=== PATIENT | male | born 1950 | race Caucasian/White ===

== ENCOUNTER 2022-02-02 08:43 | Outpatient (CLI) | payer BC, SELFPAY ==
--- OUTSIDE RECORDS SUMMARY | 2022-02-02 08:44 | XMS_ITS ---
:1950 Author Care Team Providers Name Role Phone MARICRUZ MCKEON MD Referring Provider [phone] MARICRUZ MCKEON MD Primary Care Provider [phone] Allergies Code Code System Name Reaction Severity Status Onset NKDA ? Medications Name Status Start Date Stop Date ? ? aspirin Active ? Not available 81mg 1/day duloxetine 30 mg capsule,delayed release Active ? Not available 30mg 1/day gabapentin Active ? Not available 800mg 3/day glipizide 2.5 mg-metformin 250 mg tablet Active ? Not available 5mg 1/day hydrochlorothiazide 25 mg tablet Active ? Not available 25mg 1/day lisinopril Active ? Not available 40mg 1/day metformin Active ? Not available 1000mg oxycodone-acetaminophen 10 mg-325 mg tablet Active ? Not available 5mg/325mg rosuvastatin 5 mg sprinkle capsule Active ? Not available 5mg 1/day Trimix 30 papaverine/1 phentolamine/10 PGE-1 Active ? Not available 30 papaverine/1 phentolamine/10 PGE-1 inject intracavernosal as directed PRN for sexual activity warfarin Active ? Not available 13mg every day except Sunday is 15mg 1/day Problems None recorded. Procedures Date Name Performed by ? 09/23/2018 Ct Colonography Screening Information no t available Notes: Computed tomography (CT) colono graphy 09/23/2018 Diagnostic Colonoscopy Information not a vailable Notes: Colonoscopy ? Excise Epiphyseal Bar Information not av ailable Notes: Bone Repair Surgery Results Lab Results None recorded. Past Encounters 01/02/2022 Primary Erectile Dysfunction Karthikeyan Coombs, PAC: [address] [facility], [facility] [address], [place] [address], Ph. Social History Tobacco Smoking Status Former Smoker Vaccine List Vaccine Type COVID-19 (SARS-COV-2) vaccine, unspecifi ed 12/13/2021 influenza, unspecified formulation 03/25/2021 Plan of Care Reminders Provider Appointments None recorded. ? ? Lab None recorded. ? ? Referral None recorded. ? ? Procedures None recorded. ? ? Surgeries None recorded. ? ? Imaging None recorded. ? ? Vitals Height Weight BMI 6 ft 262 lbs 35.5 kg/m2
--- OUTSIDE RECORDS SUMMARY | 2022-02-02 08:44 | XMS_ITS | Encounter Summary ---
:1950 Author Care Team Providers Name Role Phone Cameron Aldridge MD Primary Care Provider [phone] Cameron Aldridge MD Referring Provider [phone] Reason for Visit Erectile Dysfunction Assessment and Plan 1. Primary erectile dysfunction ? Trimix 30 papaverine/1 phentolamine/1 0 PGE-1 Discussion Note 71 y/o male presents for an evaluation of ED. Educated on etiology of ED (hormonal, ne rve function, blood supply, psychological, medications). Discussed diagnostics such as penile US and testosterone labs. Educated on treatment options such as PDE- 5 inhibitors, penile injections, muse (u rethral suppository), vacuum erection device (MARYURI), and penile implant (IPP). Patient interested in trial of penile self injections. Displayed good injection technique. Inst ructed to trial 0.2 cc at home with higher concentration. Titrate up or down as tolerated and needed for desired response. Provided hand out on penile injections. Discussed risks of priapism and scar ti ssue development. Patient to call with questions or concer ns. Patient educational handouts: No information available. Plan of Care Reminders Provider Appointments Established 15 06/05/2022 9:30AM Karthikeyan treviño, PAC Lab None recorded. ? ? Referral None recorded. ? ? Procedures None recorded. ? ? Surgeries None recorded. ? ? Imaging None recorded. ? ? Medications Name Start Date ? ? aspirin ? 81mg 1/day duloxetine 30 mg capsule,delayed release ? 30mg 1/day gabapentin ? 800mg 3/day glipizide 2.5 mg-metformin 250 mg tablet ? 5mg 1/day hydrochlorothiazide 25 mg tablet ? 25mg 1/day lisinopril ? 40mg 1/day metformin ? 1000mg oxycodone-acetaminophen 10 mg-325 mg tablet ? 5mg/325mg rosuvastatin 5 mg sprinkle capsule ? 5mg 1/day Trimix 30 papaverine/1 phentolamine/10 PGE-1 ? 30 papaverine/1 phentolamine/10 PGE-1 inject intracavernosal as directed PRN for sexual act ivity warfarin ? 13mg every day except Sunday is 15mg 1/day Medications Administered None recorded. Vitals Height Weight BMI 6 ft 262 lbs 35.5 kg/m2 Results Lab Results None recorded. Allergies Code Code System Name Reaction Severity Onset NKDA ? ? ? Problems None recorded. Procedures Date Name Performed by ? 09/23/2018 Ct Colonography Screening Information no t available Notes: Computed tomography (CT) colono graphy 09/23/2018 Diagnostic Colonoscopy Information not a vailable Notes: Colonoscopy ? Excise Epiphyseal Bar Information not av ailable Notes: Bone Repair Surgery Vaccine List Vaccine Type COVID-19 (SARS-COV-2) vaccine, unspecifi ed 12/13/2021 influenza, unspecified formulation 03/25/2021 Social History Tobacco Smoking Status Former Smoker Has tobacco cessation counseling been provided? Y Preferred Language Maldivian How much tobacco do you chew? none What was the date of your most recent tobacco 01/02/2022 screening? Ethnicity Not / Do you or have you ever used e-cigarettes or Never used elec tronic cigarettes vape? Do you use any illicit or recreational drugs? N When did you quit smoking? 16+ Years Since Last Cigarette How many years have you smoked tobacco? 21 What is your relationship status? What is your level of alcohol consumption? Occasional Do you or have you ever used smokeless tobacco? Never used s mokeless tobacco On what date was tobacco cessation counseling 01/02/2022 provided? Are you sexually active? N What is your level of caffeine consumption? Moderate Do you or have you ever used any other forms of N tobacco or nicotine? Race Recreational Drug Use N Family History Relation Problem Onset Age of Age Notes Mother Family history of (No Information) N/A (No No george) diabetes mellitus Maternal Grandfather Family history of (No Information) N/A (No Notes) diabetes mellitus Father Family history of (No Information) N/A (No No george) cardiac disorder Paternal Grandfather Family history of (No Information) N/A (No Notes) cardiac disorder Functional Status Unknown. Past Encounters 01/02/2022 Primary Erectile Dysfunction Karthikeyan Coombs, PAC: [address] [facility], [place] [address], Ph. History of Present Illness ? Erectile Dysfunction Reported By: Patient Notes: <div>71 y/o male presents fo r an evaluation of erectile dysfunction. He reports difficulty with erec tions for the past 3 years. No preceding event he can associate to th e development of ED. Gradual decline in erectile function since init ial onset. Viagra and Cialis has been ineffective the past year. N o side effects with either medications. No other treatments attempted f or ED. Able to achieve an ehs 2 with inadequate maintenance. No p ain or curvature with erections. Good libido and energy for age. </div><d iv>
</div><div>+diabetes (last A1C: 6.9), HTN (controlled), and high c holesterol (controlled). Denies CAD. </div> Review of Systems ? Comprehensive General Adult ROS Reported By: Patient Constitutional: Constitutional: no fever, no chills Eyes: Eyes: no dry eyes, no vision change, no irritation Endocrine: Endocrine: no fatigue, no in creased thirst Cardiovascular: Cardiovascular: no chest she n, palpitations Integumentary: Skin: no rashes, no change i n skin color Respiratory: Respiratory: no wheezing, no cough, no shortness of breath Gastrointestinal: Gastrointestinal: no abdomin al pain, no nausea, no vomiting, no GERD, constipation; no fr equent diarrhea, Musculoskeletal: Musculoskeletal: no neck she n, no back pain Neurologic: Neurologic: no tremor, no di zziness, no numbness, no headaches Genitourinary: Genitourinary: no incontinen ce, no difficulty urinating; no testicular: pain, no testicu lar: lump, no penile: lesion, no dysuria, no change in urinar y stream, no hematuria ENMT: Ears: no ear pain. Mouth/Thr oat: no sore throat Allergic/Immunologic: Allergy/Immunologic: no itch ing, no hives Hematologic/Lymphatic: Hematologic/Lymphatic no swo llen glands, no excessive bleeding Psychiatric: Psych: no hallucinations, (n ormal) sleep disturbances: mismatch of sleep / wake yanet edule with lifestyle needs Physical Exam ? General Adult Exam Male Reported By: Patient Constitutional: General Appearance: healthy- appearing, well-developed, obese. Level of Distress: NAD. Ambulation : ambulating normally Psychiatric: Insight: good judgement. Men maggi Status: active and alert, normal mood, normal affect. Orienta tion: oriented to time, oriented to place, oriented to person. M alexa: recent memory normal, remote memory normal Lungs: Respiratory effort: no dyspn ea Male : Penis: no lesions, no discha rge, uncircumcised
[2022-02-02 14:04] LABS: Alanine Aminotransferase* 17 U/L (4-50); Cholesterol* 87 mg/dL (90-199); HDL Cholesterol* 31 mg/dL (>=40); LDL Cholesterol Calculated 36 mg/dL (<100); Triglycerides* 102 mg/dL (40-149)
== END 2022-02-02 08:44 | disposition home or self-care (01) ==
PROVIDERS: PCP Family Medicine; Visit Provider Family Medicine
DX: I73.9 Peripheral vascular disease, unspecified (principal)
CPT/HCPCS: 80061; 84460

== ENCOUNTER 2022-08-11 13:40 | Outpatient (CLI) | payer BC, SELFPAY ==
[2022-08-11 21:42] LABS: Albumin* 4.3 g/dL (3.3-5.0); Chloride* 102 mmol/L (96-114)
[2022-08-11 21:43] LABS: Potassium* 4.3 mmol/L (3.6-5.1); Sodium* 138 mmol/L (135-149)
[2022-08-11 21:45] LABS: Alkaline Phosphatase* 59 U/L (40-150); Aspartate Amino Transferase* 28 U/L (12-35); Bilirubin Total* 0.7 mg/dL (0.1-1.5); Blood Urea Nitrogen* 17 mg/dL (7-30); Carbon Dioxide* 28 mmol/L (20-32); Creatinine* 0.9 mg/dL (0.5-1.5); Estimated Glomerular Filt Rate 91 ml/min; Total Protein* 7.1 g/dL (6.0-8.3)
[2022-08-11 21:46] LABS: Alanine Aminotransferase* 18 U/L (4-50); Calcium* 9.4 mg/dL (8.4-10.6); Glucose* 128 mg/dL (60-115)
[2022-08-11 22:16] LABS: PSA Screen* 0.96 ng/mL (0.10-4.00)
[2022-08-11 22:26] LABS: Creatinine Urine 73.5 mg/dL
[2022-08-11 22:30] LABS: Microalbumin Creatinine Ratio 10 mg/g (0-30); Microalbumin Urine 1 mg/dL
== END 2022-08-11 13:41 | disposition home or self-care (01) ==
PROVIDERS: PCP Family Medicine; Visit Provider Family Medicine
DX: Z00.00 Encounter for general adult medical examination without abnormal findings (principal); E11.9 Type 2 diabetes mellitus without complications; I48.91 Unspecified atrial fibrillation; E66.9 Obesity, unspecified; I10 Essential (primary) hypertension; Z79.01 Long term (current) use of anticoagulants; Z12.5 Encounter for screening for malignant neoplasm of prostate
CPT/HCPCS: 80053; 82043; 82570; 84153

== ENCOUNTER 2022-08-25 09:48 | Outpatient (CLI) | payer BC, SELFPAY ==
--- OUTSIDE RECORDS SUMMARY | 2022-09-02 06:59 | XMS_ITS | Continuity of Care Document ---
:1950 Author Organization [facility] Address [address] [place] [address] Phone Care Team Providers Name Role Phone Will Manjinder SUTHERLAND Unavailable Unavailable Allergies, Adverse Reactions, Alerts Substance Reaction Status Criticality No Known Allergies Active No Informatio n Medications Medication Instructions Dosage Effective Dates Status Comment s (start - stop) gabapentin 800 mg tablet take 1 tablet by 800 MG - Activ e oral route 3 times every day metformin 1,000 mg tablet take 1 tablet by 1000 MG - Acti ve oral route 2 times every day with morning and evening meals lisinopril 40 mg tablet take 1 tablet by 40 MG - Active oral route every day warfarin 7.5 mg tablet take 2 tablets by - Active oral route 1 times every day glipizide 10 mg tablet take 1 tablet by 10 MG - Active oral route every day before a meal hydrochlorothiazide 25 mg take 1 tablet by 25 MG - Acti ve tablet oral route every day Percocet 5 mg-325 mg take 1 - 2 tablet 1-2 tablet - Active tablet by ORAL route every 4 hours as needed, max 6/day Procedures Procedure Date OFFICE/OUTPATIENT VISIT, EST Drug test def 22+ classes Drug Urine Toxology With Chromatography OFFICE CONSULTATION Advance Directives Directive Yes / No Effective Date File Name No Information Encounters Encounter Practice Location Reason(s) Diagnoses Date Provider Provide rs Description For Visit Copied on Encounter [facility] No Information [facility] Manjinder. Pain [place] [address] [facility], [place], [address] [facility] [place], [place], [place], [place], [id number] [place], , [place]. [id number] tel: , [place] [phone] tel: [phone] OFFICE/OUTPAT [facility] Widespread Postlaminectomy Aug-0 Darío mariemindi Referring IENT VISIT, [facility] pain (chief syndrome, not Stepan . Provider: EST Pain [place] complaint) elsewhere 9 [address] [facility], [address] [facility] [address] migraine w/o [address] [place] [address] [place], aura, [address], [address] [place], intractable, [address] [place] [address] , [place], status e, [place], [place], [id number] migrainosusOther [id number] [place], [address]. , [place] intervertebral , [place]. tel: 24 tel: disc tel: [phone] degeneration, [id number] lumbar regionLong term (current) use of opiate analgesicOther cervical disc degeneration, unsp cervical region OFFICE [facility] Widespread Postlaminectomy Christal richard CONSULTATION [facility] pain (chief syndrome, not Travi s. Provider: Pain [place] complaint) elsewhere 9 [address] [facility], [address] [facility] , [address] migraine w/o [place], aura, [place], [place], [address] [place], intractable, [address] [id number] , [place], status , [place]. [place], [id number] migrainosusOther tel: [place], [address]. , [place] cervical disc [id number] tel: 24 tel: degeneration, [phone] [id number] unsp cervical regionOther intervertebral disc degeneration, lumbar regionLong term (current) use of opiate analgesicEncount er for therapeutic drug level monitoringSpinal stenosis, lumbar region with neurogenic claudication [facility] Widespread No Information [facility] pain (chief 2 Manjinder. Pain [place] complaint) 9 [address] [facility], [place], [address] [place], [place], [place], [place], [id number] [place], , [place]. [id number] tel: , [place] [id number] tel: [phone] Family History Family Member Type Diagnosis Age At Onset No Information Payers Payer name Insurance type Covered alliance party ID Authorization(s ) [facility] [id number] Social History Type Description Quantity Date Captured Comments Sex Male Smoking Status No Information Chief Complaint And Reason For Visit No Information Reason For Referral Reason For Referral No Information Plan Of Treatment Date Type Action Status Future Order: Lab Order COMPLIANCE DRUG ANALYSIS , URINE, WITH MED Ordered REPORT ([id number]), Ordered on: History Of Present Illness Encounter Date Complaint History Of Present I llness Widespread pain (comments) Adilson is here today for a followup after initial consult rega rding his widespread pain. After discussi on with friends, family, and PCP pt solis lau to express interest in medical cannabis. Requests detailed information regarding product types, CBD versus TH C, and process of certification. Addkandy ionally reports he has lumber KHURRAM scheduled next week at [facility] and inquires about this today.Patient is accompanied today by his , who participates in todamian mayes's visit, and has no further questions or other concerns. Widespread pain Severity level is 7. Duration: chronic. Location of the pain is lower back, upper back, neck, bilatera l shoulder, bilateral wrist, head, bilater al arms and bilateral LE. The patient desc ribes it as sharp, achy, burning and ti ngling. It occurs persistently. The pr oblem is worsening. Symptom is aggravate d by bending, lifting, prolonged positionin g, stairs and walking. Relieving factors in clude sitting, stretching, rest, he at and Rx Meds. Pertinent negatives include diarrhea, fatigue, fever and i ncontinence (urinary). Widespread pain (comments) Adilson is here for initial consult for pain management, referred by PCP Cameron Duong MD at [facility]. His pain began gradually over 20 years ago and has progressively wo rsened over time. C/o constant headaches, in addition to neck and back pain. Has muscl e spasms in BL LE, groin, and ribcage. Primary complaint is his low back, with n julita pain being secondary. His low b ack pain radiates down B/L posterior thighs into calfs. States his pain has particularl y worsened over the last year. Reports p revious cervical diskectomy in 2000, however states he is no longer recommended a s a surgical candidate. Underwent PT at [facility] in 2012-- not helpful. Regularly attends iropractor for neck pain--helpful. Tried both lumbar and cervical ESIs at [facility] , noting the lumbar ESIs did not provide much relief. Still completes CESIs regu larly which is helpful for his neck pain. R eports last EMILY was 05/30/2018. Addition caitlin reports previous MRI at [facility]. Currentl y managed on gabapentin 800mg TID and oxycod one 5-325mg average #1/day. Takes Ibupro fen for additional relief. States the o xycodone provides good relief when he takes it, especially at night to aid with sl eep. Adilson is interested in any tr eatment option and would like TCP to a ssume management of pain care. Widespread pain Severity level is 8. Duration: chronic. Location of the pain is widespread. The patient describes it as sharp, achy and burning. It occurs p ersistently. Symptom is aggravated by walkin g upstairs, walking downstairs, walking and lifting. Relieving factors include chir opractic, medications, rest and massage. Pe rtinent negatives include diarrhea, dy spnea, fever and incontinence (urinar y). Widespread pain Duration: chronic. Widespread pain (comments) Adilson is here for initial consult for pain management, referred by PCP Cameron Duong MD at [facility]. His pain began gradually over 20 years ago and has progressively wo rsened over time. C/o constant headaches, in addition to neck and back pain. Has muscl e spasms in BL LE, groin, and ribcage. Reports previous cervical diskectomy in 2000, however states he is no longer evelio mmended as a surgical candidate. Underwent PT at [facility] in 2012-- not helpful. Tried E SIs at [facility]. Reports previous MRI at [facility]. Has taken gabapentin 800mg TID and oxycod one for additional pain relief. Adilson is int erested in any treatment option and would like TCP to assume management of pain care. Functional Status Date Functional Assessment No Information Instructions Date Instruction Additional Informati on No Information Assessments Type Assessment Date No Information Patient Care Teams Name Effective Dates (start - stop) Status M embmichaela No Information
== END 2022-08-25 09:49 | disposition home or self-care (01) ==
LOC: NFLDREF 09-02 06:57
PROVIDERS: PCP Family Medicine; Referring Provider Family Medicine; Visit Provider Family Medicine
DX: Z79.01 Long term (current) use of anticoagulants (principal); M54.9 Dorsalgia, unspecified; E11.9 Type 2 diabetes mellitus without complications; I10 Essential (primary) hypertension; G89.29 Other chronic pain
CPT/HCPCS: 85610

== ENCOUNTER 2023-01-01 07:52 | Outpatient (CLI) | payer BC, SELFPAY | END 2023-01-01 07:53 | disposition home or self-care (01) | LOC: WOUND 07:52 | PROVIDERS: PCP Family Medicine; Visit Provider Nurse Practitioner Family | DX: E11.621 Type 2 diabetes mellitus with foot ulcer (principal); L97.516 Non-pressure chronic ulcer of other part of right foot with bone involvement without evidence of necrosis; T24.231A Burn of second degree of right lower leg, initial encounter; T31.11 Burns involving 10-19% of body surface with 10-19% third degree burns; Z79.84 Long term (current) use of oral hypoglycemic drugs | CPT/HCPCS: 11043; 16020; 93926; 99213 ==

== ENCOUNTER 2023-01-08 08:03 | Outpatient (CLI) | payer BC, SELFPAY | END 2023-01-08 08:04 | disposition home or self-care (01) | LOC: WOUND 08:03 | PROVIDERS: PCP Family Medicine; Visit Provider Nurse Practitioner Family | DX: E11.621 Type 2 diabetes mellitus with foot ulcer (principal); L97.516 Non-pressure chronic ulcer of other part of right foot with bone involvement without evidence of necrosis; T24.331A Burn of third degree of right lower leg, initial encounter; T31.10 Burns involving 10-19% of body surface with 0% to 9% third degree burns; Z79.84 Long term (current) use of oral hypoglycemic drugs | CPT/HCPCS: 11042; 16020 ==

== ENCOUNTER 2023-01-11 08:07 | Outpatient (CLI) | payer BC, SELFPAY ==
--- OUTSIDE RECORDS SUMMARY | 2023-01-11 08:09 | XMS_ITS | Continuity of Care Document ---
Author Name Unknown Organization [facility] Address [address] [place] [address] Phone Care Team Providers Care Hand Fur Cleaner Name Role Phone Jaime Stahl MD Unavailable Unavailable Allergies, Adverse Reactions, Alerts Substance Reaction Status Criticality No Known Allergies Active No Inform ation Medications Medication Instructions Dosage Effective Dates (start - stop) Status Comments OXYCODONE-ACETAMINOPHE N (unknown strength) Not Available - Active QBRELIS (unknown strength) Not Available - Active WARFARIN SODIUM (unknown strength) Not Available - Active SILDENAFIL CITRATE (unknown strength) Not Available - Active VITAMIN D3 (unknown strength) Not Available - Active RIOMET (unknown strength) Not Available - Active DURLAZA (unknown strength) Not Available - Active Procedures Procedure Date Office/Outpatient Visit,[facility] 2016 Advance Directives Directive Yes / No Effective Date File Name No Information Encounters Encounter Description Practice Location Reason(s) For Visit Diagnoses Date Provider Providers Copied on Encounter [facility], [address], [place], [id number], [place] tel:[phone] [facility] No Information Maribeth Sandoval. [facility], [facility] [address] [place] [address], [address], [place], [id number], [place]. tel:[phone] Office/Outpat ient Visit,[facility], [address], [place], [id number], [place] tel:[phone] [facility] [place] Spinal stenosis, lumbar regionSpondyl olisthesis, lumbar region Maribeth Sandoval. [facility] [place], [address], [address], [place], [place], [id number], . tel:[phone] Referring Provider: Jaime Sheehan, [facility] [place] [address], [address], [place], [address] . tel:[phone] Family History Family Member Type Diagnosis Age At Onset No Information Payers Payer name Insurance type Covered democrat ID Authorgee granger(s) [facility] [id number] [facility] [id number] Social History Type Description Quantity Date Captured Comments Alcohol Use Details Unknown Caffeine Use Details Unknown Tobacco Use Status No Information Smoking Status No Information Sex Male Chief Complaint And Reason For Visit No Information Reason For Referral Reason For Referral No Information History Of Present Illness Encounter Date Complaint History Of Prese nt Illness No Information Functional Status Date Functional Assessmen t No Information Instructions Date Instruction Additional Infor mation Weight Management Education Rela nelly to Overweight Weight management: I nstructed to return to General Practitioner timeframe: 1 Month. Related to Overweight Assessments Type Assessment Date No Information Patient Care Teams Name Effective Dates (start - stop) Status Members No Information
--- NOTE | 2023-01-11 08:15 | CRLHL7_ITS ---
For Patients: As a result of the Cures Act, medical imaging exams and procedure reports are released immediately into your electronic medical record. You may view this report before your referring provider. If you have questions, please contact your health care provider. HISTORY: Nonhealing wound of the great toe. TECHNIQUE: Noncontrast MRI right foot. COMPARISON: 08/11/2022. FINDINGS: There is a soft tissue wound along the medial aspect of the great toe, adjacent to the great toe interphalangeal joint space. There is an area of bone erosion involving the medial aspect of the head of the proximal phalanx of the great toe with associated bone marrow edema and duskiness of the fatty marrow within the distal aspect of that bone. There is also bone marrow edema involving the base of the distal phalanx of the great toe with an area of focal fatty marrow infiltration along its medial base. Given the proximity to the ulcer, these findings likely indicate the presence of limited areas of osteomyelitis. A small amount of great toe interphalangeal joint fluid is present which may indicate the presence of septic arthritis. There is no osteomyelitis of the 1st metatarsal head. Quantity of 1st MTP joint fluid within normal limits. A bipartite lateral sesamoid bone is present with limited degenerative bone marrow edema. Minor bone marrow edema within the medial sesamoid bone. There is no acute fracture. There is moderate atrophy of the interosseous foot musculature. Soft tissue edema is present. IMPRESSION: 1. Ulcer along the medial aspect of the great toe with suspected limited osteomyelitis of the head of the proximal phalanx and medial base of the distal phalanx. 2. The small amount of fluid within the great toe interphalangeal joint space may indicate the presence of septic arthritis given the proximity to the ulcer. Dictated by Juan Dunn MD @ 01/11/2023 10:56:17 AM (Electronically Signed)
== END 2023-01-11 08:08 | disposition home or self-care (01) ==
LOC: MRI 08:08
PROVIDERS: PCP Family Medicine; Visit Provider Nurse Practitioner Family
DX: E11.621 Type 2 diabetes mellitus with foot ulcer (principal); L97.516 Non-pressure chronic ulcer of other part of right foot with bone involvement without evidence of necrosis
CPT/HCPCS: 73718

== ENCOUNTER 2023-01-15 08:05 | Outpatient (CLI) | payer BC, SELFPAY ==
--- OUTSIDE RECORDS SUMMARY | 2023-01-15 08:07 | XMS_ITS | Continuity of Care Document ---
Author Name Unknown Organization [facility] Address [address] [place] [address] Phone Care Team Providers Care Sole Edge Inker Machine Name Role Phone Jaime Stahl MD Unavailable [...] Available - Active Procedures Procedure Date Office/Outpatient Visit,[facility] 2016 Advance Directives Directive Yes / No Effective Date File Name No Information Encounters Encounter Description Practice Location Reason(s) For Visit Diagnoses Date Provider Providers Copied on Encounter [facility], [address], [place], [id number], [place] tel:[phone] [facility] No Information Maribeth Sandoval. [facility], [facility] [address] [place] [address], [address], [place], [id number], [place]. tel:[phone] Office/Outpat ient Visit,[facility], [address], [place], [id number], [place] tel:[phone] [facility] [place] [facility] Spinal stenosis, lumbar regionSpondyl olisthesis, lumbar region Maribeth Sandoval. [facility], [address], [address], [place], [place], [id number], . tel:[phone] Referring Provider: Jaime Sheehan, [facility] [address], [address], [place], [address] . tel:[phone] Family History Family Member Type Diagnosis Age At Onset No Information Payers Payer name Insurance type Covered democrat ID Authorgee granger(s) [facility] [id number] [facility] [id number] Social History Type Description Quantity Date Captured [...]
--- OUTSIDE RECORDS SUMMARY | 2023-01-15 08:08 | XMS_ITS | Continuity of Care Document ---
Author Name Unknown Organization [facility] Address [address] [place] [address] Phone Care Team Providers Care Transcribing Operator Head Name Role Phone Will Manjinder SUTHERLAND Unavailable Unavailabl e Allergies, Adverse Reactions, Alerts Substance Reaction Status Criticality No Known Allergies Active No Inform ation Medications Medication Instructions Dosage Effective Dates (start - stop) Status Comments gabapentin 800 mg tablet take 1 tablet b y oral route 3 times every day 800 MG - Active metformin 1,000 mg tablet take 1 tablet by oral route 2 times every day with morning and evening meals 1000 MG - Active lisinopril 40 mg tablet take 1 tablet by oral route every day 40 MG - Active warfarin 7.5 mg tablet take 2 tablets by oral route 1 times every day - Active glipizide 10 mg tablet take 1 tablet by oral route every day before a meal 10 MG - Active hydrochlorothiazide 25 mg tablet take 1 tablet by oral route every day 25 MG - Active Percocet 5 mg-325 mg tablet take 1 - 2 tablet by ORAL route every 4 hours as needed, max 6/day 1-2 tablet - Active Procedures Procedure Date OFFICE/OUTPATIENT VISIT, EST Drug test def 22+ classes Drug Urine Toxology With Chromatography OFFICE CONSULTATION Advance Directives Directive Yes / No Effective Date File Name No Information Encounters Encounter Description Practice Location Reason(s) For Visit Diagnoses Date Provider Providers Copied on Encounter [facility], [address] [place] [address] [place], [place], [id number] , [place] tel:[phone] [facility] No Information 2 Will Manjinder. [address] [facility] [place], [place], [id number] , [place]. tel: [phone] OFFICE/OUTPAT IENT VISIT, EST [facility], [address] [place] [address], [id number] , [place] tel: [phone] [facility] Widespread pain (chief complaint) Postlaminectomy syndrome, not elsewhere classifiedChroni c migraine w/o aura, intractable, w status migrainosusOther intervertebral disc degeneration, lumbar regionLong term (current) use of opiate analgesicOther cervical disc degeneration, unsp cervical region Mar-0 9 Liz Ying. [address] [place] [address] [address], [place], [place], [id number] , [place]. tel: [phone] Referring Provider: Cameron Aldridge [facility] [address], [place], [address]. tel:[phone] OFFICE CONSULTATION [facility], [address] [place] [address], [id number] , [place] tel: [phone] [facility] Widespread pain (chief complaint) Postlaminectomy syndrome, not elsewhere classifiedChroni c migraine w/o aura, intractable, w status migrainosusOther cervical disc degeneration, unsp cervical regionOther intervertebral disc degeneration, lumbar regionLong term (current) use of opiate analgesicEncount er for therapeutic drug level monitoringSpinal stenosis, lumbar region with neurogenic claudication 9 [facility]. [facility], [address], [place], [address], [place]. tel: [phone] Referring Provider: [facility] [address], [place], [address]. tel:[phone] [facility], [address] [place] [address], [id number] , [place] tel: [phone] [facility] Widespread pain (chief complaint) No Information 9 Joesph Philippew. [address] [facility] [place], [place], [id number] , [place]. tel: [phone] Family History Family Member Type Diagnosis Age At Onset No Information Payers Payer name Insurance type Covered libertarian ID Rose granger(s) [facility] [id number] Social History Type Description Quantity Date Captured Comments Sex Male Smoking Status No Information Chief Complaint And Reason For Visit No Information Reason For Referral Reason For Referral No Information Plan Of Treatment Date Type Action Status Future Order: Lab Order ELICEO PIERSON DRUG ANALYSIS, URINE, WITH MED REPORT ([id number]), Ordered on: Ordered History Of Present Illness Encounter Date Complaint History Of Prese nt Illness Widespread pain Severity level i s 7. Duration: chronic. Location of the pain is lower back, upper back, neck, bilateral shoulder, bilateral wrist, head, bilateral arms and bilateral LE. The patient describes it as sharp, achy, burning and tingling. It occurs persistently. The problem is worsening. Symptom is aggravated by bending, lifting, prolonged positioning, stairs and walking. Relieving factors include sitting, stretching, rest, heat and Rx Meds. Pertinent negatives include diarrhea, fatigue, fever and incontinence (urinary). Widespread pain (comments) Adilson is here today for a followup after initial consult regarding his widespread pain. After discussion with friends, family, and PCP pt continues to express interest in medical cannabis. Requests detailed information regarding product types, CBD versus THC, and process of certification. Additionally reports he has lumber KHURRAM scheduled next week at [facility] and inquires about this today.Patient is accompanied today by his , who participates in today's visit, and has no further questions or other concerns. Widespread pain Severity level i s 8. Duration: chronic. Location of the pain is widespread. The patient describes it as sharp, achy and burning. It occurs persistently. Symptom is aggravated by walking upstairs, walking downstairs, walking and lifting. Relieving factors include chiropractic, medications, rest and massage. Pertinent negatives include diarrhea, dyspnea, fever and incontinence (urinary). Widespread pain (comments) Adilson is here for initial consult for pain management, referred by PCP Cameron Duong MD at [facility]. His pain began gradually over 20 years ago and has progressively worsened over time. C/o constant headaches, in addition to neck and back pain. Has muscle spasms in BL LE, groin, and ribcage. Primary complaint is his low back, with neck pain being secondary. His low back pain radiates down B/L posterior thighs into calfs. States his pain has particularly worsened over the last year. Reports previous cervical diskectomy in 2000, however states he is no longer recommended as a surgical candidate. Underwent PT at [facility] in 2012-- not helpful. Regularly attends chiropractor for neck pain--helpful. Tried both lumbar and cervical ESIs at [facility], noting the lumbar ESIs did not provide much relief. Still completes CESIs regularly which is helpful for his neck pain. Reports last EMILY was 05/30/2018. Additionally reports previous MRI at [facility]. Currently managed on gabapentin 800mg TID and oxycodone 5-325mg average #1/day. Takes Ibuprofen for additional relief. States the oxycodone provides good relief when he takes it, especially at night to aid with sleep. Adilson is interested in any treatment option and would like [facility] to assume management of pain care. Widespread pain (comments) Adilson is here for initial consult for pain management, referred by PCP Cameron Duong MD at [facility]. His pain began gradually over 20 years ago and has progressively worsened over time. C/o constant headaches, in addition to neck and back pain. Has muscle spasms in BL LE, groin, and ribcage. Reports previous cervical diskectomy in 2000, however states he is no longer recommended as a surgical candidate. Underwent PT at [facility] in 2012-- not helpful. Tried ESIs at [facility]. Reports previous MRI at [facility]. Has taken gabapentin 800mg TID and oxycodone for additional pain relief. Adilson is interested in any treatment option and would like [facility] to assume management of pain care. Widespread pain Duration: chroni c. Functional Status Date Functional Assessmen t No Information Instructions Date Instruction Additional Infor mation No Information Assessments Type Assessment Date No Information Patient Care Teams Name Effective Dates (start - stop) Status Members No Information
== END 2023-01-15 08:06 | disposition home or self-care (01) ==
LOC: WOUND 08:05
PROVIDERS: PCP Family Medicine; Visit Provider Nurse Practitioner Family
DX: E11.621 Type 2 diabetes mellitus with foot ulcer (principal); L97.516 Non-pressure chronic ulcer of other part of right foot with bone involvement without evidence of necrosis; T24.331A Burn of third degree of right lower leg, initial encounter; T31.10 Burns involving 10-19% of body surface with 0% to 9% third degree burns; I73.9 Peripheral vascular disease, unspecified; Z79.84 Long term (current) use of oral hypoglycemic drugs
CPT/HCPCS: 11042; 16020; 87070; 87077; 87185; 87186

== ENCOUNTER 2023-01-22 08:06 | Outpatient (CLI) | payer BC, SELFPAY ==
--- OUTSIDE RECORDS SUMMARY | 2023-01-22 08:08 | XMS_ITS | Continuity of Care Document ---
Author Name Unknown Organization [facility] Address [address] [place] [address] Phone Care Team Providers Care Alarm Technician Name Role Phone Jaime Stahl MD Unavailable [...] Available - Active Procedures Procedure Date Office/Outpatient Visit,[facility] 2016 Advance Directives Directive Yes / No Effective Date File Name No Information Encounters Encounter Description Practice Location Reason(s) For Visit Diagnoses Date Provider Providers Copied on Encounter [facility], [address], [place], [id number], [place] tel:[phone] [facility] No Information Maribeth Sandoval. [facility], [facility] [address] [place] [address], [address], [place], [id number], [place]. tel:[phone] Office/Outpat ient Visit,[facility], [address], [place], [id number], [place] tel:[phone] [facility] Spinal stenosis, lumbar regionSpondyl olisthesis, lumbar region Maribeth Sandoval. [facility], [address], [address], [place], [place], [id number], . tel:[phone] Referring Provider: Jaime Sheehan, [facility] [address], [address], [place], [address] . tel:[phone] Family History Family Member Type Diagnosis Age At Onset No Information Payers Payer name Insurance type Covered green party ID Authorgee granger(s) [facility] [id number] [facility] [id number] Social History Type Description Quantity Date Captured [...]
--- OUTSIDE RECORDS SUMMARY | 2023-01-22 08:08 | XMS_ITS | Continuity of Care Document ---
Author Name Unknown Organization [facility] Address [address] [place] [address] Phone Care Team Providers Care Clay Grinder Name Role Phone Will Manjinder SUTHERLAND Unavailable [...] Diagnoses Date Provider Providers Copied on Encounter [facility], [address] [place] [address] [place], [place], [id number] , [place] tel:[phone] [facility] No Information 2 Will Manjinder. [address] [facility] [place], [place], [id number] , [place]. tel: [phone] OFFICE/OUTPAT IENT VISIT, EST [facility], [address] [place] [address], [id number] , [place] tel: [phone] [facility] Widespread pain (chief complaint) Postlaminectomy syndrome, not elsewhere classifiedChroni c migraine w/o aura, intractable, w status migrainosusOther intervertebral disc degeneration, lumbar regionLong term (current) use of opiate analgesicOther cervical disc degeneration, unsp cervical region Mar-0 9 Liz Ying. [address] [place] [address] [address], [place], [place], [id number] , [place]. tel: [phone] Referring Provider: Cameron Aldridge [facility] [address], [place], [address]. tel:[phone] OFFICE CONSULTATION [facility], [address] [place] [address], [id number] , [place] tel: [phone] [facility] Widespread pain (chief complaint) Postlaminectomy syndrome, not elsewhere classifiedChroni c migraine w/o aura, intractable, w status migrainosusOther cervical disc degeneration, unsp cervical regionOther intervertebral disc degeneration, lumbar regionLong term (current) use of opiate analgesicEncount er for therapeutic drug level monitoringSpinal stenosis, lumbar region with neurogenic claudication 9 [facility]. [facility], [address], [place], [address], [place]. tel: [phone] Referring Provider: [facility] [address], [place], [address]. tel:[phone] [facility], [address] [place] [address], [id number] , [place] tel: [phone] [facility] Widespread pain (chief complaint) No Information 9 Joesph Philippew. [address] [facility] [place], [place], [id number] , [place]. tel: [phone] Family History Family Member Type Diagnosis Age At Onset No Information Payers Payer name Insurance type Covered republican ID Rose granger(s) [facility] [id number] Social History Type Description Quantity Date Captured Comments Sex Male Smoking Status No Information Chief Complaint And Reason For Visit No Information Reason For Referral Reason For Referral No Information Plan Of Treatment Date Type Action Status Future Order: Lab Order ELICEO PIERSON DRUG ANALYSIS, URINE, WITH MED REPORT ([id number]), Ordered on: Ordered History Of Present Illness [...] has lumber KHURRAM scheduled next week at [facility] and inquires about this today.Patient is [...] referred by PCP Cameron Duong MD at [facility]. His pain began gradually over [...] as a surgical candidate. Underwent PT at [facility] in 2012-- not helpful. Regularly attends chiropractor for neck pain--helpful. Tried both lumbar and cervical ESIs at [facility], noting the lumbar ESIs did not provide much relief. Still completes CESIs regularly which is helpful for his neck pain. Reports last EMILY was 05/30/2018. Additionally reports previous MRI at [facility]. Currently managed on gabapentin 800mg TID and oxycodone 5-325mg average #1/day. Takes Ibuprofen for additional relief. States the oxycodone provides good relief when he takes it, especially at night to aid with sleep. Adilson is interested in any treatment option and would like [facility] to assume management of pain care. Widespread pain (comments) Adilson is here for initial consult for pain management, referred by PCP Cameron Dunog MD at [facility]. His pain began gradually over 20 years ago and has progressively worsened over time. C/o constant headaches, in addition to neck and back pain. Has muscle spasms in BL LE, groin, and ribcage. Reports previous cervical diskectomy in 2000, however states he is no longer recommended as a surgical candidate. Underwent PT at [facility] in 2012-- not helpful. Tried ESIs at [facility]. Reports previous MRI at [facility]. Has taken gabapentin 800mg TID and oxycodone for additional pain relief. Adilson is interested in any treatment option and would like [facility] to assume management of pain care. Widespread pain Duration: chroni c. Functional Status Date Functional Assessmen t No Information Instructions Date Instruction Additional Infor mation No Information Assessments Type Assessment Date No Information Patient Care Teams Name Effective Dates (start - stop) Status Members No Information
== END 2023-01-22 08:07 | disposition home or self-care (01) ==
LOC: WOUND 08:06
PROVIDERS: PCP Family Medicine; Visit Provider Nurse Practitioner Family
DX: E11.621 Type 2 diabetes mellitus with foot ulcer (principal); L97.516 Non-pressure chronic ulcer of other part of right foot with bone involvement without evidence of necrosis; L08.9 Local infection of the skin and subcutaneous tissue, unspecified; B95.2 Enterococcus as the cause of diseases classified elsewhere; T24.331A Burn of third degree of right lower leg, initial encounter; T31.10 Burns involving 10-19% of body surface with 0% to 9% third degree burns; Z79.84 Long term (current) use of oral hypoglycemic drugs
CPT/HCPCS: 11042; 16020; 99212

== ENCOUNTER 2023-01-29 08:14 | Outpatient (CLI) | payer BC, SELFPAY | END 2023-01-29 08:15 | disposition home or self-care (01) | LOC: WOUND 08:14 | PROVIDERS: PCP Family Medicine; Visit Provider Nurse Practitioner Family | DX: E11.621 Type 2 diabetes mellitus with foot ulcer (principal); L97.516 Non-pressure chronic ulcer of other part of right foot with bone involvement without evidence of necrosis; T24.331A Burn of third degree of right lower leg, initial encounter; T31.10 Burns involving 10-19% of body surface with 0% to 9% third degree burns; S81.811A Laceration without foreign body, right lower leg, initial encounter; Z79.84 Long term (current) use of oral hypoglycemic drugs | CPT/HCPCS: 16020; 97597; 99212 ==

== ENCOUNTER 2023-02-13 08:03 | Outpatient (CLI) | payer BC, SELFPAY | END 2023-02-13 08:04 | disposition home or self-care (01) | LOC: WOUND 08:03 | PROVIDERS: PCP Family Medicine; Visit Provider Nurse Practitioner Family | DX: E11.621 Type 2 diabetes mellitus with foot ulcer (principal); L97.516 Non-pressure chronic ulcer of other part of right foot with bone involvement without evidence of necrosis; T24.331A Burn of third degree of right lower leg, initial encounter; T31.10 Burns involving 10-19% of body surface with 0% to 9% third degree burns; Z79.84 Long term (current) use of oral hypoglycemic drugs | CPT/HCPCS: 16020; 82962; 97597; G0277 ==

== ENCOUNTER 2023-02-20 11:05 | Outpatient (CLI) | payer BC, SELFPAY | END 2023-02-20 11:06 | disposition home or self-care (01) | LOC: WOUND 11:05 | PROVIDERS: PCP Family Medicine; Visit Provider Nurse Practitioner Family | DX: E11.621 Type 2 diabetes mellitus with foot ulcer (principal); L97.516 Non-pressure chronic ulcer of other part of right foot with bone involvement without evidence of necrosis; T24.331A Burn of third degree of right lower leg, initial encounter; T31.10 Burns involving 10-19% of body surface with 0% to 9% third degree burns; Z79.84 Long term (current) use of oral hypoglycemic drugs | CPT/HCPCS: 16020; 82962; 97597; G0277 ==

== ENCOUNTER 2023-02-22 08:00 | Outpatient (RCR) | payer BC, SELFPAY | END 2023-02-22 23:59 | disposition home or self-care (01) | LOC: WOUND 08:00 | PROVIDERS: PCP Family Medicine; Visit Provider Nurse Practitioner Family | DX: E11.621 Type 2 diabetes mellitus with foot ulcer (principal); L97.516 Non-pressure chronic ulcer of other part of right foot with bone involvement without evidence of necrosis; Z79.84 Long term (current) use of oral hypoglycemic drugs | CPT/HCPCS: 16020; 82962; 97597; G0277 ==

== ENCOUNTER 2023-03-06 07:55 | Outpatient (CLI) | payer BC, SELFPAY ==
--- OUTSIDE RECORDS SUMMARY | 2023-03-06 07:57 | XMS_ITS | Continuity of Care Document ---
Author Name Unknown Organization [facility] Address [address] [place] [address] Phone Care Team Providers Care Spiritual Advisor Name Role Phone Jaime Stahl MD Unavailable [...] Available - Active Procedures Procedure Date Office/Outpatient Visit,[facility] 2016 Advance Directives Directive Yes / No Effective Date File Name No Information Encounters Encounter Description Practice Location Reason(s) For Visit Diagnoses Date Provider Providers Copied on Encounter [facility], [address], [place], [id number], [place] tel:[phone] [facility] No Information Maribeth Sandoval. [facility], [facility] [address] [place] [address], [address], [place], [id number], [place]. tel:[phone] Office/Outpat ient Visit,[facility], [address], [place], [id number], [place] tel:[phone] [facility] Spinal stenosis, lumbar regionSpondyl olisthesis, lumbar region Maribeth Sandoval. [facility], [address], [address], [place], [place], [id number], . tel:[phone] Referring Provider: Jaime Sheehan, [facility] [address], [address], [place], [address] . tel:[phone] Family History Family Member Type Diagnosis Age At Onset No Information Payers Payer name Insurance type Covered constitution party ID Authorgee granger(s) [facility] [id number] [facility] [id number] Social History Type Description Quantity Date Captured [...]
--- OUTSIDE RECORDS SUMMARY | 2023-03-06 07:57 | XMS_ITS | Continuity of Care Document ---
Author Name Unknown Organization [facility] Address [address] [place] [address] Phone Care Team Providers Care Fisheries Manager Name Role Phone Will Manjinder SUTHERLAND Unavailable [...] Diagnoses Date Provider Providers Copied on Encounter [facility], [address] [place] [address] [place], [place], [id number] , [place] tel:[phone] [facility] No Information 2 Will Manjinder. [address] [facility] [place], [place], [id number] , [place]. tel: [phone] OFFICE/OUTPAT IENT VISIT, EST [facility], [address] [place] [address], [id number] , [place] tel: [phone] [facility] Widespread pain (chief complaint) Postlaminectomy syndrome, not elsewhere classifiedChroni c migraine w/o aura, intractable, w status migrainosusOther intervertebral disc degeneration, lumbar regionLong term (current) use of opiate analgesicOther cervical disc degeneration, unsp cervical region Mar-0 9 Liz Ying. [address] [place] [address] [address], [place], [place], [id number] , [place]. tel: [phone] Referring Provider: Cameron Aldridge [facility] [address], [place], [address]. tel:[phone] OFFICE CONSULTATION [facility], [address] [place] [address], [id number] , [place] tel: [phone] [facility] Widespread pain (chief complaint) Postlaminectomy syndrome, not elsewhere classifiedChroni c migraine w/o aura, intractable, w status migrainosusOther cervical disc degeneration, unsp cervical regionOther intervertebral disc degeneration, lumbar regionLong term (current) use of opiate analgesicEncount er for therapeutic drug level monitoringSpinal stenosis, lumbar region with neurogenic claudication 9 [facility]. [facility], [address], [place], [address], [place]. tel: [phone] Referring [facility]: [facility] [address], [place], [address]. tel:[phone] [facility], [address] [place] [address], [id number] , [place] tel: [phone] [facility] Widespread pain (chief complaint) No Information 9 Joesph Philippew. [address] [facility] [place], [place], [id number] , [place]. tel: [phone] Family History Family Member Type Diagnosis Age At Onset No Information Payers Payer name Insurance type Covered green party ID Rose granger(s) [facility] [id number] Social History Type Description Quantity Date Captured Comments Sex Male Smoking Status No Information Chief Complaint And Reason For Visit No Information Reason For Referral Reason For Referral No Information Plan Of Treatment Date Type Action Status Future Order: Lab Order ELICEO PIERSON DRUG ANALYSIS, URINE, WITH MED REPORT ([id number]), Ordered on: Ordered History Of Present Illness Encounter Date Complaint History Of Prese nt Illness Widespread pain (comments) Adilson is here today for a followup after initial consult regarding his widespread pain. After discussion with friends, family, and PCP pt continues to express interest in medical cannabis. Requests detailed information regarding product types, CBD versus THC, and process of certification. Additionally reports he has lumber KHURRAM scheduled next week at [facility] and inquires about this today.Patient is accompanied today by his , who participates in today's visit, and has no further questions or other concerns. Widespread pain Severity level i s 7. [...] referred by PCP Cameron Duong MD at [facility]. His pain began gradually [...] as a surgical candidate. Underwent PT at [facility] in 2012-- not helpful. Regularly attends chiropractor for neck pain--helpful. Tried both lumbar and cervical ESIs at [facility], noting the lumbar ESIs did not provide much relief. Still completes CESIs regularly which is helpful for his neck pain. Reports last EMILY was 05/30/2018. Additionally reports previous MRI at [facility]. Currently managed on gabapentin 800mg TID and oxycodone 5-325mg average #1/day. Takes Ibuprofen for additional relief. States the oxycodone provides good relief when he takes it, especially at night to aid with sleep. Adilson is interested in any treatment option and would like [facility] to assume management of pain care. Widespread pain Severity level i s 8. Duration: chronic. Location of the pain is widespread. The patient describes it as sharp, achy and burning. It occurs persistently. Symptom is aggravated by walking upstairs, walking downstairs, walking and lifting. Relieving factors include chiropractic, medications, rest and massage. Pertinent negatives include diarrhea, dyspnea, fever and incontinence (urinary). Widespread pain Duration: chroni c. Widespread pain (comments) Adilson is here for initial consult for pain management, referred by PCP Cameron Duong MD at [facility]. His pain began gradually over 20 years ago and has progressively worsened over time. C/o constant headaches, in addition to neck and back pain. Has muscle spasms in BL LE, groin, and ribcage. Reports previous cervical diskectomy in 2000, however states he is no longer recommended as a surgical candidate. Underwent PT at [facility] in 2012-- not helpful. Tried ESIs at [facility]. Reports previous MRI at [facility]. Has taken gabapentin 800mg TID and oxycodone for additional pain relief. Adilson is interested in any treatment option and would like [facility] to assume management of pain care. Functional Status Date Functional Assessmen t No Information Instructions Date Instruction Additional Infor mation No Information Assessments Type Assessment Date No Information Patient Care Teams Name Effective Dates (start - stop) Status Members No Information
== END 2023-03-06 07:56 | disposition home or self-care (01) ==
LOC: WOUND 07:55
PROVIDERS: PCP Family Medicine; Visit Provider Nurse Practitioner Family
DX: E11.621 Type 2 diabetes mellitus with foot ulcer (principal); L97.516 Non-pressure chronic ulcer of other part of right foot with bone involvement without evidence of necrosis; T24.331A Burn of third degree of right lower leg, initial encounter; T31.10 Burns involving 10-19% of body surface with 0% to 9% third degree burns; Z79.84 Long term (current) use of oral hypoglycemic drugs
CPT/HCPCS: 11042; 16020; 82962; G0277

== ENCOUNTER 2023-03-13 11:04 | Outpatient (CLI) | payer BC, SELFPAY | END 2023-03-13 11:05 | disposition home or self-care (01) | LOC: WOUND 11:04 | PROVIDERS: PCP Family Medicine; Visit Provider Nurse Practitioner Family | DX: E11.621 Type 2 diabetes mellitus with foot ulcer (principal); L97.516 Non-pressure chronic ulcer of other part of right foot with bone involvement without evidence of necrosis; T24.331A Burn of third degree of right lower leg, initial encounter; T31.10 Burns involving 10-19% of body surface with 0% to 9% third degree burns; Z79.84 Long term (current) use of oral hypoglycemic drugs | CPT/HCPCS: 11042; 82962; G0277 ==

== ENCOUNTER 2023-03-20 07:57 | Outpatient (CLI) | payer BC, SELFPAY ==
--- OUTSIDE RECORDS SUMMARY | 2023-03-20 07:59 | XMS_ITS | Continuity of Care Document ---
Author Name Unknown Organization [facility] Address [address] [place] [address] Phone Care Team Providers Care Audiology Doctor Name Role Phone Will Manjinder SUTHERLAND Unavailable [...] Diagnoses Date Provider Providers Copied on Encounter [facility], [address] [place] [address] [place], [place], [id number] , [place] tel:[phone] [facility] No Information 2 Will Manjinder. [address] [facility] [place], [place], [id number] , [place]. tel: [phone] OFFICE/OUTPAT IENT VISIT, EST [facility], [address] [place] [address], [id number] , [place] tel: [phone] [facility] Widespread pain (chief complaint) Postlaminectomy syndrome, not elsewhere classifiedChroni c migraine w/o aura, intractable, w status migrainosusOther intervertebral disc degeneration, lumbar regionLong term (current) use of opiate analgesicOther cervical disc degeneration, unsp cervical region Mar-0 9 Liz Ying. [address] [place] [address] [address], [place], [place], [id number] , [place]. tel: [phone] Referring Provider: Cameron Aldridge [facility] [address], [place], [address]. tel:[phone] OFFICE CONSULTATION [facility], [address] [place] [address], [id number] , [place] tel: [phone] [facility] Widespread pain (chief complaint) Postlaminectomy syndrome, not elsewhere classifiedChroni c migraine w/o aura, intractable, w status migrainosusOther cervical disc degeneration, unsp cervical regionOther intervertebral disc degeneration, lumbar regionLong term (current) use of opiate analgesicEncount er for therapeutic drug level monitoringSpinal stenosis, lumbar region with neurogenic claudication 9 [facility]. [facility], [address] [facility] [address], [place], [address], [place]. tel: [phone] Referring Provider: [facility] [address], [place], [address]. tel:[phone] [facility], [address] [place] [address], [id number] , [place] tel: [phone] [facility] Widespread pain (chief complaint) No Information 9 Joesph Philippew. [address] [facility] [place], [place], [id number] , [place]. tel: [phone] Family History Family Member Type Diagnosis Age At Onset No Information Payers Payer name Insurance type Covered alliance party ID Rose granger(s) [facility] [id number] Social History Type Description Quantity Date Captured Comments Sex Male Smoking Status No Information Chief Complaint And Reason For Visit No Information Reason For Referral Reason For Referral No Information Plan Of Treatment Date Type Action Status Future Order: Lab Order ELICEO PIERSON DRUG ANALYSIS, URINE, WITH MED REPORT ([id number]), Ordered on: Ordered History Of Present Illness [...] lumber KHURRAM scheduled next week at [facility] and inquires about this today.Patient [...] fatigue, fever and incontinence (urinary). Widespread pain Severity level i s 8. [...] referred by PCP Cameron Duong MD at [facility]. His pain began gradually over [...] as a surgical candidate. Underwent PT at [facility] in 2012-- not helpful. Regularly attends chiropractor for neck pain--helpful. Tried both lumbar and cervical ESIs at [facility], noting the lumbar ESIs did not provide much relief. Still completes CESIs regularly which is helpful for his neck pain. Reports last EMILY was 05/30/2018. Additionally reports previous MRI at [facility]. Currently managed on gabapentin 800mg TID and oxycodone 5-325mg average #1/day. Takes Ibuprofen for additional relief. States the oxycodone provides good relief when he takes it, especially at night to aid with sleep. Adilson is interested in any treatment option and would like [facility] to assume management of pain care. Widespread pain (comments) Adilson is here for initial consult for pain management, referred by PCP Cameron Duong MD at [facility]. His pain began gradually over 20 years ago and has progressively worsened over time. C/o constant headaches, in addition to neck and back pain. Has muscle spasms in BL LE, groin, and ribcage. Reports previous cervical diskectomy in 2000, however states he is no longer recommended as a surgical candidate. Underwent PT at [facility] in 2012-- not helpful. Tried ESIs at [facility]. Reports previous MRI at [facility]. Has taken gabapentin 800mg TID and oxycodone for additional pain relief. Adilson is interested in any treatment option and would like [facility] to assume management of pain care. Widespread pain Duration: chroni c. Functional Status Date Functional Assessmen t No Information Instructions Date Instruction Additional Infor mation No Information Assessments Type Assessment Date No Information Patient Care Teams Name Effective Dates (start - stop) Status Members No Information
--- OUTSIDE RECORDS SUMMARY | 2023-03-20 07:59 | XMS_ITS | Continuity of Care Document ---
Author Name Unknown Organization [facility] Address [address] [place] [address] Phone Care Team Providers Care Lining Stamper Name Role Phone Jaime Stahl MD Unavailable [...] Available - Active Procedures Procedure Date Office/Outpatient Visit,[facility] 2016 Advance Directives Directive Yes / No Effective Date File Name No Information Encounters Encounter Description Practice Location Reason(s) For Visit Diagnoses Date Provider Providers Copied on Encounter [facility], [address], [place], [id number], [place] tel:[phone] [facility] No Information Maribeth Sandoval. [facility], [facility] [address] [place] [address], [address], [place], [id number], [place]. tel:[phone] Office/Outpat ient Visit,[facility], [address], [place], [id number], [place] tel:[phone] [facility] Spinal stenosis, lumbar regionSpondyl olisthesis, lumbar region Maribeth Sandoval. [facility] [place], [address], [address], [place], [place], [id number], . tel:[phone] Referring Provider: Jaime Sheehan, [facility] [place] [address], [address], [place], [address] . tel:[phone] Family History Family Member Type Diagnosis Age At Onset No Information Payers Payer name Insurance type Covered democrat ID Authorgee granger(s) [facility] [id number] [facility] [id number] Social History Type Description Quantity Date Captured [...]
== END 2023-03-20 07:58 | disposition home or self-care (01) ==
LOC: WOUND 07:57
PROVIDERS: PCP Family Medicine; Visit Provider Nurse Practitioner Family
DX: E11.621 Type 2 diabetes mellitus with foot ulcer (principal); L97.516 Non-pressure chronic ulcer of other part of right foot with bone involvement without evidence of necrosis; I73.9 Peripheral vascular disease, unspecified; T24.331A Burn of third degree of right lower leg, initial encounter; T31.10 Burns involving 10-19% of body surface with 0% to 9% third degree burns; Z79.84 Long term (current) use of oral hypoglycemic drugs
CPT/HCPCS: 11042; 16020; 82962; G0277

== ENCOUNTER 2023-03-23 08:00 | Outpatient (RCR) | payer BC, SELFPAY | END 2023-03-24 23:59 | disposition home or self-care (01) | LOC: WOUND 08:00 | PROVIDERS: PCP Family Medicine; Visit Provider Nurse Practitioner Family | DX: E11.621 Type 2 diabetes mellitus with foot ulcer (principal); L97.516 Non-pressure chronic ulcer of other part of right foot with bone involvement without evidence of necrosis; T24.331A Burn of third degree of right lower leg, initial encounter; T31.10 Burns involving 10-19% of body surface with 0% to 9% third degree burns; Z79.84 Long term (current) use of oral hypoglycemic drugs | CPT/HCPCS: 11042; 82962; G0277 ==

== ENCOUNTER 2023-03-27 07:56 | Outpatient (CLI) | payer BC, SELFPAY ==
--- OUTSIDE RECORDS SUMMARY | 2023-03-27 07:58 | XMS_ITS | Continuity of Care Document ---
Author Name Unknown Organization [facility] Address [address] [place] [address] Phone Care Team Providers Care Tipple Worker Name Role Phone Jaime Stahl MD Unavailable [...] Available - Active Procedures Procedure Date Office/Outpatient Visit,[facility] 2016 Advance Directives Directive Yes / No Effective Date File Name No Information Encounters Encounter Description Practice Location Reason(s) For Visit Diagnoses Date Provider Providers Copied on Encounter [facility], [address], [place], [id number], [place] tel:[phone] [facility] No Information Maribeth Sandoval. [facility], [facility] [address] [place] [address], [address], [place], [id number], [place]. tel:[phone] Office/Outpat ient Visit,[facility], [address], [place], [id number], [place] tel:[phone] [facility] [place] Spinal stenosis, lumbar regionSpondyl olisthesis, lumbar region Maribeth Sandoval. [facility] [place], [address], [address], [place], [place], [id number], . tel:[phone] Referring Provider: Jaime Sheehan, [facility] [place] [address], [address], [place], [address] . tel:[phone] Family History Family Member Type Diagnosis Age At Onset No Information Payers Payer name Insurance type Covered democrat ID Authorgee granger(s) [facility] [id number] [facility] [id number] Social History Type Description Quantity Date Captured [...]
--- OUTSIDE RECORDS SUMMARY | 2023-03-27 07:58 | XMS_ITS | Continuity of Care Document ---
Author Name Unknown Organization [facility] Address [address] [place] [address] Phone Care Team Providers Care Lens Cleaner Name Role Phone Will Manjinder SUTHERLAND Unavailable Unavailabl e Allergies, Adverse Reactions, Alerts Substance Reaction Status Criticality No Known Allergies Active No Inform ation Medications Medication Instructions Dosage Effective Dates (start - stop) Status Comments gabapentin 800 mg tablet take 1 tablet b y oral route 3 times every day 800 MG - Active Percocet 5 mg-325 mg tablet take 1 - 2 tablet by ORAL route every 4 hours as needed, max 6/day 1-2 tablet - Active hydrochlorothiazide 25 mg tablet take 1 tablet by oral route every day 25 MG - Active glipizide 10 mg tablet take 1 tablet by oral route every day before a meal 10 MG - Active warfarin 7.5 mg tablet take 2 tablets by oral route 1 times every day - Active lisinopril 40 mg tablet take 1 tablet by oral route every day 40 MG - Active metformin 1,000 mg tablet take 1 tablet by oral route 2 times every day with morning and evening meals 1000 MG - Active Procedures Procedure Date OFFICE/OUTPATIENT VISIT, EST Drug test def 22+ classes Drug Urine Toxology With Chromatography OFFICE CONSULTATION Advance Directives Directive Yes / No Effective Date File Name No Information Encounters Encounter Description Practice Location Reason(s) For Visit Diagnoses Date Provider Providers Copied on Encounter [facility], [address] [place] [address] [place], [place], [id number] , [place] tel:[phone] [facility] No Information 2 Will Manjinder. [address] [facility] [place], [place], [id number] , [place]. tel: [phone] OFFICE/OUTPAT IENT VISIT, EST [facility], [address] [place] [address], [id number] , [place] tel: [phone] [facility] Widespread pain (chief complaint) Postlaminectomy syndrome, not elsewhere classifiedChroni c migraine w/o aura, intractable, w status migrainosusOther intervertebral disc degeneration, lumbar regionLong term (current) use of opiate analgesicOther cervical disc degeneration, unsp cervical region Mar-0 9 Liz Ying. [address] [place] [address] [address], [place], [place], [id number] , [place]. tel: [phone] Referring Provider: Cameron Aldridge [facility] [address], [place], [address]. tel:[phone] OFFICE CONSULTATION [facility], [address] [place] [address], [id number] , [place] tel: [phone] [facility] Widespread pain (chief complaint) Postlaminectomy syndrome, not elsewhere classifiedChroni c migraine w/o aura, intractable, w status migrainosusOther cervical disc degeneration, unsp cervical regionOther intervertebral disc degeneration, lumbar regionLong term (current) use of opiate analgesicEncount er for therapeutic drug level monitoringSpinal stenosis, lumbar region with neurogenic claudication 9 [facility]. [facility], [address], [place], [address], [place]. tel: [phone] Referring [facility]: [facility] [address], [place], [address]. tel:[phone] [facility], [address] [place] [address], [id number] , [place] tel: [phone] [facility] Widespread pain (chief complaint) No Information 9 Joesph Philippew. [address] [facility] [place], [place], [id number] , [place]. tel: [phone] Family History Family Member Type Diagnosis Age At Onset No Information Payers Payer name Insurance type Covered green party ID Rose granger(s) [facility] [id number] Social History Type Description Quantity Date Captured Comments Sex Male Smoking Status No Information Chief Complaint And Reason For Visit No Information Reason For Referral Reason For Referral No Information Plan Of Treatment Date Type Action Status Future Order: Lab Order ELICEO PIERSON DRUG ANALYSIS, URINE, WITH MED REPORT ([id number]), Ordered on: Ordered History Of Present Illness [...] has lumber KHURRAM scheduled next week at [facility] and inquires about this today.Patient [...] referred by PCP Cameron Duong MD at [facility]. His pain began gradually [...] as a surgical candidate. Underwent PT at [facility] in 2012-- not helpful. Regularly attends chiropractor for neck pain--helpful. Tried both lumbar and cervical ESIs at [facility], noting the lumbar ESIs did not provide much relief. Still completes CESIs regularly which is helpful for his neck pain. Reports last EMILY was 05/30/2018. Additionally reports previous MRI at [facility]. Currently managed on gabapentin 800mg TID and oxycodone 5-325mg average #1/day. Takes Ibuprofen for additional relief. States the oxycodone provides good relief when he takes it, especially at night to aid with sleep. Adilson is interested in any treatment option and would like [facility] to assume management of pain care. Widespread pain (comments) Adilson is here for initial consult for pain management, referred by PCP Cameron Duong MD at [facility]. His pain began gradually over 20 years ago and has progressively worsened over time. C/o constant headaches, in addition to neck and back pain. Has muscle spasms in BL LE, groin, and ribcage. Reports previous cervical diskectomy in 2000, however states he is no longer recommended as a surgical candidate. Underwent PT at [facility] in 2012-- not helpful. Tried ESIs at [facility]. Reports previous MRI at [facility]. Has taken gabapentin 800mg TID and oxycodone for additional pain relief. Adilson is interested in any treatment option and would like [facility] to assume management of pain care. Widespread pain Duration: chroni c. Functional Status Date Functional Assessmen t No Information Instructions Date Instruction Additional Infor mation No Information Assessments Type Assessment Date No Information Patient Care Teams Name Effective Dates (start - stop) Status Members No Information
== END 2023-03-27 07:57 | disposition home or self-care (01) ==
LOC: WOUND 07:56
PROVIDERS: PCP Family Medicine; Visit Provider Nurse Practitioner Family
DX: E11.621 Type 2 diabetes mellitus with foot ulcer (principal); L97.516 Non-pressure chronic ulcer of other part of right foot with bone involvement without evidence of necrosis; T24.331A Burn of third degree of right lower leg, initial encounter; T31.10 Burns involving 10-19% of body surface with 0% to 9% third degree burns; Z79.84 Long term (current) use of oral hypoglycemic drugs
CPT/HCPCS: 11042; 16020; 82962; G0277

== ENCOUNTER 2023-04-03 10:36 | Outpatient (CLI) | payer BC, SELFPAY | END 2023-04-03 10:37 | disposition home or self-care (01) | LOC: WOUND 10:36 | PROVIDERS: PCP Family Medicine; Visit Provider Nurse Practitioner Family | DX: E11.621 Type 2 diabetes mellitus with foot ulcer (principal); L97.516 Non-pressure chronic ulcer of other part of right foot with bone involvement without evidence of necrosis; I73.9 Peripheral vascular disease, unspecified; Z79.84 Long term (current) use of oral hypoglycemic drugs | CPT/HCPCS: 82962; 97597; 99211; G0277 ==

== ENCOUNTER 2023-04-04 08:00 | Outpatient (RCR) | payer BC, SELFPAY | END 2023-04-24 23:59 | disposition home or self-care (01) | LOC: WOUND 08:00 | PROVIDERS: PCP Family Medicine; Visit Provider Nurse Practitioner Family | DX: E11.621 Type 2 diabetes mellitus with foot ulcer (principal); L97.516 Non-pressure chronic ulcer of other part of right foot with bone involvement without evidence of necrosis; Z79.84 Long term (current) use of oral hypoglycemic drugs; T70.0XXA Otitic barotrauma, initial encounter; Z53.8 Procedure and treatment not carried out for other reasons | CPT/HCPCS: 82962; 97597; 99211; G0277 ==

== ENCOUNTER 2023-04-10 10:54 | Outpatient (CLI) | payer BC, SELFPAY | END 2023-04-10 10:55 | disposition home or self-care (01) | LOC: WOUND 10:54 | PROVIDERS: PCP Family Medicine; Visit Provider Nurse Practitioner Family | DX: E11.621 Type 2 diabetes mellitus with foot ulcer (principal); L97.516 Non-pressure chronic ulcer of other part of right foot with bone involvement without evidence of necrosis; Z79.84 Long term (current) use of oral hypoglycemic drugs | CPT/HCPCS: 97597 ==

== ENCOUNTER 2023-04-17 09:21 | Outpatient (CLI) | payer BC, SELFPAY ==
--- OUTSIDE RECORDS SUMMARY | 2023-04-17 09:23 | XMS_ITS | Continuity of Care Document ---
Author Name Unknown Organization [facility] Address [address] [place] [address] Phone Care Team Providers Care Chief Warden Name Role Phone Will Manjinder SUTHERLAND Unavailable [...] Diagnoses Date Provider Providers Copied on Encounter [facility], [address] [place] [address] [place], [place], [id number] , [place] tel:[phone] [facility] No Information 2 Will Manjinder. [address] [facility] [place], [place], [id number] , [place]. tel: [phone] OFFICE/OUTPAT IENT VISIT, EST [facility], [address] [place] [address], [id number] , [place] tel: [phone] [facility] Widespread pain (chief complaint) Postlaminectomy syndrome, not elsewhere classifiedChroni c migraine w/o aura, intractable, w status migrainosusOther intervertebral disc degeneration, lumbar regionLong term (current) use of opiate analgesicOther cervical disc degeneration, unsp cervical region Mar-0 9 Liz Ying. [address] [place] [address] [address], [place], [place], [id number] , [place]. tel: [phone] Referring Provider: Cameron Aldridge [facility] [address], [place], [address]. tel:[phone] OFFICE CONSULTATION [facility], [address] [place] [address], [id number] , [place] tel: [phone] [facility] Widespread pain (chief complaint) Postlaminectomy syndrome, not elsewhere classifiedChroni c migraine w/o aura, intractable, w status migrainosusOther cervical disc degeneration, unsp cervical regionOther intervertebral disc degeneration, lumbar regionLong term (current) use of opiate analgesicEncount er for therapeutic drug level monitoringSpinal stenosis, lumbar region with neurogenic claudication 9 [facility]. [facility], [address] [facility] [address], [place], [address], [place]. tel: [phone] Referring Provider: [facility] [address], [place], [address]. tel:[phone] [facility], [address] [place] [address], [id number] , [place] tel: [phone] [facility] Widespread pain (chief complaint) No Information 9 Joesph Philippew. [address] [facility] [place], [place], [id number] , [place]. tel: [phone] Family History Family Member Type Diagnosis Age At Onset No Information Payers Payer name Insurance type Covered green party ID Rose granger(s) [facility] [id number] Social History Type Description Quantity Date Captured Comments Sex Male Smoking Status No Information Chief Complaint And Reason For Visit No Information Reason For Referral Reason For Referral No Information Plan Of Treatment Date Type Action Status Future Order: Lab Order ELICEO PIERSON DRUG ANALYSIS, URINE, WITH MED REPORT ([id number]), Ordered on: Ordered History Of Present Illness [...] has lumber KHURRAM scheduled next week at [facility] and inquires about this today.Patient [...] referred by PCP Cameron Duong MD at [facility]. His pain began gradually over [...] as a surgical candidate. Underwent PT at [facility] in 2012-- not helpful. Regularly attends chiropractor for neck pain--helpful. Tried both lumbar and cervical ESIs at [facility], noting the lumbar ESIs did not provide much relief. Still completes CESIs regularly which is helpful for his neck pain. Reports last EMILY was 05/30/2018. Additionally reports previous MRI at [facility]. Currently managed on gabapentin 800mg TID and oxycodone 5-325mg average #1/day. Takes Ibuprofen for additional relief. States the oxycodone provides good relief when he takes it, especially at night to aid with sleep. Adilson is interested in any treatment option and would like [facility] to assume management of pain care. Widespread pain Duration: chroni c. Widespread pain (comments) Adilson is here for initial consult for pain management, referred by PCP Cameron Duong MD at [facility]. His pain began gradually over 20 years ago and has progressively worsened over time. C/o constant headaches, in addition to neck and back pain. Has muscle spasms in BL LE, groin, and ribcage. Reports previous cervical diskectomy in 2000, however states he is no longer recommended as a surgical candidate. Underwent PT at [facility] in 2012-- not helpful. Tried ESIs at [facility]. Reports previous MRI at [facility]. Has taken gabapentin 800mg TID and [...]
--- OUTSIDE RECORDS SUMMARY | 2023-04-17 09:23 | XMS_ITS | Continuity of Care Document ---
Author Name Unknown Organization [facility] Address [address] [place] [address] Phone Care Team Providers Care Manager Change Name Role Phone Jaime Stahl MD Unavailable [...] Available - Active Procedures Procedure Date Office/Outpatient Visit,[facility] 2016 Advance Directives Directive Yes / No Effective Date File Name No Information Encounters Encounter Description Practice Location Reason(s) For Visit Diagnoses Date Provider Providers Copied on Encounter [facility], [address], [place], [id number], [place] tel:[phone] [facility] No Information Maribeth Sandoval. [facility], [facility] [address] [place] [address], [address], [place], [id number], [place]. tel:[phone] Office/Outpat ient Visit,[facility], [address], [place], [id number], [place] tel:[phone] [facility] [place] Spinal stenosis, lumbar regionSpondyl olisthesis, lumbar region Maribeth Sandoval. [facility] [place], [address], [address], [place], [place], [id number], . tel:[phone] Referring Provider: Jaime Sheeahn, [facility] [place] [address], [address], [place], [address] . tel:[phone] Family History Family Member Type Diagnosis Age At Onset No Information Payers Payer name Insurance type Covered republican ID Authorgee granger(s) [facility] [id number] [facility] [id number] Social History Type Description Quantity Date Captured [...]
== END 2023-04-17 09:22 | disposition home or self-care (01) ==
LOC: WOUND 09:21
PROVIDERS: PCP Family Medicine; Visit Provider Nurse Practitioner Family
DX: E11.621 Type 2 diabetes mellitus with foot ulcer (principal); L97.516 Non-pressure chronic ulcer of other part of right foot with bone involvement without evidence of necrosis; Z79.84 Long term (current) use of oral hypoglycemic drugs
CPT/HCPCS: 97597

== ENCOUNTER 2023-04-24 08:45 | Outpatient (CLI) | payer BC, SELFPAY | END 2023-04-24 08:46 | disposition home or self-care (01) | LOC: WOUND 08:45 | PROVIDERS: PCP Family Medicine; Visit Provider Nurse Practitioner Family | DX: E11.621 Type 2 diabetes mellitus with foot ulcer (principal); L97.516 Non-pressure chronic ulcer of other part of right foot with bone involvement without evidence of necrosis; Z79.84 Long term (current) use of oral hypoglycemic drugs | CPT/HCPCS: 97597 ==

== ENCOUNTER 2023-05-01 08:55 | Outpatient (CLI) | payer BC, SELFPAY ==
--- OUTSIDE RECORDS SUMMARY | 2023-05-01 08:59 | XMS_ITS | Continuity of Care Document ---
Author Name Unknown Organization [facility] Address [address] [address] Phone Care Team Providers Care Systems Program Manager Name Role Phone Jaime Stahl MD Unavailable [...] Available - Active Procedures Procedure Date Office/Outpatient Visit,[facility] 2016 Advance Directives Directive Yes / No Effective Date File Name No Information Encounters Encounter Description Practice Location Reason(s) For Visit Diagnoses Date Provider Providers Copied on Encounter [facility], [address], [place], [id number], [place] tel:[phone] [facility] No Information Maribeth Sandoval. [facility], [facility] [address] [place] [address], [address], [place], [id number], [place]. tel:[phone] Office/Outpat ient Visit,[facility], [address], [place], [id number], [place] tel:[phone] [facility] [place] Spinal stenosis, lumbar regionSpondyl olisthesis, lumbar region Maribeth Sandoval. [facility] [place], [address], [address], [place], [place], [id number], . tel:[phone] Referring Provider: Jaime Sheehan, [facility] [place] [address], [address], [place], [address] . tel:[phone] Family History Family Member Type Diagnosis Age At Onset No Information Payers Payer name Insurance type Covered green party ID Authorgee granger(s) [facility] [id number] [facility] [id number] Social History Type Description Quantity Date Captured [...]
== END 2023-05-01 08:56 | disposition home or self-care (01) ==
LOC: WOUND 08:55
PROVIDERS: PCP Family Medicine; Visit Provider Nurse Practitioner Family
DX: E11.621 Type 2 diabetes mellitus with foot ulcer (principal); L97.516 Non-pressure chronic ulcer of other part of right foot with bone involvement without evidence of necrosis; Z79.84 Long term (current) use of oral hypoglycemic drugs
CPT/HCPCS: 97597

== ENCOUNTER 2023-05-08 09:23 | Outpatient (CLI) | payer BC, SELFPAY | END 2023-05-08 09:24 | disposition home or self-care (01) | LOC: WOUND 09:23 | PROVIDERS: PCP Family Medicine; Visit Provider Family Medicine | DX: E11.621 Type 2 diabetes mellitus with foot ulcer (principal); L97.516 Non-pressure chronic ulcer of other part of right foot with bone involvement without evidence of necrosis; Z79.84 Long term (current) use of oral hypoglycemic drugs | CPT/HCPCS: 97597 ==

== ENCOUNTER 2023-05-15 12:50 | Outpatient (CLI) | payer BC, SELFPAY ==
--- OUTSIDE RECORDS SUMMARY | 2023-05-15 12:53 | XMS_ITS | Continuity of Care Document ---
Author Name Unknown Organization [facility] Address [address] [place] [address] Phone Care Team Providers Care Field Return Repairer Name Role Phone Jaime Stahl MD Unavailable [...] Available - Active Procedures Procedure Date Office/Outpatient Visit,[facility] 2016 Advance Directives Directive Yes / No Effective Date File Name No Information Encounters Encounter Description Practice Location Reason(s) For Visit Diagnoses Date Provider Providers Copied on Encounter [facility], [address], [place], [id number], [place] tel:[phone] [facility] [place] No Information Maribeth Sandoval. [facility], [facility], [facility] [address] [place] [address], [address], [place], [id number], [place]. tel:[phone] Office/Outpat ient Visit,[facility], [address], [place], [id number], [place] tel:[phone] [facility] [place] Spinal stenosis, lumbar regionSpondyl olisthesis, lumbar region Maribeth Sandoval. [facility] [place], [address], [address], [place], [place], [id number], . tel:[phone] Referring Provider: Jaime Sheehan, [facility] [place] [address], [address], [place], [address] . tel:[phone] Family History Family Member Type Diagnosis Age At Onset No Information Payers Payer name Insurance type Covered democrat ID Authorgee granger(s) [facility] [id number] [facility] [id number] Social History Type Description Quantity Date Captured [...]
== END 2023-05-15 12:51 | disposition home or self-care (01) ==
LOC: WOUND 12:50
PROVIDERS: PCP Family Medicine; Visit Provider Nurse Practitioner Family
DX: E11.621 Type 2 diabetes mellitus with foot ulcer (principal); L97.516 Non-pressure chronic ulcer of other part of right foot with bone involvement without evidence of necrosis; Z79.84 Long term (current) use of oral hypoglycemic drugs
CPT/HCPCS: 97597

== ENCOUNTER 2023-05-22 08:51 | Outpatient (CLI) | payer BC, SELFPAY ==
--- OUTSIDE RECORDS SUMMARY | 2023-05-22 08:53 | XMS_ITS | Continuity of Care Document ---
Author Name Unknown Organization [facility] Address [address] [place] [address] Phone Care Team Providers Care Pilot Submersible Name Role Phone Jaime Stahl MD Unavailable Unavailable Allergies, Adverse Reactions, Alerts Substance Reaction Status Criticality No Known Allergies Active No Inform ation Medications Medication Instructions Dosage Effective Dates (start - stop) Status Comments DURLAZA (unknown strength) Not Available - Active RIOMET (unknown strength) Not Available - Active VITAMIN D3 (unknown strength) Not Available - Active SILDENAFIL CITRATE (unknown strength) Not Available - Active WARFARIN SODIUM (unknown strength) Not Available - Active QBRELIS (unknown strength) Not Available - Active OXYCODONE-ACETAMINOPHE N (unknown strength) Not Available - Active Procedures Procedure Date Office/Outpatient Visit,[facility] 2016 Advance Directives Directive Yes / No Effective Date File Name No Information Encounters Encounter Description Practice Location Reason(s) For Visit Diagnoses Date Provider Providers Copied on Encounter [facility], [address], [place], [id number], [place] tel:[phone] [facility] [place] No Information Maribeth Sandoval. [facility], Critical access hospital [address] [place] [address], [address], [place], [id number], [place]. tel:[phone] Office/Outpat ient Visit,[facility], [address], [place], [id number], [place] tel:[phone] [facility] [place] Spinal stenosis, lumbar regionSpondyl olisthesis, lumbar region Maribeth Sandoval. [facility] [place], [address], [address], [place], [place], [id number], . tel:[phone] Referring Provider: Jaime Sheehan, [facility] [place] [address], [address], [place], [address] . tel:[phone] Family History Family Member Type Diagnosis Age At Onset No Information Payers Payer name Insurance type Covered republican ID Authorgee granger(s) [facility] [id number] [facility] [id number] Social History Type Description Quantity Date Captured [...]
== END 2023-05-22 08:52 | disposition home or self-care (01) ==
LOC: WOUND 08:51
PROVIDERS: PCP Family Medicine; Visit Provider Nurse Practitioner Family
DX: Z86.31 Personal history of diabetic foot ulcer (principal)
CPT/HCPCS: 99212

== ENCOUNTER 2023-08-06 09:35 | Outpatient (CLI) | payer BC, SELFPAY | END 2023-08-06 09:36 | disposition home or self-care (01) | LOC: RAD 09:36 | PROVIDERS: PCP Family Medicine; Visit Provider Family Medicine | DX: E11.9 Type 2 diabetes mellitus without complications (principal); I51.7 Cardiomegaly; I48.91 Unspecified atrial fibrillation; I73.9 Peripheral vascular disease, unspecified; Z79.01 Long term (current) use of anticoagulants | CPT/HCPCS: 93306 ==

== ENCOUNTER 2023-10-08 08:18 | Outpatient (CLI) | payer BC, SELFPAY ==
--- OUTSIDE RECORDS SUMMARY | 2023-10-12 20:46 | XMS_ITS | Encounter Summary ---
Author Name Unknown Organization [facility] Address [address] [place] [address] Care Team Providers Care Artist Agent Name Role Phone Cameron Aldridge MD Primary Care Provider [phone] Jaime Turner MD Unavailable [phone] Encounter Details Date Type Department Care Team (Latest Contact Info) Description 08/01/2023 Travel Social History Tobacco Use Types Packs/Day Years Used Date Smoking Tobacco: Former Cigarettes Q uit: 08/29/2000 Alcohol Use Standard Drinks/Week Comments Yes 0 (1 standard drink = 0.6 oz pur e alcohol) occ Adolescent Education Answer Date Record ed Getting School Help Needed Not on file 04/02 Sex and Gender Information Value Date Recorded Sex Assigned at Male 07/15/2023 8:16 PM BUNCH BREAKER Gender Identity Male 07/15/2023 8:16 PM BUNCH BREAKER Sexual Orientation Straight 07/15/2023 8: 16 PM BUNCH BREAKER documented as of this encounter Plan of Treatment Not on file documented as of this encounter Visit Diagnoses Not on filedocumented in this encounter Care Teams Artist Agent Relationship Specialty Start Date End Date Cameron Aldridge MD [facility] [address] [place] [place] [address] PCP - General Family Medicine 02/02/23 Jaime Turner MD [address] [address] [place] [address] Assigned Heart and Vascular Provider 02/10/23 documented as of this encounter
--- OUTSIDE RECORDS SUMMARY | 2023-10-12 20:46 | XMS_ITS | Encounter Summary ---
Author Name Unknown Organization [facility] Address [address] [place] [address]. [place] [address] Care Team Providers Care Demand Planning Manager Name Role Phone Paramjit Ballard MD Primary Care Provider [phone] Cameron Aldridge MD Primary Care Provider [phone] Jaime Turner MD Unavailable [phone] Encounter Details Date Type Department Care Team (Late st Contact Info) Description 09/16/2007 Office Visit-[facility] [address] [place] [address] Gil Hernandez MD Social History Tobacco Use Types Packs/Day Years Used Date Smoking Tobacco: Never Assessed Sex and Gender Information Value Date Recorded Sex Assigned at Male 07/15/2023 8:16 PM TELEPHONE CLAIMS REPRESENTATIVE Gender Identity Male 07/15/2023 8:16 PM TELEPHONE CLAIMS REPRESENTATIVE Sexual Orientation Straight 07/15/2023 8: 16 PM TELEPHONE CLAIMS REPRESENTATIVE documented as of this encounter Progress Notes * Gil Hernandez MD - 09/18/2007 11:33 AM CDT Progress Note Created by: Gil Hernandez M.D. DATE: 09/16/2007 ADILSON PERSON DATE OF : 1950 AGE: [age] years old Referring Physician: PARAMJIT BALLARD Referring Clinic: [facility] CURRENT DIAGNOSES 1. - Atrial Fibrillation, 427.31 2. Family History-Ischemic Heart Disease, V17.3 3. - Hypertension, benign, 401.1 ALLERGIES NKA MEDICATIONS (prior to changes made today) 1. Diovan 80 mg, 1 p.o. q.d. 2. Celebrex 200 mg, 1 p.o. q.d. 3. Aspirin 325 mg, 1 p.o. q.d. CHIEF COMPLAINTS Consult HISTORY OF PRESENT ILLNESS I had the pleasure of seeing your patient, Adilson Person, at [facility] in Cardiology consultation for evaluation of atrial fibrillation. This patient is a pleasant 57-year-old male who believes he has been in atrial fibrillation approximately two years. I have a stress echocardiogram from 2001 that I performed with the patient demonstrating a normal study with significant systolicand diastolic hypertension at rest and with exercise. He was a smoker at that time as well and the patient returned to your office for evaluation. More recently a follow up stress echo was performed on July 16, 2006, in preparation for possible treatment of his obesity with a diet drug. The patient was able to exercise four to five minutes without chest pain. He was in atrial fibrillation at that time and had evidence of left atrial enlargement. His resting blood pressure was elevated to 134/92, and his exercise blood pressure 194/96. The patient denies any thromboembolic phenomena or stroke. He believes he has had hypertension or borderline hypertension for several years. He has no history of hyper- or hypothyroidism. He is a loud snorer and his notes apneic spells, consistent with sleep apnea. The patient denies any palpitations, syncope, or presyncope. His other cardiac risk factors include a family history of heart disease with his father dying at age 67 of a myocardial infarction. The patient does not have diabetes. He quit smoking approximately five years ago after a 40 year history of two to two and one half packs per day. No right ventricular systolic pressure was obtained at the time of his stress echo one year ago. 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 The patient states that more recently he was able to diet and exercise and lose 30 pounds. At that time his said he stopped snoring completely. Unfortunately, during the winter months he has not exercised at all and he has gained all of this weight back. The patient's past medical historyis otherwise benign other than a herniated disc in his cervical neck for which he had surgery in 1999 and continues to receive steroid injections. He has also had a tonsillectomy and adenoidectomy. On physical exam, current blood pressure is 136/90 on the right arm taken twice, pulse 84 and irregular, weight 291 pounds. He is 73 inches tall. His BMI is 38. In general, the patient is an alert, moderately obese white male in no acute distress. HEENT is benign. Neck is supple without thyromegaly. Chest is clear to auscultation. Cardiac exam: Irregularly irregular rhythm, normal S1 and S2 without S3 gallop. No murmur. No JVD or HJR. Pulses are all intact without bruits. No tenderness to palpation across the precordium. Abdomen is mildly obese, soft, and nontender without organomegaly. Extremities are without cyanosis, clubbing, or edema. EKG demonstrates atrial fibrillation with controlled ventricular response. There are no Q waves or ST changes. This is otherwise a normal EKG. PAST HISTORY Past Medical Illnesses: hypertension, obesity, sleep apnea Past Cardiac Illnesses: atrial fibrillation, positive Family Hx of CAD Surgical Procedures: Cervical neck surgery for herniated discs,1999, tonsil and adenoidectomy Cardiology Procedures-Noninvasive: stress echocardiogram Jun 2007, stress echocardiogram Aug 2001 PMHx Stress Echo Results: 06/2007 Pt found to be in afib, resting htn, normal wall motion without ischemia or infarct FAMILY HISTORY: Father - Age 67, CVA, unknown type and of myocardial infarction; Mother - diabetes-unknown type; Brother 1 - alive and well; Sister 1 - alive and well; CARDIAC RISK FACTORS Tobacco Abuse: used to smoke, but quit; Family History of Heart Disease: male55 y/o, positive; Hyperlipidemia: lipid status unknown; Hypertension: positive, diastolic blood [id number] mmHg; Diabetes Mellitus: negative; Prior History of Heart Disease: negative; Obesity:positive, BMI30 (Obesity); Sedentary Life Style:positive; Age:positive ; LDL Goal <LT> 130 SOCIAL HISTORY Alcohol Use - drinks occasionally; Smoking - used to smoke but quit, 5 years and 40 years X2-2 1/2 ppd; Diet - caffeine use-3-4 per day; Lifestyle - and 4 children; Exercise - no regular exercise; Seat Belt Use - never; 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 Nutrition Technician at [employer]; REVIEW OF SYSTEMS GENERAL decreased exercise tolerance INTEGUMENTARY denies any change in hair or nails, rashes, or skin lesions. EYES wears eye glasses/contact lenses EARS, NOSE, THROAT, MOUTH denies any hearing loss, epistaxis, hoarseness or difficulty speaking. RESPIRATORY dyspnea, sleep apnea, snoring CARDIOVASCULAR orthopnea ABDOMINAL constipation GENITOURINARY-MALE impotence MUSCULOSKELETAL arthritis of the back, muscle pain or cramps back NEUROLOGICAL denies any history of recurrent strokes, headaches, TIA, or seizure disorder. PSYCHIATRIC denies any history of depression, substance abuse or change in cognitive functions. ENDOCRINE denies any history of thyroid disease or diabetes mellitus. HEMATOLOGICAL/IMMUNOLOGIC denies any food allergies, seasonal allergies, bleeding disorders. PHYSICAL EXAMINATION VITAL SIGNS: Blood Pressure: 136/90 Sitting, Right arm, large cuff Pulse- 84.00/min. Weight- 291.00 lbs. Height- 73.00 Temperature- .00 CONSTITUTIONAL cooperative, alert and oriented,well developed, well nourished, in no acute distress., moderately obese SKIN warm and dry to touch, no apparent skin lesions, or masses noted. HEAD normocephalic, atraumatic EYES Pupils equal and round, conjunctivae and lids unremarkable, sclera white, no xanthalasma ENT no pallor or cyanosis, dentition good NECK carotid pulses are full and equal bilaterally, JVP normal, no carotid bruit, no thyromegaly CHEST normal symmetry, no tenderness to palpation, normal respiratory excursion, no intercostal retraction, no use of accessory muscles, clear to auscultation and percussion. CARDIAC irregularly irregular rhythm, S1 normal, S2 normal, no S3 present, no murmurs, apical impulse 5th ICS, left MCL, no lifts or thrills palpable ABDOMEN abdomen soft, bowel sounds normoactive, no masses, no hepatosplenomegaly, non- tender, no bruits, moderately obese PERIPHERAL PULSES pulses full and equal in all extremities, no bruits auscultated. EXTREMITIES & BACK no deformities, clubbing, cyanosis, erythema or edema observed. There are no spinal abnormalities noted. Normal muscle strength and tone. NEUROLOGICAL no gross motor deficits noted, affect appropriate, oriented to time, person and place. MEDICATIONS UPDATED/STARTED TODAY: Diovan 80 mg, 1 p.o. q.d., DIRECTED Celebrex 200 mg, 1 p.o. q.d., DIRECTED ASSESSMENT: 1. Adilson Person is a pleasant 57-year-old male with atrial fibrillation for at least two years.Since this is considered chronic at this time and he is asymptomatic, I would not attempt to cardiovert him. His rate seems to be fairly well controlled at this time over the last two years and I do not believe a beta allison needs to be added. At one point he was on a beta allison but had difficulty sleeping and had dramatic mood swings. If a beta allison is necessary given his hypertension, perhaps using nebivolol (Bystolic) may be useful. The obvious risk from maintaining his atrial fibrillation given that this is likely due to either sleep apnea or hypertension along with his left atrial enlargement is certainly a 4% risk or higher of thromboemboli. This is a patient that I would most likely recommend be on lifelong Coumadin. The patient will discuss this with you. He is afraid that he has some risk for bleeding. I would ask that you follow his atrial fibrillation ventricular rates over time to be sure that he does not need some rate control since this can cause left ventricular dy sfunction if his heart rate is too fast for too long. 2. Hypertension. This patient has had a multiyear history of hypertension. I have suggested that he again talk to you about increasing his Diovanand perhaps even adding hydrochlorothiazide if necessary. I believe he is having end-organ effects from his hypertension, including now atrial fibrillation and left atrial enlargement. 3. Probable sleep apnea. 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 4. I have suggested that this patient consider diet and exercise as a means of losing his weight rather than a diet pill. Thank you very much for allowing me to help care for this delightful patient. I did spend one our with the patient and his , and over 50% of this time was counseling on the above issues. I will plan on seeing the patient again on a p.r.n. basis as you direct. Should you have any questions regarding his care, please feel free to contact me at any time in the future. TODAYS ORDERS 1. Return prn Gil Hernandez M.D. documented in this encounter Plan of Treatment Not on file documented as of this encounter Visit Diagnoses Not on filedocumented in this encounter Care Teams Demand Planning Manager Relationship Specialty Start Date End Date Paramjit Ballard MD [address] [place] [id number] PCP - General Family Practice 03/25/14 07/25/16 Cameron Aldridge MD [facility] [address] [place] [address] PCP - General Family Medicine 02/02/23 Jaime Turner MD [address] [address] [place] [address] Assigned Heart and Vascular Provider 02/10/23 documented as of this encounter
--- OUTSIDE RECORDS SUMMARY | 2023-10-12 20:46 | XMS_ITS | Referral Summary ---
Author Name Unknown [facility] Address [facility] [place] [address] Care Team Providers Care Golf Ball Winder Name Role Phone Cameron Aldridge MD Primary Care Provider Jaime Turner MD Unavailable [phone] Encounters Date Type Department Care Team Description 08/01/2023 Travel 08/01/2023 2:40 PM CIRCULATION SUPERVISOR Office Visit [facility] [place] [address] [place] [phone] Jaime Turner MD Status post peripheral artery angioplasty (Primary Dx); Type 2 diabetes mellitus with foot ulcer, unspecified whether mcfp insulin use (H); On Coumadin for atrial fibrillation (H); Class 2 severe obesity due to excess calories with serious comorbidity and body mass index (BMI) of 36.0 to 36.9 in adult (H) 07/30/[address] [facility] [place] 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 [place] [address] [place] [phone] Jaime Turner MD Patient Request from Last 3 Months Medications Medication Sig Dispensed Refills Start Date End Date Status METFORMIN HCL ER PO Take 1,000 mg by mouth 2 times daily Active HYDROcodone-acetaminoph en (VICODIN) 5-500 MG per tablet Take 1-2 tablets by mouth every 6 hours as needed. Active lisinopril (PRINIVIL,ZESTRIL) 40 MG tablet Take 40 mg by mouth daily. Active glipiZIDE (GLUCOTROL) 5 MG tablet Take 1 tablet by mouth 2 times daily 11/19/2022 Active rosuvastatin (CRESTOR) 5 MG tablet Take 5 mg by mouth every other day At bedtime Active gabapentin (NEURONTIN) 800 MG tablet Take 1 tablet by mouth 3 times daily 12/04/2022 Active hydrochlorothiazide (HYDRODIURIL) 25 MG tablet Take 1 tablet by mouth daily 11/19/2022 Active DULoxetine (CYMBALTA) 30 MG capsule Take 30 mg by mouth daily 11/19/2022 Active tiZANidine (ZANAFLEX) 2 MG tablet Take 2 mg by mouth as needed 06/13/2022 Active aspirin 81 MG EC tablet Take 81 mg by mouth daily Active warfarin ANTICOAGULANT (COUMADIN) 5 MG tablet Take 13 mg by mouth six times a week Mon, , Th, Fri, Sat & Sun Active warfarin ANTICOAGULANT (COUMADIN) 5 MG tablet Take 15 mg by mouth once a week Wed Active acetaminophen (TYLENOL) 500 MG tabletIndications:PAD (peripheral artery disease) (H24) Take 1-2 tablets (500-1,000 mg) by mouth every 6 hours as needed for mild pain 02/27/2023 Active Active Problems Problem Noted Date Diagnosed Date Preop testing 02/27/2023 PAD (peripheral artery disease) (H24) 02/27/2023 Atherosclerosis of prairie band ar [place] of right lower extremity with ulceration of other part of foot 02/27/2023 Resolved Problems Problem Noted Date Diagnosed Date Resolved Date iamCERVICALGIA 07/28/2006 09/17/2006 [email or web address] 07/28/2006 09/17/2006 Social History Tobacco Use Types Packs/Day Years Used Date Smoking Tobacco: Former Cigarettes Q uit: 08/29/2000 Tobacco Cessation:Counseling Given: Not Answered Alcohol Use Standard Drinks/Week Comments Yes 0 (1 standard drink = 0.6 oz pur e alcohol) occ Adolescent Education Answer Date Record ed Getting School Help Needed Not on file 04/02 Sex and Gender Information Value Date Recorded Sex Assigned at Male 07/15/2023 8:16 PM CIRCULATION SUPERVISOR Gender Identity Male 07/15/2023 8:16 PM CIRCULATION SUPERVISOR Sexual Orientation Straight 07/15/2023 8: 16 PM CIRCULATION SUPERVISOR Last Filed Vital Signs Vital Sign Reading Time Taken Comments Blood Pressure 121/69 08/01/2023 2:43 PM CIRCULATION SUPERVISOR Pulse 92 08/01/2023 2:43 PM CIRCULATION SUPERVISOR Temperature 36.4 ??C (97.6 ??F) 07/17/2023 10:[address] Respiratory Rate 16 07/17/2023 5:15 PM CIRCULATION SUPERVISOR Oxygen Saturation 98% 07/17/2023 5:15 PM CIRCULATION SUPERVISOR Inhaled Oxygen Concentration - - Weight 120 kg (264 lb 8 oz) 07/17/2023 10:20 AM CIRCULATION SUPERVISOR Height 180.3 cm (5' 11) 07/17/2023 10:20 AM CIRCULATION SUPERVISOR Body Mass Index 36.89 07/17/2023 10:20 AM CIRCULATION SUPERVISOR Plan of Treatment Not on file Procedures Procedure Name Priority Date/Time Associated Diagnosis Comments IR LOWER EXTREMITY ANGIOGRAM LEFT Routine 07/17/2023 12:48 PM CIRCULATION SUPERVISOR Atherosclerosis of artery of left lower extremity (H24) LIPID PROFILE STAT 07/17/2023 10:44 AM CIRCULATION SUPERVISOR PARTIAL THROMBOPLASTIN TIME STAT 07/17/2023 10:44 AM CIRCULATION SUPERVISOR INR STAT 07/17/2023 10:44 AM CIRCULATION SUPERVISOR CBC WITH PLATELETS STAT 07/17/2023 10 :44 AM CIRCULATION SUPERVISOR HEMOGLOBIN A1C STAT 07/17/2023 10:44 AM CIRCULATION SUPERVISOR BASIC METABOLIC PANEL STAT 07/17/2023 10:44 AM CIRCULATION SUPERVISOR from Last 3 Months Results * IR Lower Extremity Angiogram Left (07/17/2023 12:48 PM CIRCULATION SUPERVISOR) Anatomical Region Laterality Modality Lower Extremity Radio Fluoroscop y Impressions 07/26/2023 4:11 PM CIRCULATION SUPERVISOR IMPRESSION: Moderate disease of the left common femoral artery and severe disease at the origin of the left superficial femoral artery all of which was poorly suited to percutaneous intervention. Excellent quality left profundofemoral artery. Diffuse disease of the left superficial femoral artery including a focal occlusion of that vessel just above the abductor canal. The left popliteal artery is a reasonable quality vessel particularly below the knee. Three-vessel runoff to the left foot. JAIME TURNER MD Narrative 07/26/2023 4:11 PM CIRCULATION SUPERVISOR PREOP DIAGNOSIS: Left leg claudication. POSTOP DIAGNOSIS: Same PROCEDURES PERFORMED: 1. Ultrasound-guided access of right common femoral artery. 2. Selective left lower extremity arteriogram. SURGEON: Shaun Turner M.D. OPERATIVE INDICATIONS: This patient is a 73-year-old gentleman with type 2 diabetes and multiple other atherosclerotic risk factors. He is roughly 4 months status post right leg angiography and angioplasty of the majority of the right superficial femoral artery performed for a nonhealing wound on the right great toe. Ultimately the right great toe fully healed. He is now complaining of very short distance left leg claudication. He presents at this time for left leg angiography and possible intervention. OPERATIVE DESCRIPTION: After informed consent was obtained the patient was brought to the interventional suite and placed on the table in a supine position. His bilateral groins were prepped and draped in the usual sterile fashion. Conscious sedation was achieved utilizing 12.5 mg IV Versed and 125 mcg IV fentanyl. Tristin Krishna RN monitored the patient throughout this procedure under my supervision. Total sedation time was 22 minutes. Total fluoroscopy time was 2.5 minutes. Total fluoroscopy dose was 72 mGy. I used 50 mL of Visipaque. 20 mL of 1% lidocaine was used locally in the right groin. Timeout was called and we verified the patient's identity, the operative site, and the proposed procedure. Ultrasound was used to evaluate and document patency of the right common femoral artery. Skin was locally anesthetized with the 1% lidocaine. Under sterile ultrasound guidance the right common femoral artery was percutaneously accessed using a micropuncture system. A wire and micropuncture sheath were placed. Additional 1% lidocaine was given locally in the right groin. Wire exchange was made for a T. Doc wire. Sheath exchange was made for a 5 [place] sheath. An angled Glidewire Omni Flush catheter was delivered to the aortic bifurcation. We had a recent pelvic angiogram from 4 months ago and therefore I did not repeat that study today. The angled Glidewire was directed down into the distal left external iliac artery and catheter exchange was made for an angled [place] catheter. Selective left lower extremity angiography was then performed in a stepwise manner via injections through that catheter. There was severe disease involving the origin of the left superficial femoral artery. There was additional disease throughout the left SFA. I felt this was poorly suited to percutaneous intervention. After completing our runoff views the catheter was removed. The sheath was pulled and compression was held over the right common femoral artery for 20 minutes. The patient tolerated the procedure without incident. He was returned awake and alert to the care suites area with no immediate complications apparent. Shortly thereafter I met with the patient and his to explain that I did not perform any type of left leg intervention today due to the location of the disease at the origin of the left superficial femoral artery. He will present to my office in 2-3 weeks to discuss open surgical options. FINDINGS: Selective left lower extremity arteriogram: Moderate plaque is observed in the mid and distal left common femoral artery. The left profundofemoral artery is widely patent and is an excellent quality structure. There is a severe stenosis at the origin of the left superficial femoral artery. Additional disease is noted throughout the left SFA including a focal occlusion of the left SFA just above the abductor canal. The above-knee popliteal artery reforms via extensive profunda collaterals. Mild disease of the left above-knee popliteal artery. The left below knee popliteal artery is widely patent. Three vessel tibial runoff to the left foot although the peroneal artery is a bit small in caliber. The anterior tibial and posterior tibial arteries are reasonable quality filling the left foot. Procedure Note Jaime Turner MD - 07/26/2023 PREOP DIAGNOSIS: Left leg claudication. POSTOP DIAGNOSIS: Same PROCEDURES PERFORMED: 1. Ultrasound-guided access of right common femoral artery. 2. Selective left lower extremity arteriogram. SURGEON: Shaun Turner M.D. OPERATIVE INDICATIONS: This patient is a 73-year-old gentleman with type 2 diabetes and multiple other atherosclerotic risk factors. He is roughly 4 months status post right leg angiography and angioplasty of the majority of the right superficial femoral artery performed for a nonhealing wound on the right great toe. Ultimately the right great toe fully healed. He is now complaining of very short distance left leg claudication. He presents at this time for left leg angiography and possible intervention. OPERATIVE DESCRIPTION: After informed consent was obtained the patient was brought to the interventional suite and placed on the table in a supine position. His bilateral groins were prepped and draped in the usual sterile fashion. Conscious sedation was achieved utilizing 12.5 mg IV Versed and 125 mcg IV fentanyl. Tristin Krishna RN monitored the patient throughout this procedure under my supervision. Total sedation time was 22 minutes. Total fluoroscopy time was 2.5 minutes. Total fluoroscopy dose was 72 mGy. I used 50 mL of Visipaque. 20 mL of 1% lidocaine was used locally in the right groin. Timeout was called and we verified the patient's identity, the operative site, and the proposed procedure. Ultrasound was used to evaluate and document patency of the right common femoral artery. Skin was locally anesthetized with the 1% lidocaine. Under sterile ultrasound guidance the right common femoral artery was percutaneously accessed using a micropuncture system. A wire and micropuncture sheath were placed. Additional 1% lidocaine was given locally in the right groin. Wire exchange was made for a T. Doc wire. Sheath exchange was made for a 5 [place] sheath. An angled Glidewire Omni Flush catheter was delivered to the aortic bifurcation. We had a recent pelvic angiogram from 4 months ago and therefore I did not repeat that study today. The angled Glidewire was directed down into the distal left external iliac artery and catheter exchange was made for an angled [place] catheter. Selective left lower extremity angiography was then performed in a stepwise manner via injections through that catheter. There was severe disease involving the origin of the left superficial femoral artery. There was additional disease throughout the left SFA. I felt this was poorly suited to percutaneous intervention. After completing our runoff views the catheter was removed. The sheath was pulled and compression was held over the right common femoral artery for 20 minutes. The patient tolerated the procedure without incident. He was returned awake and alert to the care suites area with no immediate complications apparent. Shortly thereafter I met with the patient and his to explain that I did not perform any type of left leg intervention today due to the location of the disease at the origin of the left superficial femoral artery. He will present to my office in 2-3 weeks to discuss open surgical options. FINDINGS: Selective left lower extremity arteriogram: Moderate plaque is observed in the mid and distal left common femoral artery. The left profundofemoral artery is widely patent and is an excellent quality structure. There is a severe stenosis at the origin of the left superficial femoral artery. Additional disease is noted throughout the left SFA including a focal occlusion of the left SFA just above the abductor canal. The above-knee popliteal artery reforms via extensive profunda collaterals. Mild disease of the left above-knee popliteal artery. The left below knee popliteal artery is widely patent. Three vessel tibial runoff to the left foot although the peroneal artery is a bit small in caliber. The anterior tibial and posterior tibial arteries are reasonable quality filling the left foot. IMPRESSION: Moderate disease of the left common femoral artery and severe disease at the origin of the left superficial femoral artery all of which was poorly suited to percutaneous intervention. Excellent quality left profundofemoral artery. Diffuse disease of the left superficial femoral artery including a focal occlusion of that vessel just above the abductor canal. The left popliteal artery is a reasonable quality vessel particularly below the knee. Three-vessel runoff to the left foot. JAIME TURNER MD Jaime Turner MD G IR ORDERABLES * INR (07/17/2023 10:44 AM CIRCULATION SUPERVISOR) INR 1.10 0.85 - 1.15 07/17/2023 11:07 AM CIRCULATION SUPERVISOR LABORATORY Blood BLOOD SPECIMEN / Unknown Venipuncture / Unknown 07/17/2023 10:44 AM CIRCULATION SUPERVISOR 07/17/2023 10:50 AM CIRCULATION SUPERVISOR Jaime Turner MD LAB - BLOOD ORDERAB LES LABORATORY [facility] [address], [address] [place] [address], [facility] [phone] * Partial thromboplastin time (07/17/2023 10:44 AM CIRCULATION SUPERVISOR) aPTT 29 22 - 38 Seconds 07/17/2023 11:07 AM CIRCULATION SUPERVISOR LABORATORY Blood BLOOD SPECIMEN / Unknown Venipuncture / Unknown 07/17/2023 10:44 AM CIRCULATION SUPERVISOR 07/17/2023 10:50 AM CIRCULATION SUPERVISOR Jaime Turner MD LAB - BLOOD ORDERAB LES Performing Organization Address City/[facility]/ZIP Co de Phone Number LABORATORY [facility] [address], [address], [place] [address], [facility] [phone] * (ABNORMAL) Lipid Panel (07/17/2023 10:44 AM CIRCULATION SUPERVISOR) Cholesterol 107 <200 mg/dL 07/17/2023 5:00 PM CIRCULATION SUPERVISOR [facility] Triglycerides 100 <150 mg/dL 07/17/2023 5:00 PM CIRCULATION SUPERVISOR [facility] Direct Measure HDL 34(L) >=40 mg/dL 2023 5:00 PM CIRCULATION SUPERVISOR [facility] LDL Cholesterol Calculated 53 <=100 mg/dL 07/17/2023 5:00 PM CIRCULATION SUPERVISOR [facility] Non HDL Cholesterol 73 <130 mg/dL 07/17/2023 5:00 PM CIRCULATION SUPERVISOR [facility] Patient Fasting > 8hrs? Yes 07/17/2023 5:00 PM CIRCULATION SUPERVISOR [facility] Blood BLOOD SPECIMEN / Unknown Venipuncture / Unknown 07/17/2023 10:44 AM CIRCULATION SUPERVISOR 07/17/2023 10:50 AM CIRCULATION SUPERVISOR Narrative [facility] - 07/17/2023 5:00 PM CIRCULATION SUPERVISOR Cholesterol Desirable: ??<200 mg/dL Triglycerides Normal: ??Less than 150 mg/dL Borderline High: ??150-199 mg/dL High: ??200-499 mg/dL Very High: ??Greater than or equal to 500 mg/dL Direct Measure HDL Female: ??Greater than or equal to 50 mg/dL Male: ??Greater than or equal to 40 mg/dL LDL Cholesterol Desirable: ??<100mg/dL Above Desirable: ??100-129 mg/dL Borderline High: ??130-159 mg/dL High: ??160-189 mg/dL Very High: ??>= 190 mg/dL Non HDL Cholesterol Desirable: ??130 mg/dL Above Desirable: ??130-159 mg/dL Borderline High: ??160-189 mg/dL High: ??190-219 mg/dL Very High: ??Greater than or equal to 220 mg/dL Jaime Turner MD LAB - BLOOD ORDERAB LES LABORATORY [facility] [address] [facility] [address], [address] [place] [address], [place] [phone] * (ABNORMAL) Hemoglobin A1c (07/17/2023 10:44 AM CIRCULATION SUPERVISOR) Hemoglobin A1C 7.1(H) <5.7 % 07/17/2023 11:17 AM CIRCULATION SUPERVISOR LABORATORY Comment: Normal <5.7% Prediabetes 5.7-6.4% ?? Diabetes 6.5% or higher Note: Adopted from ADA consensus guidelines. Blood BLOOD SPECIMEN / Unknown Venipuncture / Unknown 07/17/2023 10:44 AM CIRCULATION SUPERVISOR 07/17/2023 10:50 AM CIRCULATION SUPERVISOR Jaime Turner MD LAB - BLOOD ORDERAB LES LABORATORY [facility] [address], [address] [place] [address], [place] [phone] * (ABNORMAL) Basic metabolic panel (07/17/2023 10:44 AM CIRCULATION SUPERVISOR) Sodium 137 135 - 145 mmol/L 07/17/2023 11:13 AM [facility] Comment:Reference intervals for this test were updated on 03/20/2023 to more accurately reflect our healthy population. There may be differences in the flagging of prior results with similar values performed with this method. Interpretation of those prior results can be made in the context of the updated reference intervals. Potassium 4.4 3.4 - 5.3 mmol/L 07/17/2023 11:13 AM [facility] Chloride 102 98 - 107 mmol/L 07/17/2023 11:13 AM [facility] Carbon Dioxide (CO2) 26 22 - 29 mmol/L 07/17/2023 11:13 AM [facility] Anion Gap 9 7 - 15 mmol/L 07/17/2023 11:13 AM [facility] Urea Nitrogen 17.2 8.0 - 23.0 mg/dL 07/17/2023 11:13 AM [facility] Creatinine 0.97 0.67 - 1.17 mg/dL 07/17/2023 11:13 AM [facility] GFR Estimate 83 >60 mL/min/1. 73m2 07/17/2023 11:13 AM [facility] Calcium 9.7 8.8 - 10.2 mg/dL 07/17/2023 11:13 AM [facility] Glucose 128(H) 70 - 99 mg/dL 07/17/2023 11:13 AM [facility] Blood BLOOD SPECIMEN / Unknown Venipuncture / Unknown 07/17/2023 10:44 AM CIRCULATION SUPERVISOR 07/17/2023 10:50 AM [facility] Jaime Turner MD LAB - BLOOD ORDERAB LES LABORATORY [facility] [address], [address] [place] [address], [facility] [phone] * CBC with platelets (07/17/2023 10:44 AM [facility]) [facility] WBC Count 7.3 4.0 - 11.0 10e3/uL 07/17/2023 10:55 AM [facility] RBC Count 4.71 4.40 - 5.90 10e6/uL 07/17/2023 10:55 AM [facility] Hemoglobin 13.6 13.3 - 17.7 g/dL 07/17/2023 10:55 AM [facility] Hematocrit 40.2 40.0 - 53.0 % 07/17/2023 10:55 AM [facility] MCV 85 78 - 100 fL 07/17/2023 10:55 AM [facility] MCH 28.9 26.5 - 33.0 pg 07/17/2023 10:55 AM [facility] MCHC 33.8 31.5 - 36.5 g/dL 07/17/2023 10:55 AM [facility] RDW 13.5 10.0 - 15.0 % 07/17/2023 10:55 AM [facility] Platelet Count 249 150 - 450 10e3/uL 07/17/2023 10:55 AM [facility] Blood BLOOD SPECIMEN / Unknown Venipuncture / Unknown 07/17/2023 10:44 AM CIRCULATION SUPERVISOR 07/17/2023 10:50 AM [facility] Jaime Turner MD LAB - BLOOD ORDERAB LES LABORATORY [facility] [address], [address] [place] [address], [facility] [phone] from Last 3 Months Advance Directives For more information, please contact: [phone] * Full Code (Latest Code Status on File) Date Activated Date Inactivated Comments 02/27/2023 5:08 PM 02/28/2023 8:58 AM All basic and advanced life-sustaining interventions are performed as appropriate Question Answer Comments Code status determined by: Unable to dis cuss and no AD/POLST on file; continue PREVIOUSLY ORDERED code status Care Teams Golf Ball Winder Relationship Specialty Start Date End Date Cameron Aldridge MD [facility] [address] [place] [address] PCP - General Family Medicine 02/02/23 Jaime Turner MD [address] [address] Assigned Heart and Vascular Provider 02/10/23
--- OUTSIDE RECORDS SUMMARY | 2023-10-12 20:46 | XMS_ITS | Encounter Summary ---
Author Name Unknown Organization [facility] Address [address] [place] [address] Care Team Providers Care Mule Spinner Name Role Phone Cameron Aldridge MD Primary Care Provider Jaime Turner MD Unavailable [phone] Reason for Referral * Therapeutic Imaging/IR (Routine) - Pending Review Specialty Diagnoses / Procedures Referred By Charan t Referred To Contact Radiology. Diagnoses Atherosclerosis of artery of left lower extremity (H24) Procedures IR Lower Extremity Angiogram Left Jaime Turner MD [address] [place] [id number] Referral ID Status Reason Start Date Expiration Date V isits Requested Visits Authorized [id number] Pending Review 06/29/2023 06/28/2024 1 1 SIMULATION MODELING ENGINEER Encounter Details Date Type Department Care Team (Late st Contact Info) Description 07/17/2023 10:05 AM LEAD SIMULATION MODELING ENGINEER - 07/17/2023 5:30 PM LEAD SIMULATION MODELING ENGINEER Hospital Encounter [facility] [address] [phone] Non-Fv Credentialed Provider, Radiology Jaime Turner MD [address] [place] [id number] PAD (peripheral artery disease) (H24) (Primary Dx); 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); Atherosclerosis of artery of left lower extremity (H24) Discharge Disposition: Home or Self Care Social History Tobacco Use Types Packs/Day Years Used Date Smoking Tobacco: Former Cigarettes Q uit: 08/29/2000 Alcohol Use Standard Drinks/Week Comments Yes 0 (1 standard drink = 0.6 oz pur e alcohol) occ Adolescent Education Answer Date Record ed Getting School Help Needed Not on file 04/02 Sex and Gender Information Value Date Recorded Sex Assigned at Male 07/15/2023 8:16 PM LEAD SIMULATION MODELING ENGINEER Gender Identity Male 07/15/2023 8:16 PM LEAD SIMULATION MODELING ENGINEER Sexual Orientation Straight 07/15/2023 8: 16 PM LEAD SIMULATION MODELING ENGINEER documented as of this encounter Last Filed Vital Signs Vital Sign Reading Time Taken Comments Blood Pressure 106/64 07/17/2023 5:00 PM LEAD SIMULATION MODELING ENGINEER Pulse 85 07/17/2023 5:00 PM LEAD SIMULATION MODELING ENGINEER Temperature 36.4 ??C (97.6 ??F) 07/17/2023 10:[address] Respiratory Rate 16 07/17/2023 5:15 PM LEAD SIMULATION MODELING ENGINEER Oxygen Saturation 98% 07/17/2023 5:15 PM LEAD SIMULATION MODELING ENGINEER Inhaled Oxygen Concentration - - Weight 120 kg (264 lb 8 oz) 07/17/2023 10:20 AM LEAD SIMULATION MODELING ENGINEER Height 180.3 cm (5' 11) 07/17/2023 10:20 AM LEAD SIMULATION MODELING ENGINEER Body Mass Index 36.89 07/17/2023 10:20 AM LEAD SIMULATION MODELING ENGINEER documented in this encounter Discharge Summaries * Beto Mcgrath RN - 07/17/2023 5:27 PM CST Care Suites Discharge Nursing Note Patient Information Name: Adilson Person Age: [age] year old Discharge Education: Discharge instructions reviewed: Yes Additional education/resources provided: AVS Patient/patient outside medical sales representative verbalizes understanding: Yes Patient discharging on new medications: No Medication education completed: N/A Discharge Plans: Discharge location: home Discharge ride contacted: Yes Approximate discharge time: 1730 Discharge Criteria: Discharge criteria met and vital signs stable: Yes Patient Belongs: Patient belongings returned to patient: Yes Beto Mcgrath RN SIMULATION MODELING ENGINEER documented in this encounter Discharge Instructions * Discharge Instructions* Gabriela Patten RN - 07/17/2023 10:25 AM LEAD SIMULATION MODELING ENGINEER Peripheral Angiogram Discharge Instructions - Femoral After you go home: Have an adult stay with you until tomorrow. Drink extra fluids for 2 days. You may resume your normal diet. No smoking For 24 hours - due to the sedation you received: Relax and take it easy. Do NOT make any important or legal decisions. Do NOT drive or operate machines at home or at work. Do NOT drink alcohol. Care of Groin Puncture Site: For the first 24 hrs - check the puncture site every 1-2 hours while awake. For 2 days, when you cough, sneeze, laugh or move your bowels, hold your hand over the puncture site and press firmly. Remove the bandaid after 24 hours. If there is minor oozing, apply another bandaid and remove it after 12 hours. It is normal to have a small bruise or pea size lump at the site. You may shower tomorrow. Do NOT take a bath, or use a hot tub or pool for at least 3 days. Do NOT scrub the site. Do not use lotion or powder near the puncture site. Activity: For 2 days: No stooping or squatting Do NOT do any heavy activity such as exercise, lifting, or straining. No housework, yard work or any activity that make you sweat Do NOT lift more than 10 pounds Bleeding: If you start bleeding from the site in your groin, lie down flat and press firmly on/above the sitefor 10 minutes. Once bleeding stops, lay flat for 2 hours. Call the [facility] as soon as you can. Call 911 right away if you have heavy bleeding or bleeding that does not stop. Medicines: If you are on Metformin (Glucophage) and your GFR (kidney function level) is >30, you may continue taking your Metformin. If you are on Metformin (Glucophage) and your GFR (kidney function level) is <30, do not restartthe Metformin for 48 hours after your procedure. Check with your primary associate director career services before restarting the Metformin to see if you need to have blood drawn to recheck your kidney function (GFR). If you are taking an antiplatelet medication such as Plavix, do not stop taking it until you talk to your provider. Take your medications, including blood thinners, unless your provider tells you not to. If you take Coumadin (Warfarin), have your INR checked by your provider in 3-5 days. Call your clinic to schedule this. If you have stopped any medicines, check with your provider about when to restart them. Follow Up Appointments: Follow up with [facility] as directed. Call the clinic if: You have increased pain or a large or growing hard lump around the site. The site is red, swollen, hot or tender. Blood or fluid is draining from the site. You have chills or a fever greater than 101 F (38 C). Your leg feels numb, cool or changes color. You have hives, a rash or unusual itching. New pain in the back or belly that you cannot control with Tylenol. Any questions or concerns. Other Instructions: If you received a stent - carry your stent card with you at all times. If you have questions or your original symptoms do not improve, call: [facility] @ [phone] SIMULATION MODELING ENGINEER documented in this encounter Medications at Time of Discharge Medication Sig Dispensed Refills Start Date End Date acetaminophen (TYLENOL) 500 MG tabletIndications:PAD (peripheral artery disease) (H24) Take 1-2 tablets (500-1,000 mg) by mouth every 6 hours as needed for mild pain 02/27/2023 aspirin 81 MG EC tablet Take 81 mg by mouth daily DULoxetine (CYMBALTA) 30 MG capsule Take 30 mg by mouth daily 11/19/2022 gabapentin (NEURONTIN) 800 MG tablet Take 1 tablet by mouth 3 times daily 12/04/2022 glipiZIDE (GLUCOTROL) 5 MG tablet Take 1 tablet by mouth 2 times daily 11/19/2022 hydrochlorothiazide (HYDRODIURIL) 25 MG tablet Take 1 tablet by mouth daily 11/19/2022 HYDROcodone-acetaminophen (VICODIN) 5-500 MG per tablet Take 1-2 tablets by mouth every 6 hours as needed. lisinopril (PRINIVIL,ZESTRIL) 40 MG tablet Take 40 mg by mouth daily. METFORMIN HCL ER PO Take 1,000 mg by mouth 2 times daily tiZANidine (ZANAFLEX) 2 MG tablet Take 2 mg by mouth as needed 06/13/2022 rosuvastatin (CRESTOR) 5 MG tablet Take 5 mg by mouth every other day At bedtime warfarin ANTICOAGULANT (COUMADIN) 5 MG tablet Take 13 mg by mouth six times a week Mon, Tues, Thurs, Fri, Sat & Sun warfarin ANTICOAGULANT (COUMADIN) 5 MG tablet Take 15 mg by mouth once a week Wed documented as of this encounter Progress Notes * Beto Mcgrath RN - 07/17/2023 5:16 PM CST Pt up - walked hallways > to restroom > + urination Groin site remains dry and intact Denies any CP -SOB SIMULATION MODELING ENGINEER * Gabriela Patten RN - 07/17/2023 4:18 PM CST AVS reviewed thoroughly with pt and spouse at bedside, all questions and concerns addressed. Verbalunderstanding received. Pt continues to rest comfortably on bedrest, tolerated dinner and PO fluids. No pain or complaints at this time. Detailed report to Beto ARGUETA. Gabriela Patten RN on 07/17/2023 at 4:18 PM SIMULATION MODELING ENGINEER * Gabriela Patten RN - 07/17/2023 1:27 PM CST Care Suites Post Procedure Note Patient Information Name: Adilson Person Age: [age] year old Post Procedure Time patient returned to Care Suites: 1315 Concerns/abnormal assessment: none at this time If abnormal assessment, provider notified: N/A Plan/Other: Proceed as planned per orders. Pt on bedrest until 1710. R) groin site with gauze and tegaderm, manual pressure applied in IR with hemostasis achieved. Pt given sips of ice water. Restingcomfortably on cart. Gabriela Patten RN SIMULATION MODELING ENGINEER * Gabriela Patten RN - 07/17/2023 11:21 AM CST Care Suites Admission Nursing Note Patient Information Name: Adilson Person Age: [age] year old Reason for admission: lower extremity angiogram Care Suites arrival time: 1030 Visitor Information Name: Jess spouse Patient Admission/Assessment Pre-procedure assessment complete: Yes If abnormal assessment/labs, provider notified: N/A - awaiting lab results NPO: Yes Medications held per instructions/orders: Yes - last metformin dose 07/16/23 AM, last coumadin dose07/12/23 Consent: deferred to MD Patient oriented to room: Yes Education/questions answered: Yes Plan/other: Proceed as planned per orders Discharge Planning Discharge name/phone number: Jess goins [phone] Overnight post sedation caregiver: Jess Discharge location: home Gabriela Patten RN SIMULATION MODELING ENGINEER documented in this encounter Procedure Notes * Jaime Turner MD - 07/17/2023 12:52 PM CST VASCULAR SURGERY PROCEDURE NOTE: Preop diagnosis: Left leg claudication. Postop diagnosis: Left leg claudication Procedure performed: 1. Ultrasound-guided access of the right common femoral artery. 2. Selective right lower extremity arteriogram. No interventions were performed. Surgeon: Shaun Turner MD IV sedation and local infiltration with 20 cc of 1% lidocaine in the right groin. Findings: See dictation. Severe high-grade stenosis at the origin of the left SFA with moderate diffuse disease throughout the thigh and a focal short segment occlusion near the abductor canal. I felt this was poorly suited to percutaneous intervention. Complications: None. To care suites awake and alert with no immediate complications apparent. Shaun Turner MD SIMULATION MODELING ENGINEER documented in this encounter Miscellaneous Notes * IR Note - Tristin Krishna RN - 07/17/2023 12:34 PM CST Interventional Radiology Intra-procedural Nursing Note Patient Name: Adilson Person Today's Date: July 17, 2023 Procedure: Left leg angiogram - possible intervention Start time: 1223 End time: 1245 Report provided to: [id number] RN Note: Patient entered Interventional Radiology Suite number 2 via cart. Patient awake, alert and oriented. Assisted onto procedural table in Supine position. Prepped and draped. Dr. Turner in room. Time out and procedure started. Vital signs stable. Telemetry reading Afib+CVR. Procedure well tolerated by patient without complications. Procedure end with debrief by Dr. Turner. Pressure held for 20 minutes until hemostasis achieved. Gauze dressing, Tagaderm, applied to Rt Femoral Access Site. BR FLAT LEGS and HOB for [address] Turner Until 1710 Administered medication totals: Lidocaine 1% 20 mL Intradermal Versed 2.5 mg IVP Fentanyl 125 mcg IVP Last dose of sedation administered at 1239. SIMULATION MODELING ENGINEER * Pre-Procedure - Jaime Turner MD - 07/17/2023 11:52 AM CST GENERAL PRE-PROCEDURE: Procedure: Left leg angiogram - possible intervention Date/Time: 07/17/2023 11:52 AM Written consent obtained?: Yes Risks and benefits: Risks, benefits and alternatives were discussed DC Plan: Appropriate discharge home plan in place for patients who are going home after procedure Consent given by: Patient Patient states understanding of procedure being performed: Yes Patient's understanding of procedure matches consent: Yes Procedure consent matches procedure scheduled: Yes Expected level of sedation: Minimal Appropriately NPO: Yes ASA Class: 3 Mallampati : Grade 4- soft palate obscured by base of tongue Lungs: Lungs clear with good breath sounds bilaterally Heart: Normal heart sounds and rate History & Physical reviewed: History and physical reviewed and no updates needed Statement of review: I have reviewed the lab findings, diagnostic data, medications, and the plan for sedation SIMULATION MODELING ENGINEER documented in this encounter Plan of Treatment Not on file documented as of this encounter Procedures Procedure Name Priority Date/Time Associated Diagnosis Comments IR LOWER EXTREMITY ANGIOGRAM LEFT Routine 07/17/2023 12:48 PM LEAD SIMULATION MODELING ENGINEER Atherosclerosis of artery of left lower extremity (H24) INR STAT 07/17/2023 10:44 AM LEAD SIMULATION MODELING ENGINEER PARTIAL THROMBOPLASTIN TIME STAT 07/17/2023 10:44 AM LEAD SIMULATION MODELING ENGINEER LIPID PROFILE STAT 07/17/2023 10:44 AM LEAD SIMULATION MODELING ENGINEER HEMOGLOBIN A1C STAT 07/17/2023 10:44 AM LEAD SIMULATION MODELING ENGINEER BASIC METABOLIC PANEL STAT 07/17/2023 10:44 AM LEAD SIMULATION MODELING ENGINEER CBC WITH PLATELETS STAT 07/17/2023 10 :44 AM LEAD SIMULATION MODELING ENGINEER documented in this encounter Results * IR Lower Extremity Angiogram Left (07/17/2023 12:48 PM LEAD SIMULATION MODELING ENGINEER) Anatomical Region Laterality Modality Lower Extremity Radio Fluoroscop y Impressions 07/26/2023 4:11 PM LEAD SIMULATION MODELING ENGINEER IMPRESSION: Moderate disease of the left common [...] JAIME TURNER MD Narrative 07/26/2023 4:11 PM LEAD SIMULATION MODELING ENGINEER PREOP DIAGNOSIS: Left leg claudication. POSTOP DIAGNOSIS: [...] Sheath exchange was made for a 5 Uzbek sheath. An angled Glidewire Omni Flush catheter was delivered to the aortic bifurcation. We had a recent pelvic angiogram from 4 months ago and therefore I did not repeat that study today. The angled Glidewire was directed down into the distal left external iliac artery and catheter exchange was made for an angled [place] catheter. Selective left lower extremity angiography was [...] Sheath exchange was made for a 5 Uzbek sheath. An angled Glidewire Omni Flush catheter was delivered to the aortic bifurcation. We had a recent pelvic angiogram from 4 months ago and therefore I did not repeat that study today. The angled Glidewire was directed down into the distal left external iliac artery and catheter exchange was made for an angled [place] catheter. Selective left lower extremity angiography was [...] foot. JAIME TURNER MD Jaime Turner MD IMG IR ORDERABLES * (ABNORMAL) Lipid Panel (07/17/2023 10:44 AM LEAD SIMULATION MODELING ENGINEER) Cholesterol 107 <200 mg/dL 07/17/2023 5:00 PM LEAD SIMULATION MODELING ENGINEER [facility] Triglycerides 100 <150 mg/dL 07/17/2023 5:00 PM LEAD SIMULATION MODELING ENGINEER [facility] Direct Measure HDL 34(L) >=40 mg/dL 2023 5:00 PM LEAD SIMULATION MODELING ENGINEER [facility] LDL Cholesterol Calculated 53 <=100 mg/dL 07/17/2023 5:00 PM LEAD SIMULATION MODELING ENGINEER [facility] Non HDL Cholesterol 73 <130 mg/dL 07/17/2023 5:00 PM LEAD SIMULATION MODELING ENGINEER [facility] Patient Fasting > 8hrs? Yes 07/17/2023 5:00 PM LEAD SIMULATION MODELING ENGINEER [facility] Blood BLOOD SPECIMEN / Unknown Venipuncture / Unknown 07/17/2023 10:44 AM LEAD SIMULATION MODELING ENGINEER 07/17/2023 10:50 AM LEAD SIMULATION MODELING ENGINEER Narrative [facility] - 07/17/2023 5:00 PM LEAD SIMULATION MODELING ENGINEER Cholesterol Desirable: ??<200 mg/dL Triglycerides Normal: ??Less [...] MD LAB - BLOOD ORDERAB LES LABORAT[facility] [address], [address] [place] [address], [facility] [phone] * Partial thromboplastin time (07/17/2023 10:44 AM LEAD SIMULATION MODELING ENGINEER) aPTT 29 22 - 38 Seconds 07/17/2023 11:07 AM LEAD SIMULATION MODELING ENGINEER LABORATORY Blood BLOOD SPECIMEN / Unknown Venipuncture / Unknown 07/17/2023 10:44 AM LEAD SIMULATION MODELING ENGINEER 07/17/2023 10:50 AM LEAD SIMULATION MODELING ENGINEER Jaime Turner MD LAB - BLOOD ORDERAB LES LABORATORY [facility] [address], [address] [place] [address], [facility] [phone] * INR (07/17/2023 10:44 AM LEAD SIMULATION MODELING ENGINEER) INR 1.10 0.85 - 1.15 07/17/2023 11:07 AM LEAD SIMULATION MODELING ENGINEER LABORATORY Blood BLOOD SPECIMEN / Unknown Venipuncture / Unknown 07/17/2023 10:44 AM LEAD SIMULATION MODELING ENGINEER 07/17/2023 10:50 AM LEAD SIMULATION MODELING ENGINEER Jaiem Turner MD LAB - BLOOD ORDERAB LES LABORAT[facility] [address], [address] [place] [address], [facility] [phone] * CBC with platelets (07/17/2023 10:44 AM LEAD SIMULATION MODELING ENGINEER) WBC Count 7.3 4.0 - 11.0 10e3/uL 07/17/2023 10:55 AM LEAD SIMULATION MODELING ENGINEER LABORATORY RBC Count 4.71 4.40 - 5.90 10e6/uL 07/17/2023 10:55 AM LEAD SIMULATION MODELING ENGINEER LABORATORY Hemoglobin 13.6 13.3 - 17.7 g/dL 07/17/2023 10:55 AM [facility] Hematocrit 40.2 40.0 - 53.0 % 07/17/2023 10:55 AM [facility] MCV 85 78 - 100 fL 07/17/2023 10:55 AM [facility] MCH 28.9 26.5 - 33.0 pg 07/17/2023 10:55 AM [facility] MCHC 33.8 31.5 - 36.5 g/dL 07/17/2023 10:55 AM [facility] RDW 13.5 10.0 - 15.0 % 07/17/2023 10:55 AM [facility] Platelet Count 249 150 - 450 10e3/uL 07/17/2023 10:55 AM [facility] Blood BLOOD SPECIMEN / Unknown Venipuncture / Unknown 07/17/2023 10:44 AM LEAD SIMULATION MODELING ENGINEER 07/17/2023 10:50 AM LEAD SIMULATION MODELING ENGINEER Jaime Turner MD LAB - BLOOD ORDERAB LES [facility] [place] [facility] [address], [address] [place] [address], [facility] [phone] * (ABNORMAL) Hemoglobin A1c (07/17/2023 10:44 AM [facility]) Hemoglobin A1C 7.1(H) <5.7 % 07/17/2023 11:17 AM [facility] Comment: Normal <5.7% Prediabetes 5.7-6.4% ?? Diabetes 6.5% or higher Note: Adopted from ADA consensus guidelines. Blood BLOOD SPECIMEN / Unknown Venipuncture / Unknown 07/17/2023 10:44 AM LEAD SIMULATION MODELING ENGINEER 07/17/2023 10:50 AM LEAD SIMULATION MODELING ENGINEER Jaime Turner MD LAB - BLOOD ORDERAB LES [facility] [place] [facility] [address], [address] [place] [address], [facility] [phone] * (ABNORMAL) Basic metabolic panel (07/17/2023 10:44 AM [facility]) [facility] Sodium 137 135 - 145 mmol/L 07/17/2023 11:13 AM [facility] Comment:Reference intervals for this test were updated on 03/20/2023 to more accurately reflect our healthy population. There may be differences in the flagging of prior results with similar values performed with this method. Interpretation of those prior results can be made in the context of the updated reference intervals. Potassium 4.4 3.4 - 5.3 mmol/L 07/17/2023 11:13 AM [facility] Chloride 102 98 - 107 mmol/L 07/17/2023 11:13 AM [facility] Carbon Dioxide (CO2) 26 22 - 29 mmol/L 07/17/2023 11:13 AM [facility] Anion Gap 9 7 - 15 mmol/L 07/17/2023 11:13 AM [facility] Urea Nitrogen 17.2 8.0 - 23.0 mg/dL 07/17/2023 11:13 AM [facility] Creatinine 0.97 0.67 - 1.17 mg/dL 07/17/2023 11:13 AM [facility] GFR Estimate 83 >60 mL/min/1. 73m2 07/17/2023 11:13 AM [facility] Calcium 9.7 8.8 - 10.2 mg/dL 07/17/2023 11:13 AM [facility] Glucose 128(H) 70 - 99 mg/dL 07/17/2023 11:13 AM [facility] Blood BLOOD SPECIMEN / Unknown Venipuncture / Unknown 07/17/2023 10:44 AM [facility] 07/17/2023 10:50 AM [facility] Jaime Turner MD LAB - BLOOD ORDERAB LES LABORATORY [facility] 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) Atherosclerosis of artery of left lower extremity (H24) documented in this encounter Administered Medications Inactive Administered Medications - up to 3 most recent administrations Medication Order MAR Action Action Date Dose Rate Site fentaNYL (PF) (SUBLIMAZE) injection 25-50 mcg 25-50 mcg, Intravenous, EVERY 5 MIN PRN, severe pain, If inadequate response may repeat 25 mcg IV slowly every 5 min PRN severe pain; when verbally requested by provider., Administer over 2 Minutes, Starting on Sun07/17/23 at 1153, Doses can be exceeded under direct oversight of patient by physician., IR Intra-procedure $Given 07/17/2023 12:39 PM LEAD SIMULATION MODELING ENGINEER 25 mcg $Given 07/17/2023 12:28 PM LEAD SIMULATION MODELING ENGINEER 50 mcg $Given 07/17/2023 12:23 PM LEAD SIMULATION MODELING ENGINEER 50 mcg heparin 2 Units/mL in 0.9% NaCl (500 mL) 1 Bag, TABLE SOLN, CONTINUOUS PRN, Catheter prep table solution use as directed by provider., Starting on Sun07/17/23 at 1232, For 10 doses, Maximum total dose 10 bags = 5000 mL liters.,Nurse will document total number of bags used at the end of the procedure. NOT A PRESSURE BAG, IR Intra-procedure $New Bag 07/17/2023 12:33 PM LEAD SIMULATION MODELING ENGINEER 4 Bags iodixanol (VISIPAQUE 320) injection 100 mL 100 mL, INTRA-ARTERIAL, ONCE, On Sun07/17/23 at 1300, For 1 dose, IR Intra-procedure $Given 07/17/2023 12:56 PM LEAD SIMULATION MODELING ENGINEER 50 mLs lidocaine 1 % 1-30 mL 1-30 mL, Intradermal, ONCE PRN, local anesthetic. When verbally ordered by prescriber during the procedure., Starting on Sun07/17/23 at 1153, For 1 dose, Dose to be divided into smaller volumes appropriate for the procedure. Provider to administer intradermally. Dose to be divided into smaller volumes appropriate for the procedure., IR Intra-procedure $Given by Other 07/17/2023 12:28 PM LEAD SIMULATION MODELING ENGINEER 20 mLs midazolam (VERSED) injection 0.5-2 mg 0.5-2 mg, Intravenous, Administer over 1 Minutes, EVERY 4 MIN PRN, sedation, If inadequate response may repeat 0.5 mg IV slowly every 4 minutes PRN sedation until desired response; when verbally requested by provider., Starting on Sun07/17/23 at 1153, Doses can be exceeded under direct oversight of patient by physician. This drug may cause significant respiratory depression. Monitor respiratory status and vital signs carefully for 1 hour after each dose., IR Intra-procedure $Given 07/17/2023 12:39 PM LEAD SIMULATION MODELING ENGINEER 0.5 mg $Given 07/17/2023 12:24 PM LEAD SIMULATION MODELING ENGINEER 1 mg $Given 07/17/2023 12:12 PM LEAD SIMULATION MODELING ENGINEER 1 mg sodium chloride (PF) 0.9% PF flush 3 mL 3 mL, Intracatheter, EVERY 8 HOURS, First dose on Sun07/17/23 at 1030, to lock peripheral IV dormant line, IR Pre-procedure $Given 07/17/2023 10:45 AM LEAD SIMULATION MODELING ENGINEER 3 mLs sodium chloride 0.9 % infusion at 100 mL/hr, Intravenous, CONTINUOUS, IF PATIENT IS RECEIVING RENAL DIALYSIS, RN to reduce rate of 0.9 % sodium chloride IV solution to 10 mL /hour (TKO) IV infusion to prevent fluid overload., IR Pre-procedure, Starting on Sun07/17/23 at 1030, Until Sun07/17/23 at 1313 $New Bag 07/17/2023 10:44 AM LEAD SIMULATION MODELING ENGINEER 100 mL/hr documented in this encounter Active and Recently Administered Medications Times are shown in LEAD SIMULATION MODELING ENGINEER. Scheduled Medication Order 07/15/2023 07/16/2023 07/17/2023 aspirin EC tablet 81 mg 81 mg, Oral, DAILY, First dose on Sun07/18/23 at 0900, Post-procedurally for IR Continue after discharge. iodixanol (VISIPAQUE 320) injection 100 mL (COMPLETED) 100 mL, INTRA-ARTERIAL, ONCE, On Sun07/17/23 at 1300, For 1 dose, IR Intra-procedure 1256 ($Given - Provi erik: Dorina Deleon) sodium chloride (PF) 0.9% PF flush 3 mL (CANCELED) 3 mL, Intracatheter, EVERY 8 HOURS, First dose on Sun07/17/23 at 1030, to lock peripheral IV dormant line, IR Pre-procedure 1045 ($Given - Provi erik: Gabriela Patten RN) Continuous Medication Order 07/15/2023 07/16/202307/1707/17/2023 sodium chloride 0.9 % infusion (CANCELED) at 100 mL/hr, Intravenous, CONTINUOUS, IF PATIENT IS RECEIVING RENAL DIALYSIS, RN to reduce rate of 0.9 % sodium chloride IV solution to 10 mL /hour (TKO) IV infusion to prevent fluid overload., IR Pre-procedure, Starting on Sun07/17/23 at 1030, Until Sun07/17/23 at 1313 1044 ($New Bag - Pro vider: Gabriela Patten RN)1718 (Stopped - Provider: Beto Mcgrath, KENDALL) PRN Medication Order 07/15/2023 07/16/2023 07/17/2023 Continuing statin from home medication list OR statin order already placed during this visit Continuing statin from home medication list OR statin order already placed during this visit, Discharge-NON Med fentaNYL (PF) (SUBLIMAZE) injection 25-50 mcg (CANCELED) 25-50 mcg, Intravenous, EVERY 5 MIN PRN, severe pain, If inadequate response may repeat 25 mcg IV slowly every 5 min PRN severe pain; when verbally requested by provider., Administer over 2 Minutes, Starting on Sun07/17/23 at 1153, Doses can be exceeded under direct oversight of patient by physician., IR Intra-procedure 1223 ($Given - Provi erik: Tristin Krishna RN)1228 ($Given - Provider: Tristin Krishna RN)1239 ($Given - Provider: Tristin Krishna RN) heparin 2 Units/mL in 0.9% NaCl (500 mL) (CANCELED) 1 Bag, TABLE SOLN, CONTINUOUS PRN, Catheter prep table solution use as directed by provider., Starting on Sun07/17/23 at 1232, For 10 doses, Maximum total dose 10 bags = 5000 mL liters.,Nurse will document total number of bags used at the end of the procedure. NOT A PRESSURE BAG, IR Intra-procedure 1233 ($New Bag - Pro vider: Tristin Krishna RN - Comment: table Supply IR)1718 (Stopped - Provider: Beto Mcgrath, KENDALL) lidocaine 1 % 1-30 mL (COMPLETED) 1-30 mL, Intradermal, ONCE PRN, local anesthetic. When verbally ordered by prescriber during the procedure., Starting on Sun07/17/23 at 1153, For 1 dose, Dose to be divided into smaller volumes appropriate for the procedure. Provider to administer intradermally. Dose to be divided into smaller volumes appropriate for the procedure., IR Intra-procedure 1228 ($Given by Othe r - Provider: Tristin Krishna RN - Comment: Dr Turner ... IntraOp IR) midazolam (VERSED) injection 0.5-2 mg (CANCELED) 0.5-2 mg, Intravenous, Administer over 1 Minutes, EVERY 4 MIN PRN, sedation, If inadequate response may repeat 0.5 mg IV slowly every 4 minutes PRN sedation until desired response; when verbally requested by provider., Starting on Sun07/17/23 at 1153, Doses can be exceeded under direct oversight of patient by physician. This drug may cause significant respiratory depression. Monitor respiratory status and vital signs carefully for 1 hour after each dose., IR Intra-procedure 1212 ($Given - Provi erik: Tristin Krishna RN)1224 ($Given - Provider: Tristin Krishna RN)1239 ($Given - Provider: Tristin Krishna RN) documented in this encounter Care Teams Mule Spinner Relationship Specialty Start Date End Date Cameron Aldridge MD [facility] [address] [address] PCP - General Family Medicine 02/02/23 Jaime Turner MD [address] [address] Assigned Heart and Vascular Provider 02/10/23 documented as of this encounter
--- OUTSIDE RECORDS SUMMARY | 2023-10-12 20:46 | XMS_ITS | Clinical Summary ---
Author Name Unknown Organization [facility] Address [address] [place] [address] Care Team Providers Care Editor Dictionary Name Role Phone Cameron Aldridge MD Primary Care Provider [phone] Jaime Turner MD Unavailable [phone] Medications Medication Sig Dispensed Refills Start Date [...] Mon, Tues, Thurs, Fri, Sat & Sun Active warfarin ANTICOAGULANT [...] (peripheral artery disease) (H24) 02/27/2023 Atherosclerosis of lumbee ar paulina of right lower extremity with ulceration of other part of foot 02/27/2023 Resolved Problems Problem Noted Date Diagnosed Date Resolved Date [email or web address] 07/28/2006 09/17/2006 [email or web address] 07/28/2006 09/17/2006 Encounters Date Type Department Care Team Description 08/01/2023 2:40 PM WORK FROM HOME Office Visit [facility] [place] 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 [place] [phone] Jaime Turner MD Clinic Care Coordination - Post Hospital 07/17/2023 10:05 AM WORK FROM HOME - 07/17/2023 5:30 PM WORK FROM HOME Hospital Encounter [facility] [address] [place] [phone] Non- Credentialed Provider, Radiology Jaime Turner MD PAD (peripheral artery disease) (H24) (Primary Dx); Atherosclerosis of lumbee artery of right lower extremity with ulceration of other part of foot (H); Atherosclerosis of artery of left lower extremity (H24) Discharge Disposition: Home or Self Care 07/16/2023 Telephone [facility] [place] [address] [place] [phone] Jaime Turner MD Patient Request from Last 3 Months Family History Medical History Relation Comments Diabetes Mother Relation Status Comments Mother Social History Tobacco Use Types Packs/Day Years [...] Sex Assigned at Male 07/15/2023 8:16 PM WORK FROM HOME Gender Identity Male 07/15/2023 8:16 PM WORK FROM HOME Sexual Orientation Straight 07/15/2023 8: 16 PM WORK FROM HOME Last Filed Vital Signs Vital Sign Reading Time Taken Comments Blood Pressure 121/69 08/01/2023 2:43 PM WORK FROM HOME Pulse 92 08/01/2023 2:43 PM WORK FROM HOME Temperature 36.4 ??C (97.6 ??F) 07/17/2023 10:[address] Respiratory Rate 16 07/17/2023 5:15 PM WORK FROM HOME Oxygen Saturation 98% 07/17/2023 5:15 PM WORK FROM HOME Inhaled Oxygen Concentration - - Weight 120 kg (264 lb 8 oz) 07/17/2023 10:20 AM WORK FROM HOME Height 180.3 cm (5' 11) 07/17/2023 10:20 AM WORK FROM HOME Body Mass Index 36.89 07/17/2023 10:20 AM WORK FROM HOME Plan of Treatment Health Maintenance Due Date Last Done Comments ADVANCE CARE PLANNING 1950 ANNUAL REVIEW OF HM ORDERS 1950 CT COLONOGRAPHY 1950 DIABETIC FOOT EXAM 1950 EYE EXAM 1950 FIT 1950 FLEX SIG 1950 MICROALBUMIN 1950 sDNA (Cologuard) 1950 HEPATITIS C SCREENING 1969 ZOSTER IMMUNIZATION (1 of 2) 2001 RSV VACCINE ( & 60+) (1 - 1-dose 60+ series) 2011 AORTIC ANEURYSM SCREENING (SYSTEM ASSIGNED) 02/07/2016 FALL RISK ASSESSMENT 02/07/2016 MEDICARE ANNUAL WELLNESS VISIT 02/07/2016 COVID-19 Vaccine (5 - 2023-24 season) 2023 12/13/2021, 03/23/2021, 08/13/2020, Additional history exists INFLUENZA VACCINE (#1) 2023 , 03/25/2021, 06/20/2019, Additional history exists PHQ-2 (once per calendar year) 2023 A1C 10/16/2023 07/17/2023, 02/27/2023 BMP 07/17/2024 07/17/2023, 02/27/2023 LIPID 07/17/2024 07/17/2023, 02/27/2023 DTAP/TDAP/TD IMMUNIZATION (2 - Td or Tdap) 06/07/2026 06/07/2016 COLONOSCOPY 09/23/2028 09/23/2018 COLORECTAL CANCER SCREENING 09/23/2028 Pneumococcal Vaccine: 65+ Years Completed 06/12/2017, 06/07/2016 HPV IMMUNIZATION Aged Out No longer e ligible based on patient's age to complete this topic IPV IMMUNIZATION Aged Out No longer e ligible based on patient's age to complete this topic MENINGITIS IMMUNIZATION Aged Out No l onger eligible based on patient's age to complete this topic RSV MONOCLONAL ANTIBODY Aged Out No l onger eligible based on patient's age to complete this topic Procedures Procedure Name Priority Date/Time Associated Diagnosis Comments IR LOWER EXTREMITY ANGIOGRAM LEFT Routine 07/17/2023 12:48 PM WORK FROM HOME Atherosclerosis of artery of left lower extremity (H24) LIPID PROFILE STAT 07/17/2023 10:44 AM WORK FROM HOME PARTIAL THROMBOPLASTIN TIME STAT 07/17/2023 10:44 AM WORK FROM HOME INR STAT 07/17/2023 10:44 AM WORK FROM HOME CBC WITH PLATELETS STAT 07/17/2023 10 :44 AM WORK FROM HOME HEMOGLOBIN A1C STAT 07/17/2023 10:44 AM WORK FROM HOME BASIC METABOLIC PANEL STAT 07/17/2023 10:44 AM WORK FROM HOME from Last 3 Months Results * IR Lower Extremity Angiogram Left (07/17/2023 12:48 PM WORK FROM HOME) Anatomical Region Laterality Modality Lower Extremity Radio Fluoroscop y Impressions 07/26/2023 4:11 PM WORK FROM HOME IMPRESSION: Moderate disease of the left common [...] JAIME TURNER MD Narrative 07/26/2023 4:11 PM WORK FROM HOME PREOP DIAGNOSIS: Left leg claudication. POSTOP DIAGNOSIS: [...] Sheath exchange was made for a 5 Vincentian sheath. An angled Glidewire Omni Flush catheter was delivered to the aortic bifurcation. We had a recent pelvic angiogram from 4 months ago and therefore I did not repeat that study today. The angled Glidewire was directed down into the distal left external iliac artery and catheter exchange was made for an angled Sterling catheter. Selective left lower extremity angiography was [...] Sheath exchange was made for a 5 Vincentian sheath. An angled Glidewire Omni Flush catheter was delivered to the aortic bifurcation. We had a recent pelvic angiogram from 4 months ago and therefore I did not repeat that study today. The angled Glidewire was directed down into the distal left external iliac artery and catheter exchange was made for an angled Sterling catheter. Selective left lower extremity angiography was [...] foot. JAIME TURNER MD Jaime Turner MD [facility] IR ORDERABLES * INR (07/17/2023 10:44 AM WORK FROM HOME) INR 1.10 0.85 - 1.15 07/17/2023 11:07 AM WORK FROM HOME LABORATORY Blood BLOOD SPECIMEN / Unknown Venipuncture / Unknown 07/17/2023 10:44 AM WORK FROM HOME 07/17/2023 10:50 AM WORK FROM HOME Jaime Turner MD LAB - BLOOD ORDERAB LES LABORATORY [facility] [address], [address] [place] [address], [facility] [phone] * Partial thromboplastin time (07/17/2023 10:44 AM WORK FROM HOME) aPTT 29 22 - 38 Seconds 07/17/2023 11:07 AM WORK FROM HOME LABORATORY Blood BLOOD SPECIMEN / Unknown Venipuncture / Unknown 07/17/2023 10:44 AM WORK FROM HOME 07/17/2023 10:50 AM WORK FROM HOME Jaime Turner MD LAB - BLOOD ORDERAB LES LABORATORY [facility] [address], [address] [place] [address], [facility] [phone] * (ABNORMAL) Lipid Panel (07/17/2023 10:44 AM WORK FROM HOME) Cholesterol 107 <200 mg/dL 07/17/2023 5:00 PM WORK FROM HOME [facility] Triglycerides 100 <150 mg/dL 07/17/2023 5:00 PM WORK FROM HOME [facility] Direct Measure HDL 34(L) >=40 mg/dL 2023 5:00 PM WORK FROM HOME [facility] LDL Cholesterol Calculated 53 <=100 mg/dL 07/17/2023 5:00 PM WORK FROM HOME [facility] Non HDL Cholesterol 73 <130 mg/dL 07/17/2023 5:00 PM WORK FROM HOME [facility] Patient Fasting > 8hrs? Yes 07/17/2023 5:00 PM WORK FROM HOME [facility] Blood BLOOD SPECIMEN / Unknown Venipuncture / Unknown 07/17/2023 10:44 AM WORK FROM HOME 07/17/2023 10:50 AM WORK FROM HOME Narrative [facility] - 07/17/2023 5:00 PM WORK FROM HOME Cholesterol Desirable: ??<200 mg/dL Triglycerides Normal: ??Less [...] MD LAB - BLOOD ORDERAB LES LABORATORY [facility] [address] [facility], [address] [place] [address], [place] [phone] * (ABNORMAL) Hemoglobin A1c (07/17/2023 10:44 AM WORK FROM HOME) Hemoglobin A1C 7.1(H) <5.7 % 07/17/2023 11:17 AM [facility] Comment: Normal <5.7% Prediabetes 5.7-6.4% ?? Diabetes 6.5% or higher Note: Adopted from ADA consensus guidelines. Blood BLOOD SPECIMEN / Unknown Venipuncture / Unknown 07/17/2023 10:44 AM WORK FROM HOME 07/17/2023 10:50 AM WORK FROM HOME Jaime Turner MD LAB - BLOOD ORDERAB LES LABORATORY [facility] [address], [address] [place] [address], [place] [phone] * (ABNORMAL) Basic metabolic panel (07/17/2023 10:44 AM WORK FROM HOME) Sodium 137 135 - 145 mmol/L 07/17/2023 11:13 AM WORK FROM HOME LABORATORY Comment:Reference intervals for this test were updated on 03/20/2023 to more accurately reflect our healthy population. There may be differences in the flagging of prior results with similar values performed with this method. Interpretation of those prior results can be made in the context of the updated reference intervals. Potassium 4.4 3.4 - 5.3 mmol/L 07/17/2023 11:13 AM [facility] Chloride 102 98 - 107 mmol/L 07/17/2023 11:13 AM [facility] Carbon Dioxide (CO2) 26 22 - 29 mmol/L 07/17/2023 11:13 AM [facility] Anion Gap 9 7 - 15 mmol/L 07/17/2023 11:13 AM [facility] Urea Nitrogen 17.2 8.0 - 23.0 mg/dL 07/17/2023 11:13 AM [facility] Creatinine 0.97 0.67 - 1.17 mg/dL 07/17/2023 11:13 AM [facility] GFR Estimate 83 >60 mL/min/1. 73m2 07/17/2023 11:13 AM [facility] Calcium 9.7 8.8 - 10.2 mg/dL 07/17/2023 11:13 AM [facility] Glucose 128(H) 70 - 99 mg/dL 07/17/2023 11:13 AM [facility] Blood BLOOD SPECIMEN / Unknown Venipuncture / Unknown 07/17/2023 10:44 AM [facility] 07/17/2023 10:50 AM [facility] Jaime Turner MD LAB - BLOOD ORDERAB LES LABORATORY [facility] [address], [address] [place] [address], [facility] [phone] * CBC with platelets (07/17/2023 10:44 AM [facility]) [facility] WBC Count 7.3 4.0 - 11.0 10e3/uL 07/17/2023 10:55 AM [facility] RBC Count 4.71 4.40 - 5.90 10e6/uL 07/17/2023 10:55 AM [facility] Hemoglobin 13.6 13.3 - 17.7 g/dL 07/17/2023 10:55 AM [facility] Hematocrit 40.2 40.0 - 53.0 % 07/17/2023 10:55 AM [facility] MCV 85 78 - 100 fL 07/17/2023 10:55 AM [facility] MCH 28.9 26.5 - 33.0 pg 07/17/2023 10:55 AM [facility] MCHC 33.8 31.5 - 36.5 g/dL 07/17/2023 10:55 AM [facility] RDW 13.5 10.0 - 15.0 % 07/17/2023 10:55 AM [facility] Platelet Count 249 150 - 450 10e3/uL 07/17/2023 10:55 AM [facility] Blood BLOOD SPECIMEN / Unknown Venipuncture / Unknown 07/17/2023 10:44 AM WORK FROM HOME 07/17/2023 10:50 AM [facility] Jaime Turner MD LAB - BLOOD ORDERAB LES [facility] Organization Address City/State/[facility] Co de Phone Number LABORATORY [facility] [address], [address] [place] [address], [facility] [phone] from Last 3 Months Advance Directives For more information, please contact: [phone] * Full Code (Latest Code Status on File) Date Activated Date Inactivated Comments 02/27/2023 5:08 PM 02/28/2023 8:58 AM All basic and advanced life-sustaining interventions are performed as appropriate Question Answer Comments Code status determined by: Unable to dis cuss and no AD/POLST on file; continue PREVIOUSLY ORDERED code status Care Teams Editor Dictionary Relationship Specialty Start Date End Date Cameron Aldridge MD [facility] [address] [place] [address] PCP - General Family Medicine 02/02/23 Jaime Turner MD [address] [place] [address] [place] [address] Assigned Heart and Vascular Provider 02/10/23
--- OUTSIDE RECORDS SUMMARY | 2023-10-12 20:46 | XMS_ITS | Clinical Summary ---
Author Name Unknown Organization [facility] Address [address], [place] [address] Care Team Providers Care Mill Washer Name Role Phone Unavailable Primary Care Provider Unavailabl e Source Comments You are receiving this document as you are listed as the primary care provider,follow-up provider, or the patient has been referred to you for consultation.This is in compliance with the Medicare and[facility] Hospitalca[facility] EHR Incentive Program,which states Providers who transition their patient to another setting of careor provider of care or refers their patient to another provider of care shouldprovide summary care record for each transition of care or referral. [facility] Social History Tobacco Use Types Packs/Day Years Used Date Smoking Tobacco: Never Assessed Sex and Gender Information Value Date Recorded Sex Assigned at Not on file Gender Identity Not on file Sexual Orientation Not on file Last Filed Vital Signs Vital Sign Reading Time Taken Comments Blood Pressure 158/104 12/11/2017 5:57 PM CDT Pulse 97 12/11/2017 5:57 PM CDT Temperature - - Respiratory Rate 12 12/11/2017 5:57 PM CDT Oxygen Saturation - - Inhaled Oxygen Concentration - - Weight - - Height - - Body Mass Index - - Plan of Treatment Health Maintenance Due Date Last Done Comments Colon Cancer Screening Plan Due 1950 Hep C Screening (Preventive Services) 1950 Adult Preventive Visit 1969 DTaP/Tdap/Td (1 - Tdap) 1970 Cholesterol 1986 Zoster/Shingles (1 of 2) 2001 Pneumococcal 65+ Yrs (1 - PCV) 02/07/2016 COVID-19 Vaccine ( - 2022-2 4 season) 2023 Influenza (#1) 2023 HepA Aged Out No longer eligi ble based on patient's age to complete this topic HepB Aged Out No longer eligi ble based on patient's age to complete this topic Hib Aged Out No longer eligi ble based on patient's age to complete this topic IPV (Polio) Aged Out No longer eligi ble based on patient's age to complete this topic MCV4 Aged Out No longer eligi ble based on patient's age to complete this topic
--- OUTSIDE RECORDS SUMMARY | 2023-10-12 20:46 | XMS_ITS | Encounter Summary ---
Author Name Unknown Organization [place] Address [address] [facility] [place] [address] Care Team Providers Care Test Grader Name Role Phone Cameron Aldridge MD Primary Care Provider Jaime Turner MD Unavailable [phone] Reason for Referral * Diagnostic Imaging Ultrasound (Routine) - Pending Review Specialty Diagnoses / Procedures Referred By Contac t Referred To Contact Radiology. Diagnoses Status post peripheral artery angioplasty Procedures US JOHN Doppler with Exercise Bilateral Jaime Turner MD [address] [place] [address] Referral ID Status Reason Start Date Expiration Date V isits Requested Visits Authorized [id number] Pending Review 08/21/2023 08/20/2024 1 1 DIRECTOR RN Reason for Visit * Reason Comments RECHECK 1st PO - follow up t o selective LLE angiogram on 07/17/23 Encounter Details Date Type Department Care Team (Late st Contact Info) Description 08/01/2023 2:40 PM CARE DIRECTOR RN Office Visit [facility] Katie 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); On Coumadin for atrial fibrillation (H); Class 2 severe obesity due to excess calories with serious comorbidity and body mass index (BMI) of 36.0 to 36.9 in adult (H) Social History Tobacco Use Types Packs/Day Years [...] Sex Assigned at Male 07/15/2023 8:16 PM CARE DIRECTOR RN Gender Identity Male 07/15/2023 8:16 PM CARE DIRECTOR RN Sexual Orientation Straight 07/15/2023 8: 16 PM CARE DIRECTOR RN documented as of this encounter Last Filed Vital Signs Vital Sign Reading Time Taken Comments Blood Pressure 121/69 08/01/2023 2:43 PM CARE DIRECTOR RN Pulse 92 08/01/2023 2:43 PM CARE DIRECTOR RN Temperature - - Respiratory Rate - - Oxygen Saturation - - Inhaled Oxygen Concentration - - Weight - - Height - - Body Mass Index - - documented in this encounter Patient Instructions * Patient Instructions* Blayne Quiñones RN - 08/01/2023 2:40 PM CARE DIRECTOR RN DIRECTOR RN documented in this encounter Progress Notes * Diane Sanchez - 08/01/2023 2:40 PM CST [facility] Patient is here for a follow up. Pt is currently taking Aspirin, Statin, and Warfarin. BP 121/69 (BP Location: Right arm, Patient Position: Chair, Cuff Size: Adult Large) Pulse 92 The provider has been notified that the patient has no concerns. Questions patient would like addressed today are: N/A. Refills are needed: N/A Has homecare services and agency name: Karin Sanchez MA DIRECTOR RN * Jaime Turner MD - 08/01/2023 2:40 PM CST dAilson Person is a 73-year-old gentleman with metabolic syndrome who lives in [place]. He isstatus post multiple lumbar and cervical procedures and was felt to have a component of neurogenic claudication. He underwent L3-S1 lumbar decompression with fusion just over a year ago. He was referred to me last January for a nonhealing wound on his right great toe present for the past 8 months. Iperformed right lower extremity angiography on 02/27/2023 and performed angioplasty of the entire right SFA for diffuse fairly calcified disease. He started hyperbaric oxygen therapy in [place]. Ultimately his right great toe wound healed. I saw him in June of this year for complaints of lifestyle limiting left leg claudication. I took him back to angiography on 07/17/2023. No left leg interventions were performed. Adilson returns today with his to discuss my left leg treatment recommendations. He has previously completed an ambulation program with no improvement in his absolute claudication distance. He is a former heavy smoker but quit smoking in 2000. 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 He admits to not being very physically active. He still enjoys working on cars and fishing. Exam: Obese male alert and oriented x 3. Blood pressure 121/69 with a pulse of 92. 1+ palpable femoral pulses bilaterally. Right groin access site is clear. Strong monophasic to biphasic bilateral DP and PT pulses. Imaging: I reviewed an JOHN with exercise from 03/09/2023. I reviewed bilateral lower extremity vein mapping from 02/27/2023 showing a probable poor quality (less than 3 mm saphenous vein) throughout the left leg. I reviewed the left leg angiogram from 07/17/2023 showing diffuse, calcified disease of the left common femoral artery and the origin of the left SFA. There is a focal occlusion of the distal left SFAjust above the adductor canal. The left popliteal artery is of reasonable quality with three-vesselrunoff to the left foot. IMPRESSION: 1. 5-month status post angioplasty of the heavily calcified right SFA with subsequent healing of a medial right great toe wound. 2. Short distance left leg claudication secondary to multilevel left leg disease with seemingly poor quality left greater saphenous vein 3. Atrial fibrillation on Coumadin. 4. Metabolic syndrome. PLAN: I reviewed all the above with Adilson and his . Anatomically he would require a left femoropopliteal bypass probably to the above-knee popliteal artery. His saphenous vein in the left leg appears inadequate. I discussed the patency and characteristics of femoral-popliteal bypass with PTFE graft. He understands that his left leg is not immediately threatened. We discussed potential weight loss. After a candid conversation he opts for continued observation of his left leg claudication. He understands that with strict adherence to an ambulation program he could potentially double his absolute claudication distance. He plans to try pursuing this further on his own. He will continue his medical regimen including aspirin and Coumadin (atrial fibrillation). Vascular surgical follow-up will be with me in 6 months for repeat JOHN with exercise. He will contact me sooner should he develop signs or symptoms of critical limb ischemia. Total length of this encounter was 30 minutes with time spent reviewing studies, interviewing and examining the patient, answering questions, and coordinating a treatment plan. Shaun Turner MD DIRECTOR RN documented in this encounter Miscellaneous Notes * Addendum Note - Blayne Quiñones RN - 08/01/2023 2:40 PM CSTAddended by: BLAYNE QUIÑONES on: 08/21/2023 01:38 PM Modules accepted: Orders DIRECTOR RN documented in this encounter Plan of Treatment Scheduled Orders Name Type Priority Associated Diagnoses Orde r Schedule US JOHN Doppler with Exercise Bilateral Imaging Routine Status post peripheral artery angioplasty Expected: 01/30/2024 (Approximate), Expires: 08/20/2024 documented as of this encounter Visit Diagnoses Diagnosis Status post peripheral artery angioplasty- Primary Other postprocedural status Type 2 diabetes mellitus with foot ulcer, 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
--- OUTSIDE RECORDS SUMMARY | 2023-10-12 20:46 | XMS_ITS | Encounter Summary ---
Author Name Unknown Organization [place] Address [address] [facility] [place] [address] Care Team Providers Care Property Claims Manager Name Role Phone Cameron Aldridge MD Primary Care Provider [phone] Jaime Turner MD Unavailable Reason for Visit * Reason Onset Date Comments Clinic Care Coordination - Post Hospital 024 Encounter Details Date Type Department Care Team (Late st Contact Info) Description 07/30/2023 Telephone [facility] [place] [address] [place] [address] Jaime Turner MD [address] [place], [place] [address] Clinic Care Coordination - Post Hospital Social History Tobacco Use Types Packs/Day Years Used Date Smoking Tobacco: Former Cigarettes Q uit: 08/29/2000 Alcohol Use Standard Drinks/Week Comments Yes 0 (1 standard drink = 0.6 oz pur e alcohol) occ Adolescent Education Answer Date Record ed Getting School Help Needed Not on file 04/02 Sex and Gender Information Value Date Recorded Sex Assigned at Male 07/15/2023 8:16 PM GUN SYNCHRONIZER Gender Identity Male 07/15/2023 8:16 PM GUN SYNCHRONIZER Sexual Orientation Straight 07/15/2023 8: 16 PM GUN SYNCHRONIZER documented as of this encounter Miscellaneous Notes * Telephone Encounter - Liam Sahu - 07/31/2023 10:42 AM CST Cancelled US with patient. SYNCHRONIZER * Telephone Encounter - Linda Cade RN - 07/31/2023 10:14 AM GUN SYNCHRONIZER Angiogram on 07/17/23 was selective left lower extremity angiogram. Thus, no interventions were done and JOHN is not needed. Vein mapping done 02/27/23. Routing to scheduling to contact patient and cancel JOHN. JASIEL Gallegos, RN, CV-BC [facility] [place] SYNCHRONIZER * Telephone Encounter - Liam Sahu - 07/30/2023 8:36 AM CST [facility] Who is the name of the provider?: JAIME TURNER What is the location you see this provider at/preferred location?: Katie Person calling / Facility: Fani Person Phone number: [phone] (home) Nurse call back needed: ? Reason for call: Patients spouse stating that US on 08/01 isnt needed per Dr Turner. Please review and advise. Pharmacy location: [facility] [address] [place] [address] Outside Imaging: n/a Can we leave a detailed message on this number? YES 07/30/2023, 8:36 AM SYNCHRONIZER documented in this encounter Plan of Treatment Not on file documented as of this encounter Visit Diagnoses Not on filedocumented in this encounter Care Teams Property Claims Manager Relationship Specialty Start Date End Date Cameron Aldridge MD [facility] [address] [facility] [place] [address] PCP - General Family Medicine 02/02/23 Jaime Turner MD [address] [place] [address] [place] [address] Assigned Heart and Vascular Provider 02/10/23 documented as of this encounter
--- OUTSIDE RECORDS SUMMARY | 2023-10-12 20:46 | XMS_ITS | Encounter Summary ---
Author Name Unknown Organization [place] Address [address] [facility] [place] [address] Care Team Providers Care Management Psychologist Name Role Phone Cameron Aldridge MD Primary Care Provider [phone] Jaime Turner MD Unavailable [phone] Reason for Visit * Reason Onset Date Comments Patient Request 07/16/2023 Encounter Details Date Type Department Care Team (Late st Contact Info) Description 07/16/2023 Telephone [facility] [place] [address] [place] [phone] Jaime Turner MD [address] [place] [id number] Patient Request Social History Tobacco Use Types Packs/Day Years Used Date Smoking Tobacco: Former Cigarettes Q uit: 08/29/2000 Alcohol Use Standard Drinks/Week Comments Yes 0 (1 standard drink = 0.6 oz pur e alcohol) occ Adolescent Education Answer Date Record ed Getting School Help Needed Not on file 04/02 Sex and Gender Information Value Date Recorded Sex Assigned at Male 07/15/2023 8:16 PM PEDIATRIC DENTAL HYGIENIST Gender Identity Male 07/15/2023 8:16 PM PEDIATRIC DENTAL HYGIENIST Sexual Orientation Straight 07/15/2023 8: 16 PM PEDIATRIC DENTAL HYGIENIST documented as of this encounter Miscellaneous Notes * Telephone Encounter - Diane Scott RN - 07/16/2023 2:37 PM CST Returned call and explained medication holds need to come from patients PCP who did his pre-op. Fani will contact them for the Metformin question and also request pre-op be faxed to [facility]. Diane WEATHERS RN [facility] Office: [phone] ATRIC DENTAL HYGIENIST * Telephone Encounter - Yanelis Frost - 07/16/2023 1:41 PM CST [facility] Who is the name of the provider?: JAIME TURNER What is the location you see this provider at/preferred location?: Katie Person calling / Facility: Adilson Person Phone number: [phone] (home) Nurse call back needed: YES Reason for call: Called patient to confirm if he had a pre-op done. Patient spouse Fani states patient had H&P on 07/09/23 with his PCP. Contacted patient PCP clinic and provided fax number for clinic to send over H&P documents to SX team. Fani also had a question about the patient taking his metformin and would like advice on that. Informed Fani our providers weigh in on blood thinners but I would have a RN look into it and see if they are able to help. Informed Fani that she should reach out to PCP clinic to clarify medication question. IF [facility] RN is not appropriate please contact patient to advise. Pharmacy location: n/a Outside Imaging: n/a Can we leave a detailed message on this number? YES 07/16/2023, 1:41 PM ATRIC DENTAL HYGIENIST documented in this encounter Plan of Treatment Not on file documented as of this encounter Visit Diagnoses Not on filedocumented in this encounter Care Teams Management Psychologist Relationship Specialty Start Date End Date Cameron Aldridge MD [facility] [address] [address] PCP - General Family Medicine 02/02/23 Jaime Turner MD [address] [facility] [address] [place] [address] Assigned Heart and Vascular Provider 02/10/23 documented as of this encounter
--- OUTSIDE RECORDS SUMMARY | 2023-10-12 20:47 | XMS_ITS ---
Author Name Unknown Organization [facility] Address [address] [place] [address] Care Team Providers Care Hydraulic Riveter Name Role Phone Unavailable Unavailable Unavailable Surgery Details Not on file Complications Check Surgery Details section. Procedure Estimated Blood Loss Check Surgery Details section. Procedure Findings Check Surgery Details section. Procedure Specimens Taken Check Surgery Details section.
--- OUTSIDE RECORDS SUMMARY | 2023-10-12 20:47 | XMS_ITS | Continuity of Care Document ---
Author Name Unknown Organization [facility] Address [address] [place] [address] Phone Care Team Providers Care Shopfitter Name Role Phone Will Manjinder SUTHERLAND Unavailable [...] Diagnoses Date Provider Providers Copied on Encounter [facility], [address] [place] [address] [place], [place], [id number] , [place] tel:[phone] [facility] No Information 2 Will Manjinder. [address] [facility] [place], [place], [id number] , [place]. tel: [phone] OFFICE/OUTPAT IENT VISIT, EST [facility], [address] [place] [address], [id number] , [place] tel: [phone] [facility] Widespread pain (chief complaint) Postlaminectomy syndrome, not elsewhere classifiedChroni c migraine w/o aura, intractable, w status migrainosusOther intervertebral disc degeneration, lumbar regionLong term (current) use of opiate analgesicOther cervical disc degeneration, unsp cervical region Mar-0 [address] Liz Ying. [address] [place] [address] [address], [place], [place], [id number] , [place]. tel: [phone] Referring Provider: Cameron Aldridge [facility] [address], [place], [address]. tel:[phone] OFFICE CONSULTATION [facility], [address] [place] [address], [id number] , [place] tel: [phone] [facility] Widespread pain (chief complaint) Postlaminectomy syndrome, not elsewhere classifiedChroni c migraine w/o aura, intractable, w status migrainosusOther cervical disc degeneration, unsp cervical regionOther intervertebral disc degeneration, lumbar regionLong term (current) use of opiate analgesicEncount er for therapeutic drug level monitoringSpinal stenosis, lumbar region with neurogenic claudication 9 [facility]. [facility], [address], [place], [address], [place]. tel: [phone] Referring Provider: [facility] [address], [place], [address]. tel:[phone] [facility], [address] [place] [address], [id number] , [place] tel: [phone] [facility] Widespread pain (chief complaint) No Information 9 Joesph Philippew. [address] [facility] [place], [place], [id number] , [place]. tel: [phone] Family History Family Member Type Diagnosis Age At Onset No Information Payers Payer name Insurance type Covered constitution party ID Rose granger(s) [facility] [id number] Social History Type Description Quantity Date Captured Comments Sex Male Smoking Status No Information Chief Complaint And Reason For Visit No Information Reason For Referral Reason For Referral No Information Plan Of Treatment Date Type Action Status Future Order: Lab Order ELICEO PIERSON DRUG ANALYSIS, URINE, WITH MED REPORT ([id number]), Ordered on: Ordered History Of Present Illness [...] has lumber KHURRAM scheduled next week at [facility] and inquires about this today.Patient is [...] as a surgical candidate. Underwent PT at [facility] in 2012-- not helpful. Regularly attends chiropractor for neck pain--helpful. Tried both lumbar and cervical ESIs at [facility], noting the lumbar ESIs did not provide much relief. Still completes CESIs regularly which is helpful for his neck pain. Reports last EMILY was 05/30/2018. Additionally reports previous MRI at [facility]. Currently managed on gabapentin 800mg TID and oxycodone 5-325mg average #1/day. Takes Ibuprofen for additional relief. States the oxycodone provides good relief when he takes it, especially at night to aid with sleep. Adilson is interested in any treatment option and would like [facility] to assume management of pain care. Widespread pain (comments) Adilson is here for initial consult for pain management, referred by PCP Cameron Duong MD at [facility]. His pain began gradually over 20 years ago and has progressively worsened over time. C/o constant headaches, in addition to neck and back pain. Has muscle spasms in BL LE, groin, and ribcage. Reports previous cervical diskectomy in 2000, however states he is no longer recommended as a surgical candidate. Underwent PT at [facility] in 2012-- not helpful. Tried ESIs at [facility]. Reports previous MRI at [facility]. Has taken gabapentin 800mg TID and oxycodone for additional pain relief. Adilson is interested in any treatment option and would like [facility] to assume management of pain care. Widespread pain Duration: chroni c. Functional Status Date Functional Assessmen t No Information Instructions Date Instruction Additional Infor mation No Information Assessments Type Assessment Date No Information Patient Care Teams Name Effective Dates (start - stop) Status Members No Information
--- OUTSIDE RECORDS SUMMARY | 2023-10-12 20:47 | XMS_ITS | Continuity of Care Document ---
Author Name Unknown Organization [facility] Address [address] [place] [address] Phone Care Team Providers Care Labeling Machine Operator Name Role Phone Jaime Stahl MD Unavailable [...] Active Procedures Procedure Date Office/Outpatient Visit,[facility] 2016 Advance Directives Directive Yes / No Effective Date File Name No Information Encounters Encounter Description Practice Location Reason(s) For Visit Diagnoses Date Provider Providers Copied on Encounter [facility], [address], [place], [id number], [place] tel:[phone] [facility] No Information Maribeth Sandoval. [facility], [facility] [address] [place] [address], [address], [place], [id number], [place]. tel:[phone] Office/Outpat ient Visit,[facility], [address], [place], [id number], [place] tel:[phone] [facility] Spinal stenosis, lumbar regionSpondyl olisthesis, lumbar region Maribeth Sandoval. [facility], [address], [address], [place], [place], [id number], . tel:[phone] Referring Provider: Jaime Sheehan, [facility] [address], [address], [place], [address] . tel:[phone] Family History Family Member Type Diagnosis Age At Onset No Information Payers Payer name Insurance type Covered alliance party ID Authorgee granger(s) [facility] [id number] [facility] [id number] Social History Type Description Quantity Date Captured [...]
--- OUTSIDE RECORDS SUMMARY | 2023-10-12 20:47 | XMS_ITS | Clinical Summary ---
Author Name Unknown Organization [facility] Address [address] [place] [address] Care Team Providers Care Business Analytics Specialist Name Role Phone Elsewhere, Pcp Primary Care Provider Unavailabl e Source Comments Patient records contain information from all sites at [facility]. For routine questions regarding patient records, call [phone] during business hours, M-F 8:00 AM - 5:00 PM Central Time. Record requests for emergency care only can be directed to [phone] at any time.[facility] Allergies No known active allergies Medications Medication Sig Dispensed Refills Start Date End Date Status DULoxetine (CYMBALTA) [address] capsule Take 30 mg by mouth daily. 11/24/2020 Active gabapentin (NEURONTIN) 800 mg tablet Take 800 mg by mouth 3 (three) times a day. 12/19/2020 Active glipiZIDE (GLUCOTROL) 5 mg tablet Take 5 mg by mouth 2 (two) times a day before breakfast and dinner. 11/09/2020 Active hydroCHLOROthiazide (HYDRODIURIL) 25 mg tablet Take 25 mg by mouth every morning. 11/30/2020 Active lisinopriL (PRINIVIL,ZESTRIL) 40 mg tablet Take 40 mg by mouth every morning. 11/30/2020 Active metFORMIN (GLUCOPHAGE) 1,000 mg tablet Take 1,000 mg by mouth 2 (two) times a day with meals. 11/30/2020 Active warfarin (COUMADIN) 3 mg tablet Take 3 mg by mouth as directed. 15 mg every Sunday, 13 mg all other days. Active warfarin (COUMADIN) 5 mg tablet Take 5 mg by mouth as directed. 15 mg every Sunday, 13 mg all other days. Active tiZANidine (ZANAFLEX) 2 mg tablet Take 1 tablet (2 mg total) by mouth every 6 (six) hours as needed for muscle spasms. 40 tablet 1 06/13/2022 Active Additional Information Patient taking differently: 4 mgoral Every 6 hours PRN, muscle spasms, Reported on 05/28/2023 aspirin 81 mg chewable tablet Chew 1 tablet (81 mg total) daily. Can resume taking your baby aspirin on Sunday, 03/12. 06/15/2022 Active oxyCODONE-acetamino phen (PERCOCET) 5-325 mg per tablet Take 1 tablet by mouth as needed. 08/11/2022 Active rosuvastatin (CRESTOR) 5 mg tablet Take 5 mg by mouth every other day. 08/10/2022 Active Active Problems Problem Noted Date Diagnosed Date Laminectomy Lumbar Status Post 06/01/2022 Morbid Obesity Body Mass Ind ex >= 35 with Comorbid Condition 03/09/2021 Smoking Tobacco Use Personal History 03/09/2021 Anticoagulant Therapy 03/09/2021 Stenosis Carotid Artery Right 03/09/2021 Diabetes Mellitus Type 2 With Diabetic Neuropath y 12/23/2020 Stenosis Spinal Lumbar With Neurogenic Claudicat ion 12/23/2020 Overview: Added automatically from request for surgery [id number] Atrial Fibrillation Other Persistent 06/25/2004 Hypertension Essential Primary 06/25/2000 Family History Medical History Relation Name Comments Coronary artery disease Father Saskia Person none Diabetes Mother Alpa Person none Relation Name Status Comments Father Saskia Person Mother Alpa Person Social History Tobacco Use Types Packs/Day Years Used Date Smoking Tobacco: Former Cigarettes 2.5 31.5 0 1969 - 08/23/2000 Cigars Passive Smoke Exposure: Never Smokeless Tobacco: Former Chew Quit: 02/23/2005 Tobacco Cessation:Counseling Given: Not Answered Alcohol Use Standard Drinks/Week Comments Yes 8 (1 standard drink = 0.6 oz pur e alcohol) Humiliation, Afraid, Rape, and Kick questionnair e Answer Date Recorded Within the last year, have y ou been afraid of your partner or ex-partner? No 04/07/2022 Within the last year, have y ou been humiliated or emotionally abused in other ways by your partner or ex-partner? No Within the last year, have y ou been kicked, hit, slapped, or otherwise physically hurt by your partner or ex-partner? No 04/07/2022 Within the last year, have y ou been raped or forced to have any kind of sexual activity by your partner or ex-partner? No 04/07/2022 Social Connection and Isolation Panel [NHANES] A nswer Date Recorded In a typical week, how many times do you talk on the phone with family, friends, or neighbors? Twice a week 04/07/20 How often do you get togethe r with friends or relatives? Once a week 04/07/2022 How often do you attend chur or sikh services? 1 to 4 times per year 04/07/2022 Do you belong to any clubs o r organizations such as advent groups, unions, fraternal or athletic groups, or school groups? No 04/07/2022 How often do you attend meet ings of the clubs or organizations you belong to? Never 04/07/2022 Are you , , di vorced, , never , or living with a partner? 04/07/2022 AUDIT-C Answer Date Recorded Q1: How often do you have a drink containing alcohol? Monthly or less 04/07/2022 Q2: How many drinks containi ng alcohol do you have on a typical day when you are drinking? Patient does not drink Q3: How often do you have si x or more drinks on one occasion? Less than monthly 04/07/2022 Overall Financial Resource Strain (CARDIA) Answe r Date Recorded How hard is it for you to pa y for the very basics like food, housing, medical care, and heating? Not very hard 05/25/2023 [facility] of Occupat ional Health - Occupational Stress Questionnaire Answer Date Recorded Do you feel stress - tense, restless, nervous, or anxious, or unable to sleep at night because your mind is troubled all the time - these days? Not at all 04/07/2022 Exercise Vital Sign Answer Date Recorde d On average, how many days pe r week do you engage in moderate to strenuous exercise (like a brisk walk)? 1 day 05/25/2023 On average, how many minutes do you engage in exercise at this level? 10 min 05/25/2023 Hunger Vital Sign Answer Date Recorded Within the past 12 months, y ou worried that your food would run out before you got the money to buy more. Never true 05/25/20 Within the past 12 months, t he food you bought just didn't last and you didn't have money to get more. Never true 05/25/2023 PRAPARE - Transportation Answer Date Re corded In the past 12 months, has l ack of transportation kept you from medical appointments or from getting medications? No 06/2022 In the past 12 months, has l ack of transportation kept you from meetings, work, or from getting things needed for daily living? No 05/25/2023 Nutrition Answer Date Recorded Nutrition: EVOO Fat Source Yes 05/25 On average, how many serving s of fruits and vegetables do you eat per day (serving size is equal to 1 cup or approximately the size of a tennis ball)? 3-5 05/25/2023 Dental Answer Date Recorded Dental: Regular Dentist Yes 03/01/20 Employment Answer Date Recorded Employment status Retired 05/25/2023 Housing Stability Answer Date Recorded What is your living situation today? I have a [facility] place to live 05/25/2023 Education Answer Date Recorded What is the highest level of school you have completed or the highest degree you have received? 12th grade 03/01/2021 Sex and Gender Information Value Date Recorded Sex Assigned at Male 03/01/2021 4:47 PM CDT Gender Identity Male 12/15/2020 7:43 AM CDT Sexual Orientation Straight 12/15/2020 7: 43 AM CDT Last Filed Vital Signs Vital Sign Reading Time Taken Comments Blood Pressure 120/68 06/14/2022 7:45 AM INSTITUTE SCIENTIST Pulse 90 06/14/2022 7:45 AM INSTITUTE SCIENTIST Temperature 35.7 ??C (96.3 ??F) 05/29/2023 10:[address] Respiratory Rate 18 06/14/2022 7:45 AM INSTITUTE SCIENTIST Oxygen Saturation 95% 06/14/2022 7:45 AM INSTITUTE SCIENTIST Inhaled Oxygen Concentration - - Weight 123 kg (271 lb 11.5 oz) 05/29/2023 10:26 AM INSTITUTE SCIENTIST Height 181.7 cm (5' 11.54) 05/29/2023 10:26 AM INSTITUTE SCIENTIST Body Mass Index 37.33 05/29/2023 10:26 AM INSTITUTE SCIENTIST Plan of Treatment Health Maintenance Due Date Last Done Comments Abdominal Aortic Aneurysm (A AA) Screen 1951 CT Colonography 1951 Cologuard 1951 Colonoscopy 1951 Colorectal Cancer Surveillance 1950 Diabetic Office Visit with F oot Exam 1951 Dilated Eye Exam 1951 Hepatitis C Screening 1950 Urine Albumin 1951 Zoster Vaccines (1 of 2) 2001 Hepatitis B Vaccines (1 of 3 - Risk 3-dose series) 2011 Hemoglobin A1C 11/30/2022 06/01/2022, 03/10/2021 COVID-19 Vaccine (5 - 2022-2 4 season) 2023 12/13/2021, 03/23/2021, 08/13/2020, Additional history exists Influenza Vaccine (#1) 2023 , 03/25/2021, 06/20/2019, Additional history exists Office Visit for Blood Press ure Check / Re-check 06/01/2023 06/01/2022 Depression Screening (Annual PHQ-2) 06/25/2023 Fall Risk Screen (Annual) 06/25/2023 Creatinine Level (Kidney Fun ction Test) 07/17/2024 07/17/2023, 02/27/2023, 12/21/2022, Additional history exists Potassium Level 07/17/2024 07/17/2023, 09/0 10/2022, 12/21/2022, Additional history exists Sodium Level 07/17/2024 07/17/2023, 09/0 10/2022, 06/13/2022, Additional history exists DTaP,Tdap,and Td Vaccines (2 - Td or Tdap) 06/07/2026 06/07/2016 Lipid (Cholesterol) Screening 07/17/2028 07/17/2023, 02/27/2023 Pneumococcal vaccine (65+ years) Completed 06/12/20 17, 06/07/2016 Medical Devices Implanted Type Area Technical Training Specialist Device Identifier Shelf Expiration Date Model / Serial / Lot Allogenic, Femoral Head - [id number] - [id number] Implanted:Qty : 1 on 06/12/2022 at [facility] Bone or Tissue Posterior : Spine Lumbar [facility] 05/10/2024 [id number] / [id number] / [id number] Spn Scrw Lg St 6.5x35 - [id number] Implanted:Qty : 2 on 06/12/2022 by Richard Joel M.D. at [facility] Hardware e.g. pins/screws /rods Posterior : Spine Lumbar Medtronic [id number] / / Spn Scrw Lg St 6.5x40 - [id number] Implanted:Qty : 3 on 06/12/2022 by Richard Joel M.D. at [facility] Hardware e.g. pins/screws /rods Posterior : Spine Lumbar Medtronic [id number] / / Spn Scrw Lg St 6.5x50 - [id number] Implanted:Qty : 3 on 06/12/2022 by Richard Joel M.D. at [facility] Hardware e.g. pins/screws /rods Posterior : Spine Lumbar Medtronic [id number] / / Spn Scrw Lgc Thrd 5.5 - [id number] Implanted:Qty : 8 on 06/12/2022 by Richard Joel M.D. at [facility] Hardware e.g. pins/screws /rods Posterior : Spine Lumbar Medtronic [id number] / / Spn Pineda Lgc Cvd 5.5x90 - [id number] Implanted:Qty : 1 on 06/12/2022 by Richard Joel M.D. at [facility] Hardware e.g. pins/screws /rods Posterior : Spine Lumbar Medtronic [id number] / / Spn Pineda Lgc Cvd 5.5x100 - [id number] Implanted:Qty : 1 on 06/12/2022 by Richard Joel M.D. at [facility] Hardware e.g. pins/screws /rods Posterior : Spine Lumbar Medtronic [id number] / / Ocular Lens Ocular Lens Bilateral : Eye Procedures Procedure Name Priority Date/Time Associated Diagnosis Comments EXTI LIPID PANEL, S Routine 07/17/2023 1 0:44 AM INSTITUTE SCIENTIST EXTI BASIC METABOLIC PANEL, FASTING, S Routine 07/17/2023 10:44 AM INSTITUTE SCIENTIST HEMOGLOBIN A1C, B Routine 06/01/2022 1:4 5 PM INSTITUTE SCIENTIST Preprocedural Lab Exam from Last 3 Months or Most Recently Relevant to Health Maintenance Results * (ABNORMAL) Hemoglobin A1c (06/01/2022 1:45 PM INSTITUTE SCIENTIST) Hemoglobin A1c, B 6.8(H) 4.0 - 5.6 % 06/01/2022 2:43 PM INSTITUTE SCIENTIST DTL Comment: Hemoglobin A1c values greater than or equal to 6.5 percent are diagnostic for diabetes mellitus. ??Diagnosis should be confirmed by repeat testing. ??In diabetic patients, HbA1c goals should be discussed with healthcare provider. Blood (Blood, Venous) 06/01/2022 1:45 PM INSTITUTE SCIENTIST 06/01/2022 2:13 PM INSTITUTE SCIENTIST Richard Joel M.D. LAB BLOOD ADD-ON [facility] [address] [place] [address], [facility] DTL [facility] [address] [place] [address] from Last 3 Months or Most Recently Relevant to Health Maintenance Advance Directives For more information, please contact: [phone] * Full Code (Latest Code Status on File) Date Activated Date Inactivated Comments 06/12/2022 5:03 PM 06/14/2022 11:02 AM Question Answer Comments Full Code: Not Discussed Due to: Not medically appropriate * Full Code Date Activated Date Inactivated Comments 06/12/2022 6:34 AM 06/12/2022 5:03 PM Question Answer Comments Full Code: Not Discussed Due to: Patient not available * Full Code Date Activated Date Inactivated Comments 03/10/2021 7:39 PM 03/11/2021 4:40 PM Question Answer Comments Full Code: Not Discussed Due to: Patient not available * Full Code Date Activated Date Inactivated Comments 03/10/2021 12:37 PM 03/10/2021 7:39 PM Question Answer Comments Full Code: Not Discussed Due to: Patient not available Care Teams Business Analytics Specialist Relationship Specialty Start Date End Date Elsewhere, Pcp PCP - General Family Medicine 03/10/21
--- OUTSIDE RECORDS SUMMARY | 2023-10-12 20:47 | XMS_ITS | Referral Summary ---
Author Name Unknown Organization [facility] Address [address] [place] [address] Care Team Providers Care Custom Harvester Name Role Phone Elsewhere, Pcp Primary Care Provider Unavailabl e Source Comments Patient records contain information from all sites at [facility]. For routine questions regarding patient records, call [phone] during business hours, M-F 8:00 AM - 5:00 PM Central Time. Record requests for emergency care only can be directed to [phone] at any time.[facility] Allergies No known active allergies Medications [...] Overview: Added automatically from request for surgery [id number] Atrial Fibrillation Other Persistent 06/25/2004 Hypertension Essential Primary 06/25/2000 Social History Tobacco Use Types Packs/Day Years [...] How often do you attend chur or yazdanism services? 1 to 4 times per year 04/07/2022 Do you belong to any clubs o r organizations such as baptist groups, unions, fraternal or athletic groups, or [...] care, and heating? Not very hard 05/25/2023 [facility] of Occupat ional Health - Occupational Stress [...] your living situation today? I have a [facility] place to live 05/25/2023 Education Answer Date [...] Comments Blood Pressure 120/68 06/14/2022 7:45 AM WAGE CONCILIATOR Pulse 90 06/14/2022 7:45 AM WAGE CONCILIATOR Temperature 35.7 ??C (96.3 ??F) 05/29/2023 10:[address] Respiratory Rate 18 06/14/2022 7:45 AM WAGE CONCILIATOR Oxygen Saturation 95% 06/14/2022 7:45 AM WAGE CONCILIATOR Inhaled Oxygen Concentration - - Weight 123 kg (271 lb 11.5 oz) 05/29/2023 10:26 AM WAGE CONCILIATOR Height 181.7 cm (5' 11.54) 05/29/2023 10:26 AM WAGE CONCILIATOR Body Mass Index 37.33 05/29/2023 10:26 AM WAGE CONCILIATOR Plan of Treatment Not on file Medical Devices Implanted Type Area Spindle Plumber Device Identifier Shelf Expiration Date Model / Serial / Lot Allogenic, Femoral Head - [id number] - [id number] Implanted:Qty : 1 on 06/12/2022 at [facility] Bone or Tissue Posterior : Spine Lumbar [facility] 05/10/2024 [id number] 2 / [id number] / [id number] Spn Scrw Lg St 6.5x35 - [id number] Implanted:Qty : 2 on 06/12/2022 by Richard Joel M.D. at [facility] Hardware e.g. pins/screws /rods Posterior : Spine Lumbar Medtronic [id number] / / Spn Scrw Lg St 6.5x40 - [id number] Implanted:Qty : 3 on 06/12/2022 by Richard Joel M.D. at [facility] Hardware e.g. pins/screws /rods Posterior : Spine Lumbar Medtronic [id number] / / Spn Scrw Lgc St 6.5x50 - [id number] Implanted:Qty : 3 on 06/12/2022 by Richard Joel M.D. at [facility] Hardware e.g. pins/screws /rods Posterior : Spine Lumbar Medtronic [id number] / / Spn Scrw Lgc Thrd 5.5 - [id number] Implanted:Qty : 8 on 06/12/2022 by Richard Joel M.D. at [facility] Hardware e.g. pins/screws /rods Posterior : Spine Lumbar Medtronic [id number] / / Spn Pineda Lgc Cvd 5.5x90 - [id number] Implanted:Qty : 1 on 06/12/2022 by Richard Joel M.D. at [facility] Hardware e.g. pins/screws /rods Posterior : Spine Lumbar Medtronic [id number] / / Spn Pineda Lgc Cvd 5.5x100 - [id number] Implanted:Qty : 1 on 06/12/2022 by Richard Joel M.D. at [facility] Hardware e.g. pins/screws /rods Posterior : Spine Lumbar Medtronic [id number] / / Ocular Lens Ocular Lens Bilateral : Eye Procedures Procedure Name Priority Date/Time Associated Diagnosis Comments EXTI LIPID PANEL, S Routine 07/17/2023 1 0:44 AM WAGE CONCILIATOR EXTI BASIC METABOLIC PANEL, FASTING, S Routine 07/17/2023 10:44 AM WAGE CONCILIATOR HEMOGLOBIN A1C, B Routine 06/01/2022 1:4 5 PM WAGE CONCILIATOR Preprocedural Lab Exam from Last 3 Months or Most Recently Relevant to Health Maintenance Results * (ABNORMAL) Hemoglobin A1c (06/01/2022 1:45 PM WAGE CONCILIATOR) Pathologist [facility] Hemoglobin A1c, B 6.8(H) 4.0 - 5.6 % 06/01/2022 2:43 PM WAGE CONCILIATOR DTL Comment: Hemoglobin A1c values greater than or equal to 6.5 percent are diagnostic for diabetes mellitus. ??Diagnosis should be confirmed by repeat testing. ??In diabetic patients, HbA1c goals should be discussed with healthcare provider. Blood (Blood, Venous) 06/01/2022 1:45 PM WAGE CONCILIATOR 06/01/2022 2:13 PM WAGE CONCILIATOR Richard Joel M.D. LAB BLOOD ADD-ON [facility] [address] [place] [address], [facility] DTL [facility] [address] [place] [address] from Last 3 Months or Most Recently Relevant to Health Maintenance Advance Directives For more information, please contact: [phone] * Full Code (Latest Code Status on [...] Due to: Patient not available Care Teams Custom Harvester Relationship Specialty Start Date End Date Elsewhere, Pcp PCP - General Family Medicine 03/10/21
--- OUTSIDE RECORDS SUMMARY | 2023-10-12 20:47 | XMS_ITS | Data Portability ---
Author Name Unknown Address [address] [place] [address] Phone [phone] Organization [facility], [facility] Address [address] [facility] [address] [place] [address] Care Team Providers Care Glass Belt Sander Name Role Phone MARICRUZ MCKEON Primary Care Provider [phone] Assessment Encounter Date Assessment Date Assessment LastModified by Organization Details LastModified Time 10/27/2022 10/27/2022 Pt here for UA-possible UC. LK [email or web address] Not available 10/27/2022 10:27:32 Plan of Treatment Reminders Order Date Submit Date Provider Last Modified By Organization Details Last Modified Time Details Appointments None recorded. Lab urinalysis, dipstick 2022 023 [email or web address] [facility], [address] [facility] [place], [address], 3 10:26:59 Referral pelvic floor therapy referral 2022 023 [email or web address], [address] [address], [place], [address], 07:53:48 Procedures None recorded. Surgeries None recorded. Imaging None recorded. Medication Orders clotrimazol e-betametha sone 1 %-0.05 % topical cream 2022 023 BARBARA [facility], [address] [facility], [place], [address], 3 11:53:59 tamsulosin 0.4 mg capsule 2022 023 [email or web address] [facility], [address] [place], [address], 3 11:49:28 Trimix 30 papaverine/ 1 phentolamin e/10 PGE-1 2021 022 [email or web address] Not available 10:56:02 Patient TargetsNo targets recorded. Patient Instructions Encounter Date Encounter Id Patient Instructions Last Modified By Organization Details Last Modified Time 10/27/2022 [id number] RTC prn. DEBBIE [email or web address] Not available 10/2022 10:30:13 01/02/2022 [id number] 71 y/o male presents for an evaluation of ED. Educated on etiology of ED (hormonal, nerve function, blood supply, psychological, medications). Discussed diagnostics such as penile US and testosterone labs. Educated on treatment options such as PDE-5 inhibitors, penile injections, muse (urethral suppository), vacuum erection device (MARYURI), and penile implant (IPP). Patient interested in trial of penile self injections. Displayed good injection technique. Instructed to trial 0.2 cc at home with higher concentration. Titrate up or down as tolerated and needed for desired response. Provided hand out on penile injections. Discussed risks of priapism and scar tissue development. Patient to call with questions or concerns. [email or web address] Not available 01/02/2022 10:55:23 Reason for Referral Pelvic Floor Therapy Referra l for Pelvic floor dysfunction Referring Physician: Cesar Pichardo, Urology, Encounter Date: 09/27/2022 Results Created Date Observation Date Name Description Value Unit Range Abnormal Flag LastModifiedBy Organization Detail LastModifiedTime 10/28/1910/27/2022 urina lysis , dipst ick Color-Status Dark Yellow Not Available [facility] [address], [place], [address], 10/27/2022 10:25:53 10/28/19 23 10/27/2022 urina lysis , dipst ick Clarity-Stat us Clear Not Available [facility] [address], [place], [address], 10/27/2022 10:25:53 10/28/19 23 10/27/2022 urina lysis , dipst ick Glucose-Stat us Negati ve Not Available [facility] [address], [place], [address], 10/27/2022 10:25:53 10/28/19 23 10/27/2022 urina lysis , dipst ick Bilirubin-St atus Negati ve Not Available [facility] [address], [place], [address], 10/27/2022 10:25:53 10/28/19 23 10/27/2022 urina lysis , dipst ick Ketones-Stat us Negati ve Not Available [facility] [address], [place], [address], 10/27/2022 10:25:53 10/28/19 23 10/27/2022 urina lysis , dipst ick Sp [place]-Stat us 1.015 Not Available [facility] [address], [place], [address], 10/27/2022 10:25:53 10/28/19 23 10/27/2022 urina lysis , dipst ick pH-Status 5.5 Not Available [facility] [address], [place], [address], 10/27/2022 10:25:53 10/28/19 23 10/27/2022 urina lysis , dipst ick Protein-Stat us 5.0 Not Available [facility] [address], [place], [address], 10/27/2022 10:25:53 10/28/19 23 10/27/2022 urina lysis , dipst ick Urobilinogen -Status 0.2 Not Available [facility] [address], [place], [address], 10/27/2022 10:25:53 10/28/19 23 10/27/2022 urina lysis , dipst ick Nitrates-Sta tus negati ve Not Available [facility] [address], [place], [address], 10/27/2022 10:25:53 10/28/19 23 10/27/2022 urina lysis , dipst ick Blood-Status Negati ve Not Available [facility] [address], [place], [address], 10/27/2022 10:25:53 10/28/19 23 10/27/2022 urina lysis , dipst ick Leuko-Status Negati ve Not Available [facility] [address], [place], [address], 10/27/2022 10:25:53 10/28/19 23 10/27/2022 urina lysis , dipst ick Specimen Type Voided Not Available [facility] [address], [place], [address], 10/27/2022 10:25:53 Result Notes None recorded. Procedures Surgical History Date Name Laterality Status Provider Name and Address Organization Details Recorded Time 05/25/20 22 spinal fusion with graft completed Cesar Pichardo MD [address] [place] [address],[address], [place], [address], [facility] 12/06/2022 11:50:50 01/03/20 22 Penile Self Injection Trial completed DORINA CLEVELAND [address] [place] [address],[address], [place], [address], [facility] 01/02/2022 10:56:17 09/24/19 19 Diagnostic colonoscopy completed Not Available Health Note 01/02/2022 07:52:55 04/01/[address] colonography screening completed Not Available Health Note 01/02/2022 07:52:55 Excise epiphyseal bar completed Not Available Health Note 01/02/2022 07:52:55 Imaging Results None recorded. Procedure Notes None recorded. Medical Equipment None Reported. Allergies No known drug allergies Medications Name Sig Start Date Stop Date Status Note LastModified by Organization Details LastModified Time Trimix 30 papaverine/ 1 phentolamin e/10 PGE-1 inject intracave rnosal as directed PRN for sexual activity 2021 active Not Available Not Available Not Avai lable tizanidine 2 mg tablet TAKE 1 TABLET BY MOUTH THREE TIMES DAILY NEEDED FOR MUSCLE SPASM active Not Available Not Available No t Available warfarin 10 mg tablet TAKE 15MG BY MOUTH ON SUNDAY AND 13MG ALL OTHER DAYS OF THE WEEK DIRECTED active Not Available Not Available No t Available acetaminoph en 300 mg-codeine 30 mg tablet TAKE 1 TABLET BY MOUTH EVERY 6 HOURS NEEDED FOR PAIN active Not Available Not Available No t Available sulfamethox azole 800 mg-trimetho prim 160 mg tablet TAKE 1 TABLET BY MOUTH TWICE DAILY 12/06 completed Not Available Not Available Not Available triamcinolo ne acetonide 0.1 % topical cream APPLY A THIN LAYER TO THE AFFECTED AREA(S) TOPICALLY TWICE DAILY. active Not Available Not Available No t Available warfarin 3 mg tablet TAKE 15MG BY MOUTH ON SUNDAY AND 13MG ALL OTHER DAYS OF THE WEEK DIRECTED active Not Available Not Available No t Available cefadroxil 500 mg capsule TAKE 1 CAPSULE BY MOUTH TWICE DAILY 12/06 completed Not Available Not Available Not Available oxycodone-a cetaminophe n 5 mg-325 mg tablet TAKE 1 TO 2 TABLETS BY MOUTH EVERY 8 HOURS NEEDED FOR PAIN active Not Available Not Available No t Available oxycodone-a cetaminophe n 10 mg-325 mg tablet 5mg/325mg 12/06 completed Not Available Not Available Not Available tamsulosin 0.4 mg capsule TAKE 1 CAPSULE BY MOUTH ONCE DAILY active Not Available Not Available No t Available gabapentin 800 mg tablet TAKE 1 TABLET BY MOUTH THREE TIMES DAILY active Not Available Not Available No t Available cephalexin 500 mg capsule TAKE 1 CAPSULE BY MOUTH THREE TIMES DAILY active Not Available Not Available No t Available metformin 1,000 mg tablet TAKE 1 TABLET BY MOUTH TWICE DAILY active Not Available Not Available No t Available clotrimazol e-betametha sone 1 %-0.05 % topical cream APPLY TO THE AFFECTED AND SURROUNDI NG AREAS OF SKIN TOPICALLY TWICE DAILY IN THE MORNING AND EVENING FOR 2 WEEKS. active Not Available Not Available No t Available warfarin 5 mg tablet active Not Available Not Available No t Available acetic acid 0.25 % irrigation solution APPLY 10 MINUTE SOAKS ON WOUND EVERY DAY AND NEEDED active Not Available Not Available No t Available hydrochloro thiazide 25 mg tablet TAKE 1 TABLET BY MOUTH ONCE DAILY active Not Available Not Available No t Available levofloxaci n 750 mg tablet active Not Available Not Available Not Available SSD 1 % topical cream APPLY TOPICALLY ONCE DAILY WITH A 1.5MM THICKNESS . active Not Available Not Available No t Available lisinopril 40 mg tablet TAKE 1 TABLET BY MOUTH ONCE DAILY active Not Available Not Available No t Available Hibiclens 4 % topical liquid 12/06 completed Not Available Not Available Not Available glipizide 5 mg tablet TAKE 1 TABLET BY MOUTH TWICE DAILY active Not Available Not Available No t Available glipizide 2.5 mg-metformi n 250 mg tablet 5mg 1/day 12/06 completed Not Available Not Available Not Available rosuvastati n 5 mg tablet TAKE 1 TABLET BY MOUTH EVERY OTHER DAY active Not Available Not Available No t Available duloxetine 30 mg capsule,del ayed release TAKE 1 CAPSULE BY MOUTH ONCE DAILY active Not Available Not Available No t Available aspirin 81mg 1/day active Not Available Not Available No t Available warfarin 13mg every day except Sunday is 15mg 1/day 12/06 completed Not Available Not Available Not Available lisinopril 40mg 1/day 12/06 completed Not Available Not Available Not Available metformin 1000mg 12/06 completed Not Available Not Available Not Available gabapentin 800mg 3/day 12/06 completed Not Available Not Available Not Available rosuvastati n 5 mg sprinkle capsule 5mg every other day 12/06 completed Not Available Not Available Not Available Vitals Date Recorded Body height Body mass index (BMI) Body weight Provider Name and Address Organization Details Last Updated DateTime 09/27/2022 182.88 cm 34.9 kg/m2 408624.24 g Cesar Pichardo MD [address] [place] [address],[address], [place], [address], [facility] 09/27/2022 11:35:39 Date Recorded Body height Body mass index (BMI) Body weight Provider Name and Address Organization Details Last Updated DateTime 12/06/2022 182.88 cm 34.9 kg/m2 500755.24 g Cesar Pichardo MD [address] [facility],[address], [place], [address], [facility] 12/06/2022 11:46:41 Date Recorded Body height Body mass index (BMI) Body weight Provider Name and Address Organization Details Last Updated DateTime 02/14/2023 182.88 cm 34.9 kg/m2 955978.24 g Ewa mendoza [facility] 02/14/2023 14:42:50 Date Recorded Body height Body mass index (BMI) Body weight Provider Name and Address Organization Details Last Updated DateTime 04/18/2023 182.88 cm 34.9 kg/m2 764507.24 g Ewa mendoza [facility] 04/18/2023 14:11:59 Date Recorded Body mass index (BMI) Body height Body weight Provider Name and Address Organization Details Last Updated DateTime 01/02/2022 35.5 kg/m2 182.88 cm 837966.342 880736 g Not Available Health Note 01/02/2022 09:53:58 Social History Question Answer Notes LastModified by Organizat ion Details LastModified Time Tobacco Smoking Status Former Smoker Not Available Health Note 01/02/2022 07:52:56 What Is Your Level Of Alcohol Consumption? Occasional [email or web address] Information not available 01/02/2022 What Is Your Level Of Caffeine Consumption? Moderate [email or web address] Information not available 01/02/2022 How Much Tobacco Do You Chew? None [email or web address] Information not available 01/02/2022 Do You Or Have You Ever Used E-cigarettes Or Vape? Never Used Electronic Cigarettes [email or web address] Information not available 01/02/2022 When Did You Quit Smoking? 16+ Years Since Last Cigarette [email or web address] Information not available 01/02/2022 Race Information no t available 01/02/2022 Ethnicity Not /Latin o Information not available 01/02/2022 Preferred Language Mongolian Information not available 01/02/2022 Recreational Drug Use No Information not available 01/02/2022 What Was The Date Of Your Most Recent Tobacco Screening? 04/18/2023 [email or web address] Information not available 04/18/2023 What Is Your Relationship Status? [email or web address] Information not available 01/02/2022 Are You Sexually Active? No Information not available 01/02/2022 Do You Or Have You Ever Used Smokeless Tobacco? Never Used Smokeless Tobacco [email or web address] Information not available 01/02/2022 Do You Use Any Illicit Or Recreational Drugs? No [email or web address] Information not available 01/02/2022 Has Tobacco Cessation Counseling Been Provided? Yes Information not available 01/02/2022 On What Date Was Tobacco Cessation Counseling Provided? 01/02/2022 Information not available 01/02/2022 How Many Years Have You Smoked Tobacco? 21 [email or web address] Information not available 01/02/2022 Do You Or Have You Ever Used Any Other Forms Of Tobacco Or Nicotine? No Information not available 01/02/2022 Sex: Male Functional Status None recorded. Mental Status None recorded. Family History Relationship Description Onset Age of this Age Resolved Age Notes Mother Family history of diabetes mellitus Maternal Grandfather Family history of diabetes mellitus Father Family history of cardiac disorder Paternal Grandfather Family history of cardiac disorder Medical History Condition Response High Blood Pressure Y Kidney Stones N Depression N Lung Disease N GERD/Acid Reflux N Sexually Transmitted Infection N Diabetes Y Bleeding Disorder N Cancer N High Cholesterol Y Heart Disease N Immunizations Vaccine Type Date Status Provider Name and Address Organization Details Recorded Time influenza, unspecified formulation 03/25/2021 completed Not Available [facility] 04/18/2023 14:09:43 SARS-COV-2 (COVID-19) vaccine, UNSPECIFIED 12/13/2021 completed Not Available [facility] 04/18/2023 14:09:43 COVID-19, mRNA, LNP-S, PF, 30 mcg/0.3 mL dose 07/23/2020 completed Malia Kapoor [facility] 11/07/2022 16:12:58 COVID-19, mRNA, LNP-S, PF, 30 mcg/0.3 mL dose 08/13/2020 completed Malia mendoza [facility] 11/07/2022 16:12:58 COVID-19, mRNA, LNP-S, PF, 30 mcg/0.3 mL dose 03/23/2021 completed Malia mendoza, [facility] 11/07/2022 16:12:58 COVID-19, mRNA, LNP-S, PF, 30 mcg/0.3 mL dose, nick-sucrose 12/13/2021 completed Malia mendoza [facility] 11/07/2022 16:12:58 pneumococcal polysaccharide PPV23 06/07/2016 completed Malia mendoza, [facility] 11/07/2022 16:12:58 Tdap 06/07/2016 completed Malia mendoza [facility] 11/07/2022 16:12:58 Pneumococcal conjugate PCV 13 06/12/2017 completed Malia mendoza [facility] 11/07/2022 16:12:58 Influenza, high dose seasonal 07/19/2018 completed Malia mendoza [facility] 11/07/2022 16:12:58 Influenza, high dose seasonal 04/24/2017 completed Malia mendoza [facility] 11/07/2022 16:12:58 Influenza, high dose seasonal 06/07/2016 [facility] 16:12:58 Influenza, high dose seasonal 06/20/2019 completed Malia mendoza [facility] 11/07/2022 16:12:58 influenza, injectable, quadrivalent, preservative free 06/09/2015 completed Malia mendoza [facility] 11/07/2022 16:12:58 influenza, high-dose, quadrivalent 05/25/2022 [facility] 10:29:10 Past Encounters Encounter ID Performer Location Encounter Start Date Encounter Closed Date Diagnosis/Indication Diagnosis SNOMED-CT Code [id number] DORINA CLEVELAND [facility] [address] [place] [address],[address] [address] 01/02/2022 09:53:50 01/02/2022 10:57:22 Primary erectile dysfunction [id number] MD [facility] [address] [place] [id number] 09/27/2022 11:24:42 09/29/2022 08:56:40 Primary erectile dysfunction 635818586 Injury of penis 52743159 6 Phimosis 549009983 Pelvic luba or dysfunction 692612099 Slowing of urinary stream 35978628 [id number] MD [facility] [address] [place] [address] 10/27/2022 10:13:19 11/09/2022 10:24:08 Dysuria [id number] MD [facility] [address] [place] [address] 12/06/2022 11:35:32 12/08/2022 14:15:29 Primary erectile dysfunction 997742561 Injury of penis 77900867 6 Phimosis 649200253 Pelvic luba or dysfunction 824054405 Slowing of urinary stream 80667773 [id number] MD [facility] [address] [place] [address] 02/14/2023 14:32:25 02/21/2023 12:47:59 Primary erectile dysfunction 404680301 Injury of penis 20062813 6 Phimosis 416654191 Pelvic luba or dysfunction 699235643 Slowing of urinary stream 60917359 [id number] MD [facility] [address] [place] [address] 04/18/2023 14:08:35 04/24/2023 14:31:50 Primary erectile dysfunction 553317227 Injury of penis 17354298 6 Phimosis 719491023 Pelvic luba or dysfunction 842709663 Slowing of urinary stream 19022632 Health Concerns Section Related Observation LastModified by Organization Detai ls LastModified Time None Recorded Concern Status LastModified by Organization Details LastModified Time None Recorded Advance Directives Directive None Recorded Payers Encounter Date Sequence Insurance Name Policy Number Policy Perez Covered Member ID Perez Member ID Guarantor Name 04/18/2023 1 [place] [id number] Chaya R Barfknecht [id number] Adilson R Barfknecht 02/14/2023 1 [place] [id number] Chaya R Barfknecht [id number] Adilson R Barfknecht 12/06/2022 1 [place] [id number] Chaya R Barfknecht [id number] Adilson R Barfknecht 10/27/2022 1 [place] [id number] Chaya R Barfknecht [id number] Adilson R Barfknecht 09/27/2022 1 [place] [id number] Chaya R Barfknecht [id number] Adilson R Barfknecht 01/02/2022 1 [place] [id number] Chaya R Barfknecht [id number] Adilson R Barfknecht Notes Date Note Type Note Provider Name and Address Organization Details Recorded Time 01/02/2022 text/html HPI Notes: Erectile Dysfunction Reported by patient. Notes: 71 y/o male presents for an evaluation of erectile dysfunction. He reports difficulty with erections for the past 3 years. No preceding event he can associate to the development of ED. Gradual decline in erectile function since initial onset. Viagra and Cialis has been ineffective the past year. No side effects with either medications. No other treatments attempted for ED. Able to achieve an ehs 2 with inadequate maintenance. No pain or curvature with erections. Good libido and energy for age. +diabetes (last A1C: 6.9), HTN (controlled), and high cholesterol (controlled). Denies CAD. MARTINA COOMBS, DORINA [address] [place] [address],[address], [place], [address], [facility] 01/02/2022 10:56:29 09/27/2022 text/html HPI Notes: Erectile Dysfunction Reported by patient. Notes: 72 y/o male presents for an evaluation of erectile dysfunction. He reports difficulty with erections for the past 3 years. No preceding event he can associate to the development of ED. Gradual decline in erectile function since initial onset. Viagra and Cialis has been ineffective the past year. No side effects with either medications. No other treatments attempted for ED. Able to achieve an ehs 2 with inadequate maintenance. No pain or curvature with erections. Good libido and energy for age. +diabetes (last A1C: 6.9), HTN (controlled), and high cholesterol (controlled). Denies CAD. 09/27/2022 (Marino): Mr. Person is a 72 yoM with h/o DM and HLD who was previously seen by Martina Coombs PA-C regarding erectile dysfunction for which he was provided TriMix. Patient here today as he reports that he believes he suffered damage to his penis following a catheter placement during his spinal fusion leading to retraction. He is seen today with his who provides some of the history. Cesar Pichardo MD [address] [place] [address],[address], [place], [address], [facility] 09/27/2022 13:29:07 12/06/2022 text/html HPI Notes: Erectile Dysfunction Reported by patient. Notes: 72 y/o male presents for an evaluation of erectile dysfunction. He reports difficulty with erections for the past 3 years. No preceding event he can associate to the development of ED. Gradual decline in erectile function since initial onset. Viagra and Cialis has been ineffective the past year. No side effects with either medications. No other treatments attempted for ED. Able to achieve an ehs 2 with inadequate maintenance. No pain or curvature with erections. Good libido and energy for age. +diabetes (last A1C: 6.9), HTN (controlled), and high cholesterol (controlled). Denies CAD. 09/27/2022 (Marino): Mr. Person is a 72 yoM with h/o DM and HLD who was previously seen by Martina Coombs PA-C regarding erectile dysfunction for which he was provided TriMix. Patient here today as he reports that he believes he suffered damage to his penis following a catheter placement during his spinal fusion leading to retraction. He is seen today with his who provides some of the history. 12/06/2022: Here for follow up penile injury, phimosis, pelvic floor dysfunction, weakened urinary stream, and erectile dysfunction. At last visit we started number of things including topical steroid cream, tamsulosin, and referral to pelvic floor physical therapy. Today he reports he is finding it easier to retract his foreskin. He has noted more discharge. Also reports that the tamsulosin has helped his urine stream significantly. He did not end up seeing a pelvic floor physical therapist. Seen again today with his who provides some of the history. Cesar Pichardo MD [address] [place] [address],[address], [place], [address], [facility] 12/06/2022 12:27:39 02/14/2023 text/html HPI Notes: Erectile Dysfunction Reported by patient. Notes: 72 y/o male presents for an evaluation of erectile dysfunction. He reports difficulty with erections for the past 3 years. No preceding event he can associate to the development of ED. Gradual decline in erectile function since initial onset. Viagra and Cialis has been ineffective the past year. No side effects with either medications. No other treatments attempted for ED. Able to achieve an ehs 2 with inadequate maintenance. No pain or curvature with erections. Good libido and energy for age. +diabetes (last A1C: 6.9), HTN (controlled), and high cholesterol (controlled). Denies CAD. 09/27/2022 (Marino): Mr. Person is a 72 yoM with h/o DM and HLD who was previously seen by Martina Coombs PA-C regarding erectile dysfunction for which he was provided TriMix. Patient here today as he reports that he believes he suffered damage to his penis following a catheter placement during his spinal fusion leading to retraction. He is seen today with his who provides some of the history. 12/06/2022: Here for follow up penile injury, phimosis, pelvic floor dysfunction, weakened urinary stream, and erectile dysfunction. At last visit we started number of things including topical steroid cream, tamsulosin, and referral to pelvic floor physical therapy. Today he reports he is finding it easier to retract his foreskin. He has noted more discharge. Also reports that the tamsulosin has helped his urine stream significantly. He did not end up seeing a pelvic floor physical therapist. Seen again today with his who provides some of the history. 02/14/2023: Here for follow up penile injury, phimosis, pelvic floor dysfunction, weakened urinary stream, and erectile dysfunction. Today reports overall improvement in his phimosis. Cesar Pichardo MD [address], [place], [address], [facility] 02/14/2023 14:52:55 04/18/2023 text/html HPI Notes: Erectile Dysfunction Reported by patient. Notes: 73 y/o male presents for an evaluation of erectile dysfunction. He reports difficulty with erections for the past 3 years. No preceding event he can associate to the development of ED. Gradual decline in erectile function since initial onset. Viagra and Cialis has been ineffective the past year. No side effects with either medications. No other treatments attempted for ED. Able to achieve an ehs 2 with inadequate maintenance. No pain or curvature with erections. Good libido and energy for age. +diabetes (last A1C: 6.9), HTN (controlled), and high cholesterol (controlled). Denies CAD. 09/27/2022 ([place]): Mr. Person is a 73 yoM with h/o DM and HLD who was previously seen by Martina Coombs PA-C regarding erectile dysfunction for which he was provided TriMix. Patient here today as he reports that he believes he suffered damage to his penis following a catheter placement during his spinal fusion leading to retraction. He is seen today with his who provides some of the history. 12/06/2022: Here for follow up penile injury, phimosis, pelvic floor dysfunction, weakened urinary stream, and erectile dysfunction. At last visit we started number of things including topical steroid cream, tamsulosin, and referral to pelvic floor physical therapy. Today he reports he is finding it easier to retract his foreskin. He has noted more discharge. Also reports that the tamsulosin has helped his urine stream significantly. He did not end up seeing a pelvic floor physical therapist. Seen again today with his who provides some of the history. 02/14/2023: Here for follow up penile injury, phimosis, pelvic floor dysfunction, weakened urinary stream, and erectile dysfunction. Today reports overall improvement in his phimosis. 04/18/2023: Here for follow up penile injury, phimosis, pelvic floor dysfunction, weakened urinary stream, and erectile dysfunction. Today reports that he feels his phimosis has resolved. Doing great. Cesar Pichardo MD [address], [place], [address], [facility] 04/18/2023 14:47:38
--- OUTSIDE RECORDS SUMMARY | 2023-10-12 20:47 | XMS_ITS | Continuity of Care Document ---
Author Name Unknown Organization [facility] Address [address] [address] [place] [address] Phone Care Team Providers Care Deputy Sheriff Court Services Name Role Phone Laith Segura MD, Stepan Unavailable Unavailabl e Allergies, Adverse Reactions, Alerts Substance Reaction Status Criticality No Known allergies Medications Medication Instructions Dosage Effective Dates (start - stop) Status Comments glipizide 5 mg tablet take 1 tablet by ORAL route once before meals 5 MG - Active hydrochlorothiazide 25 mg tablet take 1 tablet by oral route every day 25 MG - Active OXYCODONE HCL (unknown strength) take 1 tablet by oral route every 4 hours as needed for pain as needed Not Available - Active WARFARIN SODIUM (unknown strength) take 1 tablet by oral route every day Not Available - Active gabapentin 800 mg tablet take 2 tablet b y oral route 2 times every day 1600 MG - Active lisinopril 40 mg tablet take 1 tablet by oral route every day 40 MG - Active metformin ER 750 mg tablet,extended release 24 hr take 1 tablet by oral route every day with the evening meal 750 MG - Active Procedures Procedure Date Colonoscopy Flex; W/remov Les- 19 Level Iv-surg Path Gross/micro 19 Colonoscopy Flex; W/bx 1/mx Level Iv-surg Path Gross/micro 14 Advance Directives Directive Yes / No Effective Date File Name No Information Encounters Encounter Description Practice Location Reason(s) For Visit Diagnoses Date Provider Providers Copied on Encounter [facility], [address] [address], [place], [id number], [place] tel:[phone] [facility] No Information 4 Laith Ying. [address] [facility], [facility] [address], [place], [id number] , [place]. tel: [phone] [facility], [address] [address], [place], [id number], [place] tel:[phone] [facility] Colorectal polypsDiverticulo sis of colon without diverticulitisEnc ounter for screening for malignant neoplasm of colonPersonal history of colonic polypsBenign neoplasm of transverse colonDvrtclos of lg int w/o perforation or abscess w/o bleedingBenign neoplasm of transverse colon 9 Jennifer Noe. [address] [address], [facility] [place] [place], [id number] , [place]. tel: [phone] Referring Provider: Malcolm Ballard MD, [address] [place] [address], [address]. tel:[phone] [facility], [address] [address], [place], [id number], [place] tel:[phone] [facility] No Information 9 Barber Prieto. [address] [facility], [address] [address], [facility] [place], [id number] , [place]. tel: [phone] [facility], [address] [address], [place], [id number], [place] tel:[phone] [facility] Colonic polypsColon cancer screeningDivertic ulosis of colonColon Cancer ScreeningDivertic ulosis Of ColonBenign Neoplasm Colon 4 Bienvenido Hopson. [address] [facility], [facility] [address], [facility] [place], [id number] , [place]. tel: [phone] Family History Family Member Type Diagnosis Age At Onset No Information Immunizations Vaccine Date Status Comments influenza, high dose seasona l, preservative-free administered Note: [facility] bi-direct ional interface ; Source: Other Registry Prevnar 13 administered Note: [facility] bi-d irectional interface ; Source: Other Registry influenza, high dose seasona l, preservative-free administered Note: [facility] bi-direct ional interface ; Source: Other Registry influenza, high dose seasona l, preservative-free administered Note: [facility] bi-direct ional interface ; Source: Other Registry Pneumovax 23 administered Note: [facility] bi-d irectional interface ; Source: Other Registry tetanus toxoid, reduced diphtheria toxoid, and acellular pertussis vaccine, adsorbed administered Note: [employer] bi-direct ional interface ; Source: Other Registry Fluzone Quad 6mo or older administered Note: [facility] bi-direct ional interface ; Source: Other Registry Payers Payer name Insurance type Covered libertarian ID Authoriza tion(s) No Information Social History Type Description Quantity Date Captured Comments Sex Male Smoking Status No Information Chief Complaint And Reason For Visit No Information Reason For Referral Reason For Referral No Information Plan Of Treatment Date Type Action Status Referral Ordered: Colonoscopy Appointment date/timeframe: 02/16/2019 ordered History Of Present Illness Encounter Date Complaint History Of Prese nt Illness No Information Functional Status Date Functional Assessmen t No Information Instructions Date Instruction Additional Infor mation Diverticulosis/Diverticulitis Re lated to Colorectal polyps Colon Polyps Related to Color ectal polyps High Fiber Diet Related to Color ectal polyps Colon Cancer Prevention Related to Colonic polyps Colon Polyps Related to Colon ic polyps Diverticulosis/Diverticulitis Re lated to Colonic polyps Assessments Type Assessment Date No Information Patient Care Teams Name Effective Dates (start - stop) Status Members No Information
== END 2023-10-08 08:19 | disposition home or self-care (01) ==
LOC: NFLDREF 10-12 20:45
PROVIDERS: PCP Family Medicine; Referring Provider Family Medicine; Visit Provider Family Medicine
DX: E11.9 Type 2 diabetes mellitus without complications (principal); I48.21 Permanent atrial fibrillation; Z79.01 Long term (current) use of anticoagulants; Z13.220 Encounter for screening for lipoid disorders; Z12.5 Encounter for screening for malignant neoplasm of prostate
CPT/HCPCS: 80053; 80061; 85610; G0103

== ENCOUNTER 2023-10-12 15:21 | Outpatient (CLI) | payer BC, SELFPAY ==
--- OUTSIDE RECORDS SUMMARY | 2023-10-15 07:44 | XMS_ITS | Encounter Summary ---
Author Name Unknown Organization [place] Address [address] [facility] [place] [address] Care Team Providers Care Slag Mixer Name Role Phone Cameron Aldridge MD Primary Care Provider [phone] Jaime Turner MD Unavailable Reason for Visit * Reason Onset Date Comments Clinic Care Coordination - Post Hospital 024 Encounter Details Date Type Department Care Team (Late st Contact Info) Description 07/30/2023 Telephone [facility] [place] [address] [place] [address] Jaime Turner MD [address] [place], [place] [address] Clinic Care Coordination - Post Hospital Social [...] Sex Assigned at Male 07/15/2023 8:16 PM HEALTH PROMOTION MANAGER Gender Identity Male 07/15/2023 8:16 PM HEALTH PROMOTION MANAGER Sexual Orientation Straight 07/15/2023 8: 16 PM HEALTH PROMOTION MANAGER documented as of this encounter Miscellaneous Notes * Telephone Encounter - Liam Sahu - 07/31/2023 10:42 AM CST Cancelled US with patient. TH PROMOTION MANAGER * Telephone Encounter - Linda Cade RN - 07/31/2023 10:14 AM HEALTH PROMOTION MANAGER Angiogram on 07/17/23 was selective left lower extremity angiogram. Thus, no interventions were done and JOHN is not needed. Vein mapping done 02/27/23. Routing to scheduling to contact patient and cancel JOHN. JASIEL Gallegos, RN, CV-BC [facility] [place] TH PROMOTION MANAGER * Telephone Encounter - Liam Sahu - 07/30/2023 8:36 AM CST [facility] Who is the name of the provider?: JAIME TURNER What is the location you see this provider at/preferred location?: Katie Person calling / Facility: Fani Person Phone number: [phone] (home) Nurse call back needed: ? Reason for call: Patients spouse stating that US on 08/01 isnt needed per Dr Turner. Please review and advise. Pharmacy location: [facility] [address] [place] [address] Outside Imaging: n/a Can we leave a detailed message on this number? YES 07/30/2023, 8:36 AM TH PROMOTION MANAGER documented in this encounter Plan of Treatment Not on file documented as of this encounter Visit Diagnoses Not on filedocumented in this encounter Care Teams Slag Mixer Relationship Specialty Start Date End Date Cameron Aldridge MD [facility] [address] [facility] [place] [address] PCP - General Family Medicine 02/02/23 Jaime Turner MD [address] [address] [place] [address] Assigned Heart and Vascular Provider 02/10/23 documented as of this encounter
--- OUTSIDE RECORDS SUMMARY | 2023-10-15 07:44 | XMS_ITS | Encounter Summary ---
Author Name Unknown Organization [place] Address [address] [facility] [place] [address] Care Team Providers Care Rn Dermatology Name Role Phone Cameron Aldridge MD Primary Care Provider Jaime Turner MD Unavailable [phone] Reason for Referral * Diagnostic Imaging Ultrasound (Routine) - Pending Review Specialty Diagnoses / Procedures Referred By Contac t Referred To Contact Radiology. Diagnoses Status post peripheral artery angioplasty Procedures US JOHN Doppler with Exercise Bilateral Jaime Turner MD [address] [place] [address] Referral ID Status Reason Start Date Expiration Date V isits Requested Visits Authorized [id number] Pending Review 08/21/2023 08/20/2024 1 1 PER SPRAY GUN Reason for Visit * Reason Comments RECHECK 1st PO - follow up t o selective LLE angiogram on 07/17/23 Encounter Details Date Type Department Care Team (Late st Contact Info) Description 08/01/2023 2:40 PM STRIPER SPRAY GUN Office Visit [facility] [place] [address] [place] [phone] Jaime Turner MD [address] [place] [address] Status post peripheral artery angioplasty (Primary Dx); Type 2 diabetes mellitus with foot ulcer, unspecified whether intermediate accountant insulin use (H); On Coumadin for atrial [...] Sex Assigned at Male 07/15/2023 8:16 PM STRIPER SPRAY GUN Gender Identity Male 07/15/2023 8:16 PM STRIPER SPRAY GUN Sexual Orientation Straight 07/15/2023 8: 16 PM STRIPER SPRAY GUN documented as of this encounter Last Filed Vital Signs Vital Sign Reading Time Taken Comments Blood Pressure 121/69 08/01/2023 2:43 PM STRIPER SPRAY GUN Pulse 92 08/01/2023 2:43 PM STRIPER SPRAY GUN Temperature - - Respiratory Rate - - Oxygen Saturation - - Inhaled Oxygen Concentration - - Weight - - Height - - Body Mass Index - - documented in this encounter Patient Instructions * Patient Instructions* Blayne Quiñones RN - 08/01/2023 2:40 PM STRIPER SPRAY GUN PER SPRAY GUN documented in this encounter Progress Notes * Diane Sanchez - 08/01/2023 2:40 PM CST [facility] Patient is here for a [...] services and agency name: Karin Sanchez MA PER SPRAY GUN * Jaime Turner MD - 08/01/2023 2:40 PM CST Adilson Person is a 73-year-old gentleman with metabolic syndrome who lives in [place]. He isstatus post multiple lumbar and cervical [...] disease. He started hyperbaric oxygen therapy in [place]. Ultimately his right great toe wound healed. [...] smoking in 2000. 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 He admits to not being very physically [...] coordinating a treatment plan. Shaun Turner MD PER SPRAY GUN documented in this encounter Miscellaneous Notes * Addendum Note - Blayne Quiñones RN - 08/01/2023 2:40 PM CSTAddended by: BLAYNE QUIÑONES on: 08/21/2023 01:38 PM Modules accepted: Orders PER SPRAY GUN documented in this encounter Plan of Treatment Scheduled Orders Name Type Priority Associated Diagnoses Orde r Schedule US JOHN Doppler with Exercise Bilateral Imaging Routine Status post peripheral artery angioplasty Expected: 01/30/2024 (Approximate), Expires: 08/20/2024 documented as of this encounter Visit Diagnoses Diagnosis Status post peripheral artery angioplasty- Primary Other postprocedural status Type 2 diabetes mellitus with foot ulcer, unspecified whether fdc insulin use (H) On Coumadin for atrial fibrillation (H) Class 2 severe obesity due to excess calories with serious comorbidity and body mass index (BMI) of 36.0 to 36.9 in adult (H) documented in this encounter Care Teams Rn Dermatology Relationship Specialty Start Date End Date Cameron Aldridge MD [facility] [address] [address] PCP - General Family Medicine 02/02/23 Jaime Turner MD [address] [place] [address] [place] [address] Assigned Heart and Vascular Provider 02/10/23 documented as of this encounter
--- OUTSIDE RECORDS SUMMARY | 2023-10-15 07:44 | XMS_ITS | Encounter Summary ---
Author Name Unknown Organization [place] Address [address] [place] [address]. [place] [address] Care Team Providers Care Inspector Pawnshop Detail Name Role Phone Paramjit Ballard MD Primary Care Provider Cameron Aldridge MD Primary Care Provider [phone] Jaime Turner MD Unavailable [phone] Encounter Details Date Type Department Care Team (Late st Contact Info) Description 09/16/2007 Office Visit-[facility] [address] [place] [address] Gil Hernandez MD Social History Tobacco Use Types Packs/Day Years Used Date Smoking Tobacco: Never Assessed Sex and Gender Information Value Date Recorded Sex Assigned at Male 07/15/2023 8:16 PM MULTIFOCAL BUTTON GRINDER Gender Identity Male 07/15/2023 8:16 PM MULTIFOCAL BUTTON GRINDER Sexual Orientation Straight 07/15/2023 8: 16 PM MULTIFOCAL BUTTON GRINDER documented as of this encounter Progress Notes * Gil Hernandez MD - 09/18/2007 11:33 AM CDT Progress Note Created by: Gil Hernandez M.D. DATE: 09/16/2007 ADILSON PERSON DATE OF : 1950 AGE: [age] years old Referring Physician: PARAMJIT BALLARD Referring Clinic: [facility] CURRENT DIAGNOSES 1. - Atrial Fibrillation, 427.31 [...] of seeing your patient, Adilson Person, at [facility] in Cardiology consultation for evaluation of atrial [...] year ago. 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
--- OUTSIDE RECORDS SUMMARY | 2023-10-15 07:44 | XMS_ITS | Encounter Summary ---
Author Name Unknown Organization [place] Address [address] [facility] [place] [address] Care Team Providers Care Data Management Specialist Name Role Phone Cameron Aldridge MD Primary Care Provider [phone] Jaime Turner MD Unavailable [phone] Reason for Visit * Reason Onset Date Comments Patient Request 07/16/2023 Encounter Details Date Type Department Care Team (Late st Contact Info) Description 07/16/2023 Telephone [facility] [place] [address] [place] [phone] Jaime Turner MD [address] [place] [address] Patient Request Social History Tobacco Use Types Packs/Day Years Used Date Smoking Tobacco: Former Cigarettes Q uit: 08/29/2000 Alcohol Use Standard Drinks/Week Comments Yes 0 (1 standard drink = 0.6 oz pur e alcohol) occ Adolescent Education Answer Date Record ed Getting School Help Needed Not on file 04/02 Sex and Gender Information Value Date Recorded Sex Assigned at Male 07/15/2023 8:16 PM CRINKLING MACHINE OPERATOR Gender Identity Male 07/15/2023 8:16 PM CRINKLING MACHINE OPERATOR Sexual Orientation Straight 07/15/2023 8: 16 PM CRINKLING MACHINE OPERATOR documented as of this encounter Miscellaneous Notes * Telephone Encounter - Diane Scott RN - 07/16/2023 2:37 PM CST Returned call and explained medication holds need to come from patients PCP who did his pre-op. Fani will contact them for the Metformin question and also request pre-op be faxed to [facility]. Diane WEATHERS RN [facility] Office: [phone] KLING MACHINE OPERATOR * Telephone Encounter - Yanelis Frost - 07/16/2023 1:41 PM CST [facility] Who is the name of the provider?: JAIME TURNER What is the location you see this provider at/preferred location?: Katie Person calling / Facility: Adilson Person Phone number: [phone] (home) Nurse call back needed: YES Reason [...] PCP clinic to clarify medication question. IF [facility] RN is not appropriate please contact patient to advise. Pharmacy location: n/a Outside Imaging: n/a Can we leave a detailed message on this number? YES 07/16/2023, 1:41 PM KLING MACHINE OPERATOR documented in this encounter Plan of Treatment Not on file documented as of this encounter Visit Diagnoses Not on filedocumented in this encounter Care Teams Data Management Specialist Relationship Specialty Start Date End Date Cameron Aldridge MD [facility] [address] [address] PCP - General Family Medicine 02/02/23 Jaime Turner MD [address] [facility] [address] [place] [address] Assigned Heart and Vascular Provider 02/10/23 documented as of this encounter
--- OUTSIDE RECORDS SUMMARY | 2023-10-15 07:44 | XMS_ITS | Encounter Summary ---
Author Name Unknown Organization [place] Address [address] [facility] [place] [address] Care Team Providers Care Eeg Tech Name Role Phone Cameron Aldridge MD Primary Care Provider [phone] Jaime Turner MD Unavailable [phone] Encounter Details Date Type Department Care Team [...] Sex Assigned at Male 07/15/2023 8:16 PM TRANSIT VEHICLE INSPECTOR Gender Identity Male 07/15/2023 8:16 PM TRANSIT VEHICLE INSPECTOR Sexual Orientation Straight 07/15/2023 8: 16 PM TRANSIT VEHICLE INSPECTOR documented as of this encounter Plan of Treatment Not on file documented as of this encounter Visit Diagnoses Not on filedocumented in this encounter Care Teams Eeg Tech Relationship Specialty Start Date End Date Cameron Aldridge MD [facility] [address] [facility] [place] [address] PCP - General Family Medicine 02/02/23 Jaime Turner MD [address] [address] [place] [address] Assigned Heart and Vascular Provider 02/10/23 documented as of this encounter
--- OUTSIDE RECORDS SUMMARY | 2023-10-15 07:44 | XMS_ITS | Encounter Summary ---
Author Name Unknown Organization [facility] Address [address] [place] [address] Care Team Providers Care Electrical Sign Wirer Name Role Phone Cameron Aldridge MD Primary Care Provider Jaime Turner MD Unavailable [phone] Reason for Referral * Therapeutic Imaging/IR (Routine) - Pending Review Specialty Diagnoses / Procedures Referred By Charan t Referred To Contact Radiology. Diagnoses Atherosclerosis of artery of left lower extremity (H24) Procedures IR Lower Extremity Angiogram Left Jaime Turner MD [address] [id number] Referral ID Status Reason Start Date Expiration Date V isits Requested Visits Authorized [id number] Pending Review 06/29/2023 06/28/2024 1 1 F DESIGN ENGINEER Encounter Details Date Type Department Care Team (Late st Contact Info) Description 07/17/2023 10:05 AM STAFF DESIGN ENGINEER - 07/17/2023 5:30 PM STAFF DESIGN ENGINEER Hospital Encounter [facility] [address] [phone] Non-Fv Credentialed Provider, Radiology Jaime Turner MD [address] [id number] PAD (peripheral artery disease) (H24) (Primary Dx); Atherosclerosis of [place] artery of right lower extremity with ulceration [...] Sex Assigned at Male 07/15/2023 8:16 PM STAFF DESIGN ENGINEER Gender Identity Male 07/15/2023 8:16 PM STAFF DESIGN ENGINEER Sexual Orientation Straight 07/15/2023 8: 16 PM STAFF DESIGN ENGINEER documented as of this encounter Last Filed Vital Signs Vital Sign Reading Time Taken Comments Blood Pressure 106/64 07/17/2023 5:00 PM STAFF DESIGN ENGINEER Pulse 85 07/17/2023 5:00 PM STAFF DESIGN ENGINEER Temperature 36.4 ??C (97.6 ??F) 07/17/2023 10:[address] Respiratory Rate 16 07/17/2023 5:15 PM STAFF DESIGN ENGINEER Oxygen Saturation 98% 07/17/2023 5:15 PM STAFF DESIGN ENGINEER Inhaled Oxygen Concentration - - Weight 120 kg (264 lb 8 oz) 07/17/2023 10:20 AM STAFF DESIGN ENGINEER Height 180.3 cm (5' 11) 07/17/2023 10:20 AM STAFF DESIGN ENGINEER Body Mass Index 36.89 07/17/2023 10:20 AM STAFF DESIGN ENGINEER documented in this encounter Discharge Summaries * Beto Mcgrath RN - 07/17/2023 5:27 PM CST Care Suites Discharge Nursing Note Patient Information Name: Adilson Person Age: [age] year old Discharge Education: Discharge instructions reviewed: Yes Additional education/resources provided: AVS Patient/patient insurance service representative verbalizes understanding: Yes Patient discharging on new medications: No Medication education completed: N/A Discharge Plans: Discharge location: home Discharge ride contacted: Yes Approximate discharge time: 1730 Discharge Criteria: Discharge criteria met and vital signs stable: Yes Patient Belongs: Patient belongings returned to patient: Yes Beto Mcgrath RN F DESIGN ENGINEER documented in this encounter Discharge Instructions * Discharge Instructions* Gabriela Patten RN - 07/17/2023 10:25 AM STAFF DESIGN ENGINEER Peripheral Angiogram Discharge Instructions - Femoral [...] after your procedure. Check with your primary transitional care nurse before restarting the Metformin to see if [...] not improve, call: [facility] @ [phone] F DESIGN ENGINEER documented in this encounter Medications at [...] dry and intact Denies any CP -SOB F DESIGN ENGINEER * Gabriela Patten RN - 07/17/2023 4:18 PM CST AVS reviewed thoroughly with pt and spouse at bedside, all questions and concerns addressed. Verbalunderstanding received. Pt continues to rest comfortably on bedrest, tolerated dinner and PO fluids. No pain or complaints at this time. Detailed report to Beto ARGUETA. Gabriela Patten RN on 07/17/2023 at 4:18 PM F DESIGN ENGINEER * Gabriela Patten RN - 07/17/2023 [...] water. Restingcomfortably on cart. Gabriela Patten RN F DESIGN ENGINEER * Gabriela Patten RN - 07/17/2023 [...] Discharge Planning Discharge name/phone number: Jess goins [phone] Overnight post sedation caregiver: Jess Discharge location: home Gabriela Patten RN F DESIGN ENGINEER documented in this encounter Procedure Notes [...] no immediate complications apparent. Shaun Turner MD F DESIGN ENGINEER documented in this encounter Miscellaneous Notes [...] Last dose of sedation administered at 1239. F DESIGN ENGINEER * Pre-Procedure - Jaime Turner MD [...] data, medications, and the plan for sedation F DESIGN ENGINEER documented in this encounter Plan of Treatment Not on file documented as of this encounter Procedures Procedure Name Priority Date/Time Associated Diagnosis Comments IR LOWER EXTREMITY ANGIOGRAM LEFT Routine 07/17/2023 12:48 PM STAFF DESIGN ENGINEER Atherosclerosis of artery of left lower extremity (H24) INR STAT 07/17/2023 10:44 AM STAFF DESIGN ENGINEER PARTIAL THROMBOPLASTIN TIME STAT 07/17/2023 10:44 AM STAFF DESIGN ENGINEER LIPID PROFILE STAT 07/17/2023 10:44 AM STAFF DESIGN ENGINEER HEMOGLOBIN A1C STAT 07/17/2023 10:44 AM STAFF DESIGN ENGINEER BASIC METABOLIC PANEL STAT 07/17/2023 10:44 AM STAFF DESIGN ENGINEER CBC WITH PLATELETS STAT 07/17/2023 10 :44 AM STAFF DESIGN ENGINEER documented in this encounter Results * IR Lower Extremity Angiogram Left (07/17/2023 12:48 PM STAFF DESIGN ENGINEER) Anatomical Region Laterality Modality Lower Extremity Radio Fluoroscop y Impressions 07/26/2023 4:11 PM STAFF DESIGN ENGINEER IMPRESSION: Moderate disease of the left [...] JAIME TURNER MD Narrative 07/26/2023 4:11 PM STAFF DESIGN ENGINEER PREOP DIAGNOSIS: Left leg claudication. POSTOP [...] Sheath exchange was made for a 5 Irish sheath. An angled Glidewire Omni Flush catheter was delivered to the aortic bifurcation. We had a recent pelvic angiogram from 4 months ago and therefore I did not repeat that study today. The angled Glidewire was directed down into the distal left external iliac artery and catheter exchange was made for an angled [place] catheter. Selective left lower extremity angiography was [...] Sheath exchange was made for a 5 Irish sheath. An angled Glidewire Omni Flush catheter was delivered to the aortic bifurcation. We had a recent pelvic angiogram from 4 months ago and therefore I did not repeat that study today. The angled Glidewire was directed down into the distal left external iliac artery and catheter exchange was made for an angled [place] catheter. Selective left lower extremity angiography was [...] * (ABNORMAL) Lipid Panel (07/17/2023 10:44 AM STAFF DESIGN ENGINEER) Cholesterol 107 <200 mg/dL 07/17/2023 5:00 PM STAFF DESIGN ENGINEER [facility] Triglycerides 100 <150 mg/dL 07/17/2023 5:00 PM STAFF DESIGN ENGINEER [facility] Direct Measure HDL 34(L) >=40 mg/dL 2023 5:00 PM STAFF DESIGN ENGINEER [facility] LDL Cholesterol Calculated 53 <=100 mg/dL 07/17/2023 5:00 PM STAFF DESIGN ENGINEER [facility] Non HDL Cholesterol 73 <130 mg/dL 07/17/2023 5:00 PM STAFF DESIGN ENGINEER [facility] Patient Fasting > 8hrs? Yes 07/17/2023 5:00 PM STAFF DESIGN ENGINEER [facility] Blood BLOOD SPECIMEN / Unknown Venipuncture / Unknown 07/17/2023 10:44 AM STAFF DESIGN ENGINEER 07/17/2023 10:50 AM STAFF DESIGN ENGINEER Narrative [facility] - 07/17/2023 5:00 PM STAFF DESIGN ENGINEER Cholesterol Desirable: ??<200 mg/dL Triglycerides Normal: [...] - BLOOD ORDERAB LES [facility] [place] [facility] [address] [facility], [address] [place] [address], [facility] [place] [phone] * Partial thromboplastin time (07/17/2023 10:44 AM STAFF DESIGN ENGINEER) aPTT 29 22 - 38 Seconds 07/17/2023 11:07 AM STAFF DESIGN ENGINEER LABORATORY Blood BLOOD SPECIMEN / Unknown Venipuncture / Unknown 07/17/2023 10:44 AM STAFF DESIGN ENGINEER 07/17/2023 10:50 AM STAFF DESIGN ENGINEER Jaime Turner MD LAB - BLOOD ORDERAB LES LABORAT[facility] [address], [address] [place] [address], [facility] [place] [phone] * INR (07/17/2023 10:44 AM STAFF DESIGN ENGINEER) INR 1.10 0.85 - 1.15 07/17/2023 11:07 AM STAFF DESIGN ENGINEER LABORATORY Blood BLOOD SPECIMEN / Unknown Venipuncture / Unknown 07/17/2023 10:44 AM STAFF DESIGN ENGINEER 07/17/2023 10:50 AM STAFF DESIGN ENGINEER Jaime Turner MD LAB - BLOOD ORDERAB LES [facility] [address], [address] [place] [address], [facility] [place] [phone] * CBC with platelets (07/17/2023 10:44 AM STAFF DESIGN ENGINEER) WBC Count 7.3 4.0 - 11.0 10e3/uL 07/17/2023 10:55 AM STAFF DESIGN ENGINEER LABORATORY RBC Count 4.71 4.40 - 5.90 10e6/uL 07/17/2023 10:55 AM STAFF DESIGN ENGINEER LABORATORY Hemoglobin 13.6 13.3 - 17.7 g/dL 07/17/2023 10:[address] [facility] Hematocrit 40.2 40.0 - 53.0 % 07/17/2023 10:[address] [facility] MCV 85 78 - 100 fL 07/17/2023 10:[address] [facility] MCH 28.9 26.5 - 33.0 pg 07/17/2023 10:[address] [facility] MCHC 33.8 31.5 - 36.5 g/dL 07/17/2023 10:[address] [facility] RDW 13.5 10.0 - 15.0 % 07/17/2023 10:[address] [facility] Platelet Count 249 150 - 450 10e3/uL 07/17/2023 10:[address] [facility] Blood BLOOD SPECIMEN / Unknown Venipuncture / Unknown 07/17/2023 10:44 AM STAFF DESIGN ENGINEER 07/17/2023 10:50 AM STAFF DESIGN ENGINEER Jaime Turner MD LAB - BLOOD ORDERAB LES [facility] [address], [address] [place] [address], [facility] [place] [phone] * (ABNORMAL) Hemoglobin A1c (07/17/2023 10:44 AM [facility]) Hemoglobin A1C 7.1(H) <5.7 % 07/17/2023 11:[address] [facility] Comment: Normal <5.7% Prediabetes 5.7-6.4% ?? Diabetes 6.5% or higher Note: Adopted from ADA consensus guidelines. Blood BLOOD SPECIMEN / Unknown Venipuncture / Unknown 07/17/2023 10:44 AM STAFF DESIGN ENGINEER 07/17/2023 10:50 AM STAFF DESIGN ENGINEER Jaime Turner MD LAB - BLOOD ORDERAB LES [facility] [address], [address] [place] [address], [facility] [place] [phone] * (ABNORMAL) Basic metabolic panel (07/17/2023 10:44 AM [facility]) [facility] Sodium 137 135 - 145 mmol/L 07/17/2023 11:[address] [facility] Comment:Reference intervals for this test were updated on 03/20/2023 to more accurately reflect our healthy population. There may be differences in the flagging of prior results with similar values performed with this method. Interpretation of those prior results can be made in the context of the updated reference intervals. Potassium 4.4 3.4 - 5.3 mmol/L 07/17/2023 11:[address] [facility] Chloride 102 98 - 107 mmol/L 07/17/2023 11:[address] [facility] Carbon Dioxide (CO2) 26 22 - 29 mmol/L 07/17/2023 11:[address] [facility] Anion Gap 9 7 - 15 mmol/L 07/17/2023 11:[address] [facility] Urea Nitrogen 17.2 8.0 - 23.0 mg/dL 07/17/2023 11:[address] [facility] Creatinine 0.97 0.67 - 1.17 mg/dL 07/17/2023 11:[address] [facility] GFR Estimate 83 >60 mL/min/1. 73m2 07/17/2023 11:[address] [facility] Calcium 9.7 8.8 - 10.2 mg/dL 07/17/2023 11:[address] [facility] Glucose 128(H) 70 - 99 mg/dL 07/17/2023 11:[address] [facility] Blood BLOOD SPECIMEN / Unknown Venipuncture / Unknown 07/17/2023 10:44 AM [facility] 07/17/2023 10:50 AM [facility] Jaime Turner MD LAB - BLOOD ORDERAB LES LABORATORY [facility] [address], [address] [place] [address], [facility] [place] [phone] documented in this encounter Visit Diagnoses Diagnosis PAD (peripheral artery disease) (H24)- Primary Unspecified disorders of arteries and arterioles Atherosclerosis of [place] artery of right lower extremity with ulceration [...] physician., IR Intra-procedure $Given 07/17/2023 12:39 PM STAFF DESIGN ENGINEER 25 mcg $Given 07/17/2023 12:28 PM STAFF DESIGN ENGINEER 50 mcg $Given 07/17/2023 12:23 PM STAFF DESIGN ENGINEER 50 mcg heparin 2 Units/mL in [...] IR Intra-procedure $New Bag 07/17/2023 12:33 PM STAFF DESIGN ENGINEER 4 Bags iodixanol (VISIPAQUE 320) injection 100 mL 100 mL, INTRA-ARTERIAL, ONCE, On Sun07/17/23 at 1300, For 1 dose, IR Intra-procedure $Given 07/17/2023 12:56 PM STAFF DESIGN ENGINEER 50 mLs lidocaine 1 % 1-30 [...] Intra-procedure $Given by Other 07/17/2023 12:28 PM STAFF DESIGN ENGINEER 20 mLs midazolam (VERSED) injection 0.5-2 [...] dose., IR Intra-procedure $Given 07/17/2023 12:39 PM STAFF DESIGN ENGINEER 0.5 mg $Given 07/17/2023 12:24 PM STAFF DESIGN ENGINEER 1 mg $Given 07/17/2023 12:12 PM STAFF DESIGN ENGINEER 1 mg sodium chloride (PF) 0.9% PF flush 3 mL 3 mL, Intracatheter, EVERY 8 HOURS, First dose on Sun07/17/23 at 1030, to lock peripheral IV dormant line, IR Pre-procedure $Given 07/17/2023 10:45 AM STAFF DESIGN ENGINEER 3 mLs sodium chloride 0.9 % infusion at 100 mL/hr, Intravenous, CONTINUOUS, IF PATIENT IS RECEIVING RENAL DIALYSIS, RN to reduce rate of 0.9 % sodium chloride IV solution to 10 mL /hour (TKO) IV infusion to prevent fluid overload., IR Pre-procedure, Starting on Sun07/17/23 at 1030, Until Sun07/17/23 at 1313 $New Bag 07/17/2023 10:44 AM STAFF DESIGN ENGINEER 100 mL/hr documented in this encounter Active and Recently Administered Medications Times are shown in STAFF DESIGN ENGINEER. Scheduled Medication Order 07/15/2023 07/16/2023 07/17/2023 [...] RN) documented in this encounter Care Teams Electrical Sign Wirer Relationship Specialty Start Date End Date Cameron Aldridge MD [facility] [address] [address] PCP - General Family Medicine 02/02/23 Jaime Turner MD [address] [address] Assigned Heart and Vascular Provider 02/10/23 documented as of this encounter
--- OUTSIDE RECORDS SUMMARY | 2023-10-15 07:44 | XMS_ITS | Clinical Summary ---
Author Name Unknown Organization [facility] Address [address] [place] [address] Care Team Providers Care Complex Care Nurse Name Role Phone Cameron Aldridge MD Primary Care Provider [phone] Jaime Turner MD Unavailable [phone] Medications Medication Sig Dispensed Refills Start Date [...] (peripheral artery disease) (H24) 02/27/2023 Atherosclerosis of [place] ar [place] of right lower extremity with ulceration of other part of foot 02/27/2023 Resolved Problems Problem Noted Date Diagnosed Date Resolved Date [email or web address] 07/28/2006 09/17/2006 [email or web address] 07/28/2006 09/17/2006 Encounters Date Type Department Care Team Description 08/01/2023 2:40 PM ELECTRONIC REPAIR TROUBLESHOOTER Office Visit [facility] [place] [address] [place] [phone] Jaime Turner MD Status post peripheral artery angioplasty (Primary Dx); Type 2 diabetes mellitus with foot ulcer, unspecified whether long chain quiller tender insulin use (H); On Coumadin for atrial fibrillation (H); Class 2 severe obesity due to excess calories with serious comorbidity and body mass index (BMI) of 36.0 to 36.9 in adult (H) 08/01/2023 Travel 07/30/2023 Telephone [facility] [place] [address] [place] [phone] Jaime Turner MD Clinic Care Coordination - Post Hospital 07/17/2023 10:05 AM ELECTRONIC REPAIR TROUBLESHOOTER - 07/17/2023 5:30 PM ELECTRONIC REPAIR TROUBLESHOOTER Hospital Encounter [facility] [address] [phone] Non- Credentialed Provider, Radiology Jaime Turner MD PAD (peripheral artery disease) (H24) (Primary Dx); Atherosclerosis of huslia artery of right lower extremity with ulceration of other part of foot (H); Atherosclerosis of artery of left lower extremity (H24) Discharge Disposition: Home or Self Care 07/16/2023 Telephone [facility] [place] [address] [place] [phone] Jaime Turner MD Patient Request from Last [...] Sex Assigned at Male 07/15/2023 8:16 PM ELECTRONIC REPAIR TROUBLESHOOTER Gender Identity Male 07/15/2023 8:16 PM ELECTRONIC REPAIR TROUBLESHOOTER Sexual Orientation Straight 07/15/2023 8: 16 PM ELECTRONIC REPAIR TROUBLESHOOTER Last Filed Vital Signs Vital Sign Reading Time Taken Comments Blood Pressure 121/69 08/01/2023 2:43 PM ELECTRONIC REPAIR TROUBLESHOOTER Pulse 92 08/01/2023 2:43 PM ELECTRONIC REPAIR TROUBLESHOOTER Temperature 36.4 ??C (97.6 ??F) 07/17/2023 10:[address] Respiratory Rate 16 07/17/2023 5:15 PM ELECTRONIC REPAIR TROUBLESHOOTER Oxygen Saturation 98% 07/17/2023 5:15 PM ELECTRONIC REPAIR TROUBLESHOOTER Inhaled Oxygen Concentration - - Weight 120 kg (264 lb 8 oz) 07/17/2023 10:20 AM ELECTRONIC REPAIR TROUBLESHOOTER Height 180.3 cm (5' 11) 07/17/2023 10:20 AM ELECTRONIC REPAIR TROUBLESHOOTER Body Mass Index 36.89 07/17/2023 10:20 AM ELECTRONIC REPAIR TROUBLESHOOTER Plan of Treatment Health Maintenance Due Date [...] EXTREMITY ANGIOGRAM LEFT Routine 07/17/2023 12:48 PM ELECTRONIC REPAIR TROUBLESHOOTER Atherosclerosis of artery of left lower extremity (H24) LIPID PROFILE STAT 07/17/2023 10:44 AM ELECTRONIC REPAIR TROUBLESHOOTER PARTIAL THROMBOPLASTIN TIME STAT 07/17/2023 10:44 AM ELECTRONIC REPAIR TROUBLESHOOTER INR STAT 07/17/2023 10:44 AM ELECTRONIC REPAIR TROUBLESHOOTER CBC WITH PLATELETS STAT 07/17/2023 10 :44 AM ELECTRONIC REPAIR TROUBLESHOOTER HEMOGLOBIN A1C STAT 07/17/2023 10:44 AM ELECTRONIC REPAIR TROUBLESHOOTER BASIC METABOLIC PANEL STAT 07/17/2023 10:44 AM ELECTRONIC REPAIR TROUBLESHOOTER from Last 3 Months Results * IR Lower Extremity Angiogram Left (07/17/2023 12:48 PM ELECTRONIC REPAIR TROUBLESHOOTER) Anatomical Region Laterality Modality Lower Extremity Radio Fluoroscop y Impressions 07/26/2023 4:11 PM ELECTRONIC REPAIR TROUBLESHOOTER IMPRESSION: Moderate disease of the left common [...] JAIME TURNER MD Narrative 07/26/2023 4:11 PM ELECTRONIC REPAIR TROUBLESHOOTER PREOP DIAGNOSIS: Left leg claudication. POSTOP DIAGNOSIS: [...] Sheath exchange was made for a 5 Kenyan sheath. An angled Glidewire Omni Flush catheter was delivered to the aortic bifurcation. We had a recent pelvic angiogram from 4 months ago and therefore I did not repeat that study today. The angled Glidewire was directed down into the distal left external iliac artery and catheter exchange was made for an angled [place] catheter. Selective left lower extremity angiography was [...] Sheath exchange was made for a 5 Kenyan sheath. An angled Glidewire Omni Flush catheter was delivered to the aortic bifurcation. We had a recent pelvic angiogram from 4 months ago and therefore I did not repeat that study today. The angled Glidewire was directed down into the distal left external iliac artery and catheter exchange was made for an angled [place] catheter. Selective left lower extremity angiography was [...] foot. JAIME TURNER MD Jaime Turner MD [facility] IR ORDERABLES * INR (07/17/2023 10:44 AM ELECTRONIC REPAIR TROUBLESHOOTER) INR 1.10 0.85 - 1.15 07/17/2023 11:07 AM ELECTRONIC REPAIR TROUBLESHOOTER LABORATORY Blood BLOOD SPECIMEN / Unknown Venipuncture / Unknown 07/17/2023 10:44 AM ELECTRONIC REPAIR TROUBLESHOOTER 07/17/2023 10:50 AM ELECTRONIC REPAIR TROUBLESHOOTER Jaime Turner MD LAB - BLOOD ORDERAB LES LABORATORY [facility] [address] floor, [address] [place] [address], [facility] [phone] * Partial thromboplastin time (07/17/2023 10:44 AM ELECTRONIC REPAIR TROUBLESHOOTER) aPTT 29 22 - 38 Seconds 07/17/2023 11:07 AM ELECTRONIC REPAIR TROUBLESHOOTER LABORATORY Blood BLOOD SPECIMEN / Unknown Venipuncture / Unknown 07/17/2023 10:44 AM ELECTRONIC REPAIR TROUBLESHOOTER 07/17/2023 10:50 AM ELECTRONIC REPAIR TROUBLESHOOTER Jaime Turner MD LAB - BLOOD ORDERAB LES LABORATORY [facility] [address], [address] [place] [address], [facility] [phone] * (ABNORMAL) Lipid Panel (07/17/2023 10:44 AM ELECTRONIC REPAIR TROUBLESHOOTER) Cholesterol 107 <200 mg/dL 07/17/2023 5:00 PM ELECTRONIC REPAIR TROUBLESHOOTER [facility] Triglycerides 100 <150 mg/dL 07/17/2023 5:00 PM ELECTRONIC REPAIR TROUBLESHOOTER [facility] Direct Measure HDL 34(L) >=40 mg/dL 2023 5:00 PM ELECTRONIC REPAIR TROUBLESHOOTER [facility] LDL Cholesterol Calculated 53 <=100 mg/dL 07/17/2023 5:00 PM ELECTRONIC REPAIR TROUBLESHOOTER [facility] Non HDL Cholesterol 73 <130 mg/dL 07/17/2023 5:00 PM ELECTRONIC REPAIR TROUBLESHOOTER [facility] Patient Fasting > 8hrs? Yes 07/17/2023 5:00 PM ELECTRONIC REPAIR TROUBLESHOOTER [facility] Blood BLOOD SPECIMEN / Unknown Venipuncture / Unknown 07/17/2023 10:44 AM ELECTRONIC REPAIR TROUBLESHOOTER 07/17/2023 10:50 AM ELECTRONIC REPAIR TROUBLESHOOTER Narrative [facility] - 07/17/2023 5:00 PM ELECTRONIC REPAIR TROUBLESHOOTER Cholesterol Desirable: ??<200 mg/dL Triglycerides Normal: ??Less [...] MD LAB - BLOOD ORDERAB LES LABORATORY [facility] [place] [facility] [address] [facility], [address] [place] [address], [place] [phone] * (ABNORMAL) Hemoglobin A1c (07/17/2023 10:44 AM ELECTRONIC REPAIR TROUBLESHOOTER) Hemoglobin A1C 7.1(H) <5.7 % 07/17/2023 11:17 AM [facility] Comment: Normal <5.7% Prediabetes 5.7-6.4% ?? Diabetes 6.5% or higher Note: Adopted from ADA consensus guidelines. Blood BLOOD SPECIMEN / Unknown Venipuncture / Unknown 07/17/2023 10:44 AM ELECTRONIC REPAIR TROUBLESHOOTER 07/17/2023 10:50 AM ELECTRONIC REPAIR TROUBLESHOOTER Jaime Turner MD LAB - BLOOD ORDERAB LES LABORATORY [facility] [address] floor, [address] [place] [address], [place] [phone] * (ABNORMAL) Basic metabolic panel (07/17/2023 10:44 AM ELECTRONIC REPAIR TROUBLESHOOTER) Sodium 137 135 - 145 mmol/L 07/17/2023 11:13 AM ELECTRONIC REPAIR TROUBLESHOOTER LABORATORY Comment:Reference intervals for this test were updated on 03/20/2023 to more accurately reflect our healthy population. There may be differences in the flagging of prior results with similar values performed with this method. Interpretation of those prior results can be made in the context of the updated reference intervals. Potassium 4.4 3.4 - 5.3 mmol/L 07/17/2023 11:13 AM [facility] Chloride 102 98 - 107 mmol/L 07/17/2023 11:13 AM [facility] Carbon Dioxide (CO2) 26 22 - 29 mmol/L 07/17/2023 11:13 AM [facility] Anion Gap 9 7 - 15 mmol/L 07/17/2023 11:13 AM [facility] Urea Nitrogen 17.2 8.0 - 23.0 mg/dL 07/17/2023 11:13 AM [facility] Creatinine 0.97 0.67 - 1.17 mg/dL 07/17/2023 11:13 AM [facility] GFR Estimate 83 >60 mL/min/1. 73m2 07/17/2023 11:13 AM [facility] Calcium 9.7 8.8 - 10.2 mg/dL 07/17/2023 11:13 AM [facility] Glucose 128(H) 70 - 99 mg/dL 07/17/2023 11:13 AM [facility] Blood BLOOD SPECIMEN / Unknown Venipuncture / Unknown 07/17/2023 10:44 AM [facility] 07/17/2023 10:50 AM [facility] Jaime Turner MD LAB - BLOOD ORDERAB LES LABORATORY [facility] [address], [address] [place] [address], [facility] [phone] * CBC with platelets (07/17/2023 10:44 AM [facility]) [facility] WBC Count 7.3 4.0 - 11.0 10e3/uL 07/17/2023 10:55 AM [facility] RBC Count 4.71 4.40 - 5.90 10e6/uL 07/17/2023 10:55 AM [facility] Hemoglobin 13.6 13.3 - 17.7 g/dL 07/17/2023 10:55 AM [facility] Hematocrit 40.2 40.0 - 53.0 % 07/17/2023 10:55 AM [facility] MCV 85 78 - 100 fL 07/17/2023 10:55 AM [facility] MCH 28.9 26.5 - 33.0 pg 07/17/2023 10:55 AM [facility] MCHC 33.8 31.5 - 36.5 g/dL 07/17/2023 10:55 AM [facility] RDW 13.5 10.0 - 15.0 % 07/17/2023 10:55 AM [facility] Platelet Count 249 150 - 450 10e3/uL 07/17/2023 10:55 AM [facility] Blood BLOOD SPECIMEN / Unknown Venipuncture / Unknown 07/17/2023 10:44 AM ELECTRONIC REPAIR TROUBLESHOOTER 07/17/2023 10:50 AM [facility] Jaime Turner MD LAB - BLOOD ORDERAB LES [facility] Organization Address City/State/[facility] Co de Phone Number LABORATORY [facility] [address], [address] [place] [address], [facility] [phone] from Last 3 Months Advance Directives For more information, please contact: [phone] * Full Code (Latest Code Status on File) Date Activated Date Inactivated Comments 02/27/2023 5:08 PM 02/28/2023 8:58 AM All basic and advanced life-sustaining interventions are performed as appropriate Question Answer Comments Code status determined by: Unable to dis cuss and no AD/POLST on file; continue PREVIOUSLY ORDERED code status Care Teams Complex Care Nurse Relationship Specialty Start Date End Date Cameron Aldridge MD [facility] [address] [place] [address] PCP - General Family Medicine 02/02/23 Jaime Turner MD [address] [place] [address] [place] [address] Assigned Heart and Vascular Provider 02/10/23
--- OUTSIDE RECORDS SUMMARY | 2023-10-15 07:44 | XMS_ITS | Clinical Summary ---
Author Name Unknown Organization [facility] Address [address], [place] [address] Care Team Providers Care Pipeline Maintenance Supervisor Name Role Phone Unavailable Primary Care Provider Unavailabl e Source Comments You are receiving this document as you are listed as the primary care provider,follow-up provider, or the patient has been referred to you for consultation.This is in compliance with the Medicare and[facility] Hospitalca[facility] EHR Incentive Program,which states Providers who transition their patient to another setting of careor provider of care or refers their patient to another provider of care shouldprovide summary care record for each transition of care or referral. [facility] Social History Tobacco Use Types Packs/Day Years [...]
--- OUTSIDE RECORDS SUMMARY | 2023-10-15 07:44 | XMS_ITS | Referral Summary ---
Author Name Unknown [facility] Address [facility] [place] [address] Care Team Providers Care Donor Specialist Name Role Phone Cameron Aldridge MD Primary Care Provider Jaime Turner MD Unavailable [phone] Encounters Date Type Department Care Team Description 08/01/2023 Travel 08/01/2023 2:40 PM WIRER HELPER Office Visit [facility] [place] [address] [place] [phone] Jaime Turner MD Status post peripheral artery angioplasty (Primary Dx); Type 2 diabetes mellitus with foot ulcer, unspecified whether assisted insulin use (H); On Coumadin for atrial fibrillation (H); Class 2 severe obesity due to excess calories with serious comorbidity and body mass index (BMI) of 36.0 to 36.9 in adult (H) 07/30/2023 Telephone [facility] [place] [address] [place] [phone] Jaime Turner MD Clinic Care Coordination - Post Hospital 07/17/2023 10:05 AM WIRER HELPER - 07/17/2023 5:30 PM WIRER HELPER Hospital Encounter [facility] [address] [phone] Non-Fv Credentialed Provider, Radiology Jaime Turner MD PAD (peripheral artery disease) (H24) (Primary Dx); Atherosclerosis of [place]ne[place] artery of right lower extremity with ulceration of other part of foot (H); Atherosclerosis of artery of left lower extremity (H24) Discharge Disposition: Home or Self Care 07/16/2023 Telephone [facility] [place] [address] [place] [...] (peripheral artery disease) (H24) 02/27/2023 Atherosclerosis of [place] ar [place] of right lower extremity with [...] Sex Assigned at Male 07/15/2023 8:16 PM WIRER HELPER Gender Identity Male 07/15/2023 8:16 PM WIRER HELPER Sexual Orientation Straight 07/15/2023 8: 16 PM WIRER HELPER Last Filed Vital Signs Vital Sign Reading Time Taken Comments Blood Pressure 121/69 08/01/2023 2:43 PM WIRER HELPER Pulse 92 08/01/2023 2:43 PM WIRER HELPER Temperature 36.4 ??C (97.6 ??F) 07/17/2023 10:[address] Respiratory Rate 16 07/17/2023 5:15 PM WIRER HELPER Oxygen Saturation 98% 07/17/2023 5:15 PM WIRER HELPER Inhaled Oxygen Concentration - - Weight 120 kg (264 lb 8 oz) 07/17/2023 10:20 AM WIRER HELPER Height 180.3 cm (5' 11) 07/17/2023 10:20 AM WIRER HELPER Body Mass Index 36.89 07/17/2023 10:20 AM WIRER HELPER Plan of Treatment Not on file Procedures Procedure Name Priority Date/Time Associated Diagnosis Comments IR LOWER EXTREMITY ANGIOGRAM LEFT Routine 07/17/2023 12:48 PM WIRER HELPER Atherosclerosis of artery of left lower extremity (H24) LIPID PROFILE STAT 07/17/2023 10:44 AM WIRER HELPER PARTIAL THROMBOPLASTIN TIME STAT 07/17/2023 10:44 AM WIRER HELPER INR STAT 07/17/2023 10:44 AM WIRER HELPER CBC WITH PLATELETS STAT 07/17/2023 10 :44 AM WIRER HELPER HEMOGLOBIN A1C STAT 07/17/2023 10:44 AM WIRER HELPER BASIC METABOLIC PANEL STAT 07/17/2023 10:44 AM WIRER HELPER from Last 3 Months Results * IR Lower Extremity Angiogram Left (07/17/2023 12:48 PM WIRER HELPER) Anatomical Region Laterality Modality Lower Extremity Radio Fluoroscop y Impressions 07/26/2023 4:11 PM WIRER HELPER IMPRESSION: Moderate disease of the left common [...] JAIME TURNER MD Narrative 07/26/2023 4:11 PM WIRER HELPER PREOP DIAGNOSIS: Left leg claudication. POSTOP DIAGNOSIS: [...] Sheath exchange was made for a 5 English sheath. An angled Glidewire Omni Flush catheter was delivered to the aortic bifurcation. We had a recent pelvic angiogram from 4 months ago and therefore I did not repeat that study today. The angled Glidewire was directed down into the distal left external iliac artery and catheter exchange was made for an angled [place] catheter. Selective left lower extremity angiography was [...] Sheath exchange was made for a 5 English sheath. An angled Glidewire Omni Flush catheter was delivered to the aortic bifurcation. We had a recent pelvic angiogram from 4 months ago and therefore I did not repeat that study today. The angled Glidewire was directed down into the distal left external iliac artery and catheter exchange was made for an angled [place] catheter. Selective left lower extremity angiography was [...] IR ORDERABLES * INR (07/17/2023 10:44 AM WIRER HELPER) INR 1.10 0.85 - 1.15 07/17/2023 11:07 AM WIRER HELPER LABORATORY Blood BLOOD SPECIMEN / Unknown Venipuncture / Unknown 07/17/2023 10:44 AM WIRER HELPER 07/17/2023 10:50 AM WIRER HELPER Jaime Turner MD LAB - BLOOD ORDERAB LES LABORATORY [facility] [address], [address] [place] [address], [facility] [phone] * Partial thromboplastin time (07/17/2023 10:44 AM WIRER HELPER) aPTT 29 22 - 38 Seconds 07/17/2023 11:07 AM WIRER HELPER LABORATORY Blood BLOOD SPECIMEN / Unknown Venipuncture / Unknown 07/17/2023 10:44 AM WIRER HELPER 07/17/2023 10:50 AM WIRER HELPER Jaime Turner MD LAB - BLOOD ORDERAB LES Performing Organization Address City/[facility]/ZIP Co de Phone Number LABORATORY [facility] [address], [place] [address] [address], [facility] [phone] * (ABNORMAL) Lipid Panel (07/17/2023 10:44 AM WIRER HELPER) Cholesterol 107 <200 mg/dL 07/17/2023 5:00 PM WIRER HELPER [facility] Triglycerides 100 <150 mg/dL 07/17/2023 5:00 PM WIRER HELPER [facility] Direct Measure HDL 34(L) >=40 mg/dL 2023 5:00 PM WIRER HELPER [facility] LDL Cholesterol Calculated 53 <=100 mg/dL 07/17/2023 5:00 PM WIRER HELPER [facility] Non HDL Cholesterol 73 <130 mg/dL 07/17/2023 5:00 PM WIRER HELPER [facility] Patient Fasting > 8hrs? Yes 07/17/2023 5:00 PM WIRER HELPER [facility] Blood BLOOD SPECIMEN / Unknown Venipuncture / Unknown 07/17/2023 10:44 AM WIRER HELPER 07/17/2023 10:50 AM WIRER HELPER Narrative [facility] - 07/17/2023 5:00 PM WIRER HELPER Cholesterol Desirable: ??<200 mg/dL Triglycerides Normal: ??Less [...] MD LAB - BLOOD ORDERAB LES LABORATORY [facility] Lab [address] [facility], [address] [place] [address], [place] [phone] * (ABNORMAL) Hemoglobin A1c (07/17/2023 10:44 AM WIRER HELPER) Hemoglobin A1C 7.1(H) <5.7 % 07/17/2023 11:17 AM WIRER HELPER LABORATORY Comment: Normal <5.7% Prediabetes 5.7-6.4% ?? Diabetes 6.5% or higher Note: Adopted from ADA consensus guidelines. Blood BLOOD SPECIMEN / Unknown Venipuncture / Unknown 07/17/2023 10:44 AM WIRER HELPER 07/17/2023 10:50 AM WIRER HELPER Jaime Turner MD LAB - BLOOD ORDERAB LES LABORATORY [facility] [address], [address] [place] [address], [place] [phone] * (ABNORMAL) Basic metabolic panel (07/17/2023 10:44 AM WIRER HELPER) Sodium 137 135 - 145 mmol/L 07/17/2023 11:13 AM [facility] Comment:Reference intervals for this test were updated on 03/20/2023 to more accurately reflect our healthy population. There may be differences in the flagging of prior results with similar values performed with this method. Interpretation of those prior results can be made in the context of the updated reference intervals. Potassium 4.4 3.4 - 5.3 mmol/L 07/17/2023 11:13 AM [facility] Chloride 102 98 - 107 mmol/L 07/17/2023 11:13 AM [facility] Carbon Dioxide (CO2) 26 22 - 29 mmol/L 07/17/2023 11:13 AM [facility] Anion Gap 9 7 - 15 mmol/L 07/17/2023 11:13 AM [facility] Urea Nitrogen 17.2 8.0 - 23.0 mg/dL 07/17/2023 11:13 AM [facility] Creatinine 0.97 0.67 - 1.17 mg/dL 07/17/2023 11:13 AM [facility] GFR Estimate 83 >60 mL/min/1. 73m2 07/17/2023 11:13 AM [facility] Calcium 9.7 8.8 - 10.2 mg/dL 07/17/2023 11:13 AM [facility] Glucose 128(H) 70 - 99 mg/dL 07/17/2023 11:13 AM [facility] Blood BLOOD SPECIMEN / Unknown Venipuncture / Unknown 07/17/2023 10:44 AM WIRER HELPER 07/17/2023 10:50 AM [facility] Jaime Turner MD LAB - BLOOD ORDERAB LES LABORATORY [facility] Lab [address], [address] [place] [address], [facility] [phone] * CBC with platelets (07/17/2023 10:44 AM [facility]) [facility] WBC Count 7.3 4.0 - 11.0 10e3/uL 07/17/2023 10:55 AM [facility] RBC Count 4.71 4.40 - 5.90 10e6/uL 07/17/2023 10:55 AM [facility] Hemoglobin 13.6 13.3 - 17.7 g/dL 07/17/2023 10:55 AM [facility] Hematocrit 40.2 40.0 - 53.0 % 07/17/2023 10:55 AM [facility] MCV 85 78 - 100 fL 07/17/2023 10:55 AM [facility] MCH 28.9 26.5 - 33.0 pg 07/17/2023 10:55 AM [facility] MCHC 33.8 31.5 - 36.5 g/dL 07/17/2023 10:55 AM [facility] RDW 13.5 10.0 - 15.0 % 07/17/2023 10:55 AM [facility] Platelet Count 249 150 - 450 10e3/uL 07/17/2023 10:55 AM [facility] Blood BLOOD SPECIMEN / Unknown Venipuncture / Unknown 07/17/2023 10:44 AM WIRER HELPER 07/17/2023 10:50 AM [facility] Jaime Turner MD LAB - BLOOD ORDERAB LES LABORATORY [facility] Lab [address], [address] [place] [address], [facility] [phone] from Last 3 Months Advance Directives For more information, please contact: [phone] * Full Code (Latest Code Status on File) Date Activated Date Inactivated Comments 02/27/2023 5:08 PM 02/28/2023 8:58 AM All basic and advanced life-sustaining interventions are performed as appropriate Question Answer Comments Code status determined by: Unable to dis cuss and no AD/POLST on file; continue PREVIOUSLY ORDERED code status Care Teams Donor Specialist Relationship Specialty Start Date End Date Cameron Aldridge MD [facility] [address] [place] [address] PCP - General Family Medicine 02/02/23 Jaime Turner MD [address] [address] Assigned Heart and Vascular Provider 02/10/23
--- OUTSIDE RECORDS SUMMARY | 2023-10-15 07:45 | XMS_ITS | Clinical Summary ---
Author Name Unknown Organization [facility] Address [address] [place] [address] Care Team Providers Care Plating Foreman Name Role Phone Elsewhere, Pcp Primary Care Provider Unavailabl e Source Comments Patient records contain information from all sites at [facility]. For routine questions regarding patient records, call [phone] during business hours, M-F 8:00 AM - 5:00 PM Central Time. Record requests for emergency care only can be directed to [phone] at any time.[facility] Allergies No known active allergies Medications Medication [...] Overview: Added automatically from request for surgery [id number] Atrial Fibrillation Other Persistent 06/25/2004 Hypertension Essential [...] How often do you attend chur or jewish services? 1 to 4 times per year 04/07/2022 Do you belong to any clubs o r organizations such as nondenominational groups, unions, fraternal or athletic groups, or [...] care, and heating? Not very hard 05/25/2023 [facility] [place] of Occupat ional Health - Occupational Stress [...] your living situation today? I have a [facility] place to live 05/25/2023 Education Answer Date [...] Comments Blood Pressure 120/68 06/14/2022 7:45 AM ELECTRIC BLANKET WIRER Pulse 90 06/14/2022 7:45 AM ELECTRIC BLANKET WIRER Temperature 35.7 ??C (96.3 ??F) 05/29/2023 10:[address] Respiratory Rate 18 06/14/2022 7:45 AM ELECTRIC BLANKET WIRER Oxygen Saturation 95% 06/14/2022 7:45 AM ELECTRIC BLANKET WIRER Inhaled Oxygen Concentration - - Weight 123 kg (271 lb 11.5 oz) 05/29/2023 10:26 AM ELECTRIC BLANKET WIRER Height 181.7 cm (5' 11.54) 05/29/2023 10:26 AM ELECTRIC BLANKET WIRER Body Mass Index 37.33 05/29/2023 10:26 AM ELECTRIC BLANKET WIRER Plan of Treatment Health Maintenance Due Date [...] 17, 06/07/2016 Medical Devices Implanted Type Area Compliance Engineer Products Device Identifier Shelf Expiration Date Model / Serial / Lot Allogenic, Femoral Head - [id number] - [id number] Implanted:Qty : 1 on 06/12/2022 at [facility] Bone or Tissue Posterior : Spine Lumbar [facility] 05/10/2024 [id number] / [id number] / [id number] Spn Scrw Lg St 6.5x35 - [id number] Implanted:Qty : 2 on 06/12/2022 by Richard Joel M.D. at [facility] Hardware e.g. pins/screws /rods Posterior : Spine Lumbar Medtronic [id number] / / Spn Scrw Lg St 6.5x40 - [id number] Implanted:Qty : 3 on 06/12/2022 by Richard Joel M.D. at [facility] Hardware e.g. pins/screws /rods Posterior : Spine Lumbar Medtronic [id number] / / Spn Scrw Lg St 6.5x50 - [id number] Implanted:Qty : 3 on 06/12/2022 by Richard Joel M.D. at [facility] Hardware e.g. pins/screws /rods Posterior : Spine Lumbar Medtronic [id number] / / Spn Scrw Lgc Thrd 5.5 - [id number] Implanted:Qty : 8 on 06/12/2022 by Richard Joel M.D. at [facility] Hardware e.g. pins/screws /rods Posterior : Spine Lumbar Medtronic [id number] / / Spn Pineda Lgc Cvd 5.5x90 - [id number] Implanted:Qty : 1 on 06/12/2022 by Richard Joel M.D. at [facility] Hardware e.g. pins/screws /rods Posterior : Spine Lumbar Medtronic [id number] / / Spn Pineda Lgc Cvd 5.5x100 - [id number] Implanted:Qty : 1 on 06/12/2022 by Richard Joel M.D. at [facility] Hardware e.g. pins/screws /rods Posterior : Spine Lumbar Medtronic [id number] / / Ocular Lens Ocular Lens Bilateral : Eye Procedures Procedure Name Priority Date/Time Associated Diagnosis Comments EXTI LIPID PANEL, S Routine 07/17/2023 1 0:44 AM ELECTRIC BLANKET WIRER EXTI BASIC METABOLIC PANEL, FASTING, S Routine 07/17/2023 10:44 AM ELECTRIC BLANKET WIRER HEMOGLOBIN A1C, B Routine 06/01/2022 1:4 5 PM ELECTRIC BLANKET WIRER Preprocedural Lab Exam from Last 3 Months or Most Recently Relevant to Health Maintenance Results * (ABNORMAL) Hemoglobin A1c (06/01/2022 1:45 PM ELECTRIC BLANKET WIRER) Hemoglobin A1c, B 6.8(H) 4.0 - 5.6 % 06/01/2022 2:43 PM ELECTRIC BLANKET WIRER DTL Comment: Hemoglobin A1c values greater than or equal to 6.5 percent are diagnostic for diabetes mellitus. ??Diagnosis should be confirmed by repeat testing. ??In diabetic patients, HbA1c goals should be discussed with healthcare provider. Blood (Blood, Venous) 06/01/2022 1:45 PM ELECTRIC BLANKET WIRER 06/01/2022 2:13 PM ELECTRIC BLANKET WIRER Richard Joel M.D. LAB BLOOD ADD-ON [facility] [address] [place] [address], [facility] DTL [facility] [address] [place] [address] from Last 3 Months or Most Recently Relevant to Health Maintenance Advance Directives For more information, please contact: [phone] * Full Code (Latest Code Status on [...] Due to: Patient not available Care Teams Plating Foreman Relationship Specialty Start Date End Date Elsewhere, Pcp PCP - General Family Medicine 03/10/21
--- OUTSIDE RECORDS SUMMARY | 2023-10-15 07:45 | XMS_ITS | Data Portability ---
Author Name Unknown Address [address] [place] [address] Phone [phone] Organization [facility] Address [address] [place] [address] Care Team Providers Care Packing Floor Worker Name Role Phone MARICRUZ MCKEON Primary Care Provider Assessment Encounter Date Assessment Date Assessment LastModified by Organization Details LastModified Time 10/27/2022 10/27/2022 Pt here for UA-possible UC. LK [email or web address] Not available 10/27/2022 10:27:32 Plan of Treatment Reminders Order Date Submit Date Provider Last Modified By Organization Details Last Modified Time Details Appointments None recorded. Lab urinalysis, dipstick 2022 023 [email or web address] [facility], [address] [facility] [place], [address], 3 10:26:59 Referral pelvic floor therapy referral 2022 023 [email or web address] [facility], [address] [address], [place], [address], 07:53:48 Procedures None recorded. Surgeries None recorded. Imaging None recorded. Medication Orders clotrimazol e-betametha sone 1 %-0.05 % topical cream 2022 023 BARBARA [facility], [address] [facility], [place], [address], 3 11:53:59 tamsulosin 0.4 mg capsule 2022 023 [email or web address] [facility] [address], [address] [place], [address], 3 11:49:28 Trimix 30 papaverine/ 1 phentolamin e/10 PGE-1 2021 022 [email or web address] Not available 10:56:02 Patient TargetsNo targets recorded. Patient Instructions Encounter Date Encounter Id Patient Instructions Last Modified By Organization Details Last Modified Time 10/27/2022 [id number] RTC prn. DEBBIE [email or web address] Not available 10/2022 10:30:13 01/02/2022 [id number] 71 y/o male presents for an evaluation [...] Not Available [facility] [address], [place], [address], 10/27/2022 10:25:53 10/28/19 23 10/27/2022 urina lysis , dipst ick Clarity-Stat us Clear Not Available [facility] [address], [place], [address], 10/27/2022 10:25:53 10/28/19 23 10/27/2022 urina lysis , dipst ick Glucose-Stat us Negati ve Not Available [facility] [address], [place], [address], 10/27/2022 10:25:53 10/28/19 23 10/27/2022 urina lysis , dipst ick Bilirubin-St atus Negati ve Not Available [facility] [address], [place], [address], 10/27/2022 10:25:53 10/28/19 23 10/27/2022 urina lysis , dipst ick Ketones-Stat us Negati ve Not Available [facility] [address], [place], [address], 10/27/2022 10:25:53 10/28/19 23 10/27/2022 urina lysis , dipst ick Sp [place]-Stat us 1.015 Not Available [facility] [address], [place], [address], 10/27/2022 10:25:53 10/28/19 23 10/27/2022 urina lysis , dipst ick pH-Status 5.5 Not Available [facility] [address], [place], [address], 10/27/2022 10:25:53 10/28/19 23 10/27/2022 urina lysis , dipst ick Protein-Stat us 5.0 Not Available [facility] [address], [place], [address], 10/27/2022 10:25:53 10/28/19 23 10/27/2022 urina lysis , dipst ick Urobilinogen -Status 0.2 Not Available [facility] [address], [place], [address], 10/27/2022 10:25:53 10/28/19 23 10/27/2022 urina lysis , dipst ick Nitrates-Sta tus negati ve Not Available [facility] [address], [place], [address], 10/27/2022 10:25:53 10/28/19 23 10/27/2022 urina lysis , dipst ick Blood-Status Negati ve Not Available [facility] [address], [place], [address], 10/27/2022 10:25:53 10/28/19 23 10/27/2022 urina lysis , dipst ick Leuko-Status Negati ve Not Available [facility] [address], [place], [address], 10/27/2022 10:25:53 10/28/19 23 10/27/2022 urina lysis , dipst ick Specimen Type Voided Not Available [facility] [address], [place], [address], 10/27/2022 10:25:53 Result Notes None recorded. Procedures Surgical History Date Name Laterality Status Provider Name and Address Organization Details Recorded Time 05/25/20 22 spinal fusion with graft completed Cesar Pichardo MD [address] [place] [address],[address], [place], [address], [facility] 12/06/2022 11:50:50 01/03/20 22 Penile Self Injection Trial completed DORINA CLEVELAND [address] [place] [address],[address], [place], [address], [facility] 01/02/2022 10:56:17 09/24/19 19 Diagnostic colonoscopy [...] Updated DateTime 09/27/2022 182.88 cm 34.9 kg/m2 010674.24 g Cesar Pichardo MD [address] [place] [address],[address], [place], [address], [facility] 09/27/2022 11:35:39 Date Recorded Body height Body mass index (BMI) Body weight Provider Name and Address Organization Details Last Updated DateTime 12/06/2022 182.88 cm 34.9 kg/m2 732257.24 g Cesar Pichardo MD [address] [facility],[address], [place], [address], [facility] 12/06/2022 11:46:41 Date Recorded Body height Body mass index (BMI) Body weight Provider Name and Address Organization Details Last Updated DateTime 02/14/2023 182.88 cm 34.9 kg/m2 375237.24 g Ewa mendoza [facility] 02/14/2023 14:42:50 Date Recorded Body height Body mass index (BMI) Body weight Provider Name and Address Organization Details Last Updated DateTime 04/18/2023 182.88 cm 34.9 kg/m2 312867.24 g Ewa mendoza [facility] 04/18/2023 14:11:59 Date Recorded Body mass index (BMI) Body height Body weight Provider Name and Address Organization Details Last Updated DateTime 01/02/2022 35.5 kg/m2 182.88 cm 828259.342 762028 g Not Available Health Note 01/02/2022 09:53:58 [...] o Information not available 01/02/2022 Preferred Language Yi Information not available 01/02/2022 Recreational Drug Use [...] of cardiac disorder Medical History Condition Response Diabetes Y Sexually Transmitted Infection N Bleeding Disorder N High Blood Pressure Y Kidney Stones N Cancer N Depression N Lung Disease N High Cholesterol Y GERD/Acid Reflux N Heart Disease N Immunizations Vaccine Type Date Status Provider Name and Address Organization Details Recorded Time influenza, unspecified formulation 03/25/2021 completed Not Available [facility] 04/18/2023 14:09:43 SARS-COV-2 (COVID-19) vaccine, UNSPECIFIED 12/13/2021 completed Not Available [facility] 04/18/2023 14:09:43 COVID-19, mRNA, LNP-S, PF, 30 mcg/0.3 mL dose 07/23/2020 completed Malia [facility] 11/07/2022 16:12:58 COVID-19, mRNA, LNP-S, PF, 30 mcg/0.3 mL dose 08/13/2020 completed Malia mendoza [facility] 11/07/2022 16:12:58 COVID-19, mRNA, LNP-S, PF, 30 mcg/0.3 mL dose 03/23/2021 completed Malia mendoza, [facility] 11/07/2022 16:12:58 COVID-19, mRNA, LNP-S, PF, 30 mcg/0.3 mL dose, nick-sucrose 12/13/2021 completed Malia mendoza [facility] 11/07/2022 16:12:58 pneumococcal polysaccharide PPV23 06/07/2016 completed Malia mendoza, [facility] 11/07/2022 16:12:58 Tdap 06/07/2016 completed Malia mendoza [facility] 11/07/2022 16:12:58 Pneumococcal conjugate PCV 13 06/12/2017 completed Malia mendoza [facility] 11/07/2022 16:12:58 Influenza, high dose seasonal 07/19/2018 completed Malia mendoza [facility] 11/07/2022 16:12:58 Influenza, high dose seasonal 04/24/2017 completed Malia mendoza [facility] 11/07/2022 16:12:58 Influenza, high dose seasonal 06/07/2016 [facility] 16:12:58 Influenza, high dose seasonal 06/20/2019 completed Malia mendoza [facility] 11/07/2022 16:12:58 influenza, injectable, quadrivalent, preservative free 06/09/2015 completed Malia mendoza [facility] 11/07/2022 16:12:58 influenza, high-dose, quadrivalent 05/25/2022 [facility]/14[facility] 10:29:10 Past Encounters Encounter ID Performer Location Encounter Start Date Encounter Closed Date Diagnosis/Indication Diagnosis SNOMED-CT Code [id number] DORINA CLEVELAND [facility] [address] [place] [address],[address] [address] 01/02/2022 09:53:50 01/02/2022 10:57:22 Primary erectile dysfunction [id number] MD [facility] [address] [place] [address] 09/27/2022 11:24:42 09/29/2022 08:56:40 Primary erectile dysfunction 722806199 Injury of penis 06840340 6 Phimosis 218136011 Pelvic luba or dysfunction 376068484 Slowing of urinary stream 16144952 [id number] MD [facility] [address] [place] [address] 10/27/2022 10:13:19 11/09/2022 10:24:08 Dysuria [id number] MD [facility] [address] [place] [address] 12/06/2022 11:35:32 12/08/2022 14:15:29 Primary erectile dysfunction 100278657 Injury of penis 19474496 6 Phimosis 300316267 Pelvic luba or dysfunction 734920271 Slowing of urinary stream 16091127 [id number] MD [facility] [address] [place] [address] 02/14/2023 14:32:25 02/21/2023 12:47:59 Primary erectile dysfunction 787505366 Injury of penis 90817540 6 Phimosis 284796779 Pelvic luba or dysfunction 784370245 Slowing of urinary stream 46209352 [id number] MD [facility] [address] [place] [address] 04/18/2023 14:08:35 04/24/2023 14:31:50 Primary erectile dysfunction 333437160 Injury of penis 46455826 6 Phimosis 553434255 Pelvic luba or dysfunction 306375730 Slowing of urinary stream 40615300 Health Concerns Section Related Observation LastModified by Organization Detai ls LastModified Time None Recorded Concern Status LastModified by Organization Details LastModified Time None Recorded Advance Directives Directive None Recorded Payers Encounter Date Sequence Insurance Name Policy Number Policy Perez Covered Member ID Perez Member ID Guarantor Name 04/18/2023 [place] [id number] Chaya R Barfknecht [id number] Adilson R Barfknecht 02/14/2023 1 [place] [id number] Chaya R Barfknecht [id number] Adilson R Barfknecht 12/06/2022 1 [place] [id number] Chaya R Barfknecht [id number] Adilson R Barfknecht 10/27/2022 1 [place] [id number] Chaya R Barfknecht [id number] Adilson R Barfknecht 09/27/2022 1 [place] [id number] Chaya R Barfknecht [id number] Adilson R Barfknecht 01/02/2022 1 [place] [id number] Chaya R Barfknecht [id number] Adilson R Barfknecht Notes Date Note Type [...] cholesterol (controlled). Denies CAD. MARTINA COOMBS, DORINA [address] [place] [address],[address], [place], [address], [facility] 01/02/2022 10:56:29 09/27/2022 text/html HPI Notes: [...] some of the history. Cesar Pichardo MD [address] [place] [address],[address], [place], [address], [facility] 09/27/2022 13:29:07 12/06/2022 text/html HPI Notes: [...] some of the history. Cesar Pichardo MD [address] [place] [address],[address], [place], [address], [facility] 12/06/2022 12:27:39 02/14/2023 text/html HPI Notes: [...] in his phimosis. Cesar Pichardo MD [address], [place], [address], [facility] 02/14/2023 14:52:55 04/18/2023 text/html HPI Notes: [...] resolved. Doing great. Cesar Pichardo MD [address], [place], [address], [facility] 04/18/2023 14:47:38
--- OUTSIDE RECORDS SUMMARY | 2023-10-15 07:45 | XMS_ITS | Continuity of Care Document ---
Author Name Unknown Organization [facility] Address [address] [place] [address] Phone Care Team Providers Care Sustainable Design Consultant Name Role Phone Jaime Stahl MD Unavailable [...] Available - Active Procedures Procedure Date Office/Outpatient Visit,[facility] 2016 Advance Directives Directive Yes / No Effective Date File Name No Information Encounters Encounter Description Practice Location Reason(s) For Visit Diagnoses Date Provider Providers Copied on Encounter [facility], [address], [place], [id number], [place] tel:[phone] [facility] No Information Maribeth Sandoval. [facility], [facility] [address] [place] [address], [address], [place], [id number], [place]. tel:[phone] Office/Outpat ient Visit,[facility], [address], [place], [id number], [place] tel:[phone] [facility] Spinal stenosis, lumbar regionSpondyl olisthesis, lumbar region Maribeth Sandoval. [facility], [address], [address], [place], [place], [id number], . tel:[phone] Referring Provider: Jaime Sheehan, [facility] [address], [address], [place], [address] . tel:[phone] Family History Family Member Type Diagnosis Age At Onset No Information Payers Payer name Insurance type Covered constitution party ID Authorgee granger(s) [facility] [address] [facility] [id number] Social History Type Description Quantity Date Captured [...]
--- OUTSIDE RECORDS SUMMARY | 2023-10-15 07:45 | XMS_ITS | Referral Summary ---
Author Name Unknown Organization [facility] Address [address] [place] [address] Care Team Providers Care Underwriting Sales Representative Name Role Phone Elsewhere, Pcp Primary Care Provider Unavailabl e Source Comments Patient records contain information from all sites at [facility]. For routine questions regarding patient records, call [phone] during business hours, M-F 8:00 AM - 5:00 PM Central Time. Record requests for emergency care only can be directed to [phone] at any time.[facility] Allergies No known active allergies Medications [...] Overview: Added automatically from request for surgery [id number] Atrial Fibrillation Other Persistent 06/25/2004 Hypertension Essential [...] any clubs o r organizations such as sabianism groups, unions, fraternal or athletic groups, or [...] care, and heating? Not very hard 05/25/2023 [facility] of Occupat ional Health - Occupational Stress [...] situation today? I have a [facility] place to live 05/25/2023 Education Answer [...] Comments Blood Pressure 120/68 06/14/2022 7:45 AM COMIC ARTIST Pulse 90 06/14/2022 7:45 AM COMIC ARTIST Temperature 35.7 ??C (96.3 ??F) 05/29/2023 10:[address] Respiratory Rate 18 06/14/2022 7:45 AM COMIC ARTIST Oxygen Saturation 95% 06/14/2022 7:45 AM COMIC ARTIST Inhaled Oxygen Concentration - - Weight 123 kg (271 lb 11.5 oz) 05/29/2023 10:26 AM COMIC ARTIST Height 181.7 cm (5' 11.54) 05/29/2023 10:26 AM COMIC ARTIST Body Mass Index 37.33 05/29/2023 10:26 AM COMIC ARTIST Plan of Treatment Not on file Medical Devices Implanted Type Area Shake Maker Device Identifier Shelf Expiration Date Model / Serial / Lot Allogenic, Femoral Head - [id number] - [id number] Implanted:Qty : 1 on 06/12/2022 at [facility] Bone or Tissue Posterior : Spine Lumbar [facility] 05/10/2024 [id number] / [id number] / [id number] Spn Scrw Lg St 6.5x35 - [id number] Implanted:Qty : 2 on 06/12/2022 by Richard Joel M.D. at [facility] Hardware e.g. pins/screws /rods Posterior : Spine Lumbar Medtronic [id number] / / Spn Scrw Lg St 6.5x40 - [id number] Implanted:Qty : 3 on 06/12/2022 by Richard Joel M.D. at [facility] Hardware e.g. pins/screws /rods Posterior : Spine Lumbar Medtronic [id number] / / Spn Scrw Lgc St 6.5x50 - [id number] Implanted:Qty : 3 on 06/12/2022 by Richard Joel M.D. at [facility] Hardware e.g. pins/screws /rods Posterior : Spine Lumbar Medtronic [id number] / / Spn Scrw Lgc Thrd 5.5 - [id number] Implanted:Qty : 8 on 06/12/2022 by Richard Joel M.D. at [facility] Hardware e.g. pins/screws /rods Posterior : Spine Lumbar Medtronic [id number] / / Spn Pineda Lgc Cvd 5.5x90 - [id number] Implanted:Qty : 1 on 06/12/2022 by Richard Joel M.D. at [facility] Hardware e.g. pins/screws /rods Posterior : Spine Lumbar Medtronic [id number] / / Spn Pineda Lgc Cvd 5.5x100 - [id number] Implanted:Qty : 1 on 06/12/2022 by Richard Joel M.D. at [facility] Hardware e.g. pins/screws /rods Posterior : Spine Lumbar Medtronic [id number] / / Ocular Lens Ocular Lens Bilateral : Eye Procedures Procedure Name Priority Date/Time Associated Diagnosis Comments EXTI LIPID PANEL, S Routine 07/17/2023 1 0:44 AM COMIC ARTIST EXTI BASIC METABOLIC PANEL, FASTING, S Routine 07/17/2023 10:44 AM COMIC ARTIST HEMOGLOBIN A1C, B Routine 06/01/2022 1:4 5 PM COMIC ARTIST Preprocedural Lab Exam from Last 3 Months or Most Recently Relevant to Health Maintenance Results * (ABNORMAL) Hemoglobin A1c (06/01/2022 1:45 PM COMIC ARTIST) Pathologist [facility] Hemoglobin A1c, B 6.8(H) 4.0 - 5.6 % 06/01/2022 2:43 PM COMIC ARTIST DTL Comment: Hemoglobin A1c values greater than or equal to 6.5 percent are diagnostic for diabetes mellitus. ??Diagnosis should be confirmed by repeat testing. ??In diabetic patients, HbA1c goals should be discussed with healthcare provider. Blood (Blood, Venous) 06/01/2022 1:45 PM COMIC ARTIST 06/01/2022 2:13 PM COMIC ARTIST Richard Joel M.D. LAB BLOOD ADD-ON [facility] [address] [place] [address], [facility] DTL [facility] [address] [place] [address] from Last 3 Months or Most Recently Relevant to Health Maintenance Advance Directives For more information, please contact: [phone] * Full Code (Latest Code Status on [...] Due to: Patient not available Care Teams Underwriting Sales Representative Relationship Specialty Start Date End Date Elsewhere, Pcp PCP - General Family Medicine 03/10/21
--- OUTSIDE RECORDS SUMMARY | 2023-10-15 07:45 | XMS_ITS | Continuity of Care Document ---
Author Name Unknown Organization [facility] Address [address] [place] [address] Phone Care Team Providers Care Meat Carrier Name Role Phone Will Manjinder SUTHERLAND Unavailable [...] Diagnoses Date Provider Providers Copied on Encounter [facility], [address] [place] [address] [place], [place], [id number] , [place] tel:[phone] [facility] No Information 2 Will Manjinder. [address] [facility] [place], [place], [id number] , [place]. tel: [phone] OFFICE/OUTPAT IENT VISIT, EST [facility], [address] [place] [address], [id number] , [place] tel: [phone] [facility] Widespread pain (chief complaint) Postlaminectomy syndrome, not elsewhere classifiedChroni c migraine w/o aura, intractable, w status migrainosusOther intervertebral disc degeneration, lumbar regionLong term (current) use of opiate analgesicOther cervical disc degeneration, unsp cervical region Mar-0 9 Liz Ying. [address] [place] [address] [address], [place], [place], [id number] , [place]. tel: [phone] Referring Provider: Cameron Aldridge [facility] [address], [place], [address]. tel:[phone] OFFICE CONSULTATION [facility], [address] [place] [address], [id number] , [place] tel: [phone] [facility] Widespread pain (chief complaint) Postlaminectomy syndrome, not elsewhere classifiedChroni c migraine w/o aura, intractable, w status migrainosusOther cervical disc degeneration, unsp cervical regionOther intervertebral disc degeneration, lumbar regionLong term (current) use of opiate analgesicEncount er for therapeutic drug level monitoringSpinal stenosis, lumbar region with neurogenic claudication 9 [facility]. [facility], [address], [place], [address], [place]. tel: [phone] Referring Provider: [facility] [address], [place], [address]. tel:[phone] [facility], [address] [place] [address], [id number] , [place] tel: [phone] [facility] Widespread pain (chief complaint) No Information 9 Joesph Philippew. [address] [facility] [place], [place], [id number] , [place]. tel: [phone] Family History Family Member Type Diagnosis Age At Onset No Information Payers Payer name Insurance type Covered alliance party ID Rose granger(s) [facility] [id number] Social History Type Description Quantity Date Captured Comments Sex Male Smoking Status No Information Chief Complaint And Reason For Visit No Information Reason For Referral Reason For Referral No Information Plan Of Treatment Date Type Action Status Future Order: Lab Order ELICEO PIERSON DRUG ANALYSIS, URINE, WITH MED REPORT ([id number]), Ordered on: Ordered History Of Present Illness [...] has lumber KHURRAM scheduled next week at [facility] and inquires about this today.Patient is [...] as a surgical candidate. Underwent PT at [facility] in 2012-- not helpful. Regularly attends chiropractor for neck pain--helpful. Tried both lumbar and cervical ESIs at [facility], noting the lumbar ESIs did not provide much relief. Still completes CESIs regularly which is helpful for his neck pain. Reports last EMILY was 05/30/2018. Additionally reports previous MRI at [facility]. Currently managed on gabapentin 800mg TID and oxycodone 5-325mg average #1/day. Takes Ibuprofen for additional relief. States the oxycodone provides good relief when he takes it, especially at night to aid with sleep. Adilson is interested in any treatment option and would like [facility] to assume management of pain care. Widespread pain (comments) Adilson is here for initial consult for pain management, referred by PCP Cameron Duong MD at [facility]. His pain began gradually over 20 years ago and has progressively worsened over time. C/o constant headaches, in addition to neck and back pain. Has muscle spasms in BL LE, groin, and ribcage. Reports previous cervical diskectomy in 2000, however states he is no longer recommended as a surgical candidate. Underwent PT at [facility] in 2012-- not helpful. Tried ESIs at [facility]. Reports previous MRI at [facility]. Has taken gabapentin 800mg TID and oxycodone for additional pain relief. Adilson is interested in any treatment option and would like [facility] to assume management of pain care. Widespread pain Duration: chroni c. Functional Status Date Functional Assessmen t No Information Instructions Date Instruction Additional Infor mation No Information Assessments Type Assessment Date No Information Patient Care Teams Name Effective Dates (start - stop) Status Members No Information
--- OUTSIDE RECORDS SUMMARY | 2023-10-15 07:45 | XMS_ITS ---
Author Name Unknown Organization [facility] Address [address] [place] [address] Care Team Providers Care Operations Research Group Manager Name Role Phone Unavailable Unavailable Unavailable Surgery Details Not on file Complications Check Surgery Details section. Procedure Estimated Blood Loss Check Surgery Details section. Procedure Findings Check Surgery Details section. Procedure Specimens Taken Check Surgery Details section.
== END 2023-10-12 15:22 | disposition home or self-care (01) ==
LOC: NFLDREF 10-15 07:42
PROVIDERS: PCP Family Medicine; Referring Provider Family Medicine; Visit Provider Family Medicine
DX: E11.9 Type 2 diabetes mellitus without complications (principal); I10 Essential (primary) hypertension; I48.91 Unspecified atrial fibrillation; Z79.01 Long term (current) use of anticoagulants
CPT/HCPCS: 82043; 82570

== ENCOUNTER 2023-10-26 08:24 | Outpatient (CLI) | payer BC, SELFPAY ==
--- NOTE | 2023-10-26 09:39 | W.ANESCHARGE ---
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
== END 2023-10-26 08:25 | disposition home or self-care (01) ==
LOC: OP CLINIC 08:24
PROVIDERS: PCP Family Medicine; Visit Provider Internal Medicine
DX: K63.5 Polyp of colon (principal); K64.8 Other hemorrhoids; K57.30 Diverticulosis of large intestine without perforation or abscess without bleeding; Z86.010 Personal history of colon polyps
CPT/HCPCS: 45380; 811; 88305; 99100; J2704

== ENCOUNTER 2024-01-10 14:32 | Outpatient (CLI) | payer BC, SELFPAY ==
--- OUTSIDE RECORDS SUMMARY | 2024-01-10 14:36 | XMS_ITS | Clinical Summary ---
Author Organization [place] Address [address] [place] [address] Care Team Providers Care Barrel Washer Machine Name Role Phone Cameron Aldridge MD Primary Care Provider [phone] Jaime Turner MD Unavailable [phone] Medications Medication Sig Dispensed Refills Start Date [...] (peripheral artery disease) (H24) 02/27/2023 Atherosclerosis of [place] of right lower extremity with ulceration of other part of foot 02/27/2023 Resolved Problems Problem Noted Date Diagnosed Date Resolved Date iamCERVICALGIA 07/28/2006 09/17/2006 [email or web address] 07/28/2006 09/17/2006 Family History Medical History Relation Comments Diabetes [...] Sex Assigned at Male 07/15/2023 8:16 PM ACUTE CARE SURGEON Gender Identity Male 07/15/2023 8:16 PM ACUTE CARE SURGEON Sexual Orientation Straight 07/15/2023 8: 16 PM ACUTE CARE SURGEON Last Filed Vital Signs Vital Sign Reading Time Taken Comments Blood Pressure 121/69 08/01/2023 2:43 PM ACUTE CARE SURGEON Pulse 92 08/01/2023 2:43 PM ACUTE CARE SURGEON Temperature 36.4 ??C (97.6 ??F) 07/17/2023 10:[address] Respiratory Rate 16 07/17/2023 5:15 PM ACUTE CARE SURGEON Oxygen Saturation 98% 07/17/2023 5:15 PM ACUTE CARE SURGEON Inhaled Oxygen Concentration - - Weight 120 kg (264 lb 8 oz) 07/17/2023 10:20 AM ACUTE CARE SURGEON Height 180.3 cm (5' 11) 07/17/2023 10:20 AM ACUTE CARE SURGEON Body Mass Index 36.89 07/17/2023 10:20 AM ACUTE CARE SURGEON Plan of Treatment Health Maintenance Due Date [...] MEDICARE ANNUAL WELLNESS VISIT 02/07/2016 COVID-19 Vaccine (2022- season) 2023 12/13/2021, 03/23/2021, 08/13/2020, Additional history exists PHQ-2 (once per calendar year) 2023 A1C 10/16/2023 07/17/2023, 02/27/2023 INFLUENZA VACCINE (#1) 2024 , 03/25/2021, 06/20/2019, Additional history exists BMP 07/17/2024 07/17/2023, 02/27/2023 LIPID 07/17/2024 07/17/2023, [...] Procedure Name Priority Date/Time Associated Diagnosis Comments LIPID PROFILE STAT 07/17/2023 10:44 AM ACUTE CARE SURGEON BASIC METABOLIC PANEL STAT 07/17/2023 10:44 AM ACUTE CARE SURGEON HEMOGLOBIN A1C STAT 07/17/2023 10:44 AM ACUTE CARE SURGEON from Last 3 Months or Most Recently Relevant to Health Maintenance Results * (ABNORMAL) Lipid Panel (07/17/2023 10:44 AM ACUTE CARE SURGEON) Cholesterol 107 <200 mg/dL 07/17/2023 5:00 PM ACUTE CARE SURGEON [facility] Triglycerides 100 <150 mg/dL 07/17/2023 5:00 PM ACUTE CARE SURGEON [facility] Direct Measure HDL 34(L) >=40 mg/dL 2023 5:00 PM ACUTE CARE SURGEON [facility] LDL Cholesterol Calculated 53 <=100 mg/dL 07/17/2023 5:00 PM ACUTE CARE SURGEON [facility] Non HDL Cholesterol 73 <130 mg/dL 07/17/2023 5:00 PM ACUTE CARE SURGEON [facility] Patient Fasting > 8hrs? Yes 07/17/2023 5:00 PM ACUTE CARE SURGEON [facility] Blood BLOOD SPECIMEN / Unknown Venipuncture / Unknown 07/17/2023 10:44 AM ACUTE CARE SURGEON 07/17/2023 10:50 AM ACUTE CARE SURGEON Narrative [facility] - 07/17/2023 5:00 PM ACUTE CARE SURGEON Cholesterol Desirable: ??<200 mg/dL Triglycerides Normal: ??Less [...] Turner MD LAB - BLOOD ORDERAB LES [facility] [address] [facility], Room [address] [place] [address], [facility] [phone] * (ABNORMAL) Hemoglobin A1c (07/17/2023 10:44 AM [facility]) Hemoglobin A1C 7.1(H) <5.7 % 07/17/2023 11:17 AM [facility] Comment: Normal <5.7% Prediabetes 5.7-6.4% ?? Diabetes 6.5% or higher Note: Adopted from ADA consensus guidelines. Blood BLOOD SPECIMEN / Unknown Venipuncture / Unknown 07/17/2023 10:44 AM ACUTE CARE SURGEON 07/17/2023 10:50 AM [facility] Jaime Turner MD LAB - BLOOD ORDERAB LES LAB[facility] Acute Care Lab [address] floor, [address] [place] [id number], [facility] [phone] * (ABNORMAL) Basic metabolic panel (07/17/2023 10:44 AM [facility]) Pathologist [facility] Sodium 137 135 - 145 mmol/L 07/17/2023 11:13 AM [facility] Comment:Reference intervals for this test were updated on 03/20/2023 to more accurately reflect our healthy population. There may be differences in the flagging of prior results with similar values performed with this method. Interpretation of those prior results can be made in the context of the updated reference intervals. Potassium 4.4 3.4 - 5.3 mmol/L 07/17/2023 11:13 AM [facility] Chloride 102 98 - 107 mmol/L 07/17/2023 11:13 AM [facility] Carbon Dioxide (CO2) 26 22 - 29 mmol/L 07/17/2023 11:13 AM [facility] Anion Gap 9 7 - 15 mmol/L 07/17/2023 11:13 AM [facility] Urea Nitrogen 17.2 8.0 - 23.0 mg/dL 07/17/2023 11:13 AM [facility] Creatinine 0.97 0.67 - 1.17 mg/dL 07/17/2023 11:13 AM [facility] GFR Estimate 83 >60 mL/min/1. 73m2 07/17/2023 11:13 AM [facility] C[facility] SURGEON LABORATORY Calcium 9.7 8.8 - 10.2 mg/dL 07/17/2023 11:13 AM [facility] Glucose 128(H) 70 - 99 mg/dL 07/17/2023 11:13 AM [facility] Blood BLOOD SPECIMEN / Unknown Venipuncture / Unknown 07/17/2023 10:44 AM ACUTE CARE SURGEON 07/17/2023 10:50 AM ACUTE CARE SURGEON Jaime Turner MD LAB - BLOOD ORDERAB LES [facility] Acute [facility] [address], [address] [place] [address], [facility] [phone] from Last 3 Months or Most Recently Relevant to Health Maintenance Advance Directives For more information, please contact: [phone] * Full Code (Latest Code Status on File) Date Activated Date Inactivated Comments 02/27/2023 5:08 PM 02/28/2023 8:58 AM All basic and advanced life-sustaining interventions are performed as appropriate Question Answer Comments Code status determined by: Unable to dis cuss and no AD/POLST on file; continue PREVIOUSLY ORDERED code status Care Teams Barrel Washer Machine Relationship Specialty Start Date End Date Cameron Aldridge MD [facility] [address] [address] PCP - General Family Medicine 02/02/23 Jaime Turner MD [address] [place] [address] [place] [address] Assigned Heart and Vascular Provider 02/10/23
--- OUTSIDE RECORDS SUMMARY | 2024-01-10 14:37 | XMS_ITS | Encounter Summary ---
Author Organization [place] Address [address] [place] [address] Care Team Providers Care Polymer Materials Consultant Name Role Phone Paramjit Ballard MD Primary Care Provider [phone] Cameron Aldridge MD Primary Care Provider [phone] Jaime Turner MD Unavailable [phone] Encounter Details Date Type Department Care Team (Late st Contact Info) Description 09/16/2007 Office Visit-[facility] [id number] [place] [address] Gil Hernandez MD Social History Tobacco Use Types Packs/Day Years Used Date Smoking Tobacco: Never Assessed Sex and Gender Information Value Date Recorded Sex Assigned at Male 07/15/2023 8:16 PM SENIOR ARCHITECTURAL DESIGNER Gender Identity Male 07/15/2023 8:16 PM SENIOR ARCHITECTURAL DESIGNER Sexual Orientation Straight 07/15/2023 8: 16 PM SENIOR ARCHITECTURAL DESIGNER documented as of this encounter Progress Notes * Gil Hernandez MD - 09/18/2007 11:33 AM CDT Progress Note Created by: Gil Hernandez M.D. DATE: 09/16/2007 ADILSON PERSON DATE OF : 1950 AGE: [age] years old Referring Physician: PARAMJIT BALLARD Referring Clinic: [facility] CURRENT DIAGNOSES 1. - Atrial Fibrillation, [...] of seeing your patient, Adilson Person, at [facility] in Cardiology consultation for evaluation of atrial [...] year ago. 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
--- OUTSIDE RECORDS SUMMARY | 2024-01-10 14:37 | XMS_ITS | Clinical Summary ---
Author Organization [facility] Address [address], [place] [address] Care Team Providers Care Policyholder Information Clerk Name Role Phone Unavailable Primary Care Provider Unavailabl e Source Comments You are receiving this document as you are listed as the primary care provider,follow-up provider, or the patient has been referred to you for consultation.This is in compliance with the Medicare andMedicaid EHR Incentive Program,which states Providers who transition their patient to another setting of careor provider of care or refers their patient to another provider of care shouldprovide summary care record for each transition of care or referral. [facility] Social History Tobacco Use Types Packs/Day Years [...] - 2022-2 4 season) 2023 Influenza (#1) 2024 HepA Aged Out No longer eligi ble [...]
--- OUTSIDE RECORDS SUMMARY | 2024-01-10 14:37 | XMS_ITS | Continuity of Care Document ---
Author Organization [facility] Address [address] [place] [address] Phone Care Team Providers Care Retail Loan Originator Name Role Phone Jaime Stahl MD Unavailable [...] Available - Active Procedures Procedure Date Office/Outpatient Visit,[facility] 2016 Advance Directives Directive Yes / No Effective Date File Name No Information Encounters Encounter Description Practice Location Reason(s) For Visit Diagnoses Date Provider Providers Copied on Encounter [facility], [address], [place], [id number], [place] tel:[phone] [facility] No Information Maribeth Sandoval. [facility], [facility] [address] [place] [address], [address], [place], [id number], [place]. tel:[phone] Office/Outpat ient Visit,[facility], [address], [place], [id number], [place] tel:[phone] [facility] Spinal stenosis, lumbar regionSpondyl olisthesis, lumbar region Maribeth Sandoval. [facility], [address], [address], [place], [place], [id number], . tel:[phone] Referring Provider: Jaime Sheehan, [facility] [address], [address], [place], [address] . tel:[phone] Family History Family Member Type Diagnosis Age At Onset No Information Payers Payer name Insurance type Covered democrat ID Rose granger(s) [facility] [id number] [facility] [id number] Social History Type Description Quantity Date Captured [...]
--- OUTSIDE RECORDS SUMMARY | 2024-01-10 14:37 | XMS_ITS | Continuity of Care Document ---
Author Organization [facility] Address [address] [place] [address] Phone Care Team Providers Care Petrography Teacher Name Role Phone Will Manjinder SUTHERLAND Unavailable Unavailabl e Allergies, Adverse Reactions, Alerts Substance Reaction Status Criticality No Known Allergies Active No Inform ation Medications Medication Instructions Dosage Effective Dates (start - stop) Status Comments Percocet 5 mg-325 mg tablet take 1 [...] and evening meals 1000 MG - Active gabapentin 800 mg tablet take 1 tablet b y oral route 3 times every day 800 MG - Active Procedures Procedure Date OFFICE/OUTPATIENT VISIT, EST Drug test def 22+ classes Drug Urine Toxology With Chromatography OFFICE CONSULTATION Advance Directives Directive Yes / No Effective Date File Name No Information Encounters Encounter Description Practice Location Reason(s) For Visit Diagnoses Date Provider Providers Copied on Encounter [facility], [address] [place] [address], [id number] , [place] tel:[phone] [facility] No Information 2 Will Manjinder. [address] [place], [place], [id number] , [place]. tel: [phone] OFFICE/OUTPAT IENT VISIT, EST [facility], [address] [place] [address], [id number] , [place] tel: [phone] [facility] Widespread pain (chief complaint) Postlaminectomy syndrome, not elsewhere classifiedChroni c migraine w/o aura, intractable, w status migrainosusOther intervertebral disc degeneration, lumbar regionLong term (current) use of opiate analgesicOther cervical disc degeneration, unsp cervical region Aug-0 9 Liz Ying. [address] [place] [address] [address], [place], [place], [id number] , [place]. tel: [phone] Referring Provider: Cameron Aldridge [facility] [address], [place], [address]. tel:[phone] [facility], [address] [place] [address], [id number] , [place] tel: [phone] [facility] Widespread pain (chief complaint) Postlaminectomy syndrome, not elsewhere classifiedChroni c migraine w/o aura, intractable, w status migrainosusOther cervical disc degeneration, unsp cervical regionOther intervertebral disc degeneration, lumbar regionLong term (current) use of opiate analgesicEncount er for therapeutic drug level monitoringSpinal stenosis, lumbar region with neurogenic claudication 9 [facility]. [facility], [address], [place], [address], [place]. tel: [phone] Referring Provider: [facility] [address], [place], [address]. tel:[phone] [facility], [address] [place] [address], [id number] , [place] tel: [phone] [facility] Widespread pain (chief complaint) No Information 9 Joesph Dunbar. [address] [facility] [place], [place], [id number] , [place]. tel: [phone] Family History Family Member Type Diagnosis Age At Onset No Information Payers Payer name Insurance type Covered alliance party ID Rose granger(s[facility] [id number] Social History Type Description Quantity Date Captured Comments Sex Male Smoking Status No Information Chief Complaint And Reason For Visit No Information Reason For Referral Reason For Referral No Information Plan Of Treatment Date Type Action Status Future Order: Lab Order ELICEO PIERSON DRUG ANALYSIS, URINE, WITH MED REPORT ([id number]), Ordered on: Ordered History Of Present Illness [...] has lumber KHURRAM scheduled next week at [facility] and inquires about this today.Patient is accompanied today by his , who participates in today's visit, and has no further questions or other concerns. Widespread pain (comments) Adilson is here for initial consult for pain management, referred by PCP Cameron Duong MD at [facility]. His pain began gradually [...] as a surgical candidate. Underwent PT at [facility] in 2012-- not helpful. Regularly attends chiropractor for neck pain--helpful. Tried both lumbar and cervical ESIs at [facility], noting the lumbar ESIs did not provide much relief. Still completes CESIs regularly which is helpful for his neck pain. Reports last EMILY was 05/30/2018. Additionally reports previous MRI at [facility]. Currently managed on gabapentin 800mg TID and oxycodone 5-325mg average #1/day. Takes Ibuprofen for additional relief. States the oxycodone provides good relief when he takes it, especially at night to aid with sleep. Adilson is interested in any treatment option and would like [facility] to assume management of pain care. [...] referred by PCP Cameron Duong MD at [facility]. His pain began gradually over 20 years ago and has progressively worsened over time. C/o constant headaches, in addition to neck and back pain. Has muscle spasms in BL LE, groin, and ribcage. Reports previous cervical diskectomy in 2000, however states he is no longer recommended as a surgical candidate. Underwent PT at [facility] in 2012-- not helpful. Tried ESIs at [facility]. Reports previous MRI at [facility]. Has taken gabapentin 800mg TID and oxycodone for additional pain relief. Adilson is interested in any treatment option and would like [facility] to assume management of pain care. Widespread pain Duration: chroni c. Functional Status Date Functional Assessmen t No Information Instructions Date Instruction Additional Infor mation No Information Assessments Type Assessment Date No Information Patient Care Teams Name Effective Dates (start - stop) Status Members No Information
--- OUTSIDE RECORDS SUMMARY | 2024-01-10 14:37 | XMS_ITS | Referral Summary ---
Author Organization [place] Address [facility] [place] [address] Care Team Providers Care Promotional Representative Name Role Phone Cameron Aldridge MD Primary Care Provider [phone] Jaime Turner MD Unavailable [phone] Medications Medication Sig Dispensed Refills Start Date [...] (peripheral artery disease) (H24) 02/27/2023 Atherosclerosis of [place] of right lower extremity with [...] Assigned at Male 07/15/2023 8:16 PM SENIOR INTEGRATION DEVELOPER Gender Identity Male 07/15/2023 8:16 PM SENIOR INTEGRATION DEVELOPER Sexual Orientation Straight 07/15/2023 8: 16 PM SENIOR INTEGRATION DEVELOPER Last Filed Vital Signs Vital Sign Reading Time Taken Comments Blood Pressure 121/69 08/01/2023 2:43 PM SENIOR INTEGRATION DEVELOPER Pulse 92 08/01/2023 2:43 PM SENIOR INTEGRATION DEVELOPER Temperature 36.4 ??C (97.6 ??F) 07/17/2023 10:[address] Respiratory Rate 16 07/17/2023 5:15 PM SENIOR INTEGRATION DEVELOPER Oxygen Saturation 98% 07/17/2023 5:15 PM SENIOR INTEGRATION DEVELOPER Inhaled Oxygen Concentration - - Weight 120 kg (264 lb 8 oz) 07/17/2023 10:20 AM SENIOR INTEGRATION DEVELOPER Height 180.3 cm (5' 11) 07/17/2023 10:20 AM SENIOR INTEGRATION DEVELOPER Body Mass Index 36.89 07/17/2023 10:20 AM SENIOR INTEGRATION DEVELOPER Plan of Treatment Not on file Procedures Procedure Name Priority Date/Time Associated Diagnosis Comments LIPID PROFILE STAT 07/17/2023 10:44 AM SENIOR INTEGRATION DEVELOPER BASIC METABOLIC PANEL STAT 07/17/2023 10:44 AM SENIOR INTEGRATION DEVELOPER HEMOGLOBIN A1C STAT 07/17/2023 10:44 AM SENIOR INTEGRATION DEVELOPER from Last 3 Months or Most Recently Relevant to Health Maintenance Results * (ABNORMAL) Lipid Panel (07/17/2023 10:44 AM SENIOR INTEGRATION DEVELOPER) Cholesterol 107 <200 mg/dL 07/17/2023 5:00 PM SENIOR INTEGRATION DEVELOPER [facility] Triglycerides 100 <150 mg/dL 07/17/2023 5:00 PM SENIOR INTEGRATION DEVELOPER [facility] Direct Measure HDL 34(L) >=40 mg/dL 2023 5:00 PM SENIOR INTEGRATION DEVELOPER [facility] LDL Cholesterol Calculated 53 <=100 mg/dL 07/17/2023 5:00 PM SENIOR INTEGRATION DEVELOPER [facility] Non HDL Cholesterol 73 <130 mg/dL 07/17/2023 5:00 PM SENIOR INTEGRATION DEVELOPER [facility] Patient Fasting > 8hrs? Yes 07/17/2023 5:00 PM SENIOR INTEGRATION DEVELOPER [facility] Blood BLOOD SPECIMEN / Unknown Venipuncture / Unknown 07/17/2023 10:44 AM SENIOR INTEGRATION DEVELOPER 07/17/2023 10:50 AM SENIOR INTEGRATION DEVELOPER Narrative [facility] - 07/17/2023 5:00 PM SENIOR INTEGRATION DEVELOPER Cholesterol Desirable: ??<200 mg/dL Triglycerides Normal: ??Less [...] LAB - BLOOD ORDERAB LES [facility] [place] [address] [facility]. [facility], [address] [place] [address], [place] [phone] * (ABNORMAL) Hemoglobin A1c (07/17/2023 10:44 AM SENIOR INTEGRATION DEVELOPER) Hemoglobin A1C 7.1(H) <5.7 % 07/17/2023 11:17 AM [facility] Comment: Normal <5.7% Prediabetes 5.7-6.4% ?? Diabetes 6.5% or higher Note: Adopted from ADA consensus guidelines. Blood BLOOD SPECIMEN / Unknown Venipuncture / Unknown 07/17/2023 10:44 AM SENIOR INTEGRATION DEVELOPER 07/17/2023 10:50 AM [facility] Jaime Turner MD LAB - BLOOD ORDERAB LES LABORATORY [facility] Acute Care Lab [address] 1[address] floor, [address] [place] [address], [facility] [phone] * (ABNORMAL) Basic metabolic panel (07/17/2023 10:44 AM SENIOR INTEGRATION DEVELOPER) Pathologist [facility] Sodium 137 135 - 145 mmol/L 07/17/2023 11:13 AM [facility] Comment:Reference intervals for this test were updated on 03/20/2023 to more accurately reflect our healthy population. There may be differences in the flagging of prior results with similar values performed with this method. Interpretation of those prior results can be made in the context of the updated reference intervals. Potassium 4.4 3.4 - 5.3 mmol/L 07/17/2023 11:13 AM [facility] Chloride 102 98 - 107 mmol/L 07/17/2023 11:13 AM [facility] Carbon Dioxide (CO2) 26 22 - 29 mmol/L 07/17/2023 11:13 AM [facility] Anion Gap 9 7 - 15 mmol/L 07/17/2023 11:13 AM [facility] Urea Nitrogen 17.2 8.0 - 23.0 mg/dL 07/17/2023 11:13 AM [facility] Creatinine 0.97 0.67 - 1.17 mg/dL 07/17/2023 11:13 AM [facility] GFR Estimate 83 >60 mL/min/1. 73m2 07/17/2023 11:13 AM [facility] Calcium 9.7 8.8 - 10.2 mg/dL 07/17/2023 11:13 AM [facility] Glucose 128(H) 70 - 99 mg/dL 07/17/2023 11:13 AM [facility] Blood BLOOD SPECIMEN / Unknown Venipuncture / Unknown 07/17/2023 10:44 AM SENIOR INTEGRATION DEVELOPER 07/17/2023 10:50 AM [facility] Jaime Turner MD LAB - BLOOD ORDERAB LES LABORATORY [facility] Acute Care Lab [address], [address] [place] [address], [facility] [phone] from Last 3 Months or Most Recently Relevant to Health Maintenance Advance Directives For more information, please contact: [phone] * Full Code (Latest Code Status on File) Date Activated Date Inactivated Comments 02/27/2023 5:08 PM 02/28/2023 8:58 AM All basic and advanced life-sustaining interventions are performed as appropriate Question Answer Comments Code status determined by: Unable to dis cuss and no AD/POLST on file; continue PREVIOUSLY ORDERED code status Care Teams Promotional Representative Relationship Specialty Start Date End Date Cameron Aldridge MD [facility] [address] [place] [address] PCP - General Family Medicine 02/02/23 Jaime Turner MD [address] [place] [address] [place] [address] Assigned Heart and Vascular Provider 02/10/23
--- OUTSIDE RECORDS SUMMARY | 2024-01-10 14:38 | XMS_ITS | Data Portability ---
Author Organization [facility], [facility] Address [address] [place] [address] Care Team Providers Care Lead Applications Developer Name Role Phone MARICRUZ MCKEON Primary Care Provider Assessment Encounter Date Assessment Date Assessment LastModified by Organization Details LastModified Time 10/27/2022 10/27/2022 Pt here for UA-possible UC. LK [email or web address] Not available 10/27/2022 10:27:32 Plan of Treatment Reminders Order Date Submit Date Provider Last Modified By Organization Details Last Modified Time Details Appointments None recorded. Lab urinalysis, dipstick 2022 023 [email or web address] [facility], [address] [place], [address], 10:26:59 Referral pelvic floor therapy referral 2022 023 [email or web address] [facility], [address], [address], 07:53:48 Procedures None recorded. Surgeries None recorded. Imaging None recorded. Medication Orders clotrimazol e-betametha sone 1 %-0.05 % topical cream 2022 023 [facility] [address] [place], [address], 11:53:59 tamsulosin 0.4 mg capsule 2022 023 [email or web address] [facility], [address] [facility], [place], [address], 11:49:28 Patient TargetsNo targets recorded. Patient Instructions Encounter Date Encounter Id Patient Instructions Last Modified By Organization Details Last Modified Time 10/27/2022 [id number] RTC prn. DEBBIE [email or web address] Not available 10/2022 10:30:13 Reason for Referral Pelvic Floor Therapy Referra l for Pelvic floor dysfunction Referring Physician: Cesar Pichardo, Urology, Encounter Date: 09/27/2022 Results Created Date Observation Date Name Description Value Unit Range Abnormal Flag LastModifiedBy Organization Detail LastModifiedTime 10/28/1910/27/2022 urina lysis , dipst ick Color-Status Dark Yellow Not Available [facility] [address], [place], [address], 10/27/2022 10:25:53 10/28/19 23 10/27/2022 urina lysis , dipst ick Clarity-Stat us Clear Not Available [facility] [address], [place], [address], 10/27/2022 10:25:53 10/28/19 23 10/27/2022 urina lysis , dipst ick Glucose-Stat us Negati ve Not Available [facility] [address], [place], [address], 10/27/2022 10:25:53 10/28/19 23 10/27/2022 urina lysis , dipst ick Bilirubin-St atus Negati ve Not Available [facility] [address], [place], [address], 10/27/2022 10:25:53 10/28/19 23 10/27/2022 urina lysis , dipst ick Ketones-Stat us Negati ve Not Available [facility] [address], [place], [address], 10/27/2022 10:25:53 10/28/19 23 10/27/2022 urina lysis , dipst ick Sp [place]-Stat us 1.015 Not Available [facility] [address], [place], [address], 10/27/2022 10:25:53 10/28/19 23 10/27/2022 urina lysis , dipst ick pH-Status 5.5 Not Available [facility] [address], [place], [address], 10/27/2022 10:25:53 10/28/19 23 10/27/2022 urina lysis , dipst ick Protein-Stat us 5.0 Not Available [facility] [address], [place], [address], 10/27/2022 10:25:53 10/28/19 23 10/27/2022 urina lysis , dipst ick Urobilinogen -Status 0.2 Not Available [facility] [address], [place], [address], 10/27/2022 10:25:53 10/28/19 23 10/27/2022 urina lysis , dipst ick Nitrates-Sta tus negati ve Not Available [facility] [address], [place], [address], 10/27/2022 10:25:53 10/28/19 23 10/27/2022 urina lysis , dipst ick Blood-Status Negati ve Not Available [facility] [address], [place], [address], 10/27/2022 10:25:53 10/28/19 23 10/27/2022 urina lysis , dipst ick Leuko-Status Negati ve Not Available [facility] [address], [place], [address], 10/27/2022 10:25:53 10/28/19 23 10/27/2022 urina lysis , dipst ick Specimen Type Voided Not Available [facility] [address], [place], [address], 10/27/2022 10:25:53 Result Notes None recorded. Procedures Surgical History Date Name Laterality Status Provider Name and Address Organization Details Recorded Time 05/25/20 22 spinal fusion with graft completed Cesar Pichardo MD [address] [place] [address],[address], [address], [facility] 12/06/2022 11:50:50 01/03/20 22 Penile Self Injection Trial completed DORINA CLEVELAND [address] [place] [address],[address], [place], [address], [facility] 01/02/2022 10:56:17 09/24/19 19 Diagnostic colonoscopy completed Not Available Health Note 01/02/2022 07:52:55 09/24/[address] colonography screening completed Not Available [...] Updated DateTime 09/27/2022 182.88 cm 34.9 kg/m2 177141.24 g Cesar Pichardo MD [address] [place] [address], [address], [facility] 09/27/2022 11:35:39 Date Recorded Body height Body mass index (BMI) Body weight Provider Name and Address Organization Details Last Updated DateTime 12/06/2022 182.88 cm 34.9 kg/m2 179999.24 qian Pichardo MD [address] [place] [address], [address] 12/06/2022 11:46:41 Date Recorded Body height Body mass index (BMI) Body weight Provider Name and Address Organization Details Last Updated DateTime 02/14/2023 182.88 cm 34.9 kg/m2 393086.24 qian Barrett [facility] 02/14/2023 14:42:50 Date Recorded Body height Body mass index (BMI) Body weight Provider Name and Address Organization Details Last Updated DateTime 04/18/2023 182.88 cm 34.9 kg/m2 916650.24 qian Barrett [facility] 04/18/2023 14:11:59 Social History Question Answer Notes LastModified by [...] o Information not available 01/02/2022 Preferred Language Kyrgyz Information not available 01/02/2022 Recreational Drug Use [...] Nicotine? No Information not available 01/02/2022 Sex: Unknown Functional Status None recorded. Mental Status None recorded. Family History Relationship Description Onset Age of this Age Resolved Age Notes Mother Family history of diabetes mellitus Maternal Grandfather Family history of diabetes mellitus Father Family history of cardiac disorder Paternal Grandfather Family history of cardiac disorder Medical History Condition Response Sexually Transmitted Infection N Diabetes Y Bleeding Disorder N High Blood Pressure Y Kidney Stones N Cancer N Depression N Lung Disease N High Cholesterol Y GERD/Acid Reflux N Heart Disease N Immunizations Vaccine Type Date Status Provider Name and Address Organization Details Recorded Time influenza, unspecified formulation 03/25/2021 completed Not Available [facility] 04/18/2023 14:09:43 SARS-COV-2 (COVID-19) vaccine, UNSPECIFIED 12/13/2021 completed Not Available [facility] 04/18/2023 14:09:43 COVID-19, mRNA, LNP-S, PF, 30 mcg/0.3 mL dose 07/23/2020 completed Malia mendoza [facility] 11/07/2022 16:12:58 COVID-19, mRNA, LNP-S, PF, 30 mcg/0.3 mL dose 08/13/2020 [facility] 11/07/2022 16:12:58 COVID-19, mRNA, LNP-S, PF, 30 mcg/0.3 mL dose 03/23/2021 completed Malia mendoza [facility] 11/07/2022 16:12:58 COVID-19, mRNA, LNP-S, PF, 30 mcg/0.3 mL dose, nick-sucrose 12/13/2021 [facility] 11/07/2022 16:12:58 pneumococcal polysaccharide PPV23 06/07/2016 [facility] 11/07/2022 16:12:58 Tdap 06/07/2016 [facility] 11/07/2022 16:12:58 Pneumococcal conjugate PCV 13 06/12/2017 [facility] 11/07/2022 16:12:58 Influenza, high-dose, trivalent, PF 07/19/2018 [facility] 11/07/2022 16:12:58 Influenza, high-dose, trivalent, PF 04/24/2017 completed Malia mendoza [facility] 11/07/2022 16:12:58 Influenza, high-dose, trivalent, PF 06/07/2016 completed Malia mendoza, [facility] 11/07/2022 16:12:58 Influenza, high-dose, trivalent, PF 06/20/2019 completed Malia mendoza, [facility] 11/07/2022 16:12:58 Influenza, split virus, quadrivalent, PF 06/09/2015 completed Malia mendoza, [facility] 11/07/2022 16:12:58 Influenza, high-dose, quadrivalent, PF 05/25/2022 completed Malia mendoza, [facility] 12/14/2022 10:29:10 Past Encounters Encounter ID Performer Location Encounter Start Date Encounter Closed Date Diagnosis/Indication Diagnosis SNOMED-CT Code [id number] MARTINA COOMBS [address] [address] 01/02/2022 09:53:50 01/02/2022 10:57:22 Primary erectile dysfunction [id number] MD TED Perales_K[facility] [address] [place] [address] 09/27/2022 11:24:42 09/29/2022 08:56:40 Primary erectile dysfunction 336946528 Injury of penis 49974792 6 Phimosis 925311475 Pelvic luba or dysfunction 515256049 Slowing of urinary stream [id number] MD Bree Perales [address] [place] [address] 10/27/2022 10:13:19 11/09/2022 10:24:08 Dysuria [id number] MD Bree Perales [address] [place] [address] 12/06/2022 11:35:32 12/08/2022 14:15:29 Primary erectile dysfunction 134545814 Injury of penis 20288310 6 Phimosis 246869110 Pelvic luba or dysfunction 335242076 Slowing of urinary stream 18595598 [id number] MD Bree Perales [address] [place] [address] 02/14/2023 14:32:25 02/21/2023 12:47:59 Primary erectile dysfunction 927873621 Injury of penis 25319926 6 Phimosis 282455639 Pelvic luba or dysfunction 552580988 Slowing of urinary stream 93170652 [id number] Cesar Pichardo MD [facility] [address] [place] [address] 04/18/2023 14:08:35 04/24/2023 14:31:50 Primary erectile dysfunction 061272064 Injury of penis 68569981 6 Phimosis 654351033 Pelvic luba or dysfunction 274684227 Slowing of urinary stream 45991733 Health Concerns Section Related Observation LastModified by Organization Detai ls LastModified Time None Recorded Concern Status LastModified by Organization Details LastModified Time None Recorded Advance Directives Directive None Recorded Payers Encounter Date Sequence Insurance Name Policy Number Policy Perez Covered Member ID Perez Member ID Guarantor Name 09/27/2022 1 [place] [id number] Chaya R Barfknecht [id number] Adilson R Barfknecht 10/27/2022 1 [place] [id number] Chaya R Barfknecht [id number] Adilson R Barfknecht 12/06/2022 [place] [id number] Chaya R Barfknecht [id number] Adilson R Barfknecht 02/14/2023 [place] [id number] Chaya R Barfknecht [id number] Adilson R Barfknecht 04/18/2023 1 [place] [id number] Chaya R Barfknecht [id number] Adilson R Barfknecht Notes Date Note Type Note Provider Name and Address Organization Details Recorded Time 09/27/2022 text/html HPI Notes: Erectile Dysfunction Reported [...] some of the history. Cesar Pichardo MD [address] [place] [address],[facility] [address], [place], [address], [facility] 09/27/2022 13:29:07 12/06/2022 text/html HPI [...] some of the history. Cesar Pichardo MD [address], [place], [address], [facility] 12/06/2022 12:27:39 02/14/2023 text/html HPI [...] in his phimosis. Cesar Pichardo MD [address], [place], [address], [facility] 02/14/2023 14:52:55 04/18/2023 text/html HPI [...] resolved. Doing great. Cesar Pichardo MD [address], [place], [address], [facility] 04/18/2023 14:47:38
--- OUTSIDE RECORDS SUMMARY | 2024-01-10 14:38 | XMS_ITS ---
Author Organization [facility] Address [address] [place] [address] Care Team Providers Care Personnel Analyst Name Role Phone Unavailable Unavailable Unavailable Surgery Details Not on file Complications Check Surgery Details section. Procedure Estimated Blood Loss Check Surgery Details section. Procedure Findings Check Surgery Details section. Procedure Specimens Taken Check Surgery Details section.
--- OUTSIDE RECORDS SUMMARY | 2024-01-10 14:38 | XMS_ITS | Referral Summary ---
Author Organization [facility] Address [address] [place] [address] Care Team Providers Care Fresh Foods Cake Decorator Name Role Phone Elsewhere, Pcp Primary Care Provider Unavailabl e Source Comments Patient records contain information from all sites at [facility]. For routine questions regarding patient records, call [phone] during business hours, M-F 8:00 AM - 5:00 PM Central Time. Record requests for emergency care only can be directed to [phone] at any time.[facility] Allergies No known active allergies Medications [...] Overview: Added automatically from request for surgery [id number] Atrial Fibrillation Other Persistent 06/25/2004 Hypertension Essential [...] How often do you attend chur or hindu services? 1 to 4 times per year 04/07/2022 Do you belong to any clubs o r organizations such as restorationism groups, unions, fraternal or athletic groups, or [...] care, and heating? Not very hard 05/25/2023 [facility] [place] - Occupational Stress [...] your living situation today? [facility] to live 05/25/2023 Education Answer Date [...] Comments Blood Pressure 120/68 06/14/2022 7:45 AM DRAPERY INSPECTOR Pulse 90 06/14/2022 7:45 AM DRAPERY INSPECTOR Temperature 35.7 ??C (96.3 ??F) 05/29/2023 10:[address] Respiratory Rate 18 06/14/2022 7:45 AM DRAPERY INSPECTOR Oxygen Saturation 95% 06/14/2022 7:45 AM DRAPERY INSPECTOR Inhaled Oxygen Concentration - - Weight 123 kg (271 lb 11.5 oz) 05/29/2023 10:26 AM DRAPERY INSPECTOR Height 181.7 cm (5' 11.54) 05/29/2023 10:26 AM DRAPERY INSPECTOR Body Mass Index 37.33 05/29/2023 10:26 AM DRAPERY INSPECTOR Plan of Treatment Not on file Medical Devices Implanted Type Area Grain Receiver Device Identifier Shelf Expiration Date Model / Serial / Lot Allogenic, Femoral Head - [id number] - [id number] Implanted:Qty : 1 on 06/12/2022 at [facility] Bone or Tissue Posterior : Spine Lumbar [facility] 05/10/2024 [id number] / [id number] / [id number] Spn Scrw Lg St 6.5x35 - [id number] Implanted:Qty : 2 on 06/12/2022 by Richard Joel M.D. at [facility] Hardware e.g. pins/screws /rods Posterior : Spine Lumbar Medtronic [id number] / / Spn Scrw Lg St 6.5x40 - [id number] Implanted:Qty : 3 on 06/12/2022 by Richard Joel M.D. at [facility] Hardware e.g. pins/screws /rods Posterior : Spine Lumbar Medtronic [id number] / / Spn Scrw Lg St 6.5x50 - [id number] Implanted:Qty : 3 on 06/12/2022 by Richard Joel M.D. at [facility] Hardware e.g. pins/screws /rods Posterior : Spine Lumbar Medtronic [id number] / / Spn Scrw Lgc Thrd 5.5 - [id number] Implanted:Qty : 8 on 06/12/2022 by Richard Joel M.D. at [facility] Hardware e.g. pins/screws /rods Posterior : Spine Lumbar Medtronic [id number] / / Spn Pineda Lgc Cvd 5.5x90 - [id number] Implanted:Qty : 1 on 06/12/2022 by Richard Joel M.D. at [facility] Hardware e.g. pins/screws /rods Posterior : Spine Lumbar Medtronic [id number] / / Spn Pineda Lgc Cvd 5.5x100 - [id number] Implanted:Qty : 1 on 06/12/2022 by Richard Joel M.D. at [facility] Hardware e.g. pins/screws /rods Posterior : Spine Lumbar Medtronic [id number] / / Ocular Lens Ocular Lens Bilateral : Eye Procedures Procedure Name Priority Date/Time Associated Diagnosis Comments EXTI LIPID PANEL, S Routine 07/17/2023 1 0:44 AM DRAPERY INSPECTOR EXTI BASIC METABOLIC PANEL, FASTING, S Routine 07/17/2023 10:44 AM DRAPERY INSPECTOR HEMOGLOBIN A1C, B Routine 06/01/2022 1:4 5 PM DRAPERY INSPECTOR Preprocedural Lab Exam from Last 3 Months or Most Recently Relevant to Health Maintenance Results * (ABNORMAL) Hemoglobin A1c (06/01/2022 1:45 PM DRAPERY INSPECTOR) Hemoglobin A1c, B 6.8(H) 4.0 - 5.6 % 06/01/2022 2:43 PM DRAPERY INSPECTOR DTL Comment: Hemoglobin A1c values greater than or equal to 6.5 percent are diagnostic for diabetes mellitus. ??Diagnosis should be confirmed by repeat testing. ??In diabetic patients, HbA1c goals should be discussed with healthcare provider. Blood (Blood, Venous) 06/01/2022 1:45 PM DRAPERY INSPECTOR 06/01/2022 2:13 PM DRAPERY INSPECTOR Richard Joel M.D. LAB BLOOD ADD-ON [facility] [address] [place] [address], [facility] DTL [facility] [address] [place] [address] from Last 3 Months or Most Recently Relevant to Health Maintenance Advance Directives For more information, please contact: [phone] * Full Code (Latest Code Status on [...] Due to: Patient not available Care Teams Fresh Foods Cake Decorator Relationship Specialty Start Date End Date Elsewhere, Pcp PCP - General Family Medicine 03/10/21
--- OUTSIDE RECORDS SUMMARY | 2024-01-10 14:38 | XMS_ITS | Clinical Summary ---
Author Organization [facility] Address [address] [place] [address] Care Team Providers Care Dental Laboratory Technician Name Role Phone Elsewhere, Pcp Primary Care Provider Unavailabl e Source Comments Patient records contain information from all sites at [facility]. For routine questions regarding patient records, call [phone] during business hours, M-F 8:00 AM - 5:00 PM Central Time. Record requests for emergency care only can be directed to [phone] at any time.[facility] Allergies No known active allergies Medications Medication [...] Overview: Added automatically from request for surgery [id number] Atrial Fibrillation Other Persistent 06/25/2004 Hypertension Essential [...] How often do you attend chur or quaker services? 1 to 4 times per year [...] Not very hard 05/25/2023 [facility] [place] of Occupat ional Health - Occupational Stress [...] your living situation today? I have a [facility] place to live 05/25/2023 Education Answer Date [...] Comments Blood Pressure 120/68 06/14/2022 7:45 AM FARM CROPS TEACHER Pulse 90 06/14/2022 7:45 AM FARM CROPS TEACHER Temperature 35.7 ??C (96.3 ??F) 05/29/2023 10:[address] Respiratory Rate 18 06/14/2022 7:45 AM FARM CROPS TEACHER Oxygen Saturation 95% 06/14/2022 7:45 AM FARM CROPS TEACHER Inhaled Oxygen Concentration - - Weight 123 kg (271 lb 11.5 oz) 05/29/2023 10:26 AM FARM CROPS TEACHER Height 181.7 cm (5' 11.54) 05/29/2023 10:26 AM FARM CROPS TEACHER Body Mass Index 37.33 05/29/2023 10:26 AM FARM CROPS TEACHER Plan of Treatment Health Maintenance Due Date [...] 2023 12/13/2021, 03/23/2021, 08/13/2020, Additional history exists Office Visit for Blood Press ure Check / Re-check 06/01/2023 06/01/2022 Depression Screening (Annual PHQ-2) 06/25/2023 Fall Risk Screen (Annual) 06/25/2023 Influenza Vaccine (#1) 2024 , 03/25/2021, 06/20/2019, Additional history exists Creatinine Level (Kidney Fun ction Test) 07/17/2024 07/17/2023, 02/27/2023, 12/21/2022, Additional history exists Potassium Level 07/17/2024 07/17/2023, 09/0 10/2022, 12/21/2022, Additional history exists Sodium Level 07/17/2024 07/17/2023, 09/0 10/2022, 06/13/2022, Additional history exists DTaP,Tdap,and Td Vaccines (2 - Td or Tdap) 06/07/2026 06/07/2016 Lipid (Cholesterol) Screening 07/17/2028 07/17/2023, 02/27/2023 Pneumococcal vaccine (65+ years) Completed 06/12/20 17, 06/07/2016 Medical Devices Implanted Type Area Ticket Collector Or Usher Device Identifier Shelf Expiration Date Model / Serial / Lot Allogenic, Femoral Head - [id number] - [id number] Implanted:Qty : 1 on 06/12/2022 at [facility] Bone or Tissue Posterior : Spine Lumbar [facility] 05/10/2024 [id number] / [id number] / [id number] Spn Scrw Lgc [address] 6.5x35 - [id number] Implanted:Qty : 2 on 06/12/2022 by Richard Joel M.D. at [facility] Hardware e.g. pins/screws /rods Posterior : Spine Lumbar Medtronic [id number] / / Spn Scrw Lgc St 6.5x40 - [id number] Implanted:Qty : 3 on 06/12/2022 by Richard Joel M.D. at [facility] Hardware e.g. pins/screws /rods Posterior : Spine Lumbar Medtronic [id number] / / Spn Scrw Lgc St 6.5x50 - [id number] Implanted:Qty : 3 on 06/12/2022 by Richard Joel M.D. at [facility] Hardware e.g. pins/screws /rods Posterior : Spine Lumbar Medtronic [id number] / / Spn Scrw Lgc Thrd 5.5 - [id number] Implanted:Qty : 8 on 06/12/2022 by Richard Joel M.D. at [facility] Hardware e.g. pins/screws /rods Posterior : Spine Lumbar Medtronic [id number] / / Spn Pineda Lgc Cvd 5.5x90 - [id number] Implanted:Qty : 1 on 06/12/2022 by Richard Joel M.D. at [facility] Hardware e.g. pins/screws /rods Posterior : Spine Lumbar Medtronic [id number] / / Spn Pineda Lgc Cvd 5.5x100 - [id number] Implanted:Qty : 1 on 06/12/2022 by Richard Joel M.D. at [facility] Hardware e.g. pins/screws /rods Posterior : Spine Lumbar Medtronic [id number] / / Ocular Lens Ocular Lens Bilateral : Eye Procedures Procedure Name Priority Date/Time Associated Diagnosis Comments EXTI LIPID PANEL, S Routine 07/17/2023 1 0:44 AM FARM CROPS TEACHER EXTI BASIC METABOLIC PANEL, FASTING, S Routine 07/17/2023 10:44 AM FARM CROPS TEACHER HEMOGLOBIN A1C, B Routine 06/01/2022 1:4 5 PM FARM CROPS TEACHER Preprocedural Lab Exam from Last 3 Months or Most Recently Relevant to Health Maintenance Results * (ABNORMAL) Hemoglobin A1c (06/01/2022 1:45 PM FARM CROPS TEACHER) Pathologist [facility] Hemoglobin A1c, B 6.8(H) 4.0 - 5.6 % 06/01/2022 2:43 PM FARM CROPS TEACHER DTL Comment: Hemoglobin A1c values greater than or equal to 6.5 percent are diagnostic for diabetes mellitus. ??Diagnosis should be confirmed by repeat testing. ??In diabetic patients, HbA1c goals should be discussed with healthcare provider. Blood (Blood, Venous) 06/01/2022 1:45 PM FARM CROPS TEACHER 06/01/2022 2:13 PM FARM CROPS TEACHER Richard Joel M.D. LAB BLOOD ADD-ON [facility] [address] [place] [address], [facility] DTL [facility] [address] [place] [address] from Last 3 Months or Most Recently Relevant to Health Maintenance Advance Directives For more information, please contact: [phone] * Full Code (Latest Code Status on [...] Due to: Patient not available Care Teams Dental Laboratory Technician Relationship Specialty Start Date End Date Elsewhere, Pcp PCP - General Family Medicine 03/10/21
--- NOTE | 2024-01-10 15:00 | CRLHL7_ITS ---
For Patients: As a result of the Century Cures Act, medical imaging exams and procedure reports are released immediately into your electronic medical record. You may view this report before your referring provider. If you have questions, please contact your health care provider. Examination: US abdominal aorta Indication: Encounter for general adult medical exam. Abdominal aortic aneurysm screening. Technique: Roman scale and color Doppler images of the aorta and common iliac arteries are obtained. Comparison: None Findings: Proximal aorta: 2.5 x 3.2 cm Mid aorta: 2.1 x 2.3 cm Distal aorta: 1.4 x 1.8 cm Right common iliac artery: 1.1 x 1.1 cm Left common iliac artery: 1.1 x 1.6 cm Recommended imaging interval for ectatic aorta: 3.0-3.4 cm: 3 years Impression: Proximal aorta measures 3.2 cm. Dictated by New Chan MD @ 01/11/2024 6:48:58 AM (Electronically Signed)
--- NOTE | 2024-01-10 16:00 | CRLHL7_ITS ---
For Patients: As a result of the Cures Act, medical imaging exams and procedure reports are released immediately into your electronic medical record. You may view this report before your referring provider. If you have questions, please contact your health care provider. CLINICAL HISTORY: occlusion/stenosis of carotid unspecified TECHNIQUE: The carotid circulations and the vertebral arteries in the neck were examined with carranza-scale ultrasound, color-flow and Doppler spectral analysis. Degrees of stenosis were determined using SRU 2002 Consensus Panel Criteria. FINDINGS: Sonographic images demonstrate bilateral atherosclerotic plaque formation without suspicious soft tissue mass. There was antegrade blood flow demonstrated within the vertebral arteries and the subclavian arteries demonstrated a normal triphasic waveform. The spectral Doppler tracings of the common carotid, internal and external carotid arteries demonstrate right proximal ICA abnormal turbulence and spectral broadening. There was significant elevation of peak systolic blood flow within the right proximal ICA measuring 174 cm/second which would indicate a hemodynamically-significant stenosis by SRU criteria. Mildly elevated velocity within the left distal ICA measuring 131 cm/second. The ICA/CCA peak systolic velocity ratio measures 2.6 on the right and 1.3 on the left. IMPRESSION: 50-69 percent stenosis of the right proximal ICA and left distal ICA. Dictated by New Chan MD @ 01/11/2024 6:57:23 AM (Electronically Signed)
== END 2024-01-10 14:33 | disposition home or self-care (01) ==
LOC: US 14:33
PROVIDERS: PCP Family Medicine; Visit Provider Family Medicine
DX: Z13.6 Encounter for screening for cardiovascular disorders (principal); I65.21 Occlusion and stenosis of right carotid artery
CPT/HCPCS: 76706; 93880

== ENCOUNTER 2024-04-03 11:55 | Outpatient (CLI) | payer BC, SELFPAY ==
--- OUTSIDE RECORDS SUMMARY | 2024-04-04 09:17 | XMS_ITS | Clinical Summary ---
Author Organization [place] Address [address] [place] [address] Care Team Providers Care Meat Scrubber Name Role Phone Cameron Aldridge MD Primary Care Provider [phone] Jaime Turner MD Unavailable [phone] Allergies No known active allergies Medications Medication [...] mouth six times a week Mon, Tues, Th, Fri, Sat & Sun Active warfarin ANTICOAGULANT (COUMADIN) 5 MG tablet Take 15 mg by mouth once a week Wed Active acetaminophen (TYLENOL) 500 MG tabletIndications:PAD (peripheral artery disease) (H) Take 1-2 tablets (500-1,000 mg) by mouth every 6 hours as needed for mild pain 02/27/2023 Active Active Problems Problem Noted Date Diagnosed Date Preop testing 02/27/2023 PAD (peripheral artery disease) 02/27/2023 Atherosclerosis of [place] of right lower extremity with ulceration of other part of foot 02/27/2023 Resolved Problems Problem Noted Date Diagnosed Date Resolved Date [email or web address] 07/28/2006 09/17/2006 [email or web address] 07/28/2006 09/17/2006 Encounters Date Type Department Care Team Description 02/27/2024 4:00 PM CDT Office Visit [facility] [place] [address] [place] [address] Jaime Turner MD Status post peripheral artery angioplasty (Primary Dx); Peripheral vascular disease with claudication (H); Type 2 diabetes mellitus with foot ulcer, unspecified whether termite inspector insulin use (H); On Coumadin for atrial fibrillation (H); Class 2 severe obesity due to excess calories with serious comorbidity and body mass index (BMI) of 36.0 to 36.9 in adult (H) 02/27/2024 2:54 PM CDT - 02/27/2024 11:59 PM CDT Hospital Encounter [facility] [address] [place] [address] Jaime Turner MD Status post peripheral artery angioplasty Discharge Disposition: Home or Self Care 02/27/2024 Travel from Last 3 Months Family History Medical History Relation Comments Diabetes Mother Relation Status Comments Mother Social History Tobacco Use Types Packs/Day Years Used Date Smoking Tobacco: Former Cigarettes Q uit: 08/29/2000 Tobacco Cessation:Counseling Given: Not Answered Alcohol Use Standard Drinks/Week Comments Yes 0 (1 standard drink = 0.6 oz pur e alcohol) occ PHQ-2 Answer Date Recorded PHQ-2 Score 0 02/27/2024 Adolescent Education Answer Date Record ed Getting School Help Needed Not on file 04/02 Sex and Gender Information Value Date Recorded Sex Assigned at Male 07/15/2023 8:16 PM FLIGHT OPERATIONS SPECIALIST Gender Identity Male 07/15/2023 8:16 PM FLIGHT OPERATIONS SPECIALIST Sexual Orientation Straight 07/15/2023 8: 16 PM FLIGHT OPERATIONS SPECIALIST Last Filed Vital Signs Vital Sign Reading Time Taken Comments Blood Pressure 98/57 02/27/2024 4:02 PM CDT Pulse 95 02/27/2024 4:02 PM CDT Temperature 36.4 ??C (97.6 ??F) 07/17/2023 10:[address] Respiratory Rate 16 07/17/2023 5:15 PM FLIGHT OPERATIONS SPECIALIST Oxygen Saturation 98% 07/17/2023 5:15 PM FLIGHT OPERATIONS SPECIALIST Inhaled Oxygen Concentration - - Weight 120 kg (264 lb 8 oz) 07/17/2023 10:20 AM FLIGHT OPERATIONS SPECIALIST Height 180.3 cm (5' 11) 07/17/2023 10:20 AM FLIGHT OPERATIONS SPECIALIST Body Mass Index 36.89 07/17/2023 10:20 AM FLIGHT OPERATIONS SPECIALIST Plan of Treatment Health Maintenance Due Date Last Done Comments ADVANCE CARE PLANNING 1950 ANNUAL REVIEW OF HM ORDERS 1950 CT COLONOGRAPHY 1950 DIABETIC FOOT EXAM 1950 EYE EXAM 1950 FIT 1950 FLEX SIG 1950 MICROALBUMIN 1951 sDNA (Cologuard) 1950 HEPATITIS C SCREENING 1969 ZOSTER IMMUNIZATION (1 of 2) 2001 RSV VACCINE (1 - Risk 60-74 years 1-dose series) 2011 AORTIC ANEURYSM SCREENING (SYSTEM ASSIGNED) 02/07/2016 FALL RISK ASSESSMENT 02/07/2016 MEDICARE ANNUAL WELLNESS VISIT 02/07/2016 A1C 10/16/2023 07/17/2023, 02/27/2023 COVID-19 Vaccine ( season) 2024 12/13/2021, 03/23/2021, 08/13/2020, Additional history exists INFLUENZA VACCINE (#1) 2024 , 03/25/2021, 06/20/2019, Additional history exists BMP 07/17/2024 07/17/2023, 02/27/2023 LIPID 07/17/2024 07/17/2023, 02/27/2023 DTAP/TDAP/TD IMMUNIZATION (2 - Td or Tdap) 06/07/2026 06/07/2016 COLONOSCOPY 09/23/2028 09/23/2018 COLORECTAL CANCER SCREENING 09/23/2028 Pneumococcal Vaccine: 65+ Years Completed 06/12/2017, 06/07/2016 PHQ-2 (once per calendar year) Completed 02/27/2024 HPV IMMUNIZATION Aged Out No longer e ligible based on patient's age to complete this topic MENINGITIS IMMUNIZATION Aged Out No l onger eligible based on patient's age to complete this topic RSV MONOCLONAL ANTIBODY Aged Out No l onger eligible based on patient's age to complete this topic Procedures Procedure Name Priority Date/Time Associated Diagnosis Comments US JOHN DOPPLER WITH EXERCISE BILATERAL Routine 02/27/2024 3:33 PM CDT Status post peripheral artery angioplasty LIPID PROFILE STAT 07/17/2023 10:44 AM FLIGHT OPERATIONS SPECIALIST BASIC METABOLIC PANEL STAT 07/17/2023 10:44 AM FLIGHT OPERATIONS SPECIALIST HEMOGLOBIN A1C STAT 07/17/2023 10:44 AM FLIGHT OPERATIONS SPECIALIST from Last 3 Months or Most Recently Relevant to Health Maintenance Results * US JOHN Doppler with Exercise Bilateral (02/27/2024 3:33 PM CDT) Anatomical Region Laterality Modality Leg, Ankle, Foot Ultrasound Impressions 02/27/2024 4:11 PM CDT IMPRESSION: Ankle brachial indices at rest are within normal limits. There is moderate arterial insufficiency following exercise in the right lower extremity. There is severe arterial insufficiency following exercise in the left lower extremity. Post exercise ABIs on the left have worsened when compared to the prior exam. JOHN CRITERIA: >0.95 Normal 0.90 - 0.94 Mild 0.5 - 0.89 Moderate 0.2 - 0.49 Severe <0.2 Critical ISABELLE LOCKWOOD MD Narrative 02/27/2024 4:11 PM CDT IR JOHN US JOHN DOPPLER WITH EXERCISE BILATERAL ?? 02/27/2024 3:33 PM HISTORY: history of claudication; Status post peripheral artery angioplasty COMPARISON: Ankle brachial index dated 03/09/2023 FINDINGS: Right JOHN: DP: 1.10 PT: 0.99. Left JOHN: DP: 0.68 PT: 1.54. Waveforms: Monophasic in the distal tibial arteries Exercise: The patient walked on a treadmill for 5 minutes at 1.5 miles per hour and at a 10% incline. The patient had leg pain in the calves left greater than right beginning 1 minute 34 seconds after start of exercise. Patient had tightness in the thighs 2 minutes 30 seconds after start of exercise. Exercise was stopped at 4 minutes 5 seconds due to shortness of breath.. Right exercise JOHN: 0.61. Left exercise JOHN: 0.25 Procedure Note Isabelle Lockwood MD - 02/27/2024 IR JOHN US JOHN DOPPLER WITH EXERCISE BILATERAL 02/27/2024 3:33 PM HISTORY: history of claudication; Status post peripheral artery angioplasty COMPARISON: Ankle brachial index dated 03/09/2023 FINDINGS: Right JOHN: DP: 1.10 PT: 0.99. Left JOHN: DP: 0.68 PT: 1.54. Waveforms: Monophasic in the distal tibial arteries Exercise: The patient walked on a treadmill for 5 minutes at 1.5 miles per hour and at a 10% incline. The patient had leg pain in the calves left greater than right beginning 1 minute 34 seconds after start of exercise. Patient had tightness in the thighs 2 minutes 30 seconds after start of exercise. Exercise was stopped at 4 minutes 5 seconds due to shortness of breath.. Right exercise JOHN: 0.61. Left exercise JOHN: 0.25 IMPRESSION: Ankle brachial indices at rest are within normal limits. There is moderate arterial insufficiency following exercise in the right lower extremity. There is severe arterial insufficiency following exercise in the left lower extremity. Post exercise ABIs on the left have worsened when compared to the prior exam. JOHN CRITERIA: >0.95 Normal 0.90 - 0.94 Mild 0.5 - 0.89 Moderate 0.2 - 0.49 Severe <0.2 Critical ISABELLE LOCKWOOD MD Jaime Turnre MD IMG US ORDERABLES * (ABNORMAL) Lipid Panel (07/17/2023 10:44 AM FLIGHT OPERATIONS SPECIALIST) Cholesterol 107 <200 mg/dL 07/17/2023 5:00 PM FLIGHT OPERATIONS SPECIALIST [facility] Triglycerides 100 <150 mg/dL 07/17/2023 5:00 PM FLIGHT OPERATIONS SPECIALIST [facility] Direct Measure HDL 34(L) >=40 mg/dL 2023 5:00 PM FLIGHT OPERATIONS SPECIALIST [facility] LDL Cholesterol Calculated 53 <=100 mg/dL 07/17/2023 5:00 PM FLIGHT OPERATIONS SPECIALIST [facility] Non HDL Cholesterol 73 <130 mg/dL 07/17/2023 5:00 PM FLIGHT OPERATIONS SPECIALIST [facility] Patient Fasting > 8hrs? Yes 07/17/2023 5:00 PM FLIGHT OPERATIONS SPECIALIST [facility] Blood BLOOD SPECIMEN / Unknown Venipuncture / Unknown 07/17/2023 10:44 AM FLIGHT OPERATIONS SPECIALIST 07/17/2023 10:50 AM FLIGHT OPERATIONS SPECIALIST Narrative [facility] - 07/17/2023 5:00 PM FLIGHT OPERATIONS SPECIALIST Cholesterol Desirable: ??<200 mg/dL Triglycerides Normal: ??Less [...] than or equal to 220 mg/dL Jaime Turenr MD LAB - BLOOD ORDERAB LES [facility] [address] [facility], [address] [address], [facility] [phone] * (ABNORMAL) Hemoglobin A1c (07/17/2023 10:44 AM FLIGHT OPERATIONS SPECIALIST) Pathologist [facility] Hemoglobin A1C 7.1(H) <5.7 % 07/17/2023 11:17 AM [facility] Comment: Normal <5.7% Prediabetes 5.7-6.4% ?? Diabetes 6.5% or higher Note: Adopted from ADA consensus guidelines. Blood BLOOD SPECIMEN / Unknown Venipuncture / Unknown 07/17/2023 10:44 AM FLIGHT OPERATIONS SPECIALIST 07/17/2023 10:50 AM [facility] Jaime Turner MD LAB - BLOOD ORDERAB LES LAB[facility] [address], [address] [place] [address], [facility] [phone] * (ABNORMAL) Basic metabolic panel (07/17/2023 10:44 AM [facility]) [facility] Sodium 137 135 - 145 mmol/L 07/17/2023 11:13 AM [facility] Comment:Reference intervals for this test were updated on 03/20/2023 to more accurately reflect our healthy population. There may be differences in the flagging of prior results with similar values performed with this method. Interpretation of those prior results can be made in the context of the updated reference intervals. Potassium 4.4 3.4 - 5.3 mmol/L 07/17/2023 11:13 AM [facility] Chloride 102 98 - 107 mmol/L 07/17/2023 11:13 AM [facility] Carbon Dioxide (CO2) 26 22 - 29 mmol/L 07/17/2023 11:13 AM [facility] Anion Gap 9 7 - 15 mmol/L 07/17/2023 11:13 AM [facility] Urea Nitrogen 17.2 8.0 - 23.0 mg/dL 07/17/2023 11:13 AM [facility] Creatinine 0.97 0.67 - 1.17 mg/dL 07/17/2023 11:13 AM [facility] GFR Estimate 83 >60 mL/min/1. 73m2 07/17/2023 11:13 AM [facility] Calcium 9.7 8.8 - 10.2 mg/dL 07/17/2023 11:13 AM FLIGHT OPERATIONS SPECIALIST LABORATORY Glucose 128(H) 70 - 99 mg/dL 07/17/2023 11:13 AM FLIGHT OPERATIONS SPECIALIST LABORATORY Blood BLOOD SPECIMEN / Unknown Venipuncture / Unknown 07/17/2023 10:44 AM FLIGHT OPERATIONS SPECIALIST 07/17/2023 10:50 AM FLIGHT OPERATIONS SPECIALIST Jaime Turner MD LAB - BLOOD ORDERAB LES [facility] [address], [address] [place] [address], [facility] [phone] from Last 3 Months or Most Recently Relevant to Health Maintenance Advance Directives For more information, please contact: [phone] * Full Code (Latest Code Status on File) Date Activated Date Inactivated Comments 02/27/2023 5:08 PM 02/28/2023 8:58 AM All basic and advanced life-sustaining interventions are performed as appropriate Question Answer Comments Code status determined by: Unable to dis cuss and no AD/POLST on file; continue PREVIOUSLY ORDERED code status Care Teams Meat Scrubber Relationship Specialty Start Date End Date Cameron Aldridge MD [facility] [address] [address] PCP - General Family Medicine 02/02/23 Jaime Turner MD [address] [place] [address] Assigned Heart and Vascular Provider 02/10/23
--- OUTSIDE RECORDS SUMMARY | 2024-04-04 09:17 | XMS_ITS | Encounter Summary ---
Author Organization [place] Address [address] [facility] [place] [address] Care Team Providers Care Launderette Attendant Name Role Phone Cameron Aldridge MD Primary Care Provider [phone] Jaime Turner MD Unavailable Reason for Referral * Diagnostic Imaging Ultrasound (Routine) - Pending Review Specialty Diagnoses / Procedures Referred By Contac t Referred To Contact Radiology. Diagnoses Status post peripheral artery angioplasty Procedures US JOHN Doppler with Exercise Bilateral Jaime Turner MD [address] [place] [address] Referral ID Status Reason Start Date Expiration Date V isits Requested Visits Authorized [id number] Pending Review 08/21/2023 08/20/2024 1 1 Reason for Visit * Diagnostic Imaging Ultrasound (Routine) - Pending Review Specialty Diagnoses / Procedures Referred By Charan veras Referred To Contact Radiology. Diagnoses Status post peripheral artery angioplasty Procedures US JOHN Doppler with Exercise Bilateral Jaime Turner MD [address] [place] [address] Referral ID Status Reason Start Date Expiration Date V isits Requested Visits Authorized [id number] Pending Review 08/21/2023 08/20/2024 1 1 Encounter Details Date Type Department Care Team (Latest Contact Info) Description 02/27/2024 2:54 PM CDT - 02/27/2024 11:59 PM CDT Hospital Encounter [facility] [address] [place] [address] Jaime Turner MD [address] [place] [address] Status post peripheral artery angioplasty Discharge Disposition: Home or Self Care Social [...] Sex Assigned at Male 07/15/2023 8:16 PM IRRIGATOR GRAVITY FLOW Gender Identity Male 07/15/2023 8:16 PM IRRIGATOR GRAVITY FLOW Sexual Orientation Straight 07/15/2023 8: 16 PM IRRIGATOR GRAVITY FLOW documented as of this encounter Medications at Time of Discharge [...] 1,000 mg by mouth 2 times daily rosuvastatin (CRESTOR) 5 MG tablet Take 5 mg by mouth every other day At bedtime tiZANidine (ZANAFLEX) 2 MG tablet Take 2 mg by mouth as needed 06/13/2022 warfarin ANTICOAGULANT (COUMADIN) 5 MG tablet Take 13 mg by mouth six times a week Mon, Tues, Thurs, Fri, Sat & Sun warfarin ANTICOAGULANT (COUMADIN) 5 MG tablet Take 15 mg by mouth once a week Wed documented as of this encounter Plan of Treatment Not on file documented as of this encounter Procedures Procedure Name Priority Date/Time Associated Diagnosis Comments US JOHN DOPPLER WITH EXERCISE BILATERAL Routine 02/27/2024 3:33 PM CDT Status post peripheral artery angioplasty documented in this encounter Results * US JOHN Doppler with Exercise [...] Severe <0.2 Critical ISABELLE LOCKWOOD MD Jaime Turner MD [facility] US ORDERABLES documented in this encounter Visit Diagnoses Diagnosis Status post peripheral artery angioplasty Other postprocedural status documented in this encounter Care Teams Launderette Attendant Relationship Specialty Start Date End Date Cameron Aldridge MD [facility] [address] [facility] [place] [address] PCP - General Family Medicine 02/02/23 Jaime Turner MD [address] [place] [address] [place] [address] Assigned Heart and Vascular Provider 02/10/23 documented as of this encounter
--- OUTSIDE RECORDS SUMMARY | 2024-04-04 09:17 | XMS_ITS | Encounter Summary ---
Author Organization [place] Address [address] [place] [address] Care Team Providers Care Oil Field Tester Name Role Phone Paramjit Ballard MD Primary Care Provider [phone] Cameron Aldridge MD Primary Care Provider [phone] Jaime Turner MD Unavailable [phone] Encounter Details Date Type Department Care Team (Late st Contact Info) Description 09/16/2007 Office Visit-[facility] [address] [address] Gil Hernandez MD Social History Tobacco Use Types Packs/Day Years Used Date Smoking Tobacco: Never Assessed Sex and Gender Information Value Date Recorded Sex Assigned at Male 07/15/2023 8:16 PM HEAD PIECE ASSEMBLER Gender Identity Male 07/15/2023 8:16 PM HEAD PIECE ASSEMBLER Sexual Orientation Straight 07/15/2023 8: 16 PM HEAD PIECE ASSEMBLER documented as of this encounter Progress Notes * Gil Hernandez MD - 09/18/2007 11:33 AM CDT Progress Note Created by: Gil Hernandez M.D. DATE: 09/16/2007 ADILSON PERSON DATE OF : 1950 AGE: [age] years old Referring Physician: PARAMJIT BALLARD Referring Clinic: [facility] CURRENT DIAGNOSES 1. - Atrial Fibrillation, 427.31 [...] your patient, Adilson Person, at [facility] in Cardiology consultation for evaluation of atrial [...] year ago. 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
--- OUTSIDE RECORDS SUMMARY | 2024-04-04 09:17 | XMS_ITS | Encounter Summary ---
Author Organization [place] Address [address] [place] [address]. [place] [address] Care Team Providers Care Ship Propeller Finisher Name Role Phone Cameron Aldridge MD Primary Care Provider [phone] Jaime Turner MD Unavailable [phone] Encounter Details Date Type Department Care Team (Latest Contact Info) Description 02/27/2024 Travel Social History Tobacco Use Types Packs/Day [...] Sex Assigned at Male 07/15/2023 8:16 PM HELIX COIL WINDER Gender Identity Male 07/15/2023 8:16 PM HELIX COIL WINDER Sexual Orientation Straight 07/15/2023 8: 16 PM HELIX COIL WINDER documented as of this encounter Plan of Treatment Not on file documented as of this encounter Visit Diagnoses Not on filedocumented in this encounter Care Teams Ship Propeller Finisher Relationship Specialty Start Date End Date Cameron Aldridge MD [facility] [address] [place] [address] PCP - General Family Medicine 02/02/23 Jaime Turner MD [address] [place] [address] [place] [address] Assigned Heart and Vascular Provider 02/10/23 documented as of this encounter
--- OUTSIDE RECORDS SUMMARY | 2024-04-04 09:17 | XMS_ITS | Referral Summary ---
Author Organization [place] Address [facility] [place] [address] Care Team Providers Care Pharmacy District Manager Name Role Phone Cameron Aldridge MD Primary Care Provider [phone] Jaime Turner MD Unavailable [phone] Encounters Date Type Department Care Team Description 02/27/2024 Travel 02/27/2024 4:00 PM CDT Office Visit [facility] [place] [address] [place] [phone] Jaime Turner MD Status post peripheral artery angioplasty (Primary Dx); Peripheral vascular disease with claudication (H); Type 2 diabetes mellitus with foot ulcer, unspecified whether long term care administrator insulin use (H); On Coumadin for atrial fibrillation (H); Class 2 severe obesity due to excess calories with serious comorbidity and body mass index (BMI) of 36.0 to 36.9 in adult (H) 02/27/2024 2:54 PM CDT - 02/27/2024 11:59 PM CDT Hospital Encounter [facility] [address] [place] [address] Jaime Turner MD Status post peripheral artery angioplasty Discharge Disposition: Home or Self Care from Last 3 Months Allergies No known active allergies Medications Medication [...] mouth six times a week Mon, , , Fri, Sat & Sun Active warfarin ANTICOAGULANT [...] PAD (peripheral artery disease) 02/27/2023 Atherosclerosis of andreafski ar paul[place] of right lower extremity with [...] Sex Assigned at Male 07/15/2023 8:16 PM UTILIZATION REVIEW RN Gender Identity Male 07/15/2023 8:16 PM UTILIZATION REVIEW RN Sexual Orientation Straight 07/15/2023 8: 16 PM UTILIZATION REVIEW RN Last Filed Vital Signs Vital Sign Reading Time Taken Comments Blood Pressure 98/57 02/27/2024 4:02 PM CDT Pulse 95 02/27/2024 4:02 PM CDT Temperature 36.4 ??C (97.6 ??F) 07/17/2023 10:[address] Respiratory Rate 16 07/17/2023 5:15 PM UTILIZATION REVIEW RN Oxygen Saturation 98% 07/17/2023 5:15 PM UTILIZATION REVIEW RN Inhaled Oxygen Concentration - - Weight 120 kg (264 lb 8 oz) 07/17/2023 10:20 AM UTILIZATION REVIEW RN Height 180.3 cm (5' 11) 07/17/2023 10:20 AM UTILIZATION REVIEW RN Body Mass Index 36.89 07/17/2023 10:20 AM UTILIZATION REVIEW RN Plan of Treatment Not on file Procedures Procedure Name Priority Date/Time Associated Diagnosis Comments US JOHN DOPPLER WITH EXERCISE BILATERAL Routine 02/27/2024 3:33 PM CDT Status post peripheral artery angioplasty LIPID PROFILE STAT 07/17/2023 10:44 AM UTILIZATION REVIEW RN BASIC METABOLIC PANEL STAT 07/17/2023 10:44 AM UTILIZATION REVIEW RN HEMOGLOBIN A1C STAT 07/17/2023 10:44 AM UTILIZATION REVIEW RN from Last 3 Months or Most Recently [...] Critical ISABELLE LOCKWOOD MD Jaime Turner MD [facility] ORDERABLES * (ABNORMAL) Lipid Panel (07/17/2023 10:44 AM UTILIZATION REVIEW RN) Cholesterol 107 <200 mg/dL 07/17/2023 5:00 PM UTILIZATION REVIEW RN [facility] Triglycerides 100 <150 mg/dL 07/17/2023 5:00 PM UTILIZATION REVIEW RN [facility] Direct Measure HDL 34(L) >=40 mg/dL 2023 5:00 PM UTILIZATION REVIEW RN [facility] LDL Cholesterol Calculated 53 <=100 mg/dL 07/17/2023 5:00 PM UTILIZATION REVIEW RN [facility] Non HDL Cholesterol 73 <130 mg/dL 07/17/2023 5:00 PM UTILIZATION REVIEW RN [facility] Patient Fasting > 8hrs? Yes 07/17/2023 5:00 PM UTILIZATION REVIEW RN [facility] Blood BLOOD SPECIMEN / Unknown Venipuncture / Unknown 07/17/2023 10:44 AM UTILIZATION REVIEW RN 07/17/2023 10:50 AM UTILIZATION REVIEW RN Narrative [facility] - 07/17/2023 5:00 PM UTILIZATION REVIEW RN Cholesterol Desirable: ??<200 mg/dL Triglycerides Normal: ??Less [...] LAB - BLOOD ORDERAB LES [facility] [address] [facility], [address] [place] [address], [place] [phone] * (ABNORMAL) Hemoglobin A1c (07/17/2023 10:44 AM [facility]) Hemoglobin A1C 7.1(H) <5.7 % 07/17/2023 11:17 AM [facility] Comment: Normal <5.7% Prediabetes 5.7-6.4% ?? Diabetes 6.5% or higher Note: Adopted from ADA consensus guidelines. Blood BLOOD SPECIMEN / Unknown Venipuncture / Unknown 07/17/2023 10:44 AM UTILIZATION REVIEW RN 07/17/2023 10:50 AM [facility] Jaime Turner MD LAB - BLOOD ORDERAB LES LABORATORY [facility] [address], [address] [place] [address], [facility] [phone] * (ABNORMAL) Basic metabolic panel (07/17/2023 10:44 AM [facility]) Pathologist [facility] Sodium 137 135 - 145 mmol/L 07/17/2023 11:13 AM [facility] Comment:Reference intervals for this test were updated on 03/20/2023 to more accurately reflect our healthy population. There may be differences in the flagging of prior results with similar values performed with this method. Interpretation of those prior results can be made in the context of the updated reference intervals. Potassium 4.4 3.4 - 5.3 mmol/L 07/17/2023 11:13 AM [facility] Chloride 102 98 - 107 mmol/L 07/17/2023 11:13 AM [facility] Carbon Dioxide (CO2) 26 22 - 29 mmol/L 07/17/2023 11:13 AM [facility] Anion Gap 9 7 - 15 mmol/L 07/17/2023 11:13 AM [facility] Urea Nitrogen 17.2 8.0 - 23.0 mg/dL 07/17/2023 11:13 AM [facility] Creatinine 0.97 0.67 - 1.17 mg/dL 07/17/2023 11:13 AM [facility] GFR Estimate 83 >60 mL/min/1. 73m2 07/17/2023 11:13 AM [facility] Calcium 9.7 8.8 - 10.2 mg/dL 07/17/2023 11:13 AM [facility] Glucose 128(H) 70 - 99 mg/dL 07/17/2023 11:13 AM [facility] Blood BLOOD SPECIMEN / Unknown Venipuncture / Unknown 07/17/2023 10:44 AM UTILIZATION REVIEW RN 07/17/2023 10:50 AM [facility] Jaime Turner MD LAB - BLOOD ORDERAB LES LABORATORY [facility] [address], [address] [place] [address], [facility] [phone] from Last 3 Months or Most Recently Relevant to Health Maintenance Advance Directives For more information, please contact: [phone] * Full Code (Latest Code Status on File) Date Activated Date Inactivated Comments 02/27/2023 5:08 PM 02/28/2023 8:58 AM All basic and advanced life-sustaining interventions are performed as appropriate Question Answer Comments Code status determined by: Unable to dis cuss and no AD/POLST on file; continue PREVIOUSLY ORDERED code status Care Teams Pharmacy District Manager Relationship Specialty Start Date End Date Cameron Aldridge MD [facility] [address] [place] [address] PCP - General Family Medicine 02/02/23 Jaime Turner MD [address] [place] [address] [place] [address] Assigned Heart and Vascular Provider 02/10/23
--- OUTSIDE RECORDS SUMMARY | 2024-04-04 09:17 | XMS_ITS | Encounter Summary ---
Author Organization [place] Address [address] [facility] [place] [address] Care Team Providers Care Delivery Man Name Role Phone Cameron Aldridge MD Primary Care Provider Jaime Turner MD Unavailable [phone] Reason for Referral * Diagnostic Imaging Ultrasound (Routine) - Pending Review Specialty Diagnoses / Procedures Referred By Charan veras Referred To Contact Radiology. Diagnoses Peripheral vascular disease with claudication (H) Status post peripheral artery angioplasty Procedures US JOHN Doppler with Exercise Bilateral Jaime Turner MD [address] [place] [address] Referral ID Status Reason Start Date Expiration Date V isits Requested Visits Authorized [id number] Pending Review 03/17/2024 03/17/2025 1 1 Reason for Visit * Reason Comments RECHECK JOHN (VHC3:00; TJG4:0 0) 6 month follow up to 08/01/[address] Turner.Imaging/labs to be scheduled: JOHN. Encounter Details Date Type Department Care Team (Late st Contact Info) Description 02/27/2024 4:00 PM CDT Office Visit [facility] [place] 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 Pt is currently taking Aspirin, Statin, and Warfarin. BP 98/57 (BP Location: Left arm, Patient Position: Chair, Cuff Size: Adult Large) Pulse 95 The provider has been notified that the patient has no concerns. Questions patient would like addressed today are: N/A. Refills are needed: N/A Has homecare services and agency name: Karin Sanchez MA * Jaime Turner MD - 02/27/2024 4:00 PM CDT Images from the original note were not included. Adilson Person is a 74 -year-old gentleman with metabolic syndrome who lives in [place]. He is status post multiple lumbar and cervical procedures and was felt to have a component of neurogenic claudication. He underwentL3-S1 lumbar decompression with fusion just over a year ago. He was referred to me last January for a nonhealing wound on his right great toe present for the past 8 months. I performed right lower extremity angiography on 02/27/2023 and performed angioplasty of the entire right SFA for diffuse fairly calcified disease. He started hyperbaric oxygen therapy in [place]. Ultimately his right great toe wound healed. I performed left leg angiography on 07/17/2023 for left leg claudication symptoms. He has moderate disease of his left common femoral artery, severe tandem calcifications at the left SFA origin, diffuse disease throughout the remainder of the SFA with a focal subtotal occlusion in the mid thigh. I felt these lesions were poorly suited to percutaneous intervention given the indication of claudication. Left leg vein mapping showed a GSV less than 2 mm throughout much of his thigh. I recommended continued observation with an earnest effort at supervised ambulation. He opted to attempt ambulation on his own. He presents today for 6-month follow-up. He is accompanied by his . He has tried to mow his lawn with a walking mower rather than a riding mower up to twice per week. Apart from that he has not ambulated on a regular basis. He remains a 1 block left leg claudicator. He denies rest pain or wounds on his left foot. Exam: Pleasant, obese male alert and oriented x 3. Blood pressure 98/57 with pulse of 95. Height 5 feet 11. Weight 264 pounds. 1+ palpable femoral pulses bilaterally. Strong monophasic to nearly biphasic right-sided DP and PT pulses. Monophasic left DP and PT pulses. Both feet are warm and pink. His right great toe wound has healed. No wounds on the left foot. Right great toe today. Imaging: IR JOHN US JOHN DOPPLER WITH EXERCISE [...] worsened when compared to the prior exam. ASSESSMENT: 1. 1 year status post angioplasty of a heavily calcified right SFA with subsequent healing of a medial right great toe wound.. 2. Short distance left leg claudication secondary to multilevel left leg disease with involvement of the left common femoral artery, left SFA origin. And focal occlusion of the SFA and mid thigh. 3. Atrial fibrillation on Coumadin. 4. Metabolic syndrome. RECOMMENDATION: I again reviewed all the above with Adilson and his . I have significant concerns about attemptedleft leg percutaneous intervention given the double densities in the left common femoral artery andthe tandem high-grade stenoses of the left SFA origin along with a focal occlusion of the left SFA and mid thigh. While this may be technically achievable with consideration for Shockwave balloon angioplasty, I would be concerned about compromising his left profunda as well as the overall durability of such a procedure. He would likely be better served by potential left femoral endarterectomy with left femoral to above-knee popliteal bypass. Left leg GSV is inadequate. They understand that his c laudication is lifestyle limiting but not immediately limb threatening. I feel he would be better served at this point by a dedicated effort at supervised ambulation. He lives in [place] and once again politely declines a supervised program. He has a treadmill and an exercise bike at home and plans to try this on his own. I discussed the specifics of an ambulation program and the goals of such a program. He should continue his medical regimen which includes Coumadin for atrial fibrillation. Vascular surgical follow-up will be in 6 months for an JOHN with exercise and toe pressures. He understands that I will be leaving the arterial practice at the end of 2023 and I will arrange follow-up with one of my surgical partners. All of their questions were answered and they verbalized full understanding to the above and complete agreement with this management plan. Total length of this encounter was 40 minutes with time spent reviewing studies, interviewing and examining the patient, answering questions, and coordinating a treatment plan. Shaun Turner MD documented in this encounter Miscellaneous Notes * Addendum Note - Blayne Quiñones RN - 02/27/2024 4:00 PM CDTAddended by: BLAYNE QUIÑONES on: 03/17/2024 04:00 PM Modules accepted: Orders documented in this encounter Plan of Treatment Scheduled Orders Name Type Priority Associated Diagnoses Orde r Schedule US JOHN Doppler with Exercise Bilateral Imaging Routine Peripheral vascular disease with claudication (H) Status post peripheral artery angioplasty Expected: 08/26/2024 (Approximate), Expires: 03/17/2025 documented as of this encounter Visit Diagnoses Diagnosis Status post peripheral artery angioplasty- Primary Other postprocedural status Peripheral vascular disease with claudication (H) Peripheral vascular disease, unspecified Type 2 diabetes mellitus with foot ulcer, unspecified whether custodial insulin use (H) On Coumadin for atrial fibrillation (H) Class 2 severe obesity due to excess calories with serious comorbidity and body mass index (BMI) of 36.0 to 36.9 in adult (H) documented in this encounter Care Teams Delivery Man Relationship Specialty Start Date End Date Cameron Aldridge MD [facility] [address] [place] [address] PCP - General Family Medicine 02/02/23 Jaime Turner MD [address] [address] Assigned Heart and Vascular Provider 02/10/23 documented as of this encounter
--- OUTSIDE RECORDS SUMMARY | 2024-04-04 09:18 | XMS_ITS | Clinical Summary ---
Author Organization [facility] Address [address], [place] [address] Care Team Providers Care Sound Ranging Crewmember Name Role Phone Unavailable Primary Care Provider [...] each transition of care or referral. [facility] Social History Tobacco Use Types Packs/Day Years [...] - PCV) 02/07/2016 COVID-19 Vaccine ( - 2023-2 5 season) 2024 Influenza (#1) 2024 RSV (1 - 1-dose 75+ series) 2026 HepA Aged Out No longer eligi ble based on patient's age to complete this topic HepB Aged Out No longer eligi ble based on patient's age to complete this topic Hib Aged Out No longer eligi ble based on patient's age to complete this topic IPV (Polio) Aged Out No longer eligi ble based on patient's age to complete this topic Infant RSV Aged Out No longer eligi ble based on patient's age to complete this topic MCV4 Aged Out No longer eligi ble based on patient's age to complete this topic
--- OUTSIDE RECORDS SUMMARY | 2024-04-04 09:19 | XMS_ITS | Continuity of Care Document ---
Author Organization [facility] Address [address] [place] [address] Phone Care Team Providers Care Gis Consultant Name Role Phone Will Manjinder SUTHERLAND Unavailable [...] Diagnoses Date Provider Providers Copied on Encounter [facility], [address] [place] [address], [id number] , [place] tel:[phone] [facility] No Information 2 Will Manjinder. [address] [place], [place], [id number] , [place]. tel: [phone] OFFICE/OUTPAT IENT VISIT, EST [facility], [address] [place] [address], [id number] , [place] tel: [phone] [facility] Widespread pain (chief complaint) Postlaminectomy syndrome, not elsewhere classifiedChroni c migraine w/o aura, intractable, w status migrainosusOther intervertebral disc degeneration, lumbar regionLong term (current) use of opiate analgesicOther cervical disc degeneration, unsp cervical region Aug-0 9 Liz Ying. [address] [place] [address] [address], [place], [place], [id number] , [place]. tel: [phone] Referring Provider: Cameron Aldridge [facility] [address], [place], [address]. tel:[phone] OFFICE CONSULTATION [facility], [address] [place] [address], [id number] , [place] tel: [phone] [facility] Widespread pain (chief complaint) Postlaminectomy syndrome, not elsewhere classifiedChroni c migraine w/o aura, intractable, w status migrainosusOther cervical disc degeneration, unsp cervical regionOther intervertebral disc degeneration, lumbar regionLong term (current) use of opiate analgesicEncount er for therapeutic drug level monitoringSpinal stenosis, lumbar region with neurogenic claudication 9 [facility]. [facility], [address], [place], [address], [place]. tel: [phone] Referring Provider: [facility] [address], [place], [address]. tel:[phone] [facility], [address] [place] [address], [id number] , [place] tel: [phone] [facility] Widespread pain (chief complaint) No Information 9 Joesph Dunbar. [address] [facility] [place], [place], [id number] , [place]. tel: [phone] Family History Family Member Type Diagnosis Age At Onset No Information Payers Payer name Insurance type Covered green party ID Rose granger(s) [facility] [id number] Social History Type Description Quantity Date Captured Comments Sex Male Smoking Status No Information Chief Complaint And Reason For Visit No Information Reason For Referral Reason For Referral No Information Plan Of Treatment Date Type Action Status Future Order: Lab Order ELICEO PIERSON DRUG ANALYSIS, URINE, WITH MED REPORT ([id number]), Ordered on: Ordered History Of Present Illness [...] has lumber KHURRAM scheduled next week at [facility] and inquires about this today.Patient is accompanied today by his , who participates in today's visit, and has no further questions or other concerns. Widespread pain (comments) Adilson is here for initial consult for pain management, referred by PCP Cameron Duong MD at [facility]. His pain began gradually [...] as a surgical candidate. Underwent PT at [facility] in 2012-- not helpful. Regularly attends chiropractor for neck pain--helpful. Tried both lumbar and cervical ESIs at [facility], noting the lumbar ESIs did not provide much relief. Still completes CESIs regularly which is helpful for his neck pain. Reports last EMILY was 05/30/2018. Additionally reports previous MRI at [facility]. Currently managed on gabapentin 800mg TID and oxycodone 5-325mg average #1/day. Takes Ibuprofen for additional relief. States the oxycodone provides good relief when he takes it, especially at night to aid with sleep. Adilson is interested in any treatment option and would like [facility] to assume management of pain care. Widespread [...] by PCP Cameron Duong MD at [facility]. His pain began gradually over 20 years ago and has progressively worsened over time. C/o constant headaches, in addition to neck and back pain. Has muscle spasms in BL LE, groin, and ribcage. Reports previous cervical diskectomy in 2000, however states he is no longer recommended as a surgical candidate. Underwent PT at [facility] in 2012-- not helpful. Tried ESIs at [facility]. Reports previous MRI at [facility]. Has taken gabapentin 800mg TID and oxycodone for additional pain relief. Adilson is interested in any treatment option and would like [facility] to assume management of pain care. Functional Status Date Functional Assessmen t No Information Instructions Date Instruction Additional Infor mation No Information Assessments Type Assessment Date No Information Patient Care Teams Name Effective Dates (start - stop) Status Members No Information
--- OUTSIDE RECORDS SUMMARY | 2024-04-04 09:19 | XMS_ITS ---
Author Organization [facility] Address [address] [place] [address] Care Team Providers Care Architecture Faculty Member Name Role Phone Unavailable Unavailable Unavailable Surgery Details Not on file Complications Check Surgery Details section. Procedure Estimated Blood Loss Check Surgery Details section. Procedure Findings Check Surgery Details section. Procedure Specimens Taken Check Surgery Details section.
--- OUTSIDE RECORDS SUMMARY | 2024-04-04 09:19 | XMS_ITS | Referral Summary ---
Author Organization [facility] Address [address] [place] [address] Care Team Providers Care Continuous Dryout Operator Helper Name Role Phone Elsewhere, Pcp Primary Care Provider Unavailabl e Source Comments Patient records contain information from all sites at [facility]. For routine questions regarding patient records, call [phone] during business hours, M-F 8:00 AM - 5:00 PM Central Time. Record requests for emergency care only can be directed to [phone] at any time.[facility] Allergies No known active allergies Medications Medication [...] Spinal Lumbar With Neurogenic Claudicat ion 12/23/2020 Overview (12/23/2020): Added automatically from request for surgery [id number] Atrial Fibrillation Other Persistent 06/25/2004 Hypertension Essential [...] 04/07/2022 How often do you attend chur ch or mosque services? 1 to 4 times per year 04/07/2022 Do you belong to any clubs o r organizations such as jainism groups, unions, fraOobafit or athletic groups, or school groups? No [...] care, and heating? Not very hard 05/25/2023 [facility] [place] of Occupat ional Health - Occupational Stress [...] your living situation today? I have a [facility] place to live 05/25/2023 Education Answer Date [...] Comments Blood Pressure 120/68 06/14/2022 7:45 AM FLYING I INSTRUCTOR Pulse 90 06/14/2022 7:45 AM FLYING I INSTRUCTOR Temperature 35.7 ??C (96.3 ??F) 05/29/2023 10:[address] Respiratory Rate 18 06/14/2022 7:45 AM FLYING I INSTRUCTOR Oxygen Saturation 95% 06/14/2022 7:45 AM FLYING I INSTRUCTOR Inhaled Oxygen Concentration - - Weight 123 kg (271 lb 11.5 oz) 05/29/2023 10:26 AM FLYING I INSTRUCTOR Height 181.7 cm (5' 11.54) 05/29/2023 10:26 AM FLYING I INSTRUCTOR Body Mass Index 37.33 05/29/2023 10:26 AM FLYING I INSTRUCTOR Plan of Treatment Not on file Medical Devices Implanted Type Area Garnisher Device Identifier Shelf Expiration Date Model / Serial / Lot Allogenic, Femoral Head - [id number] - [id number] Implanted:Qty : 1 on 06/12/2022 at [facility] Bone or Tissue Posterior : Spine Lumbar [facility] 05/10/2024 [id number] / [id number] / [id number] Spn Scrw Lg St 6.5x35 - [id number] Implanted:Qty : 2 on 06/12/2022 by Richard Joel M.D. at [facility] Hardware e.g. pins/screws /rods Posterior : Spine Lumbar Medtronic [id number] / / Spn Scrw Lg St 6.5x40 - [id number] Implanted:Qty : 3 on 06/12/2022 by Richard Joel M.D. at [facility] Hardware e.g. pins/screws /rods Posterior : Spine Lumbar Medtronic [id number] / / Spn Scrw Lgc St 6.5x50 - [id number] Implanted:Qty : 3 on 06/12/2022 by Richard Joel M.D. at [facility] Hardware e.g. pins/screws /rods Posterior : Spine Lumbar Medtronic [id number] / / Spn Scrw Lgc Thrd 5.5 - [id number] Implanted:Qty : 8 on 06/12/2022 by Richard Joel M.D. at [facility] Hardware e.g. pins/screws /rods Posterior : Spine Lumbar Medtronic [id number] / / Spn Pineda Lgc Cvd 5.5x90 - [id number] Implanted:Qty : 1 on 06/12/2022 by Richard Joel M.D. at [facility] Hardware e.g. pins/screws /rods Posterior : Spine Lumbar Medtronic [id number] / / Spn Pineda Lgc Cvd 5.5x100 - [id number] Implanted:Qty : 1 on 06/12/2022 by Richard Joel M.D. at [facility] Hardware e.g. pins/screws /rods Posterior : Spine Lumbar Medtronic [id number] / / Ocular Lens Ocular Lens Bilateral : Eye Procedures Procedure Name Priority Date/Time Associated Diagnosis Comments BASIC METABOLIC PANEL, S/P Routine 06/13/2022 4:49 AM FLYING I INSTRUCTOR HEMOGLOBIN A1C, B Routine 06/01/2022 1:4 5 PM FLYING I INSTRUCTOR Preprocedural Lab Exam from Last 3 Months or Most Recently Relevant to Health Maintenance Results * (ABNORMAL) Basic Metabolic Panel (06/13/2022 4:49 AM FLYING I INSTRUCTOR) Potassium, S 4.4 3.6 - 5.2 mmol/L 06/13/2022 5:39 AM FLYING I INSTRUCTOR DTL Sodium, S 138 135 - 145 mmol/L 06/13/2022 5:39 AM FLYING I INSTRUCTOR DTL Chloride, S 102 98 - 107 mmol/L 06/13/2022 5:39 AM FLYING I INSTRUCTOR DTL Bicarbonate, S 26 22 - 29 mmol/L 06/13/2022 5:39 AM FLYING I INSTRUCTOR DTL Anion Gap 10 7 - 15 06/13/2022 5:39 AM FLYING I INSTRUCTOR DTL BUN (Blood Urea Nitrogen), S 18 8 - 24 mg/dL 06/13/2022 5:39 AM FLYING I INSTRUCTOR DTL Creatinine 1.04 0.74 - 1.35 mg/dL 06/13/2022 5:39 AM FLYING I INSTRUCTOR DTL Estimated GFR (eGFR) 77 >=60 mL/min/BSA 06/13/2022 5:39 AM FLYING I INSTRUCTOR DTL Comment: Estimated GFR calculated using the 2020 CKD_EPI creatinine equation. Calcium, Total, S 8.8 8.8 - 10.2 mg/dL 06/13/2022 5:39 AM FLYING I INSTRUCTOR DTL Glucose, S 219(H) 70 - 140 mg/dL 06/13/2022 5:39 AM FLYING I INSTRUCTOR DTL Blood (Blood, Venous) 06/13/2022 4:49 AM FLYING I INSTRUCTOR 06/13/2022 5:24 AM FLYING I INSTRUCTOR Annalee Ledezma M.D. LAB BLOOD ADD-O N [facility] [address] [place] [address], [facility] [address] [place] [address] * (ABNORMAL) Hemoglobin A1c (06/01/2022 1:45 PM FLYING I INSTRUCTOR) Hemoglobin A1c, B 6.8(H) 4.0 - 5.6 % 06/01/2022 2:43 PM FLYING I INSTRUCTOR DTL Comment: Hemoglobin A1c values greater than or equal to 6.5 percent are diagnostic for diabetes mellitus. ??Diagnosis should be confirmed by repeat testing. ??In diabetic patients, HbA1c goals should be discussed with healthcare provider. Blood (Blood, Venous) 06/01/2022 1:45 PM FLYING I INSTRUCTOR 06/01/2022 2:13 PM FLYING I INSTRUCTOR Richard Joel M.D. LAB BLOOD ADD-ON Performing Organization Address City/[facility] Co de Phone Number [facility] [address] [place] [address], [facility] [address] [place] [address] from Last 3 Months or Most Recently Relevant to Health Maintenance Advance Directives For more information, please contact: [phone] * Full Code (Latest Code Status on [...] Due to: Patient not available Care Teams Continuous Dryout Operator Helper Relationship Specialty Start Date End Date Elsewhere, Pcp PCP - General Family Medicine 03/10/21
--- OUTSIDE RECORDS SUMMARY | 2024-04-04 09:19 | XMS_ITS | Clinical Summary ---
Author Organization [facility] Address [address] [place] [address] Care Team Providers Care Stallion Keeper Name Role Phone Elsewhere, Pcp Primary Care Provider Unavailabl e Source Comments Patient records contain information from all sites at [facility]. For routine questions regarding patient records, call [phone] during business hours, M-F 8:00 AM - 5:00 PM Central Time. Record requests for emergency care only can be directed to [phone] at any time.[facility] Allergies No known active allergies Medications Medication [...] (12/23/2020): Added automatically from request for surgery [id number] Atrial Fibrillation Other Persistent 06/25/2004 Hypertension Essential [...] often do you attend chur ch or christianity services? 1 to 4 times per year 04/07/2022 Do you belong to any clubs o r organizations such as presybeterian groups, unions, fraternal or athletic groups, or [...] care, and heating? Not very hard 05/25/2023 [facility] [place] of Occupat ional Health - Occupational Stress [...] your living situation today? I have a [facility] place to live 05/25/2023 Education Answer [...] Comments Blood Pressure 120/68 06/14/2022 7:45 AM BURR SANDER Pulse 90 06/14/2022 7:45 AM BURR SANDER Temperature 35.7 ??C (96.3 ??F) 05/29/2023 10:[address] Respiratory Rate 18 06/14/2022 7:45 AM BURR SANDER Oxygen Saturation 95% 06/14/2022 7:45 AM BURR SANDER Inhaled Oxygen Concentration - - Weight 123 kg (271 lb 11.5 oz) 05/29/2023 10:26 AM BURR SANDER Height 181.7 cm (5' 11.54) 05/29/2023 10:26 AM BURR SANDER Body Mass Index 37.33 05/29/2023 10:26 AM BURR SANDER Plan of Treatment Health Maintenance Due Date [...] of 3 - Risk 3-dose series) 2011 Office Visit for Blood Press ure Check / Re-check 06/01/2023 06/01/2022 Depression Screening (Annual PHQ-2) 06/25/2023 Fall Risk Screen (Annual) 06/25/2023 Hemoglobin A1C 01/15/2024 07/17/2023, 09/0 10/2022, 06/01/2022, Additional history exists COVID-19 Vaccine ( - 2023-2 5 season) 2024 12/13/2021, 03/23/2021, 08/13/2020, Additional history exists Influenza Vaccine (#1) 2024 , 03/25/2021, 06/20/2019, [...] 17, 06/07/2016 Medical Devices Implanted Type Area Solar Sales Ambassador Device Identifier Shelf Expiration Date Model / Serial / Lot Allogenic, Femoral Head - [id number] - [id number] Implanted:Qty : 1 on 06/12/2022 at [facility] Bone or Tissue Posterior : Spine Lumbar [facility] 05/10/2024 [id number] / [id number] / [id number] Spn Scrw Lgc St 6.5x35 - [id number] Implanted:Qty : 2 on 06/12/2022 by Richard Joel M.D. at [facility] Hardware e.g. pins/screws /rods Posterior : Spine Lumbar Medtronic [id number] / / Spn Scrw Lg St 6.5x40 - [id number] Implanted:Qty : 3 on 06/12/2022 by Ricahrd Joel M.D. at [facility] Hardware e.g. pins/screws /rods Posterior : Spine Lumbar Medtronic [id number] / / Spn Scrw Lgc St 6.5x50 - [id number] Implanted:Qty : 3 on 06/12/2022 by Richard Joel M.D. at [facility] Hardware e.g. pins/screws /rods Posterior : Spine Lumbar Medtronic [id number] / / Spn Scrw Lgc Thrd 5.5 - [id number] Implanted:Qty : 8 on 06/12/2022 by Richard Joel M.D. at [facility] Hardware e.g. pins/screws /rods Posterior : Spine Lumbar Medtronic [id number] / / Spn Pineda Lgc Cvd 5.5x90 - [id number] Implanted:Qty : 1 on 06/12/2022 by Richard Joel M.D. at [facility] Hardware e.g. pins/screws /rods Posterior : Spine Lumbar Medtronic [id number] / / Spn Pineda Lgc Cvd 5.5x100 - [id number] Implanted:Qty : 1 on 06/12/2022 by Richard Joel M.D. at [facility] Hardware e.g. pins/screws /rods Posterior : Spine Lumbar Medtronic [id number] / / Ocular Lens Ocular Lens Bilateral : Eye Procedures Procedure Name Priority Date/Time Associated Diagnosis Comments BASIC METABOLIC PANEL, S/P Routine 06/13/2022 4:49 AM BURR SANDER HEMOGLOBIN A1C, B Routine 06/01/2022 1:4 5 PM BURR SANDER Preprocedural Lab Exam from Last 3 Months or Most Recently Relevant to Health Maintenance Results * (ABNORMAL) Basic Metabolic Panel (06/13/2022 4:49 AM BURR SANDER) Pathologist [facility] Potassium, S 4.4 3.6 - 5.2 mmol/L 06/13/2022 5:39 AM BURR SANDER DTL Sodium, S 138 135 - 145 mmol/L 06/13/2022 5:39 AM BURR SANDER DTL Chloride, S 102 98 - 107 mmol/L 06/13/2022 5:39 AM BURR SANDER DTL Bicarbonate, S 26 22 - 29 mmol/L 06/13/2022 5:39 AM BURR SANDER DTL Anion Gap 10 7 - 15 06/13/2022 5:39 AM BURR SANDER DTL BUN (Blood Urea Nitrogen), S 18 8 - 24 mg/dL 06/13/2022 5:39 AM BURR SANDER DTL Creatinine 1.04 0.74 - 1.35 mg/dL 06/13/2022 5:39 AM BURR SANDER DTL Estimated GFR (eGFR) 77 >=60 mL/min/BSA 06/13/2022 5:39 AM BURR SANDER DTL Comment: Estimated GFR calculated using the 2020 CKD_EPI creatinine equation. Calcium, Total, S 8.8 8.8 - 10.2 mg/dL 06/13/2022 5:39 AM BURR SANDER DTL Glucose, S 219(H) 70 - 140 mg/dL 06/13/2022 5:39 AM BURR SANDER DTL Blood (Blood, Venous) 06/13/2022 4:49 AM BURR SANDER 06/13/2022 5:24 AM BURR SANDER Annalee Ledezma M.D. LAB BLOOD ADD-O N Performing Organization Address City/[facility]/ZIP Co de Phone Number [facility] [address] [place] [address], [facility] [address] [place] [address] * (ABNORMAL) Hemoglobin A1c (06/01/2022 1:45 PM BURR SANDER) Hemoglobin A1c, B 6.8(H) 4.0 - 5.6 % 06/01/2022 2:43 PM BURR SANDER DTL Comment: Hemoglobin A1c values greater than or equal to 6.5 percent are diagnostic for diabetes mellitus. ??Diagnosis should be confirmed by repeat testing. ??In diabetic patients, HbA1c goals should be discussed with healthcare provider. Blood (Blood, Venous) 06/01/2022 1:45 PM BURR SANDER 06/01/2022 2:13 PM BURR SANDER Richard Joel M.D. LAB BLOOD ADD-ON Performing Organization Address City/[facility] Co de Phone Number [facility] [address] [place] [address], [facility] [address] [place] [address] from Last 3 Months or Most Recently Relevant to Health Maintenance Advance Directives For more information, please contact: [phone] * Full Code (Latest Code Status on [...] Due to: Patient not available Care Teams Stallion Keeper Relationship Specialty Start Date End Date Elsewhere, Pcp PCP - General Family Medicine 03/10/21
--- OUTSIDE RECORDS SUMMARY | 2024-04-04 09:19 | XMS_ITS | Continuity of Care Document ---
Author Organization [facility] Address [address] [place] [address] Phone Care Team Providers Care Foam Rubber Curer Name Role Phone Jaime Stahl MD Unavailable [...] Available - Active Procedures Procedure Date Office/Outpatient Visit,[facility] 2016 Advance Directives Directive Yes / No Effective Date File Name No Information Encounters Encounter Description Practice Location Reason(s) For Visit Diagnoses Date Provider Providers Copied on Encounter [facility], [address], [place], [id number], [place] tel:[phone] [facility] [place] No Information Maribeth Sandoval. [facility], [facility] [address] [place] [address], [address], [place], [id number], [place]. tel:[phone] Office/Outpat ient Visit,[facility], [address], [place], [id number], [place] tel:[phone] [facility] [place] Spinal stenosis, lumbar regionSpondyl olisthesis, lumbar region Maribeth Sandoval. [facility], [address], [address], [place], [place], [id number], . tel:[phone] Referring Provider: Jaime Sheehan, [facility] [address], [address], [place], [address] . tel:[phone] Family History Family Member Type Diagnosis Age At Onset No Information Payers Payer name Insurance type Covered republican ID Rose granger(s) [facility] [id number] [facility] [id number] Social History Type Description Quantity Date Captured [...]
--- OUTSIDE RECORDS SUMMARY | 2024-04-04 09:19 | XMS_ITS | Data Portability ---
Author Organization [facility], [facility] Address [address] [place] [address] Care Team Providers Care Sr. Consultant Name Role Phone MARICRUZ MCKEON Primary Care Provider Assessment Encounter Date Assessment Date Assessment LastModified by Organization Details LastModified Time 10/27/2022 10/27/2022 Pt here for UA-possible UC. LK [email or web address] Not available 10/27/2022 10:27:32 Plan of Treatment Reminders Order Date Submit Date Provider Last Modified By Organization Details Last Modified Time Details Appointments None recorded. Lab urinalysis, dipstick 2022 023 [email or web address] [facility], [address] [place], [address], 10:26:59 Referral pelvic floor therapy referral 2022 023 [email or web address], [address], [address], 07:53:48 Procedures None recorded. Surgeries None recorded. Imaging None recorded. Medication Orders clotrimazol e-betametha sone 1 %-0.05 % topical cream 2022 023 [facility], [address] [place], [address], 11:53:59 tamsulosin 0.4 mg capsule 2022 023 [email or web address] [facility], [address], [place], [address], 11:49:28 Patient TargetsNo targets recorded. Patient Instructions Encounter Date Encounter Id Patient Instructions Last Modified By Organization Details Last Modified Time 10/27/2022 [id number] RTC prn. DEBBIE [email or web address] Not available 10/2022 10:30:13 Reason for Referral Pelvic Floor Therapy Referra l for Pelvic floor dysfunction Referring Physician: Cesar Pichardo, Urology, Encounter Date: 09/27/2022 Results Created Date Observation Date Name Description Value Unit Range Abnormal Flag Note LastModifiedBy Organization Detail LastModifiedTime 10/28/1910/27/2022 urina lysis , dipst ick Color-Status Dark Yellow Not Available [facility] [address], [place], [address], 10/27/2022 10:25:53 10/28/19 23 10/27/2022 urina lysis , dipst ick Clarity-Stat us Clear Not Available [facility] [address], [place], [address], 10/27/2022 10:25:53 10/28/19 23 10/27/2022 urina lysis , dipst ick Glucose-Stat us Negati ve Not Available [facility] [address], [place], [address], 10/27/2022 10:25:53 10/28/19 23 10/27/2022 urina lysis , dipst ick Bilirubin-St atus Negati ve Not Available [facility] [address], [place], [address], 10/27/2022 10:25:53 10/28/19 23 10/27/2022 urina lysis , dipst ick Ketones-Stat us Negati ve Not Available [facility] [address], [place], [address], 10/27/2022 10:25:53 10/28/19 23 10/27/2022 urina lysis , dipst ick Sp [place]-Stat us 1.015 Not Available [facility] [address], [place], [address], 10/27/2022 10:25:53 10/28/19 23 10/27/2022 urina lysis , dipst ick pH-Status 5.5 Not Available [facility] [address], [place], [address], 10/27/2022 10:25:53 10/28/19 23 10/27/2022 urina lysis , dipst ick Protein-Stat us 5.0 Not Available [facility] [address], [place], [address], 10/27/2022 10:25:53 10/28/19 23 10/27/2022 urina lysis , dipst ick Urobilinogen -Status 0.2 Not Available [facility] [address], [place], [address], 10/27/2022 10:25:53 10/28/19 23 10/27/2022 urina lysis , dipst ick Nitrates-Sta tus negati ve Not Available [facility] [address], [place], [address], 10/27/2022 10:25:53 10/28/19 23 10/27/2022 urina lysis , dipst ick Blood-Status Negati ve Not Available [facility] [address], [place], [address], 10/27/2022 10:25:53 10/28/19 23 10/27/2022 urina lysis , dipst ick Leuko-Status Negati ve Not Available [facility] [address], [place], [address], 10/27/2022 10:25:53 10/28/19 23 10/27/2022 urina lysis , dipst ick Specimen Type Voided Not Available [facility] [address], [place], [address], 10/27/2022 10:25:53 Result Notes None recorded. Procedures Surgical History Date Name Laterality Status Provider Name and Address Organization Details Recorded Time 05/25/20 22 spinal fusion with graft completed Cesar Pichardo MD [address] [place] [address],[address], [address], [facility] 12/06/2022 11:50:50 01/03/20 Penile Self Injection Trial completed DORINA CLEVELAND [address] [place] [address],[address], [address], [facility] 01/02/2022 10:56:17 09/24/19 19 [...] Updated DateTime 09/27/2022 182.88 cm 34.9 kg/m2 390758.24 g Cesar Pichardo MD [address] [place] [address],[address], [address] 09/27/2022 11:35:39 Date Recorded Body height Body mass index (BMI) Body weight Provider Name and Address Organization Details Last Updated DateTime 12/06/2022 182.88 cm 34.9 kg/m2 865043.24 g Cesar Pichardo MD [address] [place] [address],[address], [address] [place] [address] 12/06/2022 11:46:41 Date Recorded Body height Body mass index (BMI) Body weight Provider Name and Address Organization Details Last Updated DateTime 02/14/2023 182.88 cm 34.9 kg/m2 832301.24 g Ewa Barrett [facility] 02/14/2023 14:42:50 Date Recorded Body height Body mass index (BMI) Body weight Provider Name and Address Organization Details Last Updated DateTime 04/18/2023 182.88 cm 34.9 kg/m2 046627.[address] [facility] 04/18/2023 14:11:59 Social History Question Answer [...] o Information not available 01/02/2022 Preferred Language Romanian Information not available 01/02/2022 Recreational Drug Use [...] Age of this Age Resolved Age Notes LastModified by Organization Details LastModified Time Mother Family history of diabetes mellitus [email or web address] Not available 2021 07:52:53 Maternal Grandfather Family history of diabetes mellitus [email or web address] Not available 2021 07:52:53 Father Family history of cardiac disorder [email or web address] Not available 2021 07:52:53 Paternal Grandfather Family history of cardiac disorder [email or web address] Not available 2021 07:52:53 Medical History Condition Response High Blood Pressure Y Kidney Stones N Lung Disease N Depression N GERD/Acid Reflux N Sexually Transmitted Infection N Cancer N High Cholesterol Y Diabetes Y Bleeding Disorder N Heart Disease N Immunizations Vaccine Type Date Status Provider Name and Address Organization Details Recorded Time influenza, unspecified formulation 03/25/2021 completed Not Available [facility] 04/18/2023 14:09:43 SARS-COV-2 (COVID-19) vaccine, UNSPECIFIED 12/13/2021 completed Not Available [facility] 04/18/2023 14:09:43 COVID-19, mRNA, LNP-S, PF, 30 mcg/0.3 mL dose 07/23/2020 completed Malia mendoza [facility] 11/07/2022 16:12:58 COVID-19, mRNA, LNP-S, PF, 30 mcg/0.3 mL dose 08/13/2020 completed Malia mendoza [facility] 11/07/2022 16:12:58 COVID-19, mRNA, LNP-S, PF, 30 mcg/0.3 mL dose 03/23/2021 completed Malia mendoza [facility] 11/07/2022 16:12:58 COVID-19, mRNA, LNP-S, PF, 30 mcg/0.3 mL dose, nick-sucrose 12/13/2021 completed Malia mendoza [facility] 11/07/2022 16:12:58 pneumococcal polysaccharide PPV23 06/07/2016 completed Malia mendoza [facility] 11/07/2022 16:12:58 Tdap 06/07/2016 completed Malia mendoza [facility] 11/07/2022 16:12:58 Pneumococcal conjugate PCV 13 06/12/2017 completed Malia mendoza [facility] 11/07/2022 16:12:58 Influenza, high-dose, trivalent, PF 07/19/2018 completed Malia mendoza, [facility] 11/07/2022 16:12:58 Influenza, high-dose, trivalent, PF 04/24/2017 completed Malia mendoza, [facility] 11/07/2022 16:12:58 Influenza, high-dose, trivalent, PF 06/07/2016 completed Malia mendoza, [facility] 11/07/2022 16:12:58 Influenza, high-dose, trivalent, PF 06/20/2019 completed Malia mendoza, [facility] 11/07/2022 16:12:58 Influenza, split virus, quadrivalent, PF 06/09/2015 completed Malia mendoza, [facility] 11/07/2022 16:12:58 Influenza, high-dose, quadrivalent, PF 05/25/2022 completed Malia mendoza, [facility] 12/14/2022 10:29:10 Past Encounters Encounter ID Performer Location Encounter Start Date Encounter Closed Date Diagnosis/Indication Diagnosis SNOMED-CT Code Diagnosis ICD10 Code [id number] DORINA C[place]AND [facility] [address] [address] [place] [address] 01/02/2022 09:53:50 01/02/2022 10:57:22 Primary erectile dysfunction 075614514 N52.9 [id number] MD [facility] [address] [place] [address] 09/27/2022 11:24:42 09/29/2022 08:56:40 Primary erectile dysfunction 073133753 N52.9 Injury of penis 28409925 6 S30.93XA Phimosis 797861629 N47.1 Pelvic luba or dysfunction 447826682 M62.9 Slowing of urinary stream 01284387 R39.12 [id number] MD [facility]ED [facility] [address] [place] [address] 10/27/2022 10:13:19 11/09/2022 10:24:08 Dysuria 07087933 R30.0 [id number] MD [facility] [address] [place] [address] 12/06/2022 11:35:32 12/08/2022 14:15:29 Primary erectile dysfunction 155640181 N52.9 Injury of penis 76039387 6 S30.93XA Phimosis 868579605 N47.1 Pelvic luba or dysfunction 529518375 M62.9 Slowing of urinary stream 36687150 R39.12 [id number] Cesar Pichardo MD [facility] [address] [place] [address] 02/14/2023 14:32:25 02/21/2023 12:47:59 Primary erectile dysfunction 241139451 N52.9 Injury of penis 36885013 6 S30.93XA Phimosis 090537298 N47.1 Pelvic luba or dysfunction 611445803 M62.9 Slowing of urinary stream 35680930 R39.12 [id number] Cesar Pichardo MD [facility] [address] [place] [address] 04/18/2023 14:08:35 04/24/2023 14:31:50 Primary erectile dysfunction 906384195 N52.9 Injury of penis 40082103 6 S30.93XA Phimosis 968073983 N47.1 Pelvic luba or dysfunction 529055661 M62.9 Slowing of urinary stream 13989494 R39.12 Health Concerns Section Related Observation LastModified by Organization Detai ls LastModified Time None Recorded Concern Status LastModified by Organization Details LastModified Time None Recorded Advance Directives Directive None Recorded Payers Encounter Date Sequence Insurance Name Policy Number Policy Perez Covered Member ID Perez Member ID Guarantor Name 09/27/2022 1 [place] [id number] Chaya R Barfknecht [id number] Adilson R Barfknecht 10/27/2022 1 [place] [id number] Chaya R Barfknecht [id number] Adilson R Barfknecht 12/06/2022 1 [place] [id number] Chaya R Barfknecht [id number] Adilson Person 02/14/2023 1 [place] [id number] Chaya Person [id number] Adilson Person 04/18/2023 1 [place] [id number] Chaya Person [id number] Adilson Person Notes Date Note Type Note Provider Name [...] and HLD who was previously seen by Karthikeyan Coombs PA-C regarding erectile dysfunction for which he was provided [employer]. Patient here today as he reports that he believes he suffered damage to his penis following a catheter placement during his spinal fusion leading to retraction. He is seen today with his who provides some of the history. Cesar Pichardo MD [address], [place], [address], [facility] 09/27/2022 13:29:07 12/06/2022 text/html HPI Notes: [...] and HLD who was previously seen by Karthikeyan Coombs PA-C regarding erectile dysfunction for which [...] of the history. Cesar Pichardo MD [address], [place], [address], [facility] 12/06/2022 12:27:39 02/14/2023 text/html [...] and HLD who was previously seen by Karthikeyan Coombs PA-C regarding erectile dysfunction for which [...] improvement in his phimosis. Cesar Pichardo MD [address] [place] [address],[address], [address], [facility] 02/14/2023 14:52:55 04/18/2023 text/html [...] and HLD who was previously seen by Karthikeyan Coombs PA-C regarding erectile dysfunction for which [...] resolved. Doing great. Cesar Pichardo MD [address], [place], [address], [facility] 04/18/2023 14:47:38
== END 2024-04-03 11:56 | disposition home or self-care (01) ==
LOC: NFLDREF 04-04 09:16
PROVIDERS: PCP Family Medicine; Referring Provider Family Medicine; Visit Provider Family Medicine
DX: E11.9 Type 2 diabetes mellitus without complications (principal); D64.9 Anemia, unspecified; I48.91 Unspecified atrial fibrillation; J30.0 Vasomotor rhinitis; K21.9 Gastro-esophageal reflux disease without esophagitis; M79.671 Pain in right foot; M79.672 Pain in left foot; Z79.01 Long term (current) use of anticoagulants
CPT/HCPCS: 80048; 85610

== ENCOUNTER 2024-04-25 13:11 | Outpatient (CLI) | payer BC, SELFPAY | END 2024-04-25 13:12 | disposition home or self-care (01) | LOC: NFLDREF 04-28 10:55 | PROVIDERS: PCP Family Medicine; Referring Provider Family Medicine; Visit Provider Family Medicine | DX: Z79.01 Long term (current) use of anticoagulants (principal); D64.9 Anemia, unspecified; I48.91 Unspecified atrial fibrillation | CPT/HCPCS: 85610 ==

== ENCOUNTER 2024-05-05 10:57 | Emergency (ER) | payer BC, SELFPAY ==
--- NOTE | 2024-05-05 11:01 | ED.GENADULT ---
HPI - General Adult General Time Seen by Provider: 11:01 Date Seen: 05/05/24 Chief complaint: Abdominal Pain Stated complaint: Abdominal pain, sent from urgent care Time Seen by Provider: 05/05/24 11:01 Source: patient and other (Dr Aldridge) Mode of arrival: ambulatory Limitations: no limitations History of Present Illness HPI narrative: Adilson is a 74-year-old male with history of GERD, carotid heard artery stenosis, atrial fibrillation on anticoagulation who comes to the emergency room for evaluation of abdominal pain. I received a call from Dr. Aldridge in the clinic regarding this patient who has had abdominal pain since SundayApril 30. Physician states that this is hose associated with nausea. Patient does have a history of constipation but today has right lower quadrant pain. Also deals with a history of anemia. No labs were done in the clinic Here in the emergency room Adilson notes the onset of abdominal pain just below the belt line on SundayMay 02. It has been persistent and seems to be associated with pain wrapping around to his right flank and radiating down his right leg on the anterior medial aspect of the thigh when he tries to walk. He does have known lumbar arthritis and has had hardware surgeries and injections in the past. He notes no recent falls or trauma. He states that he his renovating his health at this time but he has others do the hard work. He denies diarrhea constipation blood in his stool or vomiting. Related Data Home Medications ?Medication ?Instructions ?Recorded ?Confirmed saw palm 160 mg-vit E 100 tab PO 04/28/24 05/05/24 unit-selen 100 ita-ycxs-zwiwbg-pygeum tablet ([facility]) Previous Rx's ?Medication ?Instructions ?Recorded duloxetine 30 mg capsule,delayed 30 mg PO QDAY #90 caps 10/12/23 release gabapentin 800 mg tablet 800 mg PO TID #270 tabs 10/12/23 glipizide 5 mg tablet 5 mg PO BID #180 tabs 10/12/23 hydrochlorothiazide 25 mg tablet 25 mg PO QDAY #90 tabs 10/12/23 lisinopril 40 mg tablet 40 mg PO QDAY #90 tabs 10/12/23 metformin 1,000 mg tablet 1,000 mg PO BID #180 tabs 10/12/23 rosuvastatin 5 mg tablet 5 mg PO .qod #45 tabs 10/12/23 tizanidine 2 mg tablet 2 mg PO TID PRN muscle spasticity 10/12/23 #90 tabs warfarin 10 mg tablet 10 mg PO DIRECTED #90 tabs 10/12/23 warfarin 3 mg tablet 3 mg PO DIRECTED #90 tabs 10/12/23 warfarin 5 mg tablet 5 mg PO ONCE #30 tabs 10/12/23 peg 3350-electrolytes 236 240 ml PO Q10M #4,000 mL 10/17/23 gram-22.74 gram-6.74 gram-5.86 gram solution (Golytely) oxycodone-acetaminophen 5 mg-325 1 - 2 tab PO Q8H PRN pain #45 tabs 03/10/24 mg tablet (Percocet) ipratropium bromide 21 mcg (0.03 2 spray intranasal BID-TID PRN 04/03/24 %) nasal spray allergy symptoms #30 mL omeprazole 20 mg capsule,delayed 20 mg PO QDAY #90 caps 04/03/24 release Allergies Allergy/AdvReac Type Severity Reaction Status Date / Time No Known Allergies Allergy Verified 05/05/24 13:40 Review of Systems Status of ROS: Reports: 6 or more systems reviewed and unremarkable except as noted in History and below [facility] Medical History GERD (gastroesophageal reflux disease) ?K21.9 - Gastro-esophageal reflux disease without esophagitis (ICD-10) Carotid artery stenosis ?I65.29 - Occlusion and stenosis of unspecified carotid artery (ICD-10) Type 2 diabetes mellitus ?E11.9 - Type 2 diabetes mellitus without complications (ICD-10) Foot pain, bilateral ?M79.671 - Pain in right foot (ICD-10) ?M79.672 - Pain in left foot (ICD-10) Cellulitis ?L03.90 - Cellulitis, unspecified (ICD-10) Encounter for routine history and physical examination of adult ?Z00.00 - Encounter for general adult medical examination without abnormal findings (ICD-10) Encounter for pre-operative examination ?Z01.818 - Encounter for other preprocedural examination (ICD-10) Surgical History Status post surgical manipulation of ankle joint ?Z98.890 - Other specified postprocedural states (ICD-10) Status post rotator cuff repair ?Z98.890 - Other specified postprocedural states (ICD-10) Status post discectomy ?Z98.890 - Other specified postprocedural states (ICD-10) Social History Smoking Status: Never smoker Non-prescribed substance use: denies use Exam Narrative: Exam Narrative: Patient is alert and oriented nontoxic in appearance. Very pleasant gentleman. External ears eyes nose clear. Heart with regular rate and rhythm and lungs are clear bilaterally. Abdomen did shows mild discomfort in the suprapubic area without any masses or rebound tenderness. Lower extremity strength is intact. Patient does have increased pain with flexion at the hip on the right. Palpation in the back does not yield any tenderness. Otherwise flexion and extension at the great toe ankle knee all within normal limits. Re-examination of the abdomen shows no unusual erythema, drainage, compromises skin. Only mild tenderness noted in the suprapubic area without rebound. Const: Vital Signs, click to edit/add: Vital Signs - 24 hr 05/05/24 11:10 05/05/24 13:45 Temperature 97.3 F L Pulse Rate 86 Pulse Rate [Pulse Oximeter] 93 Respiratory Rate 93 H 14 Blood Pressure 127/90 H Blood Pressure [Ri ght Upper Arm] 163/64 H Pulse Oximetry 98 97 Oxygen Delivery Me thod Room Air Room Air Documenting provider has reviewed patient's vital signs: yes Course Course ED Course: At this time patient is scheduled for blood work to include a CBC, comprehensive panel, INR, CRP as well as urinalysis. Patient's primary physician worried about appendicitis and thus have ordered CT of the abdomen and pelvis with contrast. Reevaluation(s) Reevaluation #1: CT the abdomen does not appear to show any acute findings. Have asked for a CT of the lumbar spine for recon of the films. Vital Signs Vital signs: Initial Vital Signs Temperature 97.3 F L 05/05/24 11:10 Temperature Source Temporal Artery Scan 05/05/24 11:10 Pulse Rate 93 05/05/24 11:10 Pulse Rhythm Regular 05/05/24 11:10 Respiratory Rate 93 H 05/05/24 11:10 Blood Pressure 163/64 H 05/05/24 11:10 Blood Pressure Mean 97 05/05/24 11:10 Blood Pressure Position Sitting 05/05/24 11:10 Pulse Oximetry 98 05/05/24 11:10 Oxygen Delivery Method Room Air 05/05/24 11:10 Vital Signs Temperature 97.3 F L 05/05/24 11:10 Pulse Rate 93 05/05/24 11:10 Respiratory Rate 93 H 05/05/24 11:10 Blood Pressure 163/64 H 05/05/24 11:10 Pulse Oximetry 98 05/05/24 11:10 Oxygen Delivery Method Room Air 05/05/24 11:10 Temperature 97.3 F L 05/05/24 11:10 Pulse Rate 86 05/05/24 13:45 Respiratory Rate 14 05/05/24 13:45 Blood Pressure 127/90 H 05/05/24 13:45 Pulse Oximetry 97 05/05/24 13:45 Oxygen Delivery Method Room Air 05/05/24 13:45 Medical Decision Making MDM Narrative Medical decision making narrative: 1. Abdominal pain -CT of the abdomen was reassuring without any acute findings such as appendicitis, colitis, diverticulitis. White count was within normal limits but CRP elevated at 2.8. Lactate was normal. The only abnormality was some mild thickening of the bladder wall and the urine was reassuring but we have sent this for culture to ensure no underlying infection. I am wondering if the abdominal pain is actually related to back pain as well. 2. Right leg pain-patient noted to have some weak flexion at the right hip. All other examination was normal. A recon of the CT lumbar spine L5-S1 noted to have probable central disc extrusion with cranial subligamentous migration, resultant narrowing of the right lateral recess, severe right neural foraminal narrowing, and moderate left neural foraminal narrowing. Patient is on warfarin for AFib. He tries to stay away from ibuprofen the other NSAIDs but clearly I think an anti-inflammatory we may help him. Will use prednisone 20 mg p.o. b.i.d. for 3 days. If his pain is not better he will need to follow-up with his primary MD likely for MRI and then follow-up with orthopedics/spine surgeon for more evaluation. Perhaps they will be able to do an injection which has worked for him in the past on his lumbar spine. 3. Chronic anticoagulation-INR 2.1 4. Disposition-home at this time. Return for worsening symptoms. Medical Records Medical records reviewed: Yes I reviewed the patient's medical records Lab Data Lab results reviewed: Yes I reviewed the patient's lab results Labs: Lab Results 05/05/24 Range/Units 11:55 WBC 9.58 (4.50-11.00) K/uL RBC 3.97 L (4.30-5.90) m/uL Hgb 11.0 L (13.5-17.5) gm/dL Hct 34.8 L (37.0-53.0) % MCV 88 (80-100) fL MCH 28 (26-34) pg MCHC 32 (32-36) gm/dL RDW Coeff of Chris 12.5 (11.5-15.5) % Plt Count 280 (140-440) K/uL Neut % (Auto) 71.4 (42.0-72.0) % Lymph % (Auto) 19.3 L (20-44) % [place] % (Auto) 6.9 (0.0-11.0) % Eos % (Auto) 1.6 (0.0-7.0) % Baso % (Auto) 0.6 (0.0-3.0) % Neut # (Auto) 6.84 (1.7-7.0) K/uL Lymph # (Auto) 1.80 (0.90-2.90) K/uL [place] # (Auto) 0.70 (0.00-0.90) K/UL Eos # (Auto) 0.15 (0.00-0.50) K/uL Baso # (Auto) 0.06 (0.00-0.30) K/uL Abs Immat Gran (auto) 0.02 (0.00-0.30) K/uL Imm/Tot Granulo (auto) 0.2 % INR 2.10 H (0.91-1.10) Sodium 134 L (135-149) mmol/L Potassium 4.5 (3.6-5.1) mmol/L Chloride 97 (96-114) mmol/L Carbon Dioxide 29 (20-32) mmol/L Anion Gap 8 (7-15) mEq/L BUN 18 (7-30) mg/dL Creatinine 1.3 (0.5-1.5) mg/dL Estimated Creat Clear 53.90 Estimated GFR 58 ml/min Glucose 170 H (60-115) mg/dL Lactate 1.7 (0.5-1.9) mmol/L Calcium 9.7 (8.4-10.6) mg/dL Total Bilirubin 0.2 (0.1-1.5) mg/dL AST 26 (12-35) U/L ALT 22 (4-50) U/L Alkaline Phosphatase 53 (40-150) U/L C-Reactive Protein 2.8 H (0.5-1.0) mg/dL Total Protein 7.4 (6.0-8.3) g/dL Albumin 4.4 (3.3-5.0) g/dL Urine Color Yellow (Yellow) Urine Appearance Clear (Clear) Urine pH 6.0 (5.0-8.5) Ur Specific Hyndman 1.015 (1.000-1.030) Urine Protein Negative (Negative) Urine Glucose (UA) Negative (Negative) Urine Ketones Negative (Negative) Urine Blood Negative (Negative) Urine Nitrite Negative (Negative) Urine Bilirubin Negative (Negative) Urine Urobilinogen 0.2 (0.2-1.0) Ur Leukocyte Esterase Negative (Negative) Urine RBC 0-2 (0-2) Urine WBC 0-2 (0-5) Ur Squamous Epith Cells None (None-Few) Urine Bacteria None (None) Imaging Data CT scan - abdomen: Attestation: I have reviewed the pertinent imaging results. My impression: I do not note any acute appendicitis Radiologist's impression: Lower chest: Unremarkable. Liver: Calcified granuloma in the liver. Probable hepatic steatosis. No suspicious hepatic lesions identified. Prominent liver size. Gallbladder and bile ducts: Unremarkable. No stones or inflammation. No biliary dilatation. Pancreas: Unremarkable. No mass or inflammation. Spleen: Unremarkable. Normal in size. No masses. Adrenal glands: Unremarkable. No nodules. Kidneys: Unremarkable. No suspicious masses, stones, or hydronephrosis. GI tract: Unremarkable. Normal in caliber. No sign of mass or inflammation. Normal appendix. Vasculature: Abdominal aorta is normal in caliber. Mesenteric arteries are patent. Moderate scattered calcific atherosclerosis of the aorta and iliac vessels. Lymph nodes: No lymphadenopathy. Peritoneum/Abdominal Wall: Unremarkable. No sign of mass or infiltration. No free air or significant free fluid. Pelvis: Possible minimal bladder wall thickening. Prostate is unremarkable. Bones: Fixation hardware in the lumbar spine. Diffuse demineralization of the visualized bones. Mild wedge compression deformity of the lumbar vertebral bodies. IMPRESSION: Possible minimal bladder wall thickening. Correlate with UA for cystitis. Otherwise no acute intra-abdominal process identified. Lumbar spine CT: Attestation: I have reviewed the pertinent imaging results. Radiologist's impression: No acute fracture or traumatic subluxation. No lytic or blastic lesion. Grade 1 anterolisthesis at L4-L5 and L5-S1. Operative changes of posterior instrumented fusion from L3-S1 with decompressive laminectomy. There is lucency about the sacral fusion screws (series 3, image 26). Multilevel disc desiccation and height loss is noted with associated vacuum disc phenomenon. Intra-abdominal findings are reported on concurrently performed CT abdomen/pelvis. T12-L1 and L1-L2: No significant spinal canal or neural foraminal stenosis. L2-L3: Mild-moderate spinal canal stenosis resulting from symmetric disc bulge and endplate osteophytic ridging. No high-grade neural foraminal narrowing. L3-L4: Posterior decompression. Patent thecal sac. Mild-moderate bilateral neural foraminal narrowing. L4-L5: Posterior decompression. Patent thecal sac. Symmetric disc bulge. Moderate bilateral neural foraminal narrowing. L5-S1: Posterior decompression. Patent thecal sac. Probable extruded disc material posterior to the L5 vertebral body resulting in narrowing of the right lateral recess. Severe right and moderate left neural foraminal narrowing. Impression: 1. No acute fracture or traumatic subluxation. 2. Operative changes of posterior fusion and decompression from L3-S1 with lucency about the sacral fusion screws. 3. At L2-L3, [id number] spinal canal stenosis. 4. At L3-L4, [id number] bilateral neural foraminal narrowing. 5. At L4-L5, moderate bilateral neural foraminal narrowing. 6. At L5-S1, probable central disc extrusion with cranial subligamentous migration, resultant narrowing of the right lateral recess, severe right neural foraminal narrowing, and moderate left neural foraminal narrowing. Discharge Plan Discharge Clinical Impression: Back pain with right-sided radiculopathy Abdominal pain Qualifiers: Abdominal location: lower abdomen, unspecified Qualified Code(s): R10.30 - Lower abdominal pain, unspecified Additional Instructions: The CT scan of the lower abdomen did not show any acute findings and there is no evidence of appendicitis. There was thickening of the bladder wall which can indicate an infection but your urine was reassuring. We will be sending that off for culture and you will be called if it is positive because at that point you will need antibiotic. This CT of the lumbar spine does show some disc bulging on the right side. This may be causing the symptoms that you have noticed in your leg. We are going to try some steroids as anti-inflammatories in the hopes that this helps the pain. Prednisone 20 mg twice a day for 3 days is ordered. In regards to your oxycodone, according to records this is combined with Tylenol and when these medications are together they are called Percocet. You may use 1-2 tablets every 8 hours as needed for discomfort. Do not use alcohol, drive or take any other sedating medications if using oxycodone and Tylenol together. Follow-up with your primary MD for recheck. I suggest an MRI if you are not improved after this steroids. Return to the emergency room for worsening symptoms and as needed. Prescriptions: No Action gabapentin 800 mg tablet 800 mg PO TID Qty: 270 3RF duloxetine 30 mg capsule,delayed release(DR/EC) 30 mg PO QDAY Qty: 90 3RF glipizide 5 mg tablet 5 mg PO BID Qty: 180 3RF hydrochlorothiazide 25 mg tablet 25 mg PO QDAY Qty: 90 3RF lisinopril 40 mg tablet 40 mg PO QDAY Qty: 90 3RF metformin 1,000 mg tablet 1,000 mg PO BID Qty: 180 3RF rosuvastatin 5 mg tablet 5 mg PO .qod Qty: 45 3RF warfarin 10 mg tablet 10 mg PO DIRECTED Qty: 90 3RF Protocol: Dose Management Condition: Sunday Dose/Route: 13 mg Instruction: 1 x 3 mg tablet, 1 x 10 mg tablet Condition: Sunday Dose/Route: 13 mg Instruction: 1 x 3 mg tablet, 1 x 10 mg tablet Condition: Sunday Dose/Route: 13 mg Instruction: 1 x 3 mg tablet, 1 x 10 mg tablet Condition: Sunday Dose/Route: 13 mg Instruction: 1 x 3 mg tablet, 1 x 10 mg tablet Condition: Dose/Route: 13 mg Instruction: 1 x 3 mg tablet, 1 x 10 mg tablet Condition: Sunday Dose/Route: 13 mg Instruction: 1 x 3 mg tablet, 1 x 10 mg tablet Condition: Sunday Dose/Route: 13 mg Instruction: 1 x 3 mg tablet, 1 x 10 mg tablet Protocol Text: Adjustment Start Date: Sunday04/29/24 INR Value: 3.1 INR Date: 04/29/24 Recheck Date: 05/06/24 Rx Instructions: Take 15mg on Sunday and 13mg all other days. warfarin 3 mg tablet 3 mg PO DIRECTED Qty: 90 1RF Protocol: Dose Management Condition: Sunday Dose/Route: 13 mg Instruction: 1 x 3 mg tablet, 1 x 10 mg tablet Condition: Sunday Dose/Route: 13 mg Instruction: 1 x 3 mg tablet, 1 x 10 mg tablet Condition: Sunday Dose/Route: 13 mg Instruction: 1 x 3 mg tablet, 1 x 10 mg tablet Condition: Sunday Dose/Route: 13 mg Instruction: 1 x 3 mg tablet, 1 x 10 mg tablet Condition: Dose/Route: 13 mg Instruction: 1 x 3 mg tablet, 1 x 10 mg tablet Condition: Sunday Dose/Route: 13 mg Instruction: 1 x 3 mg tablet, 1 x 10 mg tablet Condition: Sunday Dose/Route: 13 mg Instruction: 1 x 3 mg tablet, 1 x 10 mg tablet Protocol Text: Adjustment Start Date: Sunday04/29/24 INR Value: 3.1 INR Date: 04/29/24 Recheck Date: 05/06/24 Rx Instructions: Take 15mg on Sunday and 13mg all other days. warfarin 5 mg tablet 5 mg PO ONCE Qty: 30 3RF Protocol: Dose Management Condition: Sunday Dose/Route: 13 mg Instruction: 1 x 3 mg tablet, 1 x 10 mg tablet Condition: Sunday Dose/Route: 13 mg Instruction: 1 x 3 mg tablet, 1 x 10 mg tablet Condition: Sunday Dose/Route: 13 mg Instruction: 1 x 3 mg tablet, 1 x 10 mg tablet Condition: Sunday Dose/Route: 13 mg Instruction: 1 x 3 mg tablet, 1 x 10 mg tablet Condition: Dose/Route: 13 mg Instruction: 1 x 3 mg tablet, 1 x 10 mg tablet Condition: Sunday Dose/Route: 13 mg Instruction: 1 x 3 mg tablet, 1 x 10 mg tablet Condition: Sunday Dose/Route: 13 mg Instruction: 1 x 3 mg tablet, 1 x 10 mg tablet Protocol Text: Adjustment Start Date: Sunday04/29/24 INR Value: 3.1 INR Date: 04/29/24 Recheck Date: 05/06/24 Rx Instructions: 15 mg on Sunday, and 13 mg the other days tizanidine 2 mg tablet 2 mg PO TID PRN (Reason: muscle spasticity) Qty: 90 3RF ipratropium bromide 21 mcg (0.03 %) spray,non-aerosol 2 spray intranasal BID-TID PRN (Reason: allergy symptoms) Qty: 30 5RF Rx Instructions: administer into each nostril omeprazole 20 mg capsule,delayed release(DR/EC) 20 mg PO QDAY Qty: 90 1RF peg 3350-electrolytes [Golytely] 236-22.74-6.74 -5.86 gram recon soln 240 ml PO Q10M Qty: 4000 0RF Rx Instructions: until fecal effluent is clear oxycodone-acetaminophen [Percocet] 5-325 mg tablet 1 - 2 tab PO Q8H PRN (Reason: pain) Qty: 45 0RF Prostate Health 160-100-100 mg-unit-mcg tablet PO Follow Up/Referrals: Cameron Aldridge MD [Primary Care Provider] - Stand Alone Forms: MyHealth Info Instructions
[2024-05-05 11:10] VITALS: BP 163/64; PULSE 93; RESP 93; TEMP 36.3; O2SAT 98; BMI 37.2
[2024-05-05 12:04] LABS: Lactate* 1.7 mmol/L (0.5-1.9)
[2024-05-05 12:08] LABS: Basophils Absolute Auto 0.06 K/uL (0.00-0.30); Basophils Percent Auto 0.6 % (0.0-3.0); Eosinophils Absolute Auto 0.15 K/uL (0.00-0.50); Eosinophils Percent Auto 1.6 % (0.0-7.0); Hematocrit 34.8 % (37.0-53.0); Immature Granulocytes Abs Auto 0.02 K/uL (0.00-0.30); Immature Granulocytes Pct Auto 0.2 %; Lymphocytes Percent Auto 19.3 % (20-44); Mean Corpuscular HGB Conc 32 gm/dL (32-36); Mean Corpuscular Hemoglobin 28 pg (26-34); Mean Corpuscular Volume 88 fL (80-100); Monocytes Percent Auto 6.9 % (0.0-11.0); Neutrophils Absolute Auto 6.84 K/uL (1.7-7.0); Neutrophils Percent Auto 71.4 % (42.0-72.0); Platelet Count* 280 K/uL (140-440); RDW Coefficient of Variation % 12.5 % (11.5-15.5); Red Blood Count 3.97 m/uL (4.30-5.90); White Blood Count* 9.58 K/uL (4.50-11.00)
--- NOTE | 2024-05-05 12:10 | CRLHL7_ITS ---
For Patients: As a result of the Century Cures Act, medical imaging exams and procedure reports are released immediately into your electronic medical record. You may view this report before your referring provider. If you have questions, please contact your health care provider. INDICATION: Lower abdominal pain. TECHNIQUE: CT abdomen and pelvis acquired with 141 cc Isovue 370 IV contrast. COMPARISON: None. FINDINGS: Lower chest: Unremarkable. Liver: Calcified granuloma in the liver. Probable hepatic steatosis. No suspicious hepatic lesions identified. Prominent liver size. Gallbladder and bile ducts: Unremarkable. No stones or inflammation. No biliary dilatation. Pancreas: Unremarkable. No mass or inflammation. Spleen: Unremarkable. Normal in size. No masses. Adrenal glands: Unremarkable. No nodules. Kidneys: Unremarkable. No suspicious masses, stones, or hydronephrosis. GI tract: Unremarkable. Normal in caliber. No sign of mass or inflammation. Normal appendix. Vasculature: Abdominal aorta is normal in caliber. Mesenteric arteries are patent. Moderate scattered calcific atherosclerosis of the aorta and iliac vessels. Lymph nodes: No lymphadenopathy. Peritoneum/Abdominal Wall: Unremarkable. No sign of mass or infiltration. No free air or significant free fluid. Pelvis: Possible minimal bladder wall thickening. Prostate is unremarkable. Bones: Fixation hardware in the lumbar spine. Diffuse demineralization of the visualized bones. Mild wedge compression deformity of the lumbar vertebral bodies. IMPRESSION: Possible minimal bladder wall thickening. Correlate with UA for cystitis. Otherwise no acute intra-abdominal process identified. Please note that all CT scans at this facility use dose modulation, iterative reconstruction, and/or weight-based dosing when appropriate to reduce radiation dose to as low as reasonably achievable. Dictated by Kenan Andrade MD @ 05/05/2024 2:10:03 PM (Electronically Signed)
--- OUTSIDE RECORDS SUMMARY | 2024-05-05 12:10 | XMS_ITS | Referral Summary ---
Author Organization [place] Address [facility] [place] [address] Care Team Providers Care Office Services Associate Name Role Phone Cameron Aldridge MD Primary Care Provider [phone] Jaime Turner MD Unavailable [phone] Encounters Date Type Department Care Team Description 02/27/2024 Travel 02/27/2024 4:00 PM CDT Office Visit [facility] [place] [address] [place] [phone] Jaime Turner MD Status post peripheral artery angioplasty (Primary Dx); Peripheral vascular disease with claudication (H); Type 2 diabetes mellitus with foot ulcer, unspecified whether [facility] insulin use (H); On Coumadin for atrial fibrillation (H); Class 2 severe obesity due to excess calories with serious comorbidity and body mass index (BMI) of 36.0 to 36.9 in adult (H) 02/27/2024 2:54 PM CDT - 02/27/2024 11:59 PM CDT Hospital Encounter [facility] [address] [place] [address] Jaime Turner MD Status post peripheral artery angioplasty Discharge Disposition: Home or Self Care from Last 3 Months Allergies No known active allergies Medications METFORMIN HCL ER PO Take 1,000 mg by mouth 2 times daily Active HYDROcodone-acetam inophen (VICODIN) 5-500 MG per tablet Take 1-2 tablets by mouth every 6 hours as needed. Active lisinopril (PRINIVIL,ZESTRIL) 40 MG tablet Take 40 mg by mouth daily. Active glipiZIDE (GLUCOTROL) 5 MG tablet Take 1 tablet by mouth 2 times daily 3 Active rosuvastatin (CRESTOR) 5 MG tablet Take 5 mg by mouth every other day At bedtime Active gabapentin (NEURONTIN) 800 MG tablet Take 1 tablet by mouth 3 times daily 3 Active hydrochlorothiazid e (HYDRODIURIL) 25 MG tablet Take 1 tablet by mouth daily 3 Active DULoxetine (CYMBALTA) 30 MG capsule Take 30 mg by mouth daily 3 Active tiZANidine (ZANAFLEX) 2 MG tablet Take 2 mg by mouth as needed 2 Active aspirin 81 MG EC tablet Take 81 mg by mouth daily Active warfarin ANTICOAGULANT (COUMADIN) 5 MG tablet Take 13 mg by mouth six times a week Mon, , , Fri, Sat & Sun Active warfarin ANTICOAGULANT (COUMADIN) 5 MG tablet Take 15 mg by mouth once a week Wed Active acetaminophen (TYLENOL) 500 MG tabletIndications: PAD (peripheral artery disease) (H) Take 1-2 tablets (500-1,000 mg) by mouth every 6 hours as needed for mild pain 3 Active Active Problems Problem Noted Date Diagnosed Date Preop testing 02/27/2023 PAD (peripheral artery disease) 02/27/2023 Atherosclerosis of resighini ar paulina of right lower extremity with [...] Sex Assigned at Male 07/15/2023 8:16 PM SYSTEMS TESTER Legal Sex Male 3:08 AM SYSTEMS TESTER Gender Identity Male 07/15/2023 8:16 PM SYSTEMS TESTER Sexual Orientation Straight 07/15/2023 8: 16 PM SYSTEMS TESTER Last Filed Vital Signs Vital Sign Reading Time Taken Comments Blood Pressure 98/57 02/27/2024 4:02 PM CDT Pulse 95 02/27/2024 4:02 PM CDT Temperature 36.4 ??C (97.6 ??F) 07/17/2023 10:[address] Respiratory Rate 16 07/17/2023 5:15 PM SYSTEMS TESTER Oxygen Saturation 98% 07/17/2023 5:15 PM SYSTEMS TESTER Inhaled Oxygen Concentration - - Weight 120 kg (264 lb 8 oz) 07/17/2023 10:20 AM SYSTEMS TESTER Height 180.3 cm (5' 11) 07/17/2023 10:20 AM SYSTEMS TESTER Body Mass Index 36.89 07/17/2023 10:20 AM SYSTEMS TESTER Plan of Treatment Not on file Procedures Procedure Name Priority Date/Time Associated Diagnosis Comments US JOHN DOPPLER WITH EXERCISE BILATERAL Routine 02/27/2024 3:33 PM CDT Status post peripheral artery angioplasty LIPID PROFILE STAT 07/17/2023 10:44 AM SYSTEMS TESTER BASIC METABOLIC PANEL STAT 07/17/2023 10:44 AM SYSTEMS TESTER HEMOGLOBIN A1C STAT 07/17/2023 10:44 AM SYSTEMS TESTER from Last 3 Months or Most Recently [...] 0.49 Severe <0.2 Critical ISABELLE LOCKWOOD MD Result [facility] Jaime Turner MD [facility] ORDERABLES Final Res ult * (ABNORMAL) Lipid Panel (07/17/2023 10:44 AM SYSTEMS TESTER) Cholesterol 107 <200 mg/dL 07/17/2023 5:00 PM SYSTEMS TESTER [facility] Triglycerides 100 <150 mg/dL 07/17/2023 5:00 PM SYSTEMS TESTER [facility] Direct Measure HDL 34(L) >=40 mg/dL 2023 5:00 PM SYSTEMS TESTER [facility] LDL Cholesterol Calculated 53 <=100 mg/dL 07/17/2023 5:00 PM SYSTEMS TESTER [facility] Non HDL Cholesterol 73 <130 mg/dL 07/17/2023 5:00 PM SYSTEMS TESTER [facility] Patient Fasting > 8hrs? Yes 07/17/2023 5:00 PM SYSTEMS TESTER [facility] Blood BLOOD SPECIMEN / Unknown Venipuncture / Unknown 07/17/2023 10:44 AM SYSTEMS TESTER 07/17/2023 10:50 AM SYSTEMS TESTER Narrative [facility] - 07/17/2023 5:00 PM SYSTEMS TESTER Cholesterol Desirable: ??<200 mg/dL Triglycerides Normal: ??Less [...] mg/dL Jaime Turner MD LAB - BLOOD ORDERABLES Raina l Result [facility] [address] [facility], [address] [place] [address], [place] [phone] * (ABNORMAL) Hemoglobin A1c (07/17/2023 10:44 AM SYSTEMS TESTER) Hemoglobin A1C 7.1(H) <5.7 % 07/17/2023 11:17 AM [facility] Comment: Normal <5.7% Prediabetes 5.7-6.4% ?? Diabetes 6.5% or higher Note: Adopted from ADA consensus guidelines. Blood BLOOD SPECIMEN / Unknown Venipuncture / Unknown 07/17/2023 10:44 AM SYSTEMS TESTER 07/17/2023 10:50 AM [facility] us Jaime Turner MD LAB - BLOOD ORDERABLES Raina l Result LABORATORY [facility] [address], [address] [place] [address], [place] [phone] * (ABNORMAL) Basic metabolic panel (07/17/2023 10:44 AM SYSTEMS TESTER) Sodium 137 135 - 145 mmol/L 07/17/2023 11:13 AM [facility] Comment:Reference intervals for this test were updated on 03/20/2023 to more accurately reflect our healthy population. There may be differences in the flagging of prior results with similar values performed with this method. Interpretation of those prior results can be made in the context of the updated reference intervals. Potassium 4.4 3.4 - 5.3 mmol/L 07/17/2023 11:13 AM [facility] Chloride 102 98 - 107 mmol/L 07/17/2023 11:13 AM [facility] Carbon Dioxide (CO2) 26 22 - 29 mmol/L 07/17/2023 11:13 AM [facility] Anion Gap 9 7 - 15 mmol/L 07/17/2023 11:13 AM [facility] Urea Nitrogen 17.2 8.0 - 23.0 mg/dL 07/17/2023 11:13 AM [facility] Creatinine 0.97 0.67 - 1.17 mg/dL 07/17/2023 11:13 AM [facility] GFR Estimate 83 >60 mL/min/1. 73m2 07/17/2023 11:13 AM [facility] Calcium 9.7 8.8 - 10.2 mg/dL 07/17/2023 11:13 AM [facility] Glucose 128(H) 70 - 99 mg/dL 07/17/2023 11:13 AM [facility] Blood BLOOD SPECIMEN / Unknown Venipuncture / Unknown 07/17/2023 10:44 AM SYSTEMS TESTER 07/17/2023 10:50 AM [facility] Jaime Turner MD LAB - BLOOD ORDERABLES Raina richard Result LABORATORY [facility] [address], [address] [place] [address], [facility] [phone] from Last 3 Months or Most Recently Relevant to Health Maintenance [place] Advance Directives For more information, please contact: [phone] * Full Code (Latest Code Status on File) Date Activated Date Inactivated Comments 02/27/2023 5:08 PM 02/28/2023 8:58 AM All basic and advanced life-sustaining interventions are performed as appropriate Question Answer Comments Code status determined by: Unable to dis cuss and no AD/POLST on file; continue PREVIOUSLY ORDERED code status Care Teams Office Services Associate Relationship Specialty Start Date End Date Cameron Aldridge MD [facility] [address] [place] [address] PCP - General Family Medicine 02/02/23 Jaime Turner MD [address] [place] [address] Assigned Heart and Vascular Provider 02/10/23
--- OUTSIDE RECORDS SUMMARY | 2024-05-05 12:10 | XMS_ITS | Encounter Summary ---
Author Organization [facility] Address [address] [place] [address]. [place] [address] Care Team Providers Care Licensed Plumber Name Role Phone Cameron Aldridge MD Primary Care Provider [phone] Jaime Turner MD Unavailable [phone] Encounter Details Date Type Department Care Team [...] Sex Assigned at Male 07/15/2023 8:16 PM LICENSED MASSAGE THERAPIST Legal Sex Male 3:08 AM LICENSED MASSAGE THERAPIST Gender Identity Male 07/15/2023 8:16 PM LICENSED MASSAGE THERAPIST Sexual Orientation Straight 07/15/2023 8: 16 PM LICENSED MASSAGE THERAPIST documented as of this encounter Plan of Treatment Not on file documented as of this encounter Visit Diagnoses Not on filedocumented in this encounter Care Teams Licensed Plumber Relationship Specialty Start Date End Date Cameron Aldridge MD [facility] [address] [address] PCP - General Family Medicine 02/02/23 Jaime Turner MD [address] [address] [place] [address] Assigned Heart and Vascular Provider 02/10/23 documented as of this encounter
--- OUTSIDE RECORDS SUMMARY | 2024-05-05 12:10 | XMS_ITS | Encounter Summary ---
Author Organization [facility] Address [address] [place] [address]. [place] [address] Care Team Providers Care Concrete Rod Buster Name Role Phone Paramjit Ballard MD Primary Care Provider [phone] Cameron Aldridge MD Primary Care Provider [phone] Jaime Turner MD Unavailable [phone] Encounter Details Date Type Department Care Team (Late st Contact Info) Description 09/16/2007 Office Visit-[facility] [address] [place] [address] Gil Hernandez MD Social History Tobacco Use Types Packs/Day Years Used Date Smoking Tobacco: Never Assessed Sex and Gender Information Value Date Recorded Sex Assigned at Male 07/15/2023 8:16 PM INCOMING INSPECTOR Legal Sex Male 3:08 AM INCOMING INSPECTOR Gender Identity Male 07/15/2023 8:16 PM INCOMING INSPECTOR Sexual Orientation Straight 07/15/2023 8: 16 PM INCOMING INSPECTOR documented as of this encounter Progress Notes * Gil Hernandez MD - 09/18/2007 11:33 AM CDT Progress Note Created by: Gil Hernandez M.D. DATE: 09/16/2007 ADILSON PERSON DATE OF : 1950 AGE: [age] years old Referring Physician: PARAMJIT BALLARD Referring Clinic: [facility] CURRENT DIAGNOSES 1. - Atrial Fibrillation, [...] of seeing your patient, Adilson Person, at [facility] [place] [facility] in Cardiology consultation for evaluation of atrial fibrillation. This patient is a pleasant 57-year-old male who believes he has been in atrial fibrillation approximately two years. I have a stress echocardiogram from 2001 that I performed with the patient demonstrating a normal study with significant systolic and diastolic hypertension at rest and with exercise. He was a smoker at that time as well and thepatient returned to your office for evaluation. More recently a follow up stress echo was performedon July 16, 2006, in preparation for possible [...] palpitations, syncope, or presyncope. His other cardiac riskfactors include a family history of heart disease with his father dying at age 67 of a myocardial infarction. The patient does not have diabetes. He quit smoking approximately five years ago after a 40 year history of two to two and one half packs per day. No right ventricular systolic pressure wasobtained at the time of his stress echo one year ago. 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 The patient states that more recently he was able to diet and exercise and lose 30 pounds. Atthat time his said he stopped snoring completely. Unfortunately, during the winter months he has not exercised at all and he has gained all of this weight back. 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 [employer] at [employer]; REVIEW OF SYSTEMS GENERAL decreased exercise tolerance [...] mg, 1 p.o. q.d., DIRECTED ASSESSMENT: 1. 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
--- OUTSIDE RECORDS SUMMARY | 2024-05-05 12:10 | XMS_ITS | Encounter Summary ---
Author Organization [facility] Address [address] [place] [address] Care Team Providers Care Oxygen Therapy Technician Name Role Phone Cameron Aldridge MD Primary Care Provider [phone] Jaime Turner MD Unavailable [phone] Reason for Referral * Diagnostic Imaging Ultrasound (Routine) - Pending Review Specialty Diagnoses / Procedures Referred By Charan veras Referred To Contact Radiology. Diagnoses Status post peripheral artery angioplasty Procedures US JOHN Doppler with Exercise Bilateral Jaime Turner MD [address] [place] [address] Phone: tel: fax: Referral ID Status Reason Start Date Expiration Date V isits Requested Visits Authorized [id number] Pending Review 08/21/2023 08/20/2024 1 1 Reason for Visit * Diagnostic Imaging Ultrasound (Routine) - Pending Review Specialty Diagnoses / Procedures Referred By Charan veras Referred To Contact Radiology. Diagnoses Status post peripheral artery angioplasty Procedures US JOHN Doppler with Exercise Bilateral Jaime Turner MD [address] [place] [address] Phone: tel: fax: Referral ID Status Reason Start Date Expiration Date V isits Requested Visits Authorized [id number] Pending Review 08/21/2023 08/20/2024 1 1 Encounter Details Date Type Department Care Team (Latest Contact Info) Description 02/27/2024 2:54 PM CDT - 02/27/2024 11:59 PM CDT Hospital Encounter [facility] [address] [place] [address] Jaime Turner MD [address] [place] [address] Status post peripheral artery angioplasty Discharge Disposition: [...] Sex Assigned at Male 07/15/2023 8:16 PM LEARNING PROGRAM MANAGER Legal Sex Male 3:08 AM LEARNING PROGRAM MANAGER Gender Identity Male 07/15/2023 8:16 PM LEARNING PROGRAM MANAGER Sexual Orientation Straight 07/15/2023 8: 16 PM LEARNING PROGRAM MANAGER documented as of this encounter Medications at Time of Discharge acetaminophen (TYLENOL) 500 MG tabletIndications:P AD (peripheral artery disease) (H) Take 1-2 tablets [...] Take 1 tablet by mouth daily 11/19/2022 HYDROcodone-acetami nophen (VICODIN) 5-500 MG per tablet Take 1-2 [...] by mouth six times a week Mon, Tu, Thurs, Fri, Sat & Sun warfarin ANTICOAGULANT [...] Critical ISABELLE LOCKWOOD MD Jaime Turner MD [facility] ORDERABLES Final Res ult documented in this encounter Visit Diagnoses Diagnosis Status post peripheral artery angioplasty Other postprocedural status documented in this encounter Care Teams Oxygen Therapy Technician Relationship Specialty Start Date End Date Cameron Aldridge MD [facility] [address] [address] PCP - General Family Medicine 02/02/23 Jaime Turner MD [address] [place] [address] Assigned Heart and Vascular Provider 02/10/23 documented as of this encounter
--- OUTSIDE RECORDS SUMMARY | 2024-05-05 12:10 | XMS_ITS ---
Author Organization [facility] Address [address] [place] [address] Care Team Providers Care Auto Fleet Manager Name Role Phone Unavailable Unavailable Unavailable Surgery Details Not on file Complications Check Surgery Details section. Procedure Estimated Blood Loss Check Surgery Details section. Procedure Findings Check Surgery Details section. Procedure Specimens Taken Check Surgery Details section.
--- OUTSIDE RECORDS SUMMARY | 2024-05-05 12:10 | XMS_ITS | Encounter Summary ---
Author Organization [place] Address [address] [facility] [place] [address] Care Team Providers Care Motor Operator Name Role Phone Cameron Aldridge MD Primary Care Provider [phone] Jaime Turner MD Unavailable [phone] Reason for Referral * Diagnostic Imaging Ultrasound (Routine) - Pending Review Specialty Diagnoses / Procedures Referred By Contac t Referred To Contact Radiology. Diagnoses Peripheral vascular disease with claudication (H) Status post peripheral artery angioplasty Procedures US JOHN Doppler with Exercise Bilateral Jaime Turner MD [address] [place] [address] Phone: tel: fax: Referral ID Status Reason Start Date Expiration Date V isits Requested Visits Authorized [id number] Pending Review 03/17/2024 03/17/2025 1 1 Reason for Visit * Reason Comments RECHECK JOHN (VHC3:00; TJG4:0 0) 6 month follow up to 08/01/[address] Turner.Imaging/labs to be scheduled: JOHN. Encounter Details Date Type Department Care Team (Late st Contact Info) Description 02/27/2024 4:00 PM CDT Office Visit [facility] [place] [address] [place] [phone] Jaime Turner MD [address] [place] [address] Status post peripheral artery angioplasty (Primary Dx); Peripheral vascular disease with claudication (H); Type 2 diabetes mellitus with foot ulcer, unspecified whether ad terminal makeup operator insulin use (H); On Coumadin for [...] Sex Assigned at Male 07/15/2023 8:16 PM RESERVOIR ENGINEERING MANAGER Legal Sex Male 3:08 AM RESERVOIR ENGINEERING MANAGER Gender Identity Male 07/15/2023 8:16 PM RESERVOIR ENGINEERING MANAGER Sexual Orientation Straight 07/15/2023 8: 16 PM RESERVOIR ENGINEERING MANAGER documented as of this encounter Last Filed [...] Diane Sanchez - 02/27/2024 4:[address] [facility] Patient is here [...] gentleman with metabolic syndrome who lives in [place]. He is status post multiple lumbar and [...] disease. He started hyperbaric oxygen therapy in [place]. Ultimately his right great toe wound healed. [...] effort at supervised ambulation. He lives in [place] and once again politely declines a supervised [...] diabetes mellitus with foot ulcer, unspecified whether correction insulin use (H) On Coumadin for atrial fibrillation (H) Class 2 severe obesity due to excess calories with serious comorbidity and body mass index (BMI) of 36.0 to 36.9 in adult (H) documented in this encounter Care Teams Motor Operator Relationship Specialty Start Date End Date Cameron Aldridge MD [facility] [address] [place] [address] PCP - General Family Medicine 02/02/23 Jaime Turner MD [address] [place] [address] [place] [address] Assigned Heart and Vascular Provider 02/10/23 documented as of this encounter
--- OUTSIDE RECORDS SUMMARY | 2024-05-05 12:10 | XMS_ITS | Clinical Summary ---
Author Organization [facility] Address [address] [place] [address] Care Team Providers Care Editor Producer Name Role Phone Elsewhere, Pcp Primary Care Provider Unavailabl e Source Comments Patient records contain information from all sites at [facility]. For routine questions regarding patient records, call [phone] during business hours, M-F 8:00 AM - 5:00 PM Central Time. Record requests for emergency care only can be directed to [phone] at any time.[facility] Allergies No known active allergies Medications * This document contains information received from the source organization and may not represent a complete record from that organization. DULoxetine (CYMBALTA) [address] capsule Take 30 mg by mouth daily. 1 Active gabapentin (NEURONTIN) 800 mg tablet Take 800 mg by mouth 3 (three) times a day. 1 Active glipiZIDE (GLUCOTROL) 5 mg tablet Take 5 mg by mouth 2 (two) times a day before breakfast and dinner. 1 Active hydroCHLOROthia zide (HYDRODIURIL) 25 mg tablet Take 25 mg by mouth every morning. 1 Active lisinopriL (PRINIVIL,ZESTR IL) 40 mg tablet Take 40 mg by mouth every morning. 1 Active metFORMIN (GLUCOPHAGE) 1,000 mg tablet Take 1,000 mg by mouth 2 (two) times a day with meals. 1 Active warfarin (COUMADIN) 3 mg tablet Take [...] needed for muscle spasms. 40 tablet 1 06/14/2022 8:25 AM ASPHALT ENGINEER 2 Active Additional Information Patient taking differently: 4 mgoral Every 6 hours PRN, muscle spasms, Reported on 05/28/2023 aspirin 81 mg chewable tablet Chew 1 tablet (81 mg total) daily. Can resume taking your baby aspirin on Sunday, 03/12. 2 Active oxyCODONE-aceta minophen (PERCOCET) 5-325 mg per tablet Take 1 tablet by mouth as needed. 3 Active rosuvastatin (CRESTOR) 5 mg tablet Take 5 mg by mouth every other day. 3 Active Active Problems Problem Noted Date [...] (12/23/2020): Added automatically from request for surgery [id number] Atrial Fibrillation Other Persistent 06/25/2004 Hypertension Essential Primary 06/25/2000 Family History Medical History Relation Name Comments Coronary artery disease Father Saskia Irby none Diabetes Mother Alpa Irby none Relation Name Status Comments Father Saskia Irby Mother Alpa Irby Social History Tobacco Use Types Packs/Day Years [...] week 04/07/2022 How often do you attend [facility] or jew services? 1 to 4 times per year 04/07/2022 Do you belong to any clubs o r organizations such as sabianist groups, unions, fraternal or athletic groups, or [...] care, and heating? Not very hard 05/25/2023 [facility]ational Stress Questionnaire Answer [...] money to buy more. Never true 05/25/20 23 Within the past 12 months, t he [...] your living situation today? I have a [facility] place to live 05/25/2023 Education Answer Date Recorded What is the highest level of school you have completed or the highest degree you have received? 12th grade 03/01/2021 Sex and Gender Information Value Date Recorded Sex Assigned at Male 03/01/2021 4:47 PM CDT Legal Sex Male 8:33 AM CDT Gender Identity Male 12/15/2020 7:43 AM CDT Sexual Orientation Straight 12/15/2020 7: 43 AM CDT Last Filed Vital Signs Vital Sign Reading Time Taken Comments Blood Pressure 120/68 06/14/2022 7:45 AM ASPHALT ENGINEER Pulse 90 06/14/2022 7:45 AM ASPHALT ENGINEER Temperature 35.7 ??C (96.3 ??F) 05/29/2023 10:[address] Respiratory Rate 18 06/14/2022 7:45 AM ASPHALT ENGINEER Oxygen Saturation 95% 06/14/2022 7:45 AM ASPHALT ENGINEER Inhaled Oxygen Concentration - - Weight 123 kg (271 lb 11.5 oz) 05/29/2023 10:26 AM ASPHALT ENGINEER Height 181.7 cm (5' 11.54) 05/29/2023 10:26 AM ASPHALT ENGINEER Body Mass Index 37.33 05/29/2023 10:26 AM ASPHALT ENGINEER Plan of Treatment Health Maintenance Due Date Last Done Comments Abdominal Aortic Aneurysm (AAA) Screen 1950 [address] Colonography 1951 Cologuard 1950 Colonoscopy 1951 Colorectal Cancer Surveillance 1950 Diabetic Office Visit with Foot Exam 1951 Dilated Eye Exam 1951 Hepatitis C Screening 1950 Urine Albumin 1951 Zoster Vaccines (1 of 2) 2001 Hepatitis B Vaccines (1 of 3 - Risk 3-dose series) 2011 Office Visit for Blood Pressure Check / Re-check 06/01/2023 06/01/2022 Depression Screening (Annual PHQ-2) 06/25/2023 Fall Risk Screen (Annual) 06/25/2023 Hemoglobin A1C 01/15/2024 07/17/2023, 09/0 10/2022, 06/01/2022, Additional history exists COVID-19 Vaccine ( season) 2024 12/13/2021, 03/23/2021, 08/13/2020, Additional history exists Influenza Vaccine (#1) 2024 , 03/25/2021, 06/20/2019, Additional history exists Creatinine Level (Kidney Function Test) 07/17/2024 07/17/2023, 02/27/2023, 12/21/2022, Additional history exists Potassium Level 07/17/2024 07/17/2023, 09/0 10/2022, 12/21/2022, Additional history exists Sodium Level 07/17/2024 07/17/2023, 09/0 10/2022, 06/13/2022, Additional history exists DTaP,Tdap,and Td Vaccines (2 - Td or Tdap) 06/07/2026 06/07/2016 Lipid (Cholesterol) Screening 07/17/2028 07/17/2023, 02/27/2023 Pneumococcal vaccine (65+ years) Completed 06/12/2017, 06/07/2016 IPV Vaccines Aged Out No longer eligi ble based on patient's age to complete this topic Medical Devices Implanted Type Area Culinary Intern Device Identifier Shelf Expiration Date Model / Serial / Lot Allogenic, Femoral Head - [id number] - [id number] Implanted:Qty : 1 on 06/12/2022 at [facility] Bone or Tissue Posterior : Spine Lumbar [facility] 05/10/2024 [id number] / [id number] / [id number] Spn Scrw Lg St 6.5x35 - [id number] Implanted:Qty : 2 on 06/12/2022 by Richard Joel M.D. at [facility] Hardware e.g. pins/screws /rods Posterior : Spine Lumbar Medtronic [id number] / / Spn Scrw [facility] 6.5x40 - [id number] Implanted:Qty : 3 on 06/12/2022 by Richard Joel M.D. at [facility] Hardware e.g. pins/screws /rods Posterior : Spine Lumbar Medtronic [id number] / / Spn Scrw Lgc St 6.5x50 - [id number] Implanted:Qty : 3 on 06/12/2022 by Richard Joel M.D. at [facility] Hardware e.g. pins/screws /rods Posterior : Spine Lumbar Medtronic [id number] / / Spn Scrw Lg Thrd 5.5 - [id number] Implanted:Qty : 8 on 06/12/2022 by Richard Joel M.D. at [facility] Hardware e.g. pins/screws /rods Posterior : Spine Lumbar Medtronic [id number] / / Spn Pineda Lgc Cvd 5.5x90 - [id number] Implanted:Qty : 1 on 06/12/2022 by Richard Joel M.D. at [facility] Hardware e.g. pins/screws /rods Posterior : Spine Lumbar Medtronic [id number] / / Spn Pineda c Cvd 5.5x100 - [id number] Implanted:Qty : 1 on 06/12/2022 by Richard oJel M.D. at [facility] Hardware e.g. pins/screws /rods Posterior : Spine Lumbar Medtronic [id number] / / Ocular Lens Ocular Lens Bilateral : Eye Procedures Procedure Name Priority Date/Time Associated Diagnosis Comments BASIC METABOLIC PANEL, S/P Routine 06/13/2022 4:49 AM ASPHALT ENGINEER HEMOGLOBIN A1C, B Routine 06/01/2022 1:4 5 PM ASPHALT ENGINEER Preprocedural Lab Exam from Last 3 Months or Most Recently Relevant to Health Maintenance Results * (ABNORMAL) Basic Metabolic Panel (06/13/2022 4:49 AM ASPHALT ENGINEER) [facility] Potassium, S 4.4 3.6 - 5.2 mmol/L 06/13/2022 5:39 AM ASPHALT ENGINEER DTL Sodium, S 138 135 - 145 mmol/L 06/13/2022 5:39 AM ASPHALT ENGINEER DTL Chloride, S 102 98 - 107 mmol/L 06/13/2022 5:39 AM ASPHALT ENGINEER DTL Bicarbonate, S 26 22 - 29 mmol/L 06/13/2022 5:39 AM ASPHALT ENGINEER DTL Anion Gap 10 7 - 15 06/13/2022 5:39 AM ASPHALT ENGINEER DTL BUN (Blood Urea Nitrogen), S 18 8 - 24 mg/dL 06/13/2022 5:39 AM ASPHALT ENGINEER DTL Creatinine 1.04 0.74 - 1.35 mg/dL 06/13/2022 5:39 AM ASPHALT ENGINEER DTL Estimated GFR (eGFR) 77 >=60 mL/min/BSA 06/13/2022 5:39 AM ASPHALT ENGINEER DTL Comment: Estimated GFR calculated using the 2020 CKD_EPI creatinine equation. Calcium, Total, S 8.8 8.8 - 10.2 mg/dL 06/13/2022 5:39 AM ASPHALT ENGINEER DTL Glucose, S 219(H) 70 - 140 mg/dL 06/13/2022 5:39 AM ASPHALT ENGINEER DTL Blood (Blood, Venous) 06/13/2022 4:49 AM ASPHALT ENGINEER 06/13/2022 5:24 AM ASPHALT ENGINEER us Annalee Ledezma M.D. LAB BLOOD ADD-ON Final Result Performing Organization Address [facility] Co de Phone Number [facility] [address] [place] [address], [facility] [address] [place] [address] * (ABNORMAL) Hemoglobin A1c (06/01/2022 1:45 PM ASPHALT ENGINEER) Hemoglobin A1c, B 6.8(H) 4.0 - 5.6 % 06/01/2022 2:43 PM ASPHALT ENGINEER DTL Comment: Hemoglobin A1c values greater than or equal to 6.5 percent are diagnostic for diabetes mellitus. ??Diagnosis should be confirmed by repeat testing. ??In diabetic patients, HbA1c goals should be discussed with healthcare provider. Blood (Blood, Venous) 06/01/2022 1:45 PM ASPHALT ENGINEER 06/01/2022 2:13 PM ASPHALT ENGINEER us Richard Joel M.D. LAB BLOOD ADD-ON Final Res ult Performing Organization Address [facility] Co de Phone Number [facility] [address] [place] [address], [facility] [address] [place] [address] from Last 3 Months or Most Recently Relevant to Health Maintenance Insurance [facility] MEDIC[facility] Advance Directives For more information, please contact: [phone] * Full Code (Latest Code Status on [...] Due to: Patient not available Care Teams Editor Producer Relationship Specialty Start Date End Date Elsewhere, Pcp PCP - General Family Medicine 03/10/21
--- OUTSIDE RECORDS SUMMARY | 2024-05-05 12:10 | XMS_ITS | Clinical Summary ---
Author Organization [facility] Address [address] [address] Care Team Providers Care Peer Health Promoter Name Role Phone Unavailable Primary Care Provider [...] for each transition of care or referral. [facility] Social History Tobacco Use Types Packs/Day Years [...]
--- OUTSIDE RECORDS SUMMARY | 2024-05-05 12:10 | XMS_ITS | Data Portability ---
Author Organization [facility], [facility] Address [address] [place] [address] Care Team Providers Care Reclamation Kettle Tender Name Role Phone MARICRUZ MCKEON Primary Care Provider Assessment Encounter Date Assessment Date Assessment LastModified by Organization Details LastModified Time 10/27/2022 10/27/2022 Pt here for UA-possible UC. LK [email or web address] Not available 10/27/2022 10:27:32 Plan of Treatment Reminders Order Date Submit Date Provider Last Modified By Organization Details Last Modified Time Details Appointments None recorded. Lab urinalysis, dipstick 2022 023 [email or web address] [facility], [address] [place], [address], 10:26:59 Referral pelvic floor therapy referral 2022 023 [email or web address], [address], [address], 07:53:48 Procedures None recorded. Surgeries None recorded. Imaging None recorded. Medication Orders clotrimazol e-betametha sone 1 %-0.05 % topical cream 2022 023 [facility], [address] [place], [address], 11:53:59 tamsulosin 0.4 mg capsule 2022 023 [email or web address] [facility], [address], [place], [address], 11:49:28 Patient TargetsNo targets recorded. Patient Instructions Encounter Date Encounter Id Patient Instructions Last Modified By Organization Details Last Modified Time 10/27/2022 [id number] RTC prn. DEBBIE [email or web address] Not available 10/2022 10:30:13 Reason for Referral Pelvic Floor Therapy Referra l for Pelvic floor dysfunction Referring Physician: Cesar Pichardo, Urology, Encounter Date: 09/27/2022 Results Created Date Observation Date Name Description Value Unit Range Abnormal Flag Note LastModifiedBy Organization Detail LastModifiedTime 10/28/1910/27/2022 urina lysis , dipst ick Color-Status Dark Yellow Not Available [facility] [address], [place], [address], 10/27/2022 10:25:53 10/28/19 23 10/27/2022 urina lysis , dipst ick Clarity-Stat us Clear Not Available [facility] [address], [place], [address], 10/27/2022 10:25:53 10/28/19 23 10/27/2022 urina lysis , dipst ick Glucose-Stat us Negati ve Not Available [facility] [address], [place], [address], 10/27/2022 10:25:53 10/28/19 23 10/27/2022 urina lysis , dipst ick Bilirubin-St atus Negati ve Not Available [facility] [address], [place], [address], 10/27/2022 10:25:53 10/28/19 23 10/27/2022 urina lysis , dipst ick Ketones-Stat us Negati ve Not Available [facility] [address], [place], [address], 10/27/2022 10:25:53 10/28/19 23 10/27/2022 urina lysis , dipst ick Sp Curtis-Stat us 1.015 Not Available [facility] [address], [place], [address], 10/27/2022 10:25:53 10/28/19 23 10/27/2022 urina lysis , dipst ick pH-Status 5.5 Not Available [facility] [address], [place], [address], 10/27/2022 10:25:53 10/28/19 23 10/27/2022 urina lysis , dipst ick Protein-Stat us 5.0 Not Available [facility] [address], [place], [address], 10/27/2022 10:25:53 10/28/19 23 10/27/2022 urina lysis , dipst ick Urobilinogen -Status 0.2 Not Available [facility] [address], [place], [address], 10/27/2022 10:25:53 10/28/19 23 10/27/2022 urina lysis , dipst ick Nitrates-Sta tus negati ve Not Available [facility] [address], [place], [address], 10/27/2022 10:25:53 10/28/19 23 10/27/2022 urina lysis , dipst ick Blood-Status Negati ve Not Available [facility] [address], [place], [address], 10/27/2022 10:25:53 10/28/19 23 10/27/2022 urina lysis , dipst ick Leuko-Status Negati ve Not Available [facility] [address], [place], [address], 10/27/2022 10:25:53 10/28/19 23 10/27/2022 urina lysis , dipst ick Specimen Type Voided Not Available [facility] [address], [place], [address], 10/27/2022 10:25:53 Result Notes None recorded. Procedures Surgical History Date Name Laterality Status Provider Name and Address Organization Details Recorded Time 05/25/20 22 spinal fusion with graft completed Cesar Pichardo MD [address] [place] [address],[address], [address], [facility] 12/06/2022 11:50:50 01/03/20 Penile Self Injection Trial completed DORINA CLEVELAND [address] [place] [address],[address], [address], [facility] 01/02/2022 10:56:17 09/24/19 19 Diagnostic [...] Updated DateTime 09/27/2022 182.88 cm 34.9 kg/m2 126323.24 g Cesar Pichardo MD [address] [place] [address],[address], [address] 09/27/2022 11:35:39 Date Recorded Body height Body mass index (BMI) Body weight Provider Name and Address Organization Details Last Updated DateTime 12/06/2022 182.88 cm 34.9 kg/m2 107977.24 g Cesar Pichardo MD [address] [place] [address],[address], [address] [place] [address] 12/06/2022 11:46:41 Date Recorded Body height Body mass index (BMI) Body weight Provider Name and Address Organization Details Last Updated DateTime 02/14/2023 182.88 cm 34.9 kg/m2 831290.24 g Ewa Barrett [facility] 02/14/2023 14:42:50 Date Recorded Body height Body mass index (BMI) Body weight Provider Name and Address Organization Details Last Updated DateTime 04/18/2023 182.88 cm 34.9 kg/m2 032428.24 g Ewa Barrett [facility] 04/18/2023 14:11:59 Social History Question [...] o Information not available 01/02/2022 Preferred Language Slovak Information not available 01/02/2022 Recreational Drug Use [...] influenza, unspecified formulation 03/25/2021 completed Not Available [facility] 04/18/2023 14:09:43 SARS-COV-2 (COVID-19) vaccine, UNSPECIFIED 12/13/2021 completed Not Available [facility] 04/18/2023 14:09:43 COVID-19, mRNA, LNP-S, PF, 30 mcg/0.3 mL dose 07/23/2020 completed Malia mendoza [facility] 11/07/2022 16:12:58 COVID-19, mRNA, LNP-S, PF, 30 mcg/0.3 mL dose 08/13/2020 completed Malia mendoza [facility] 11/07/2022 16:12:58 COVID-19, mRNA, LNP-S, PF, 30 mcg/0.3 mL dose 03/23/2021 completed Malia mendoza [facility] 11/07/2022 16:12:58 COVID-19, mRNA, LNP-S, PF, 30 mcg/0.3 mL dose, nick-sucrose 12/13/2021 completed Malia mendoza [facility] 11/07/2022 16:12:58 pneumococcal polysaccharide PPV23 06/07/2016 completed Malia mendoza [facility] 11/07/2022 16:12:58 Tdap 06/07/2016 completed Malia mendoza [facility] 11/07/2022 16:12:58 Pneumococcal conjugate PCV 13 06/12/2017 completed Malia mendoza [facility] 11/07/2022 16:12:58 Influenza, high-dose, trivalent, PF 07/19/2018 completed Malia mendoza, [facility] 11/07/2022 16:12:58 Influenza, high-dose, trivalent, PF 04/24/2017 completed Malia mendoza, [facility] 11/07/2022 16:12:58 Influenza, high-dose, trivalent, PF 06/07/2016 completed Malia mendoza, [facility] 11/07/2022 16:12:58 Influenza, high-dose, trivalent, PF 06/20/2019 completed Malia mendoza, [facility] 11/07/2022 16:12:58 Influenza, split virus, quadrivalent, PF 06/09/2015 completed Malia mendoza, [facility] 11/07/2022 16:12:58 Influenza, high-dose, quadrivalent, PF 05/25/2022 completed Malia mendoza, [facility] 12/14/2022 10:29:10 Past Encounters Encounter ID Performer Location Encounter Start Date Encounter Closed Date Diagnosis/Indication Diagnosis SNOMED-CT Code Diagnosis ICD10 Code [id number] DORINA CLEVELAND [facility] [address] [facility] [address] [place] [address] 01/02/2022 09:53:50 01/02/2022 10:57:22 Primary erectile dysfunction 486897736 N52.9 [id number] MD TED [facility] [address] [place] [address] 09/27/2022 11:24:42 09/29/2022 08:56:40 Primary erectile dysfunction 593074367 N52.9 Injury of penis 20319445 6 S30.93XA Phimosis 214795299 N47.1 Pelvic luba or dysfunction 332895510 M62.9 Slowing of urinary stream 05168147 R39.12 [id number] MD TED [facility] [address] [place] [address] 10/27/2022 10:13:19 11/09/2022 10:24:08 Dysuria 57392945 R30.0 [id number] MD [facility] [address] [place] [address] 12/06/2022 11:35:32 12/08/2022 14:15:29 Primary erectile dysfunction 152715584 N52.9 Injury of penis 43447573 6 S30.93XA Phimosis 039739013 N47.1 Pelvic luba or dysfunction 171325357 M62.9 Slowing of urinary stream 65093522 R39.12 [id number] Cesar Pichardo MD [facility] [address] [place] [address] 02/14/2023 14:32:25 02/21/2023 12:47:59 Primary erectile dysfunction 849810801 N52.9 Injury of penis 36980720 6 S30.93XA Phimosis 687925051 N47.1 Pelvic luba or dysfunction 096900980 M62.9 Slowing of urinary stream 25324753 R39.12 [id number] Cesar Pichardo MD [facility] [address] [place] [address] 04/18/2023 14:08:35 04/24/2023 14:31:50 Primary erectile dysfunction 015782611 N52.9 Injury of penis 78078504 6 S30.93XA Phimosis 407902427 N47.1 Pelvic luba or dysfunction 087173992 M62.9 Slowing of urinary stream 19086562 R39.12 Health Concerns Section Related Observation LastModified by Organization Detai ls LastModified Time None Recorded Concern Status LastModified by Organization Details LastModified Time None Recorded Advance Directives Directive None Recorded Payers Encounter Date Sequence Insurance Name Policy Number Policy Perez Covered Member ID Perez Member ID Guarantor Name 09/27/2022 1 [place] [id number] Chaya R Barfknecht [id number] Adilson R Barfknecht 10/27/2022 1 [place] [id number] Chaya R Barfknecht [id number] Adilson R Barfknecht 12/06/2022 1 [place] [id number] Chaya R Barfknecht [id number] Adilson Person 02/14/2023 1 [place] [id number] Chaya Person [id number] Adilson Person 04/18/2023 1 [place] [id number] Chaya Person [id number] Adilson Person Notes Date Note Type Note [...] of the history. Cesar Pichardo MD [address] [facility],[address], [place], [address], [facility] [place] [facility] 09/27/2022 13:29:07 12/06/2022 text/html HPI Notes: [...] of the history. Cesar Pichardo MD [address] [facility],[address], [place], [address], [facility] 12/06/2022 12:27:39 02/14/2023 text/html HPI [...] improvement in his phimosis. Cesar Pichardo MD [address] [place] [address],[address], [place], [address], [facility] 02/14/2023 14:52:55 04/18/2023 text/html HPI [...] resolved. Doing great. Cesar Pichardo MD [address] [facility],[address], [place], [address], [facility] 04/18/2023 14:47:38
--- OUTSIDE RECORDS SUMMARY | 2024-05-05 12:10 | XMS_ITS | Clinical Summary ---
Author Organization [facility] Address [address] [place] [address] Care Team Providers Care Fine Patcher Name Role Phone Cameron Aldridge MD Primary Care Provider [phone] Jaime Turner MD Unavailable [phone] Allergies No known active allergies Medications METFORMIN [...] mouth six times a week Mon, Tu, Th, Fri, Sat & Sun Active warfarin ANTICOAGULANT (COUMADIN) 5 MG tablet Take 15 mg by mouth once a week Wed Active acetaminophen (TYLENOL) 500 MG tabletIndications: PAD (peripheral artery disease) (H) Take 1-2 tablets (500-1,000 mg) by mouth every 6 hours as needed for mild pain Active Active Problems Problem Noted Date Diagnosed Date Preop testing 02/27/2023 PAD (peripheral artery disease) 02/27/2023 Atherosclerosis of [place] of right lower extremity with ulceration of other part of foot 02/27/2023 Resolved Problems Problem Noted Date Diagnosed Date Resolved Date iamCERVICALGIA 07/28/2006 09/17/2006 [email or web address] 07/28/2006 09/17/2006 Encounters Date Type Department Care Team Description 02/27/2024 4:00 PM CDT Office Visit [facility] [place] 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 [place] [address] Jaime Turner MD Status post peripheral artery [...] Sex Assigned at Male 07/15/2023 8:16 PM BLANKET WASHER Legal Sex Male 3:08 AM BLANKET WASHER Gender Identity Male 07/15/2023 8:16 PM BLANKET WASHER Sexual Orientation Straight 07/15/2023 8: 16 PM BLANKET WASHER Last Filed Vital Signs Vital Sign Reading Time Taken Comments Blood Pressure 98/57 02/27/2024 4:02 PM CDT Pulse 95 02/27/2024 4:02 PM CDT Temperature 36.4 ??C (97.6 ??F) 07/17/2023 10:[address] Respiratory Rate 16 07/17/2023 5:15 PM BLANKET WASHER Oxygen Saturation 98% 07/17/2023 5:15 PM BLANKET WASHER Inhaled Oxygen Concentration - - Weight 120 kg (264 lb 8 oz) 07/17/2023 10:20 AM BLANKET WASHER Height 180.3 cm (5' 11) 07/17/2023 10:20 AM BLANKET WASHER Body Mass Index 36.89 07/17/2023 10:20 AM BLANKET WASHER Plan of Treatment Health Maintenance Due Date [...] angioplasty LIPID PROFILE STAT 07/17/2023 10:44 AM BLANKET WASHER BASIC METABOLIC PANEL STAT 07/17/2023 10:44 AM BLANKET WASHER HEMOGLOBIN A1C STAT 07/17/2023 10:44 AM BLANKET WASHER from Last 3 Months or Most Recently [...] 0.49 Severe <0.2 Critical ISABELLE LOCKWOOD MD us Jaime Turner MD IMG US ORDERABLES Final Res ult * (ABNORMAL) Lipid Panel (07/17/2023 10:44 AM BLANKET WASHER) Cholesterol 107 <200 mg/dL 07/17/2023 5:00 PM BLANKET WASHER [facility] Triglycerides 100 <150 mg/dL 07/17/2023 5:00 PM BLANKET WASHER [facility] Direct Measure HDL 34(L) >=40 mg/dL 2023 5:00 PM BLANKET WASHER [facility] LDL Cholesterol Calculated 53 <=100 mg/dL 07/17/2023 5:00 PM BLANKET WASHER [facility] Non HDL Cholesterol 73 <130 mg/dL 07/17/2023 5:00 PM BLANKET WASHER [facility] Patient Fasting > 8hrs? Yes 07/17/2023 5:00 PM BLANKET WASHER [facility] Blood BLOOD SPECIMEN / Unknown Venipuncture / Unknown 07/17/2023 10:44 AM BLANKET WASHER 07/17/2023 10:50 AM BLANKET WASHER Narrative [facility] - 07/17/2023 5:00 PM BLANKET WASHER Cholesterol Desirable: ??<200 mg/dL Triglycerides Normal: ??Less [...] BLOOD ORDERABLES Raina l Result [facility] [place] [facility] [address] [facility], [address] [place] [address], [facility] [phone] * (ABNORMAL) Hemoglobin A1c (07/17/2023 10:44 AM [facility]) Hemoglobin A1C 7.1(H) <5.7 % 07/17/2023 11:[address] [facility] Comment: Normal <5.7% Prediabetes 5.7-6.4% ?? Diabetes 6.5% or higher Note: Adopted from ADA consensus guidelines. Blood BLOOD SPECIMEN / Unknown Venipuncture / Unknown 07/17/2023 10:44 AM BLANKET WASHER 07/17/2023 10:50 AM [facility] Jaime Turner MD LAB - BLOOD ORDERABLES Raina richard Result LABORATORY [facility] [address], [address] [place] [address], [facility] [phone] * (ABNORMAL) Basic metabolic panel (07/17/2023 10:44 AM [facility]) Pathologist [facility] Sodium 137 135 - 145 mmol/L 07/17/2023 11:[address] [facility] Comment:Reference intervals for this test were updated on 03/20/2023 to more accurately reflect our healthy population. There may be differences in the flagging of prior results with similar values performed with this method. Interpretation of those prior results can be made in the context of the updated reference intervals. Potassium 4.4 3.4 - 5.3 mmol/L 07/17/2023 11:[address] [facility] Chloride 102 98 - 107 mmol/L 07/17/2023 11:[address] [facility] Carbon Dioxide (CO2) 26 22 - 29 mmol/L 07/17/2023 11:[address] [facility] Anion Gap 9 7 - 15 mmol/L 07/17/2023 11:[address] [facility] Urea Nitrogen 17.2 8.0 - 23.0 mg/dL 07/17/2023 11:[address] [facility] Creatinine 0.97 0.67 - 1.17 mg/dL 07/17/2023 11:[address] [facility] GFR Estimate 83 >60 mL/min/1. 73m2 07/17/2023 11:[address] [facility] Calcium 9.7 8.8 - 10.2 mg/dL 07/17/2023 11:[address] [facility] Glucose 128(H) 70 - 99 mg/dL 07/17/2023 11:[address] [facility] Blood BLOOD SPECIMEN / Unknown Venipuncture / Unknown 07/17/2023 10:44 AM BLANKET WASHER 07/17/2023 10:50 AM [facility] Jaime Turner MD LAB - BLOOD ORDERABLES Raina l Result LABORATORY [facility] Acute Care Lab [address], [address] [place] [address], [facility] [phone] from Last 3 Months or Most Recently Relevant to Health Maintenance Insurance [employer] OF [place] [facility] Advance Directives For more information, please contact: [phone] * Full Code (Latest Code Status on File) Date Activated Date Inactivated Comments 02/27/2023 5:08 PM 02/28/2023 8:58 AM All basic and advanced life-sustaining interventions are performed as appropriate Question Answer Comments Code status determined by: Unable to dis cuss and no AD/POLST on file; continue PREVIOUSLY ORDERED code status Care Teams Fine Patcher Relationship Specialty Start Date End Date Cameron Aldridge MD [facility] [address] [place] [address] PCP - General Family Medicine 02/02/23 Jaime Turner MD [address] [address] Assigned Heart and Vascular Provider 02/10/23
--- OUTSIDE RECORDS SUMMARY | 2024-05-05 12:10 | XMS_ITS | Referral Summary ---
Author Organization [facility] Address [address] [place] [address] Care Team Providers Care Leasing Agent Name Role Phone Elsewhere, Pcp Primary Care Provider Unavailabl e Source Comments Patient records contain information from all sites at [facility]. For routine questions regarding patient records, call [phone] during business hours, M-F 8:00 AM - 5:00 PM Central Time. Record requests for emergency care only can be directed to [phone] at any time.[facility] Allergies No known active allergies Medications * [...] spasms. 40 tablet 1 06/14/2022 8:25 AM BREAK OUT WORKER 2 Active Additional Information Patient taking differently: [...] (12/23/2020): Added automatically from request for surgery [id number] Atrial Fibrillation Other Persistent 06/25/2004 Hypertension Essential [...] How often do you attend chur or muslim services? 1 to 4 times per year [...] care, and heating? Not very hard 05/25/2023 [facility] - Occupational Stress [...] Comments Blood Pressure 120/68 06/14/2022 7:45 AM BREAK OUT WORKER Pulse 90 06/14/2022 7:45 AM BREAK OUT WORKER Temperature 35.7 ??C (96.3 ??F) 05/29/2023 10:[address] Respiratory Rate 18 06/14/2022 7:45 AM BREAK OUT WORKER Oxygen Saturation 95% 06/14/2022 7:45 AM BREAK OUT WORKER Inhaled Oxygen Concentration - - Weight 123 kg (271 lb 11.5 oz) 05/29/2023 10:26 AM BREAK OUT WORKER Height 181.7 cm (5' 11.54) 05/29/2023 10:26 AM BREAK OUT WORKER Body Mass Index 37.33 05/29/2023 10:26 AM BREAK OUT WORKER Plan of Treatment Not on file Medical Devices Implanted Type Area Hospice Care Consultant Device Identifier Shelf Expiration Date Model / Serial / Lot Allogenic, Femoral Head - [id number] - [id number] Implanted:Qty : 1 on 06/12/2022 at [facility] Bone or Tissue Posterior : Spine Lumbar [facility] 05/10/2024 [id number] / [id number] / [id number] [facility] 6.5x35 - [id number] Implanted:Qty : 2 on 06/12/2022 by Richard Joel M.D. at [facility] Hardware e.g. pins/screws /rods Posterior : Spine Lumbar Medtronic [id number] / / Spn Scrw Located Within [facility] [address] 6.5x40 - [id number] Implanted:Qty : 3 on 06/12/2022 by Richard Joel M.D. at [facility] Hardware e.g. pins/screws /rods Posterior : Spine Lumbar Medtronic [id number] / / Spn Scrw Located Within [facility] St 6.5x50 - [id number] Implanted:Qty : 3 on 06/12/2022 by Richard Joel M.D. at [facility] Hardware e.g. pins/screws /rods Posterior : Spine Lumbar Medtronic [id number] / / Spn Scrw Located Within [facility] Thrd 5.5 - [id number] Implanted:Qty : 8 on 06/12/2022 by Richard Joel M.D. at [facility] Hardware e.g. pins/screws /rods Posterior : Spine Lumbar Medtronic [id number] / / Spn Pineda Located Within [facility] [address]vd 5.5x90 - [id number] Implanted:Qty : 1 on 06/12/2022 by Richard Joel M.D. at [facility] Hardware e.g. pins/screws /rods Posterior : Spine Lumbar Medtronic [id number] / / Spn Pineda Located Within [facility] [address] 5.5x100 - [id number] Implanted:Qty : 1 on 06/12/2022 by Richard Joel M.D. at [facility] Hardware e.g. pins/screws /rods Posterior : Spine Lumbar Medtronic [id number] / / Ocular Lens Ocular Lens Bilateral : Eye Procedures Procedure Name Priority Date/Time Associated Diagnosis Comments BASIC METABOLIC PANEL, S/P Routine 06/13/2022 4:49 AM BREAK OUT WORKER HEMOGLOBIN A1C, B Routine 06/01/2022 1:4 5 PM BREAK OUT WORKER Preprocedural Lab Exam from Last 3 Months or Most Recently Relevant to Health Maintenance Results * (ABNORMAL) Basic Metabolic Panel (06/13/2022 4:49 AM BREAK OUT WORKER) Pathologist [facility] Potassium, S 4.4 3.6 - 5.2 mmol/L 06/13/2022 5:39 AM BREAK OUT WORKER DTL Sodium, S 138 135 - 145 mmol/L 06/13/2022 5:39 AM BREAK OUT WORKER DTL Chloride, S 102 98 - 107 mmol/L 06/13/2022 5:39 AM BREAK OUT WORKER DTL Bicarbonate, S 26 22 - 29 mmol/L 06/13/2022 5:39 AM BREAK OUT WORKER DTL Anion Gap 10 7 - 15 06/13/2022 5:39 AM BREAK OUT WORKER DTL BUN (Blood Urea Nitrogen), S 18 8 - 24 mg/dL 06/13/2022 5:39 AM BREAK OUT WORKER DTL Creatinine 1.04 0.74 - 1.35 mg/dL 06/13/2022 5:39 AM BREAK OUT WORKER DTL Estimated GFR (eGFR) 77 >=60 mL/min/BSA 06/13/2022 5:39 AM BREAK OUT WORKER DTL Comment: Estimated GFR calculated using the 2020 CKD_EPI creatinine equation. Calcium, Total, S 8.8 8.8 - 10.2 mg/dL 06/13/2022 5:39 AM BREAK OUT WORKER DTL Glucose, S 219(H) 70 - 140 mg/dL 06/13/2022 5:39 AM BREAK OUT WORKER DTL Blood (Blood, Venous) 06/13/2022 4:49 AM BREAK OUT WORKER 06/13/2022 5:24 AM BREAK OUT WORKER us Annalee Ledezma M.D. LAB BLOOD ADD-ON Final Result Performing Organization Address [facility] Co de Phone Number [facility] [address] [place] [address], [facility] [address] [place] [address] * (ABNORMAL) Hemoglobin A1c (06/01/2022 1:45 PM BREAK OUT WORKER) Hemoglobin A1c, B 6.8(H) 4.0 - 5.6 % 06/01/2022 2:43 PM BREAK OUT WORKER DT Comment: Hemoglobin A1c values greater than or equal to 6.5 percent are diagnostic for diabetes mellitus. ??Diagnosis should be confirmed by repeat testing. ??In diabetic patients, HbA1c goals should be discussed with healthcare provider. Blood (Blood, Venous) 06/01/2022 1:45 PM BREAK OUT WORKER 06/01/2022 2:13 PM BREAK OUT WORKER us Richard Joel M.D. LAB BLOOD ADD-ON Final Res ult Performing Organization Address City/[facility] Co de Phone Number [facility] [address] [place] [address], [facility] [address] [place] [address] from Last 3 Months or Most Recently Relevant to Health Maintenance Insurance [facility] [place] [id number] MEDICARE Advance Directives For more information, please contact: [phone] * Full Code (Latest Code Status on [...] Due to: Patient not available Care Teams Leasing Agent Relationship Specialty Start Date End Date Elsewhere, Pcp PCP - General Family Medicine 03/10/21
[2024-05-05 12:12] LABS: Appearance Urine Clear (Clear); Bilirubin Urine Negative (Negative); Blood Urine Negative (Negative); Color Urine Yellow (Yellow); Glucose Urine Negative (Negative); Ketones Urine Negative (Negative); Leukocyte Esterase Urine Negative (Negative); Nitrite Urine Negative (Negative); Protein Urine Negative (Negative); Specific Gravity Urine 1.015 (1.000-1.030); Urobilinogen Urine 0.2 (0.2-1.0)
[2024-05-05 12:18] LABS: Slide Review Reflex No
[2024-05-05 12:22] LABS: Albumin* 4.4 g/dL (3.3-5.0); Chloride* 97 mmol/L (96-114)
[2024-05-05 12:23] LABS: Potassium* 4.5 mmol/L (3.6-5.1); Sodium* 134 mmol/L (135-149)
[2024-05-05 12:25] LABS: Creatinine* 1.3 mg/dL (0.5-1.5); Estimated Glomerular Filt Rate 58 ml/min
[2024-05-05 12:26] LABS: Alanine Aminotransferase* 22 U/L (4-50); Alkaline Phosphatase* 53 U/L (40-150); Anion Gap 8 mEq/L (7-15); Aspartate Amino Transferase* 26 U/L (12-35); Bilirubin Total* 0.2 mg/dL (0.1-1.5); Blood Urea Nitrogen* 18 mg/dL (7-30); Calcium* 9.7 mg/dL (8.4-10.6); Carbon Dioxide* 29 mmol/L (20-32); Glucose* 170 mg/dL (60-115); Prothrombin Time 25.1 Seconds; Total Protein* 7.4 g/dL (6.0-8.3)
[2024-05-05 12:28] LABS: C Reactive Protein* 2.8 mg/dL (0.5-1.0)
[2024-05-05 12:45] LABS: RBC Urine 0-2 (0-2); WBC Urine 0-2 (0-5)
[2024-05-05 13:45] VITALS: BP 127/90; PULSE 86; RESP 14; O2SAT 97
--- NOTE | 2024-05-05 14:16 | CRLHL7_ITS ---
For Patients: As a result of the Century Cures Act, medical imaging exams and procedure reports are released immediately into your electronic medical record. You may view this report before your referring provider. If you have questions, please contact your health care provider. Indication: Abdominal and right leg pain. Technique: Noncontrast CT of the lumbar spine with multiplanar reconstruction utilizing bone and soft tissue algorithms. Comparison: None available. Findings: No acute fracture or traumatic subluxation. No lytic or blastic lesion. Grade 1 anterolisthesis at L4-L5 and L5-S1. Operative changes of posterior instrumented fusion from L3-S1 with decompressive laminectomy. There is lucency about the sacral fusion screws (series 3, image 26). Multilevel disc desiccation and height loss is noted with associated vacuum disc phenomenon. Intra-abdominal findings are reported on concurrently performed CT abdomen/pelvis. T12-L1 and L1-L2: No significant spinal canal or neural foraminal stenosis. L2-L3: Mild-moderate spinal canal stenosis resulting from symmetric disc bulge and endplate osteophytic ridging. No high-grade neural foraminal narrowing. L3-L4: Posterior decompression. Patent thecal sac. Mild-moderate bilateral neural foraminal narrowing. L4-L5: Posterior decompression. Patent thecal sac. Symmetric disc bulge. Moderate bilateral neural foraminal narrowing. L5-S1: Posterior decompression. Patent thecal sac. Probable extruded disc material posterior to the L5 vertebral body resulting in narrowing of the right lateral recess. Severe right and moderate left neural foraminal narrowing. Impression: 1. No acute fracture or traumatic subluxation. 2. Operative changes of posterior fusion and decompression from L3-S1 with lucency about the sacral fusion screws. 3. At L2-L3, tpdh-va-[id number] spinal canal stenosis. 4. At L3-L4, [id number]-kt-[id number] bilateral neural foraminal narrowing. 5. At L4-L5, moderate bilateral neural foraminal narrowing. 6. At L5-S1, probable central disc extrusion with cranial subligamentous migration, resultant narrowing of the right lateral recess, severe right neural foraminal narrowing, and moderate left neural foraminal narrowing. Please note that all CT scans at this facility use dose modulation, iterative reconstruction, and/or weight-based dosing when appropriate to reduce radiation dose to as low as reasonably achievable. Dictated by Manjinder Carrizales MD @ 05/05/2024 2:55:19 PM (Electronically Signed)
[2024-05-05 14:45] VITALS: BP 121/80; PULSE 89; RESP 14; O2SAT 92
[2024-05-05 15:52] VITALS: BP 163/64; PULSE 93; RESP 14; TEMP 36.3
== END 2024-05-05 15:53 | disposition home or self-care (01) ==
PROVIDERS: Emergency Provider Family Medicine; PCP Family Medicine
DX: R10.30 Lower abdominal pain, unspecified (principal); M54.16 Radiculopathy, lumbar region
CPT/HCPCS: 36415; 72131; 74177; 80053; 81001; 83605; 85025; 85610; 86140; 99284; Q9967

== ENCOUNTER 2024-05-28 08:49 | Outpatient (CLI) | payer BC, SELFPAY ==
--- OUTSIDE RECORDS SUMMARY | 2024-05-28 08:52 | XMS_ITS | Clinical Summary ---
Author Organization [facility] Address [address] [place] [address] Care Team Providers Care Compliance Professional Name Role Phone Elsewhere, Pcp Primary Care Provider Unavailabl e Source Comments Patient records contain information from all sites at [facility]. For routine questions regarding patient records, call [phone] during business hours, M-F 8:00 AM - 5:00 PM Central Time. Record requests for emergency care only can be directed to [phone] at any time.[facility] Allergies No [...] spasms. 40 tablet 1 06/14/2022 8:25 AM FAMILY LAW SPECIALIST 2 Active Additional Information Patient taking differently: [...] (12/23/2020): Added automatically from request for surgery [id number] Atrial Fibrillation Other Persistent 06/25/2004 Hypertension Essential [...] week 04/07/2022 How often do you attend [facility] or sikh services? 1 to 4 times per year 04/07/2022 Do you belong to any clubs o r organizations such as baptism groups, unions, fraternal or athletic groups, or [...] care, and heating? Not very hard 05/25/2023 [facility] [...] your living situation today? I have a [facility] place to live 05/25/2023 Education Answer Date [...] Comments Blood Pressure 120/68 06/14/2022 7:45 AM FAMILY LAW SPECIALIST Pulse 90 06/14/2022 7:45 AM FAMILY LAW SPECIALIST Temperature 35.7 C (96.3 F) 05/29/2023 10:26 AM FAMILY LAW SPECIALIST Respiratory Rate 18 06/14/2022 7:45 AM FAMILY LAW SPECIALIST Oxygen Saturation 95% 06/14/2022 7:45 AM FAMILY LAW SPECIALIST Inhaled Oxygen Concentration - - Weight 123 kg (271 lb 11.5 oz) 05/29/2023 10:26 AM FAMILY LAW SPECIALIST Height 181.7 cm (5' 11.54) 05/29/2023 10:26 AM FAMILY LAW SPECIALIST Body Mass Index 37.33 05/29/2023 10:26 AM FAMILY LAW SPECIALIST Plan of Treatment Health Maintenance Due [...] this topic Medical Devices Implanted Type Area Senior Reactor Operator Device Identifier Shelf Expiration Date Model / Serial / Lot Allogenic, Femoral Head - [id number] - [id number] Implanted:Qty : 1 on 06/12/2022 at [facility] Bone or Tissue Posterior : Spine Lumbar [facility] 05/10/2024 [id number] / [id number] / [id number] Spn Scrw Lg St 6.5x35 - [id number] Implanted:Qty : 2 on 06/12/2022 by Richard Joel M.D. at [facility] Hardware e.g. pins/screws /rods Posterior : Spine Lumbar Medtronic [id number] / / Spn Scrw Lg St 6.5x40 - [id number] Implanted:Qty : 3 on 06/12/2022 by Richard Joel M.D. at [facility] Hardware e.g. pins/screws /rods Posterior : Spine Lumbar Medtronic [id number] / / Spn Scrw Lgc St 6.5x50 - [id number] Implanted:Qty : 3 on 06/12/2022 by Richard Joel M.D. at [facility] Hardware e.g. pins/screws /rods Posterior : Spine Lumbar Medtronic [id number] / / Spn Scrw Lgc Thrd 5.5 - [id number] Implanted:Qty : 8 on 06/12/2022 by Richard Joel M.D. at [facility] Hardware e.g. pins/screws /rods Posterior : Spine Lumbar Medtronic [id number] / / Spn Pineda Lgc Cvd 5.5x90 - [id number] Implanted:Qty : 1 on 06/12/2022 by Richard Joel M.D. at [facility] Hardware e.g. pins/screws /rods Posterior : Spine Lumbar Medtronic [id number] / / Spn Pineda [facility] Cvd 5.5x100 - [id number] Implanted:Qty : 1 on 06/12/2022 by Richard Joel M.D. at [facility] Hardware e.g. pins/screws /rods Posterior : Spine Lumbar Medtronic [id number] / / Ocular Lens Ocular Lens Bilateral : Eye Procedures Procedure Name Priority Date/Time Associated Diagnosis Comments BASIC METABOLIC PANEL, S/P Routine 06/13/2022 4:49 AM FAMILY LAW SPECIALIST HEMOGLOBIN A1C, B Routine 06/01/2022 1:4 5 PM FAMILY LAW SPECIALIST Preprocedural Lab Exam from Last 3 Months or Most Recently Relevant to Health Maintenance Results * (ABNORMAL) Basic Metabolic Panel (06/13/2022 4:49 AM FAMILY LAW SPECIALIST) Pathologist [facility] Potassium, S 4.4 3.6 - 5.2 mmol/L 06/13/2022 5:39 AM FAMILY LAW SPECIALIST DTL Sodium, S 138 135 - 145 mmol/L 06/13/2022 5:39 AM FAMILY LAW SPECIALIST DTL Chloride, S 102 98 - 107 mmol/L 06/13/2022 5:39 AM FAMILY LAW SPECIALIST DTL Bicarbonate, S 26 22 - 29 mmol/L 06/13/2022 5:39 AM FAMILY LAW SPECIALIST DTL Anion Gap 10 7 - 15 06/13/2022 5:39 AM FAMILY LAW SPECIALIST DTL BUN (Blood Urea Nitrogen), S 18 8 - 24 mg/dL 06/13/2022 5:39 AM FAMILY LAW SPECIALIST DTL Creatinine 1.04 0.74 - 1.35 mg/dL 06/13/2022 5:39 AM FAMILY LAW SPECIALIST DTL Estimated GFR (eGFR) 77 >=60 mL/min/BSA 06/13/2022 5:39 AM FAMILY LAW SPECIALIST DTL Comment: Estimated GFR calculated using the 2020 CKD_EPI creatinine equation. Calcium, Total, S 8.8 8.8 - 10.2 mg/dL 06/13/2022 5:39 AM FAMILY LAW SPECIALIST DTL Glucose, S 219(H) 70 - 140 mg/dL 06/13/2022 5:39 AM FAMILY LAW SPECIALIST DTL Blood (Blood, Venous) 06/13/2022 4:49 AM FAMILY LAW SPECIALIST 06/13/2022 5:24 AM FAMILY LAW SPECIALIST us Annalee Ledezma M.D. LAB BLOOD ADD-ON Final Result Performing Organization Address [facility] Co de Phone Number [facility] [address] [place] [address], [facility] [address] [place] [address] * (ABNORMAL) Hemoglobin A1c (06/01/2022 1:45 PM FAMILY LAW SPECIALIST) Hemoglobin A1c, B 6.8(H) 4.0 - 5.6 % 06/01/2022 2:43 PM FAMILY LAW SPECIALIST DTL Comment: Hemoglobin A1c values greater than or equal to 6.5 percent are diagnostic for diabetes mellitus. Diagnosis should be confirmed by repeat testing. In diabetic patients, HbA1c goals should be discussed with healthcare provider. Blood (Blood, Venous) 06/01/2022 1:45 PM FAMILY LAW SPECIALIST 06/01/2022 2:13 PM FAMILY LAW SPECIALIST us Richard Joel M.D. LAB BLOOD ADD-ON Final Res ult Performing Organization Address [facility]/ZIP Co de Phone Number [facility] [address] [place] [address], [facility] [address] [place] [address] from Last 3 Months or Most Recently Relevant to Health Maintenance Insurance [facility] MEDICARE Advance Directives For more information, please contact: [phone] * Full Code (Latest Code Status on [...] Due to: Patient not available Care Teams Compliance Professional Relationship Specialty Start Date End Date Elsewhere, Pcp PCP - General Family Medicine 03/10/21
--- OUTSIDE RECORDS SUMMARY | 2024-05-28 08:52 | XMS_ITS | Encounter Summary ---
Author Organization [facility] Address [address] [place] [address]. [place] [address] Care Team Providers Care Soils Technician Name Role Phone Cameron Aldridge MD Primary Care Provider [phone] Jaime Turner MD Unavailable [phone] Encounter Details Date Type Department Care Team [...] Sex Assigned at Male 07/15/2023 8:16 PM APPEALS NURSE Legal Sex Male 3:08 AM APPEALS NURSE Gender Identity Male 07/15/2023 8:16 PM APPEALS NURSE Sexual Orientation Straight 07/15/2023 8: 16 PM APPEALS NURSE documented as of this encounter Plan of Treatment Not on file documented as of this encounter Visit Diagnoses Not on filedocumented in this encounter Care Teams Soils Technician Relationship Specialty Start Date End Date Cameron Aldridge MD [facility] [address] [address] PCP - General Family Medicine 02/02/23 Jaime Turner MD [address] [address] [place] [address] Assigned Heart and Vascular Provider 02/10/23 documented as of this encounter
--- OUTSIDE RECORDS SUMMARY | 2024-05-28 08:52 | XMS_ITS | Clinical Summary ---
Author Organization [facility] Address [address] [place] [address] Care Team Providers Care Talkback Host Name Role Phone Cameron Aldridge MD Primary Care Provider Jaime Turner MD Unavailable [phone] Allergies No known active allergies Medications METFORMIN [...] PAD (peripheral artery disease) 02/27/2023 Atherosclerosis of [place] of right lower extremity with ulceration of other part of foot 02/27/2023 Resolved Problems Problem Noted Date Diagnosed Date Resolved Date [email or web address] 07/28/2006 09/17/2006 [email or web address] 07/28/2006 09/17/2006 Encounters Date Type Department Care Team Description 02/27/2024 4:00 PM CDT Office Visit [facility] [place] [address] [place] [phone] Jaime Turner MD Status post peripheral artery angioplasty (Primary Dx); Peripheral vascular disease with claudication (H); Type 2 diabetes mellitus with foot ulcer, unspecified whether jail insulin use (H); On Coumadin for atrial fibrillation (H); Class 2 severe obesity due to excess calories with serious comorbidity and body mass index (BMI) of 36.0 to 36.9 in adult (H) 02/27/2024 2:54 PM CDT - 02/27/2024 11:59 PM CDT Hospital Encounter [facility] [address] [place] [address] Jaime Turner MD Status post peripheral artery [...] Sex Assigned at Male 07/15/2023 8:16 PM WARDROBE SPECIALTY WORKER Legal Sex Male 3:08 AM WARDROBE SPECIALTY WORKER Gender Identity Male 07/15/2023 8:16 PM WARDROBE SPECIALTY WORKER Sexual Orientation Straight 07/15/2023 8: 16 PM WARDROBE SPECIALTY WORKER Last Filed Vital Signs Vital Sign Reading Time Taken Comments Blood Pressure 98/57 02/27/2024 4:02 PM CDT Pulse 95 02/27/2024 4:02 PM CDT Temperature 36.4 C (97.6 F) 07/17/2023 10:20 AM WARDROBE SPECIALTY WORKER Respiratory Rate 16 07/17/2023 5:15 PM WARDROBE SPECIALTY WORKER Oxygen Saturation 98% 07/17/2023 5:15 PM WARDROBE SPECIALTY WORKER Inhaled Oxygen Concentration - - Weight 120 kg (264 lb 8 oz) 07/17/2023 10:20 AM WARDROBE SPECIALTY WORKER Height 180.3 cm (5' 11) 07/17/2023 10:20 AM WARDROBE SPECIALTY WORKER Body Mass Index 36.89 07/17/2023 10:20 AM WARDROBE SPECIALTY WORKER Plan of Treatment Health Maintenance Due Date [...] angioplasty LIPID PROFILE STAT 07/17/2023 10:44 AM WARDROBE SPECIALTY WORKER BASIC METABOLIC PANEL STAT 07/17/2023 10:44 AM WARDROBE SPECIALTY WORKER HEMOGLOBIN A1C STAT 07/17/2023 10:44 AM WARDROBE SPECIALTY WORKER from Last 3 Months or Most Recently [...] ISABELLE LOCKWOOD MD us Jaime Turner MD [facility] [place] ORDERABLES Final Res ult * (ABNORMAL) Lipid Panel (07/17/2023 10:44 AM WARDROBE SPECIALTY WORKER) Cholesterol 107 <200 mg/dL 07/17/2023 5:00 PM WARDROBE SPECIALTY WORKER [facility] Triglycerides 100 <150 mg/dL 07/17/2023 5:00 PM WARDROBE SPECIALTY WORKER [facility] Direct Measure HDL 34(L) >=40 mg/dL 2023 5:00 PM WARDROBE SPECIALTY WORKER [facility] LDL Cholesterol Calculated 53 <=100 mg/dL 07/17/2023 5:00 PM WARDROBE SPECIALTY WORKER [facility] Non HDL Cholesterol 73 <130 mg/dL 07/17/2023 5:00 PM WARDROBE SPECIALTY WORKER [facility] Patient Fasting > 8hrs? Yes 07/17/2023 5:00 PM WARDROBE SPECIALTY WORKER [facility] Blood BLOOD SPECIMEN / Unknown Venipuncture / Unknown 07/17/2023 10:44 AM WARDROBE SPECIALTY WORKER 07/17/2023 10:50 AM WARDROBE SPECIALTY WORKER Narrative [facility] - 07/17/2023 5:00 PM WARDROBE SPECIALTY WORKER Cholesterol Desirable: <200 mg/dL Triglycerides Normal: Less than 150 mg/dL Borderline High: 150-199 mg/dL High: 200-499 mg/dL Very High: Greater than or equal to 500 mg/dL Direct Measure HDL Female: Greater than or equal to 50 mg/dL Male: Greater than or equal to 40 mg/dL LDL Cholesterol Desirable: <100mg/dL Above Desirable: 100-129 mg/dL Borderline High: 130-159 mg/dL High: 160-189 mg/dL Very High: >= 190 mg/dL Non HDL Cholesterol Desirable: 130 mg/dL Above Desirable: 130-159 mg/dL Borderline High: 160-189 mg/dL High: 190-219 mg/dL Very High: Greater than or equal to 220 mg/dL us Jaime Turner MD LAB - BLOOD ORDERABLES Raina l Result [facility] [address] [facility] [address] [facility], [address] [place] [address], [place] [phone] * (ABNORMAL) Hemoglobin A1c (07/17/2023 10:44 AM WARDROBE SPECIALTY WORKER) Hemoglobin A1C 7.1(H) <5.7 % 07/17/2023 11:17 AM [facility] Comment: Normal <5.7% Prediabetes 5.7-6.4% Diabetes 6.5% or higher Note: Adopted from ADA consensus guidelines. Blood BLOOD SPECIMEN / Unknown Venipuncture / Unknown 07/17/2023 10:44 AM WARDROBE SPECIALTY WORKER 07/17/2023 10:50 AM [facility] Jaime Turner MD LAB - BLOOD ORDERABLES Raina richard Result LABORATORY [facility] Acute Care Lab [address], [address] [place] [address], [facility] [phone] * (ABNORMAL) Basic metabolic panel (07/17/2023 10:44 AM [facility]) Pathologist [facility] Sodium 137 135 - 145 mmol/L 07/17/2023 11:13 AM [facility] Comment:Reference intervals for this test were updated on 03/20/2023 to more accurately reflect our healthy population. There may be differences in the flagging of prior results with similar values performed with this method. Interpretation of those prior results can be made in the context of the updated reference intervals. Potassium 4.4 3.4 - 5.3 mmol/L 07/17/2023 11:13 AM [facility] Chloride 102 98 - 107 mmol/L 07/17/2023 11:13 AM [facility] Carbon Dioxide (CO2) 26 22 - 29 mmol/L 07/17/2023 11:13 AM [facility] Anion Gap 9 7 - 15 mmol/L 07/17/2023 11:13 AM [facility] Urea Nitrogen 17.2 8.0 - 23.0 mg/dL 07/17/2023 11:13 AM [facility] Creatinine 0.97 0.67 - 1.17 mg/dL 07/17/2023 11:13 AM [facility] GFR Estimate 83 >60 mL/min/1. 73m2 07/17/2023 11:13 AM [facility] Calcium 9.7 8.8 - 10.2 mg/dL 07/17/2023 11:13 AM WARDROBE SPECIALTY WORKER LABORATORY Glucose 128(H) 70 - 99 mg/dL 07/17/2023 11:13 AM WARDROBE SPECIALTY WORKER LABORATORY Blood BLOOD SPECIMEN / Unknown Venipuncture / Unknown 07/17/2023 10:44 AM WARDROBE SPECIALTY WORKER 07/17/2023 10:50 AM WARDROBE SPECIALTY WORKER Jaime Turner MD LAB - BLOOD ORDERABLES Raina richard Result LABORATORY [facility] Acute Care Lab [address] floor, [address] [place] [address], [facility] [phone] from Last 3 Months or Most Recently Relevant to Health Maintenance Insurance [facility] BCBS OF [place] Advance Directives For more information, please contact: [phone] * Full Code (Latest Code Status on File) Date Activated Date Inactivated Comments 02/27/2023 5:08 PM 02/28/2023 8:58 AM All basic and advanced life-sustaining interventions are performed as appropriate Question Answer Comments Code status determined by: Unable to dis cuss and no AD/POLST on file; continue PREVIOUSLY ORDERED code status Care Teams Talkback Host Relationship Specialty Start Date End Date Cameron Aldridge MD [facility] [address] [place] [address] PCP - General Family Medicine 02/02/23 Jaime Turner MD [address] [place] [address] [place] [address] Assigned Heart and Vascular Provider 02/10/23
--- OUTSIDE RECORDS SUMMARY | 2024-05-28 08:52 | XMS_ITS | Referral Summary ---
Author Organization [facility] Address [facility] [place] [address] Care Team Providers Care Optical Sales Associate Name Role Phone Cameron Aldridge MD Primary Care Provider [phone] Jaime Turner MD Unavailable [phone] Encounters Date Type Department Care Team Description 02/27/2024 Travel 02/27/2024 4:00 PM CDT Office Visit [facility] [place] [address] [place] [phone] Jaime Turner MD Status post peripheral artery angioplasty (Primary Dx); Peripheral vascular disease with claudication (H); Type 2 diabetes mellitus with foot ulcer, unspecified whether joint terminal attack controller insulin use (H); On Coumadin for atrial fibrillation (H); Class 2 severe obesity due to excess calories with serious comorbidity and body mass index (BMI) of 36.0 to 36.9 in adult (H) 02/27/2024 2:54 PM CDT - 02/27/2024 11:59 PM CDT Hospital Encounter [facility] [address] [place] [address] Jaime Turner MD Status post peripheral artery [...] PAD (peripheral artery disease) 02/27/2023 Atherosclerosis of [place] of right lower extremity with [...] Sex Assigned at Male 07/15/2023 8:16 PM AUTOMATION SOFTWARE ENGINEER Legal Sex Male 3:08 AM AUTOMATION SOFTWARE ENGINEER Gender Identity Male 07/15/2023 8:16 PM AUTOMATION SOFTWARE ENGINEER Sexual Orientation Straight 07/15/2023 8: 16 PM AUTOMATION SOFTWARE ENGINEER Last Filed Vital Signs Vital Sign Reading Time Taken Comments Blood Pressure 98/57 02/27/2024 4:02 PM CDT Pulse 95 02/27/2024 4:02 PM CDT Temperature 36.4 C (97.6 F) 07/17/2023 10:20 AM AUTOMATION SOFTWARE ENGINEER Respiratory Rate 16 07/17/2023 5:15 PM AUTOMATION SOFTWARE ENGINEER Oxygen Saturation 98% 07/17/2023 5:15 PM AUTOMATION SOFTWARE ENGINEER Inhaled Oxygen Concentration - - Weight 120 kg (264 lb 8 oz) 07/17/2023 10:20 AM AUTOMATION SOFTWARE ENGINEER Height 180.3 cm (5' 11) 07/17/2023 10:20 AM AUTOMATION SOFTWARE ENGINEER Body Mass Index 36.89 07/17/2023 10:20 AM AUTOMATION SOFTWARE ENGINEER Plan of Treatment Not on file Procedures Procedure Name Priority Date/Time Associated Diagnosis Comments US JOHN DOPPLER WITH EXERCISE BILATERAL Routine 02/27/2024 3:33 PM CDT Status post peripheral artery angioplasty LIPID PROFILE STAT 07/17/2023 10:44 AM AUTOMATION SOFTWARE ENGINEER BASIC METABOLIC PANEL STAT 07/17/2023 10:44 AM AUTOMATION SOFTWARE ENGINEER HEMOGLOBIN A1C STAT 07/17/2023 10:44 AM AUTOMATION SOFTWARE ENGINEER from Last 3 Months or Most Recently [...] 0.2 - 0.49 Severe <0.2 Critical ISABELLE LOCKWOOD, MD Narrative 02/27/2024 4:11 PM CDT IR [...] Critical ISABELLE LOCKWOOD MD Jaime Turner MD [facility] US ORDERABLES Final Res ult * (ABNORMAL) Lipid Panel (07/17/2023 10:44 AM AUTOMATION SOFTWARE ENGINEER) Cholesterol 107 <200 mg/dL 07/17/2023 5:00 PM AUTOMATION SOFTWARE ENGINEER [facility] Triglycerides 100 <150 mg/dL 07/17/2023 5:00 PM AUTOMATION SOFTWARE ENGINEER [facility] Direct Measure HDL 34(L) >=40 mg/dL 2023 5:00 PM AUTOMATION SOFTWARE ENGINEER [facility] LDL Cholesterol Calculated 53 <=100 mg/dL 07/17/2023 5:00 PM AUTOMATION SOFTWARE ENGINEER [facility] Non HDL Cholesterol 73 <130 mg/dL 07/17/2023 5:00 PM AUTOMATION SOFTWARE ENGINEER [facility] Patient Fasting > 8hrs? Yes 07/17/2023 5:00 PM AUTOMATION SOFTWARE ENGINEER [facility] Blood BLOOD SPECIMEN / Unknown Venipuncture / Unknown 07/17/2023 10:44 AM AUTOMATION SOFTWARE ENGINEER 07/17/2023 10:50 AM AUTOMATION SOFTWARE ENGINEER Narrative [facility] - 07/17/2023 5:00 PM AUTOMATION SOFTWARE ENGINEER Cholesterol Desirable: <200 mg/dL Triglycerides Normal: Less [...] Greater than or equal to 220 mg/dL Jaime Turner MD LAB - BLOOD ORDERABLES Raina l Result [facility] [place] [facility] Lab [address] [facility], [address] [place] [address], [facility] [phone] * (ABNORMAL) Hemoglobin A1c (07/17/2023 10:44 AM AUTOMATION SOFTWARE ENGINEER) Hemoglobin A1C 7.1(H) <5.7 % 07/17/2023 11:17 AM [facility] Comment: Normal <5.7% Prediabetes 5.7-6.4% Diabetes 6.5% or higher Note: Adopted from ADA consensus guidelines. Blood BLOOD SPECIMEN / Unknown Venipuncture / Unknown 07/17/2023 10:44 AM AUTOMATION SOFTWARE ENGINEER 07/17/2023 10:50 AM AUTOMATION SOFTWARE ENGINEER Jaime Turner MD LAB - BLOOD ORDERABLES Raina richard Result LABORATORY [facility] Acute Care Lab [address], [address] [place] [address], [facility] [phone] * (ABNORMAL) Basic metabolic panel (07/17/2023 10:44 AM AUTOMATION SOFTWARE ENGINEER) Sodium 137 135 - 145 mmol/L 07/17/2023 11:13 AM [facility] Comment:Reference intervals for this test were updated on 03/20/2023 to more accurately reflect our healthy population. There may be differences in the flagging of prior results with similar values performed with this method. Interpretation of those prior results can be made in the context of the updated reference intervals. Potassium 4.4 3.4 - 5.3 mmol/L 07/17/2023 11:13 AM [facility] Chloride 102 98 - 107 mmol/L 07/17/2023 11:13 AM [facility] Carbon Dioxide (CO2) 26 22 - 29 mmol/L 07/17/2023 11:13 AM [facility] Anion Gap 9 7 - 15 mmol/L 07/17/2023 11:13 AM [facility] Urea Nitrogen 17.2 8.0 - 23.0 mg/dL 07/17/2023 11:13 AM [facility] Creatinine 0.97 0.67 - 1.17 mg/dL 07/17/2023 11:13 AM [facility] GFR Estimate 83 >60 mL/min/1. 73m2 07/17/2023 11:13 AM [facility] Calcium 9.7 8.8 - 10.2 mg/dL 07/17/2023 11:13 AM [facility] Glucose 128(H) 70 - 99 mg/dL 07/17/2023 11:13 AM [facility] Blood BLOOD SPECIMEN / Unknown Venipuncture / Unknown 07/17/2023 10:44 AM AUTOMATION SOFTWARE ENGINEER 07/17/2023 10:50 AM [facility] us Jaime Turner MD LAB - BLOOD ORDERABLES Raina richard Result LABORATORY [facility] [address] 1st [address], [address] [place] [address], [facility] [phone] from Last 3 Months or Most Recently Relevant to Health Maintenance Insurance [facility] BCBS OF [place] Advance Directives For more information, please contact: [phone] * Full Code (Latest Code Status on File) Date Activated Date Inactivated Comments 02/27/2023 5:08 PM 02/28/2023 8:58 AM All basic and advanced life-sustaining interventions are performed as appropriate Question Answer Comments Code status determined by: Unable to dis cuss and no AD/POLST on file; continue PREVIOUSLY ORDERED code status Care Teams Optical Sales Associate Relationship Specialty Start Date End Date Cameron Aldridge MD [facility] [address] [place] [address] PCP - General Family Medicine 02/02/23 Jaime Turner MD [address] [place] [place] [address] Assigned Heart and Vascular Provider 02/10/23
--- OUTSIDE RECORDS SUMMARY | 2024-05-28 08:52 | XMS_ITS | Encounter Summary ---
Author Organization [facility] Address [address] [place] [address]. [place] [address] Care Team Providers Care Rn Advanced Name Role Phone Paramjit Ballard MD Primary Care Provider [phone] Cameron Aldridge MD Primary Care Provider [phone] Jaime Turner MD Unavailable [phone] Encounter Details Date Type Department Care Team (Late st Contact Info) Description 09/16/2007 Office Visit-[facility] [address] [place] [address] Gil Hernandez MD Social History Tobacco Use Types Packs/Day Years Used Date Smoking Tobacco: Never Assessed Sex and Gender Information Value Date Recorded Sex Assigned at Male 07/15/2023 8:16 PM TOY STUFFER Legal Sex Male 3:08 AM TOY STUFFER Gender Identity Male 07/15/2023 8:16 PM TOY STUFFER Sexual Orientation Straight 07/15/2023 8: 16 PM TOY STUFFER documented as of this encounter Progress Notes * Gil Hernandez MD - 09/18/2007 11:33 AM CDT Progress Note Created by: Gil Hernandez M.D. DATE: 09/16/2007 ADILSON PERSON DATE OF : 1950 AGE: [age] years old Referring Physician: PARAMJIT BALLARD Referring Clinic: [facility] CURRENT DIAGNOSES 1. - Atrial Fibrillation, [...] of seeing your patient, Adilson Person, at [facility] in Cardiology consultation for evaluation of [...] year ago. 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
--- OUTSIDE RECORDS SUMMARY | 2024-05-28 08:52 | XMS_ITS | Encounter Summary ---
Author Organization [place] [facility] Address [address] [facility] [place] [address] Care Team Providers Care Honing Machine Set Up Operator Tool Name Role Phone Cameron Aldridge MD Primary Care Provider [phone] Jaime Turner MD Unavailable [phone] Reason for Referral * Diagnostic Imaging Ultrasound (Routine) - Pending Review Specialty Diagnoses / Procedures Referred By Contac t Referred To Contact Radiology. Diagnoses Peripheral vascular disease with claudication (H) Status post peripheral artery angioplasty Procedures US JOHN Doppler with Exercise Bilateral Jaime Turner MD [address] [place] [address] Phone: tel: fax: Referral ID Status Reason Start Date Expiration Date V isits Requested Visits Authorized [id number] Pending Review 03/17/2024 03/17/2025 1 1 Reason for Visit * Reason Comments RECHECK JOHN (VHC3:00; TJG4:0 0) 6 month follow up to 08/01/[address] Turner.Imaging/labs to be scheduled: JOHN. Encounter Details Date Type Department Care Team (Late st Contact Info) Description 02/27/2024 4:00 PM CDT Office Visit [facility] [place] [address] [place] [phone] Jaime Turner MD [address] [place] [address] Status post peripheral artery angioplasty (Primary Dx); Peripheral vascular disease with claudication (H); Type 2 diabetes mellitus with foot ulcer, unspecified whether longterm insulin use (H); On Coumadin for atrial [...] Sex Assigned at Male 07/15/2023 8:16 PM DRY JANITOR Legal Sex Male 3:08 AM DRY JANITOR Gender Identity Male 07/15/2023 8:16 PM DRY JANITOR Sexual Orientation Straight 07/15/2023 8: 16 PM DRY JANITOR documented as of this encounter Last Filed [...] Diane Sanchez - 02/27/2024 4:00 PM CDT [facility] Patient is here for [...] gentleman with metabolic syndrome who lives in [place]. He is status post multiple lumbar and [...] disease. He started hyperbaric oxygen therapy in [employer]. Ultimately his right great toe wound healed. [...] effort at supervised ambulation. He lives in [place] and once again politely declines a supervised [...] diabetes mellitus with foot ulcer, unspecified whether longterm insulin use (H) On Coumadin for atrial fibrillation (H) Class 2 severe obesity due to excess calories with serious comorbidity and body mass index (BMI) of 36.0 to 36.9 in adult (H) documented in this encounter Care Teams Honing Machine Set Up Operator Tool Relationship Specialty Start Date End Date Cameron Aldridge MD [facility] [address] [place] [address] PCP - General Family Medicine 02/02/23 Jaime Turner MD [address] [place] [address] [place] [address] Assigned Heart and Vascular Provider 02/10/23 documented as of this encounter
--- OUTSIDE RECORDS SUMMARY | 2024-05-28 08:52 | XMS_ITS | Encounter Summary ---
Author Organization [facility] Address [address] [facility] [place] [address] Care Team Providers Care Music Specialist Name Role Phone Cameron Aldridge MD Primary Care Provider [phone] Jaime Turner MD Unavailable [phone] Reason for Referral * Diagnostic Imaging Ultrasound (Routine) - Pending Review Specialty Diagnoses / Procedures Referred By Charan veras Referred To Contact Radiology. Diagnoses Status post peripheral artery angioplasty Procedures US JOHN Doppler with Exercise Bilateral Jaime Turner MD [address] [employer] [address] [place] [address] Phone: tel: fax: Referral ID Status Reason Start Date Expiration Date V isits Requested Visits Authorized [id number] Pending Review 08/21/2023 08/20/2024 1 1 Reason for Visit * Diagnostic Imaging Ultrasound (Routine) - Pending Review Specialty Diagnoses / Procedures Referred By Charan veras Referred To Contact Radiology. Diagnoses Status post peripheral artery angioplasty Procedures US JOHN Doppler with Exercise Bilateral Jaime Turner MD [address] [employer] [address] [place] [address] Phone: tel: fax: Referral ID Status Reason Start Date Expiration Date V isits Requested Visits Authorized [id number] Pending Review 08/21/2023 08/20/2024 1 1 Encounter Details Date Type Department Care Team (Latest Contact Info) Description 02/27/2024 2:54 PM CDT - 02/27/2024 11:59 PM CDT Hospital Encounter [facility] [address] [place] [address] Jaime Turner MD [address] [place] [address] Status post peripheral artery angioplasty Discharge Disposition: [...] Sex Assigned at Male 07/15/2023 8:16 PM ELECTRICIAN ELEVATOR MAINTENANCE Legal Sex Male 3:08 AM ELECTRICIAN ELEVATOR MAINTENANCE Gender Identity Male 07/15/2023 8:16 PM ELECTRICIAN ELEVATOR MAINTENANCE Sexual Orientation Straight 07/15/2023 8: 16 PM ELECTRICIAN ELEVATOR MAINTENANCE documented as of this encounter Medications at [...] Critical ISABELLE LOCKWOOD MD Jaime Turner MD [facility] US ORDERABLES Final Res ult documented in this encounter Visit Diagnoses Diagnosis Status post peripheral artery angioplasty Other postprocedural status documented in this encounter Care Teams Music Specialist Relationship Specialty Start Date End Date Cameron Aldridge MD [facility] [address] [address] PCP - General Family Medicine 02/02/23 Jaime Turner MD [address] [place] [address] Assigned Heart and Vascular Provider 02/10/23 documented as of this encounter
--- OUTSIDE RECORDS SUMMARY | 2024-05-28 08:52 | XMS_ITS | Clinical Summary ---
[facility] Address [address] [address] Care Team Providers Care Case Finisher Name Role Phone Unavailable Primary Care Provider [...] for each transition of care or referral. [facility] Social [facility] Tobacco Use Types Packs/Day Years [...]
--- OUTSIDE RECORDS SUMMARY | 2024-05-28 08:53 | XMS_ITS ---
Author Organization [facility] Address [address] [place] [address] Care Team Providers Care Trade Union Secretary Name Role Phone Unavailable Unavailable Unavailable Surgery Details Not on file Complications Check Surgery Details section. Procedure Estimated Blood Loss Check Surgery Details section. Procedure Findings Check Surgery Details section. Procedure Specimens Taken Check Surgery Details section.
--- OUTSIDE RECORDS SUMMARY | 2024-05-28 08:53 | XMS_ITS | Referral Summary ---
Author Organization [facility] Address [address] [place] [address] Care Team Providers Care Dial Brusher Name Role Phone Elsewhere, Pcp Primary Care Provider Unavailabl e Source Comments Patient records contain information from all sites at [facility]. For routine questions regarding patient records, call [phone] during business hours, M-F 8:00 AM - 5:00 PM Central Time. Record requests for emergency care only can be directed to [phone] at any time.[facility] Allergies No known active allergies Medications * [...] spasms. 40 tablet 1 06/14/2022 8:25 AM [facility] 2 Active Additional Information Patient taking differently: [...] (12/23/2020): Added automatically from request for surgery [id number] Atrial Fibrillation Other Persistent 06/25/2004 Hypertension Essential [...] How often do you attend chur or adventist services? 1 to 4 times per year 04/07/2022 Do you belong to any clubs o r organizations such as alevism groups, unions, fraternal or athletic groups, or [...] care, and heating? Not very hard 05/25/2023 [facility] [place] [facility] Occupat ional Health - Occupational Stress [...] your living situation today? I have a [facility] place to live 05/25/2023 Education Answer [...] Comments Blood Pressure 120/68 06/14/2022 7:45 AM [facility] Pulse 90 06/14/2022 7:45 AM [facility] Temperature 35.7 C (96.3 F) 05/29/2023 10:26 AM [facility] Respiratory Rate 18 06/14/2022 7:45 AM [facility] Oxygen Saturation 95% 06/14/2022 7:45 AM [facility] Inhaled Oxygen Concentration - - Weight 123 kg (271 lb 11.5 oz) 05/29/2023 10:26 AM [facility] Height 181.7 cm (5' 11.54) 05/29/2023 10:26 AM [facility] Body Mass Index 37.33 05/29/2023 10:26 AM [facility] Plan of Treatment Not on file Medical Devices Implanted Type Area Shook Machine Operator Device Identifier Shelf Expiration Date Model / Serial / Lot Allogenic, Femoral Head - [id number] - [id number] Implanted:Qty : 1 on 06/12/2022 at [facility] Bone or Tissue Posterior : Spine Lumbar [facility] 05/10/2024 [id number] / [id number] / [id number] [facility] 6.5x35 - [id number] Implanted:Qty : 2 on 06/12/2022 by Richard Joel M.D. at [facility] Hardware e.g. pins/screws /rods Posterior : Spine Lumbar Medtronic [id number] / / Spn Scrw [facility] [address] 6.5x40 - [id number] Implanted:Qty : 3 on 06/12/2022 by Richard Joel M.D. at [facility] Hardware e.g. pins/screws /rods Posterior : Spine Lumbar Medtronic [id number] / / Spn Scrw [facility] [address] 6.5x50 - [id number] Implanted:Qty : 3 on 06/12/2022 by Richard Joel M.D. at [facility] Hardware e.g. pins/screws /rods Posterior : Spine Lumbar Medtronic [id number] / / Spn Scrw [facility] Thrd 5.5 - [id number] Implanted:Qty : 8 on 06/12/2022 by Richard Joel M.D. at [facility] Hardware e.g. pins/screws /rods Posterior : Spine Lumbar Medtronic [id number] / / Spn Pineda Lgc Cvd 5.5x90 - [id number] Implanted:Qty : 1 on 06/12/2022 by Richard Joel M.D. at [facility] Hardware e.g. pins/screws /rods Posterior : Spine Lumbar Medtronic [id number] / / Spn Pineda Lgc Cvd 5.5x100 - [id number] Implanted:Qty : 1 on 06/12/2022 by Richard Joel M.D. at [facility] Hardware e.g. pins/screws /rods Posterior : Spine Lumbar Medtronic [id number] / / Ocular Lens Ocular Lens Bilateral : Eye Procedures Procedure Name Priority Date/Time Associated Diagnosis Comments BASIC METABOLIC PANEL, S/P Routine 06/13/2022 4:49 AM [facility] HEMOGLOBIN A1C, B Routine 06/01/2022 1:4 5 PM [facility] Preprocedural Lab Exam from Last 3 Months or Most Recently Relevant to Health Maintenance Results * (ABNORMAL) Basic Metabolic Panel (06/13/2022 4:49 AM [facility]) Pathologist [facility] Potassium, S 4.4 3.6 - 5.2 mmol/L 06/13/2022 5:39 AM [facility] DTL Sodium, S 138 135 - 145 mmol/L 06/13/2022 5:39 AM [facility] DTL Chloride, S 102 98 - 107 mmol/L 06/13/2022 5:39 AM [facility] DTL Bicarbonate, S 26 22 - 29 mmol/L 06/13/2022 5:39 AM [facility] DTL Anion Gap 10 7 - 15 06/13/2022 5:39 AM [facility] DTL BUN (Blood Urea Nitrogen), S 18 8 - 24 mg/dL 06/13/2022 5:39 AM [facility] DTL Creatinine 1.04 0.74 - 1.35 mg/dL 06/13/2022 5:39 AM [facility] DTL Estimated GFR (eGFR) 77 >=60 mL/min/BSA 06/13/2022 5:39 AM [facility] DTL Comment: Estimated GFR calculated using the 2020 CKD_EPI creatinine equation. Calcium, Total, S 8.8 8.8 - 10.2 mg/dL 06/13/2022 5:39 AM [facility] DTL Glucose, S 219(H) 70 - 140 mg/dL 06/13/2022 5:39 AM [facility]OM[facility] SERV[facility] DTL Blood (Blood, Venous) 06/13/2022 4:49 AM [facility] 06/13/2022 5:24 AM [facility] SERV[facility] us Annalee Ledezma M.D. LAB BLOOD ADD-ON Final Result Performing Organization Address [facility] Co de Phone Number [facility] [address] [place] [address], [facility] [address] [place] [address] * (ABNORMAL) Hemoglobin A1c (06/01/2022 1:45 PM [facility]) Hemoglobin A1c, B 6.8(H) 4.0 - 5.6 % 06/01/2022 2:43 PM [facility] DT Comment: Hemoglobin A1c values greater than or equal to 6.5 percent are diagnostic for diabetes mellitus. Diagnosis should be confirmed by repeat testing. In diabetic patients, HbA1c goals should be discussed with healthcare provider. Blood (Blood, Venous) 06/01/2022 1:45 PM [facility] 06/01/2022 2:13 PM [facility] us Richard Joel M.D. LAB BLOOD ADD-ON Final Res ult Performing Organization Address [facility]/ZIP Co de Phone Number [facility] [address] [place] [address], [facility] [address] [place] [address] from Last 3 Months or Most Recently Relevant to Health Maintenance Insurance [facility] MEDIC[facility] Advance Directives For more information, please contact: [phone] * Full Code (Latest Code Status on [...] Due to: Patient not available Care Teams Dial Brusher Relationship Specialty Start Date End Date Elsewhere, Pcp PCP - General Family Medicine 03/10/21
--- OUTSIDE RECORDS SUMMARY | 2024-05-28 08:53 | XMS_ITS | Data Portability ---
Author Organization [facility] Address [address] [place] [address] Care Team Providers Care Principal Java Software Engineer Name Role Phone MARICRUZ MCKEON Primary Care Provider [phone] Assessment Encounter Date Assessment Date Assessment LastModified by Organization Details LastModified Time 10/27/2022 10/27/2022 Pt here for UA-possible UC. LK [email or web address] Not available 10/27/2022 10:27:32 Plan of Treatment Reminders Order Date Submit Date Provider Last Modified By Organization Details Last Modified Time Details Appointments None recorded. Lab urinalysis, dipstick 2022 023 [email or web address] [facility], [address] [place], [address], 10:26:59 Referral pelvic floor therapy referral 2022 023 [email or web address] [facility], [address], [address], 07:53:48 Procedures None recorded. Surgeries None recorded. Imaging None recorded. Medication Orders clotrimazol e-betametha sone 1 %-0.05 % topical cream 2022 023 [facility] [address] [place], [address], 11:53:59 tamsulosin 0.4 mg capsule 2022 023 [email or web address] [facility], [address] [facility], [place], [address], 11:49:28 Patient TargetsNo targets recorded. Patient Instructions Encounter Date Encounter Id Patient Instructions Last Modified By Organization Details Last Modified Time 10/27/2022 [id number] RTC prn. DEBBIE [email or web address] Not available 10/2022 10:30:13 Reason for Referral Pelvic Floor Therapy Referra l for Pelvic floor dysfunction Referring Physician: Cesar Pichardo, Urology, Encounter Date: 09/27/2022 Results Created Date Observation Date Name Description Value Unit Range Abnormal Flag Note LastModifiedBy Organization Detail LastModifiedTime 10/28/1910/27/2022 urina lysis , dipst ick Color-Status Dark Yellow Not Available [facility] [address], [place], [address], 10/27/2022 10:25:53 10/28/19 23 10/27/2022 urina lysis , dipst ick Clarity-Stat us Clear Not Available [facility] [address], [place], [address], 10/27/2022 10:25:53 10/28/19 23 10/27/2022 urina lysis , dipst ick Glucose-Stat us Negati ve Not Available [facility] [address], [place], [address], 10/27/2022 10:25:53 10/28/19 23 10/27/2022 urina lysis , dipst ick Bilirubin-St atus Negati ve Not Available [facility] [address], [place], [address], 10/27/2022 10:25:53 10/28/19 23 10/27/2022 urina lysis , dipst ick Ketones-Stat us Negati ve Not Available [facility] [address], [place], [address], 10/27/2022 10:25:53 10/28/19 23 10/27/2022 urina lysis , dipst ick Sp Syracuse-Stat us 1.015 Not Available [facility] [address], [place], [address], 10/27/2022 10:25:53 10/28/19 23 10/27/2022 urina lysis , dipst ick pH-Status 5.5 Not Available [facility] [address], [place], [address], 10/27/2022 10:25:53 10/28/19 23 10/27/2022 urina lysis , dipst ick Protein-Stat us 5.0 Not Available [facility] [address], [place], [address], 10/27/2022 10:25:53 10/28/19 23 10/27/2022 urina lysis , dipst ick Urobilinogen -Status 0.2 Not Available [facility] [address], [place], [address], 10/27/2022 10:25:53 10/28/19 23 10/27/2022 urina lysis , dipst ick Nitrates-Sta tus negati ve Not Available [facility] [address], [place], [address], 10/27/2022 10:25:53 10/28/19 23 10/27/2022 urina lysis , dipst ick Blood-Status Negati ve Not Available [facility] [address], [place], [address], 10/27/2022 10:25:53 10/28/19 23 10/27/2022 urina lysis , dipst ick Leuko-Status Negati ve Not Available [facility] [address], [place], [address], 10/27/2022 10:25:53 10/28/19 23 10/27/2022 urina lysis , dipst ick Specimen Type Voided Not Available [facility] [address], [place], [address], 10/27/2022 10:25:53 Result Notes None recorded. Procedures Surgical History Date Name Laterality Status Provider Name and Address Organization Details Recorded Time 05/25/20 22 spinal fusion with graft completed Cesar Pichardo MD [address] [place] [address],[address], [address], [facility] 12/06/2022 11:50:50 01/03/20 Penile Self Injection Trial completed DORINA C[place]AND [address] [place] [address],[address], [address], [facility] [...] Updated DateTime 09/27/2022 182.88 cm 34.9 kg/m2 327114.24 g Cesar Pichardo MD [address] [place] [address],[address], [address] 09/27/2022 11:35:39 Date Recorded Body height Body mass index (BMI) Body weight Provider Name and Address Organization Details Last Updated DateTime 12/06/2022 182.88 cm 34.9 kg/m2 194395.24 g Cesar Pichardo MD [address] [place] [address],[address], [address] [place] [address] 12/06/2022 11:46:41 Date Recorded Body height Body mass index (BMI) Body weight Provider Name and Address Organization Details Last Updated DateTime 02/14/2023 182.88 cm 34.9 kg/m2 405406.24 g Ewa Barrett [facility] 02/14/2023 14:42:50 Date Recorded Body height Body mass index (BMI) Body weight Provider Name and Address Organization Details Last Updated DateTime 04/18/2023 182.88 cm 34.9 kg/m2 559290.24 g Ewa Barrett [facility] 04/18/2023 14:11:59 Social History Question Answer [...] o Information not available 01/02/2022 Preferred Language Latvian Information not available 01/02/2022 Recreational Drug Use [...] available 2021 07:52:53 Medical History Condition Response Diabetes Y Sexually Transmitted Infection N Bleeding Disorder N High Blood Pressure Y Kidney Stones N Cancer N Lung Disease N Depression N High Cholesterol Y GERD/Acid Reflux N Heart Disease N Immunizations Vaccine Type Date Status Provider Name and Address Organization Details Recorded Time influenza, unspecified formulation 03/25/2021 completed Not Available [facility] 04/18/2023 14:09:43 SARS-COV-2 (COVID-19) vaccine, UNSPECIFIED 12/13/2021 completed Not Available [facility] 04/18/2023 14:09:43 COVID-19, mRNA, LNP-S, PF, 30 mcg/0.3 mL dose 07/23/2020 completed Malia mendoza [facility] 11/07/2022 16:12:58 COVID-19, mRNA, LNP-S, PF, 30 mcg/0.3 mL dose 08/13/2020 completed Malia mendoza [facility] 11/07/2022 16:12:58 COVID-19, mRNA, LNP-S, PF, 30 mcg/0.3 mL dose 03/23/2021 completed Malia mendoza [facility] 11/07/2022 16:12:58 COVID-19, mRNA, LNP-S, PF, 30 mcg/0.3 mL dose, nick-sucrose 12/13/2021 completed Malia mendoza [facility] 11/07/2022 16:12:58 pneumococcal polysaccharide PPV23 06/07/2016 completed Malia mendoza [facility] 11/07/2022 16:12:58 Tdap 06/07/2016 completed Malia mendoza [facility] 11/07/2022 16:12:58 Pneumococcal conjugate PCV 13 06/12/2017 completed Malia mendoza [facility] 11/07/2022 16:12:58 Influenza, high-dose, trivalent, PF 07/19/2018 completed Malia mendoza, [facility] 11/07/2022 16:12:58 Influenza, high-dose, trivalent, PF 04/24/2017 completed Malia mendoza, [facility] 11/07/2022 16:12:58 Influenza, high-dose, trivalent, PF 06/07/2016 completed Malia mendoza, [facility] 11/07/2022 16:12:58 Influenza, high-dose, trivalent, PF 06/20/2019 completed Malia mendoza, [facility] 11/07/2022 16:12:58 Influenza, split virus, quadrivalent, PF 06/09/2015 completed Malia mendoza, [facility] 11/07/2022 16:12:58 Influenza, high-dose, quadrivalent, PF 05/25/2022 completed Malia mendoza, [facility] 12/14/2022 10:29:10 Past Encounters Encounter ID Performer Location Encounter Start Date Encounter Closed Date Diagnosis/Indication Diagnosis SNOMED-CT Code Diagnosis ICD10 Code [id number] DORINA C[place]AND [facility] [address],[facility] [address] [place] [address] 01/02/2022 09:53:50 01/02/2022 10:57:22 Primary erectile dysfunction 873879811 N52.9 [id number] MD TED [facility] [address] [place] [address] 09/27/2022 11:24:42 09/29/2022 08:56:40 Primary erectile dysfunction 923044634 N52.9 Injury of penis 74991579 6 S30.93XA Phimosis 038785734 N47.1 Pelvic luba or dysfunction 730363604 M62.9 Slowing of urinary stream 91954452 R39.12 [id number] MD TED [facility] [address] [place] [address] 10/27/2022 10:13:19 11/09/2022 10:24:08 Dysuria 81294205 R30.0 [id number] MD [facility] [address] [place] [address] 12/06/2022 11:35:32 12/08/2022 14:15:29 Primary erectile dysfunction 720733360 N52.9 Injury of penis 52030214 6 S30.93XA Phimosis 801949210 N47.1 Pelvic lbua or dysfunction 967435688 M62.9 Slowing of urinary stream 40576040 R39.12 [id number] Cesar Pichardo MD [facility] [address] [place] [address] 02/14/2023 14:32:25 02/21/2023 12:47:59 Primary erectile dysfunction 157380473 N52.9 Injury of penis 07069796 6 S30.93XA Phimosis 039057262 N47.1 Pelvic luba or dysfunction 991974707 M62.9 Slowing of urinary stream 52567113 R39.12 [id number] Cesar Pichardo MD [facility] [address] [place] [address] 04/18/2023 14:08:35 04/24/2023 14:31:50 Primary erectile dysfunction 625850145 N52.9 Injury of penis 37137522 6 S30.93XA Phimosis 889998043 N47.1 Pelvic luba or dysfunction 388244128 M62.9 Slowing of urinary stream 42525081 R39.12 Health Concerns Section Related Observation LastModified by Organization Detai ls LastModified Time None Recorded Concern Status LastModified by Organization Details LastModified Time None Recorded Advance Directives Directive None Recorded Payers Encounter Date Sequence Insurance Name Policy Number Policy Perez Covered Member ID Perez Member ID Guarantor Name 09/27/2022 1 [place] [id number] Chaya R Barfknecht [id number] Adilson R Barfknecht 10/27/2022 1 [place] [id number] Chaya R Barfknecht [id number] Adilson R Barfknecht 12/06/2022 1 [place] [id number] Chaya R Barfknecht [id number] Adilson Person 02/14/2023 1 [place] [id number] Chaya Person [id number] Adilson Person 04/18/2023 1 [place] [id number] Chaya Person [id number] Adilson Person Notes Date Note Type Note Provider Name and Address Organization Details Recorded Time 3 text/html Erectile DysfunctionReported bypatient.Notes:72 y/o male presents for an evaluation of [...] and high cholesterol (controlled). Denies CAD. 09/27/2022 (Marino):Mr. Person is a 72 yoM with h/o [...] of the history. Cesar Pichardo MD [address], [place], [address], [facility] 09/27/2022 13:29:07 3 text/html Erectile DysfunctionReported bypatient.Notes:72 y/o male presents for an evaluation of [...] and high cholesterol (controlled). Denies CAD. 09/27/2022 (Marino):Mr. Person is a 72 yoM with h/o [...] his who provides some of the history. 12/06/2022:Here for follow up penile injury, phimosis, pelvic [...] of the history. Cesar Pichardo MD [address], [place], [address], [facility] 12/06/2022 12:27:39 3 text/html Erectile DysfunctionReported bypatient.Notes:72 y/o male presents for an evaluation of [...] and high cholesterol (controlled). Denies CAD. 09/27/2022 (Marino):Mr. Person is a 72 yoM with h/o [...] his who provides some of the history. 12/06/2022:Here for follow up penile injury, phimosis, pelvic [...] his who provides some of the history. 02/14/2023:Here for follow up penile injury, phimosis, pelvic floor dysfunction, weakened urinary stream, and erectile dysfunction. Today reports overall improvement in his phimosis. Cesar Pichardo MD [address], [place], [address], [facility] 02/14/2023 14:52:55 3 text/html Erectile DysfunctionReported bypatient.Notes:73 y/o male presents for an evaluation of [...] and high cholesterol (controlled). Denies CAD. 09/27/2022 (Marino):Mr. Person is a 73 yoM with h/o [...] his who provides some of the history. 12/06/2022:Here for follow up penile injury, phimosis, pelvic [...] his who provides some of the history. 02/14/2023:Here for follow up penile injury, phimosis, pelvic floor dysfunction, weakened urinary stream, and erectile dysfunction. Today reports overall improvement in his phimosis. 04/18/2023:Here for follow up penile injury, phimosis, pelvic floor dysfunction, weakened urinary stream, and erectile dysfunction. Today reports that he feels his phimosis has resolved. Doing great. Cesar Pichardo MD [address], [place], [address], [facility] 04/18/2023 14:47:38
--- NOTE | 2024-05-28 09:15 | CRLHL7_ITS ---
For Patients: As a result of the Century Cures Act, medical imaging exams and procedure reports are released immediately into your electronic medical record. You may view this report before your referring provider. If you have questions, please contact your health care provider. INDICATION: Radiculopathy. COMPARISON: 05/05/2024. Technique Sagittal T1, T2, and STIR sequences. Axial T1 and T2 weighted sequences. FINDINGS: Stable grade 1 anterolisthesis of L4 on L5 measures approximately 4 mm. Otherwise, normal alignment. No fractures. No vertebral body loss of height. No spondylosis. Compared to the previous CT, stable postop changes of laminectomies at L3-4, L4-5 and L5-S1. Edema and likely granulation tissue within the posterior soft tissue the operative bed. Posterior trice and transpedicular screw fixation L3-S1. Hardware is better visualized on the previous CT. No suspicious osseous lesions. Normal conus terminates at L1. T12-L1 L1-2: No spinal canal neural foraminal narrowing. L2-3: Disc degeneration and posterior disc bulge. Moderate narrowing of spinal canal. No neural foraminal narrowing. Mild facet arthropathy. L3-4: Disc degeneration and posterior disc bulge. Mild narrowing of the spinal canal. Allowing for artifact, mild narrowing of bilateral foramina. L4-5: Grade 1 anterolisthesis. Disc degeneration and posterior disc bulge. Spinal canal is decompressed by laminectomy. Moderate right and mild left neural foraminal narrowing. L5-S1: Disc degeneration. Diffuse disc bulge and endplate osteophytic ridging. There is a small right paracentral disc extrusion measures approximate 4 mm in diameter with 4 mm of cephalad migration. Otherwise, no narrowing of spinal canal. No suzette impingement of the traversing S1 nerve roots. Moderate severe right and mild left neural foraminal narrowing. Potential impingement of the exiting right L5 nerve root. Degenerative changes of the SI joints. Small left renal cyst. IMPRESSION: 1. Stable grade 1 anterolisthesis of L4 on L5. Otherwise normal alignment. No fractures 2. Stable postop changes L3-4, L4-5 and L5-S1. 3. At L2-3, moderate narrowing of the spinal canal 4. At L3-4, mild narrowing of the spinal canal and bilateral neural foramina 5. At L4-5, moderate right and mild left Neural foraminal narrowing. 6. At L5-S1, Small right paracentral disc extrusion. Moderate to severe narrowing of the right neural foramen. Mild narrowing of the left neural foramen. Potential impingement of the exiting right L5 nerve root Dictated by John Carrizales MD @ 05/30/2024 10:00:20 PM (Electronically Signed)
== END 2024-05-28 08:50 | disposition home or self-care (01) ==
LOC: MRI 08:50
PROVIDERS: PCP Family Medicine; Visit Provider Family Medicine
DX: M54.10 Radiculopathy, site unspecified (principal); M51.26 Other intervertebral disc displacement, lumbar region; M51.27 Other intervertebral disc displacement, lumbosacral region
CPT/HCPCS: 72148

== ENCOUNTER 2024-10-14 09:15 | Outpatient (CLI) | payer BC, SELFPAY | END 2024-10-14 09:16 | disposition home or self-care (01) | LOC: NFLDREF 10-15 03:26 | PROVIDERS: PCP Family Medicine; Referring Provider Family Medicine; Visit Provider Family Medicine | DX: E11.65 Type 2 diabetes mellitus with hyperglycemia (principal); Z79.84 Long term (current) use of oral hypoglycemic drugs; Z79.85 Long-term (current) use of injectable non-insulin antidiabetic drugs; Z12.5 Encounter for screening for malignant neoplasm of prostate | CPT/HCPCS: 80053; 80061; 82043; 82570; G0103 ==

== ENCOUNTER 2024-10-21 09:41 | Outpatient (CLI) | payer BC, SELFPAY | END 2024-10-21 09:42 | disposition home or self-care (01) | LOC: NFLDREF 23:34 | PROVIDERS: PCP Family Medicine; Referring Provider Family Medicine; Visit Provider Family Medicine | DX: R82.90 Unspecified abnormal findings in urine (principal) | CPT/HCPCS: 87086 ==

== ENCOUNTER 2024-12-08 10:07 | Outpatient (CLI) | payer BC, SELFPAY | END 2024-12-08 10:08 | disposition home or self-care (01) | LOC: NFLDREF 12-12 01:20 | PROVIDERS: PCP Family Medicine; Referring Provider Family Medicine; Visit Provider Family Medicine | DX: I48.91 Unspecified atrial fibrillation (principal); I10 Essential (primary) hypertension; D64.9 Anemia, unspecified; Z79.01 Long term (current) use of anticoagulants | CPT/HCPCS: 85610 ==

== ENCOUNTER 2024-12-11 09:35 | Outpatient (CLI) | payer BC, SELFPAY | END 2024-12-11 09:36 | disposition home or self-care (01) | LOC: NFLDREF 12-16 15:41 | PROVIDERS: PCP Family Medicine; Referring Provider Family Medicine; Visit Provider Family Medicine | DX: D64.9 Anemia, unspecified (principal); I48.91 Unspecified atrial fibrillation; Z79.01 Long term (current) use of anticoagulants | CPT/HCPCS: 85610 ==

== ENCOUNTER 2024-12-25 08:14 | Outpatient (CLI) | payer BC, SELFPAY ==
--- NOTE | 2024-12-25 09:13 | P.ANES_ITS ---
Anesthesia Charges Start Date/Time Anesthesia Start Date: 12/25/24 Anesthesia Start Time: 08:54 Stop Date/Time Anesthesia Stop Date: 12/25/24 Anesthesia Stop Time: 09:12 Summary Extremes of Age - Over 70 or under 1: STRATEGY PLANNING CONSULTANT Coding CPT Codes CPT Codes: ANES UPR GI NDSC PX NOS - 58957 ([id number]) P3 - PATIENT W/SEVERE SYS DISEASE, QK - COAL MINER 2-4 CNCRNT ANES PROC, QX - STRATEGY PLANNING CONSULTANT SVC W/ MD MED DIRECTION Additional Codes: Summary - Extremes of Age - Over 70 or under 1: STRATEGY PLANNING CONSULTANT ([id number])
--- NOTE | 2024-12-25 09:13 | W.ANESCHARGE ---
Anesthesia Charges Start Date/Time Anesthesia Start Date: 12/25/24 Anesthesia Start Time: 08:54 Stop Date/Time Anesthesia Stop Date: 12/25/24 Anesthesia Stop Time: 09:12 Summary Extremes of Age - Over 70 or under 1: INDOOR LANDSCAPE ARCHITECT Coding CPT Codes CPT Codes: ANES UPR GI NDSC PX NOS - 61350 ([id number]) P3 - PATIENT W/SEVERE SYS DISEASE, QK - IMPORT/EXPORT AGENT 2-4 CNCRNT ANES PROC, QX - INDOOR LANDSCAPE ARCHITECT SVC W/ MD MED DIRECTION Additional Codes: Summary - Extremes of Age - Over 70 or under 1: INDOOR LANDSCAPE ARCHITECT ([id number])
--- NOTE | 2024-12-25 09:15 | P.ANES_ITS ---
Anesthesia Charges Start Date/Time Anesthesia Start Date: 12/25/24 Anesthesia Start Time: 08:54 Stop Date/Time Anesthesia Stop Date: 12/25/24 Anesthesia Stop Time: 09:12 Summary Extremes of Age - Over 70 or under 1: MDA Coding CPT Codes CPT Codes: ANES UPR GI NDSC PX NOS - 95261 ([id number]) P3 - PATIENT W/SEVERE SYS DISEASE, QK - PAPER MACHINE TENDER 2-4 CNCRNT ANES PROC, QX - LANDSCAPE MAINTENANCE INTERNSHIP SVC W/ MD MED DIRECTION Additional Codes: Summary - Extremes of Age - Over 70 or under 1: MDA ([id number])
--- NOTE | 2024-12-25 09:15 | W.ANESCHARGE ---
Anesthesia Charges Start Date/Time Anesthesia Start Date: 12/25/24 Anesthesia Start Time: 08:54 Stop Date/Time Anesthesia Stop Date: 12/25/24 Anesthesia Stop Time: 09:12 Summary Extremes of Age - Over 70 or under 1: MDA Coding CPT Codes CPT Codes: ANES UPR GI NDSC PX NOS - 90002 ([id number]) P3 - PATIENT W/SEVERE SYS DISEASE, QK - WAFER FABRICATION TECHNICIAN 2-4 CNCRNT ANES PROC, QX - COURT OPERATIONS CLERK SVC W/ MD MED DIRECTION Additional Codes: Summary - Extremes of Age - Over 70 or under 1: MDA ([id number])
== END 2024-12-25 08:15 | disposition home or self-care (01) ==
LOC: OP CLINIC 08:14
PROVIDERS: PCP Family Medicine; Visit Provider Surgery
DX: D50.9 Iron deficiency anemia, unspecified (principal); K31.89 Other diseases of stomach and duodenum
CPT/HCPCS: 00731; 43239; 99100; J2704; J3010

== ENCOUNTER 2025-01-12 11:23 | Outpatient (CLI) | payer BC, SELFPAY | END 2025-01-12 11:24 | disposition home or self-care (01) | PROVIDERS: PCP Family Medicine; Visit Provider Family Medicine | DX: D64.9 Anemia, unspecified (principal); Z79.899 Other long term (current) drug therapy | CPT/HCPCS: 82607; 82728; 82746; 83540; 83550 ==

== ENCOUNTER 2025-02-17 08:45 | Outpatient (CLI) | payer BC, SELFPAY | END 2025-02-17 08:46 | disposition home or self-care (01) | PROVIDERS: PCP Family Medicine; Visit Provider Family Medicine | DX: D64.9 Anemia, unspecified (principal); I10 Essential (primary) hypertension | CPT/HCPCS: 80048; 82746 ==

== ENCOUNTER 2025-03-17 07:31 | Outpatient (CLI) | payer BC, SELFPAY ==
--- NOTE | 2025-03-17 09:23 | W.ANESCHARGE ---
Anesthesia Charges Start Date/Time Anesthesia Start Date: 03/17/25 Anesthesia Start Time: 08:46 Stop Date/Time Anesthesia Stop Date: 03/17/25 Anesthesia Stop Time: 09:24 Summary Extremes of Age - Over 70 or under 1: MDA Coding CPT Codes CPT Codes: ANES LWR INTST NDSC NOS - 11844 ([id number]) QK - ASSISTANT PROFESSOR OF ANTHROPOLOGY 2-4 CNCRNT ANES PROC, QX - REPRODUCTION SPECIALIST SVC W/ MD MED DIRECTION, P3 - PATIENT W/SEVERE SYS DISEASE Additional Codes: Summary - Extremes of Age - Over 70 or under 1: MDA ([id number])
--- NOTE | 2025-03-17 09:25 | P.ANES_ITS ---
Anesthesia Charges Start Date/Time Anesthesia Start Date: 03/17/25 Anesthesia Start Time: 08:46 Stop Date/Time Anesthesia Stop Date: 03/17/25 Anesthesia Stop Time: 09:24 Summary Extremes of Age - Over 70 or under 1: LIVE AMMUNITION INSPECTOR Coding CPT Codes CPT Codes: ANES LWR INTST NDSC NOS - 66196 ([id number]) P3 - PATIENT W/SEVERE SYS DISEASE, QK - PRESS SHOP SUPERVISOR 2-4 CNCRNT ANES PROC, QX - LIVE AMMUNITION INSPECTOR SVC W/ MD MED DIRECTION Additional Codes: Summary - Extremes of Age - Over 70 or under 1: LIVE AMMUNITION INSPECTOR ([id number])
--- NOTE | 2025-03-17 09:25 | W.ANESCHARGE ---
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
== END 2025-03-17 07:32 | disposition home or self-care (01) ==
LOC: OP CLINIC 07:32
PROVIDERS: PCP Family Medicine; Visit Provider Surgery
DX: Z12.11 Encounter for screening for malignant neoplasm of colon (principal); D12.2 Benign neoplasm of ascending colon; D12.3 Benign neoplasm of transverse colon; D12.4 Benign neoplasm of descending colon; K57.30 Diverticulosis of large intestine without perforation or abscess without bleeding; R19.5 Other fecal abnormalities
CPT/HCPCS: 00811; 45385; 88305; 99100; J2704

== ENCOUNTER 2025-04-03 10:00 | Outpatient (CLI) | payer MEDICARE, SELFPAY | END 2025-04-03 10:01 | disposition home or self-care (01) | LOC: NFLDREF 04-06 18:04 | PROVIDERS: PCP Family Medicine; Referring Provider Family Medicine; Visit Provider Family Medicine | DX: I48.91 Unspecified atrial fibrillation (principal); Z79.01 Long term (current) use of anticoagulants | CPT/HCPCS: 85610 ==

== ENCOUNTER 2025-05-08 08:37 | Outpatient (CLI) | payer MEDICARE, SELFPAY | END 2025-05-08 08:38 | disposition home or self-care (01) | PROVIDERS: PCP Family Medicine; Visit Provider Family Medicine | DX: D64.9 Anemia, unspecified (principal); E11.9 Type 2 diabetes mellitus without complications; I10 Essential (primary) hypertension; Z79.01 Long term (current) use of anticoagulants | CPT/HCPCS: 80053; 82607; 82668; 82728; 82746; 83540; 83550 ==

== ENCOUNTER 2025-06-12 09:55 | Outpatient (CLI) | payer MEDICARE, SELFPAY | END 2025-06-12 09:56 | disposition home or self-care (01) | LOC: NFLDREF 06-17 21:37 | PROVIDERS: PCP Family Medicine; Referring Provider Family Medicine; Visit Provider Family Medicine | DX: Z79.01 Long term (current) use of anticoagulants (principal) | CPT/HCPCS: 85610 ==